=== PATIENT | male | born 1955 | race Caucasian/White ===

== ENCOUNTER → 2017-11-23 09:45 | Outpatient (CLI) | payer OTHER, SELFPAY ==
[2017-11-23 11:16] LABS: Cholesterol 106 mg/dL (200); High Density Lipoprotein 33 mg/dL; Triglycerides 96 mg/dL; Very Low Density Lipoprotein 19 mg/dL (5-40)
[2017-11-23 11:23] LABS: Hemoglobin A1c 6.1 % (4.2-6.3)
== END ==
PROVIDERS: Family Provider Family Medicine; PCP Family Medicine; Visit Provider Family Medicine
DX: E11.9 Type 2 diabetes mellitus without complications (principal); E78.5 Hyperlipidemia, unspecified
CPT/HCPCS: 36415; 80061; 83036

== ENCOUNTER → 2019-08-11 | Outpatient (CLI) | payer MEDICARE, SELFPAY ==
--- NOTE | 2019-08-11 16:00 | TISS_PTH ---
PATIENT: NASIM LINARES LOC: [facility] U#:[id number] AGE/SX: 64/M ROOM: RE08/11/[address]: Dr. Choco Enciso MD : [id number] BED: DIS: 08/11/2019 SPEC #: [id number] RECD: 08/11/19 17:20 STATUS: RAYMOND CORINA #: [id number] ABEL: 08/11/19 16:[address]: Choco Enciso DEPT: SURGICAL PATHOLOGY RECD BY: Tiffanie Gutierrez ENTERED: 08/12/19 12:03 SP TYPE: Tissue Bx ISABELLA DR: Dr. Brooks Davis MD Tissues: Leg, NOS Procedures: Surgery Specimen Level IV HEADER OPERATION: Right leg wound debridement PRE-OP DIAGNOSIS: Right leg wound TISSUE SUBMITTED: Right leg wound tissue MICROSCOPIC DIAGNOSIS Skin and soft tissue of right leg, biopsy: Fragments of superficial skin with acute and chronic inflammation, fibrinoid material and synthetic weakly polarizable material suggestive of gauze. AM:rita 08/13/19 COMMENT Case has been reviewed in consultation with Dr. Santiago who concurs with the above diagnosis. IDC:VIOLETTE MICROSCOPIC DESCRIPTION Slides are reviewed. GROSS DESCRIPTION Received in fixative is one container labeled with the patient's name and designated right leg wound. The specimen consists of multiple fragments of hemorrhagic soft tissue predominantly consists of blood clot that in aggregate measure 2.5 x 1.5 x 0.3 cm. The entire specimen is submitted in one cassette. / VIOLETTE:rita 08/12/19 TC:2 CPT: 25829
[2019-08-11 16:03] VITALS: BMI 38.6
== END | disposition home or self-care (01) ==
LOC: LABSPEC 08-12 12:00
PROVIDERS: PCP Family Medicine; Visit Provider Surgery
DX: S81.801A Unspecified open wound, right lower leg, initial encounter (principal)
CPT/HCPCS: 88305

== ENCOUNTER → 2019-08-19 09:28 | Outpatient (CLI) | payer MEDICARE, SELFPAY ==
[2019-08-11 16:03] VITALS: BMI 38.6
[2019-08-19 12:33] LABS: Color, Urine Straw (Yellow); Glucose, Dipstick Normal (Normal); Ketone-Dipstick Negative (Negative); Leukocyte Esterase-Dipstick Negative /ul (Negative); Nitrite-Dipstick Negative (Negative); Occult Blood-Urine Negative /ul (Negative); Protein-Dipstick Negative (Negative); Urine Bilirubin Dipstick Negative (Negative); Urine Clarity Clear (Clear); Urine Urobilinogen 1 mg/dl (Normal)
[2019-08-19 12:35] LABS: Absolute Lymphocyte Count 0.72 X10^3/uL (0.83-4.51); Absolute Neutrophil Count 7.1 X10^3/uL (2.0-7.7); Basophil# 0.05 X10^3/uL; Basophil% 0.6 % (0-1); Eosinophil# 0.05 X10^3/uL; Eosinophils% 0.6 % (0-5); Lymphocyte # 0.72 X10^3/ul (4.0); Lymphocyte % 8.4 % (19-41); Mean Corpuscular Hgb 30.9 pg (27.0-32.0); Mean Corpuscular Volume 96.6 fL (80-94); Mean Platelet Vol. 9.3 fl (6.2-12.0); Monocyte# 0.61 X10^3/uL; Monocyte% 7.1 % (0-10); NRBC Flagged by Analyzer 0 % (0-5); Neutrophil # 7.09 X10^3/uL (2.7-7.7); Neutrophil % 83.1 % (47-70); Platelet Count 153 K/mm3 (150-450); RBC Distribution Width CV 13.2 % (11.6-14.6); RBC Distribution Width SD 47.5 fl (35.1-43.9); Red Blood Count 6.09 M/mm3 (4.6-6.2); White Blood Count 8.5 K/mm3 (4.4-11.0)
[2019-08-19 12:52] LABS: Hematocrit 58.8 % (40-54)
[2019-08-19 12:53] LABS: Hemoglobin 18.8 g/dL (13.0-16.5)
[2019-08-19 13:01] LABS: ALB/GLOB Ratio 0.9 RATIO (0.9-2.4); AST(SGOT) 12 U/L (15-37); Alanine Aminotransfer ALT/SGPT 22 U/L (16-61); Albumin, Serum 3.6 g/dL (3.2-5.0); Alkaline Phosphatase 128 U/L (45-117); Anion Gap 3 (5-15); BUN 12 mg/dL (7-18); Calcium,Total 8.8 mg/dL (8.5-10.1); Chloride 100 mmol/L (98-107); Cholesterol 130 mg/dL (200); Creatinine, Serum 0.92 mg/dL (0.70-1.30); EST Glomerular Filtration Rate 87 mL/min (>60); Est Glom Filt Rate - Afr Amer 106 mL/min (>60); Globulin 3.8 g/dL (2.2-4.2); Glucose 107 mg/dL (74-106); High Density Lipoprotein 43 mg/dL; PSA,Total - Annual Screen 0.87 ng/mL (0.00-4.00); Potassium 3.7 mmol/L (3.5-5.1); Protein, Total 7.4 g/dL (6.4-8.2); Sodium Level 139 mmol/L (136-145); Triglycerides 65 mg/dL; Very Low Density Lipoprotein 13 mg/dL (5-40)
[2019-08-19 13:41] LABS: Hemoglobin A1c 5.9 % (4.2-6.3)
[2019-08-20 12:31] LABS: Pathologist Review Reviewed
== END ==
PROVIDERS: PCP Family Medicine; Referring Provider Family Medicine; Visit Provider Family Medicine
DX: Z00.00 Encounter for general adult medical examination without abnormal findings (principal); E11.9 Type 2 diabetes mellitus without complications; J44.9 Chronic obstructive pulmonary disease, unspecified; E78.5 Hyperlipidemia, unspecified; I10 Essential (primary) hypertension; Z12.5 Encounter for screening for malignant neoplasm of prostate
CPT/HCPCS: 36415; 80053; 80061; 81002; 83036; 84153; 85025; G0103

== ENCOUNTER 2019-08-28 08:30 | Outpatient (RCR) | payer MEDICARE, SELFPAY ==
[2019-08-07 10:34] VITALS: BP 121/70; PULSE 90; RESP 16; TEMP 36.6; BMI 38.6
[2019-08-07 10:48] VITALS: BMI 38.6
--- NOTE | 2019-08-07 11:18 | PCM.WC.HP ---
(1) Ulcer of right lower extremity with fat layer exposed Status: Chronic Current Visit: Yes Code(s): L97.912 - Non-pressure chronic ulcer of unspecified part of right lower leg with fat layer exposed (2) Bilateral lower extremity edema Status: Chronic Current Visit: Yes Code(s): R60.0 - Localized edema (3) Tobacco abuse disorder Status: Chronic Current Visit: Yes Code(s): Z72.0 - Tobacco use History of Present Illness Date of Service: 08/07/19 Chief Complaint: Right Leg Ulcer History of Wound: Mr. Ariza is a 64 yo who was referred by his Primiary care office to the wound center due to worsening right leg ulcer. He states that it has been present for over a year and it has progressively worsened. He presented to his primary care office last week due to what he describes as increased bleeding/ scabbing after he bumped it . He reports a similar episode in the past as well. He has over the years been applying antibiotic ointment to the area. No known history of Melanoma/Basal cell or varicosity. He does however have significnat bilateral lower extremity swelling. Past Medical History Past Medical History: Chronic Problems Ulcer of right lower extremity with fat layer exposed (Chronic) Ulcer of left calf (Chronic) Bilateral lower extremity edema (Chronic) Tobacco abuse disorder (Chronic) HTN (hypertension) (Chronic) Hyperlipemia (Chronic) CAD (coronary artery disease) (Chronic) Status post stenting in the past, following the Dr. Barker COPD (chronic obstructive pulmonary disease) (Chronic) On CPAP at night Surgical History: - - Coronary artery stent placement 2010 Allergies/Adverse Reactions: Allergies benzonatate [From Tessalon Perles] Allergy (Verified 08/07/19 11:01) Unknown chlorpheniramine polistirex [From Tussionex] Adverse Reaction (Verified 06/05/13 00:32) Rash hydrocodone polistirex [From Tussionex] Adverse Reaction (Verified 06/05/13 00:32) Rash levofloxacin [From Levaquin] Adverse Reaction (Verified 08/07/19 11:01) Rash Home Medications: Ambulatory Orders Medication Instructions Recorded Atorvastatin Calcium [Lipitor] 80 mg PO QHS 04/18/13 Clopidogrel Bisulfate [Plavix] 75 mg PO DAILY 04/18/13 Losartan Potassium [Cozaar] 50 mg PO DAILY 04/18/13 Isosorbide Mononitrate [Imdur] 60 mg PO DAILY #30 tablet 04/19/13 Albuterol Aerosols [Ventolin 2.5 mg INHALATION 4X/DAY #120 07/06/14 Aerosols] vial.neb. Albuterol IH (ProAir) [Proair Hfa 1 - 2 puff INHALATION Q4H PRN PRN 10/31/16 (SP)Vent Pts] Metformin HCl [Metformin HCl ER] 500 mg PO DAILY 10/31/16 Trazodone HCl 60 mg PO QHS 10/31/16 Budesonide/Formoterol 160/4.5 2 puff INHALATION BID 08/07/19 [Symbicort 160/4.5 Mcg Inhaler (SP)] Cephalexin [Keflex] mg PO TID 08/07/19 - Family History Maternal No pertinent history Smoking Status: Current every day smoker Review of Systems Constitutional: Denies: Anorexia, Chills, Fever Eyes: Denies: Blurred vision, Pain, Redness HEENT: Denies: Difficulty Swallowing Cardiovascular: Denies: Claudication Gastrointestinal: Denies: Abdominal Pain, Hematemesis, Vomiting Skin: Denies: Jaundice - Physical Exam Vital Signs Temp Pulse Resp BP 97.8 F 90 16 121/70 H 08/07/19 10:34 08/07/19 10:34 08/07/19 10:34 08/07/19 10:34 General: Alert, Oriented x3, Cooperative, No apparent distress HEENT: Atraumatic, Normocephalic Oral: Moist Mucosa Neck: Supple Lungs: Wheezes Cardiovascular: Regular rate, Regular Rhythm, Normal S1, Normal S2 Abdomen: Non Tender, Obese Extremities: No cyanosis, Edema Skin: Ulcer/ Wound Wound Measurements and Assessment WC - Nurse 1 - General Ulcer Measurement Start: 08/07/19 10:28 Freq: Status: Active Protocol: Activity Type Activity Date Activity User E-Sign Co-Sign Detail Recorded Client Recorded Date Recorded By Document 08/07/19 10:34 [id number] 08/07/19 10:47 CS 08/07/19 10:34 Wound Center Nurse 1 [Ulcer Assessment] #2 right lower lateral leg -Combined with other wound No -Current Size (cm) - Length 2.7 -Current Size (cm) - Width 3.6 -Current Size (cm) - Depth 0.1 -Total Square Cm 9.72 -Date of Last Picture (Recall this 08/07/19 field) -Photo Taken Yes -Epithelialization None Present -Tunneling No -Undermining/Tunneling No -Circular Undermining No -Exudate Amt None Present -Wound Margin Thickened -Granulation Quality Hyper- granulation -Slough/Fibrin Yes -Necrosis Amt None Present (0 %) -Necrotic Tissue Type Eschar -Structure Exposed N/A,None/ Limited to Skin Breakdown -Texture (Luna-wound Skin Appearance) No Abnormality, Assessed -Moisture (Luna-wound Skin Appearance Dry/Scaly ) -Color (Luna-wound Skin Appearance) Hemosiderin Staining -Temperature (Luna-wound Skin No Abnormality Appearance) (Pt Warm) -Tenderness on Palpation (Luna-wound No Skin Appearance) -Ulcer Cleansing Rinsed/ Irrigated with Saline -Foul Odor after Cleansing No -Anesthetic Used 5% Lidocaine Gel [Edema Assessment] -Lower Limb Edema Present Yes -Right Calf (cm) 50.8 -Right Ankle (cm) 30.1 -Left Calf (cm) 48.1 -Left Ankle (cm) 28.1 WC - Nurse 2 - General Ulcer CM Notes Start: 08/07/19 10:28 Freq: Status: Active Protocol: Activity Type Activity Date Activity User E-Sign Co-Sign Detail Recorded Client Recorded Date Recorded By Document 08/07/19 11:07 MW [id number] 08/07/19 11:11 MW 08/07/19 11:07 Wound Center Nurse 2 [Procedure/Treatment] #2 right lower lateral leg -Time 11:07 -Correct Patient Yes -Correct Side, Site, Position Yes -Correct Procedure Yes -Procedure Performed Yes -Type of Procedure Debridement -Clinical Debridement Selective -Post Debridement Size (cm) - Length 3.0 -Post Debridement Size (cm) - Width 3.6 -Post Debridement Size (cm) - Depth 0.1 -Total Square Cm 10.80 -Wound/Ulcer Outcome Not Healed -Ulcer Cleansing Rinsed/ Irrigated with Saline -Foul Odor after Cleansing No -Bioengineered Tissue No -Bleeding Controlled with Pressure -Offloading No -Treatment Response Procedure Tolerated Well [See Physician Procedure note for Specifics] Pain Scale: 0-10 Numeric [Pain] -Is Patient Pain Free? Yes Musculoskeletal: No Muscle Wasting Neurological: Cranial nerves II-XII grossly intact Psych/Mental Status: Normal Affect Debridement Note Post-Debridement Measurements/Treatment WC - Nurse 2 - General Ulcer CM Notes Start: 08/07/19 10:28 Freq: Status: Active Protocol: Activity Type Activity Date Activity User E-Sign Co-Sign Detail Recorded Client Recorded Date Recorded By Document 08/07/19 11:07 MW [id number] 08/07/19 11:11 MW 08/07/19 11:07 Wound Center Nurse 2 #2 right lower lateral leg -Time 11:07 -Correct Patient Yes -Correct Side, Site, Position Yes -Correct Procedure Yes -Procedure Performed Yes -Type of Procedure Debridement -Clinical Debridement Selective -Post Debridement Size (cm) - Length 3.0 -Post Debridement Size (cm) - Width 3.6 -Post Debridement Size (cm) - Depth 0.1 -Total Square Cm 10.80 -Wound/Ulcer Outcome Not Healed -Ulcer Cleansing Rinsed/ Irrigated with Saline -Foul Odor after Cleansing No -Bioengineered Tissue No -Bleeding Controlled with Pressure -Offloading No -Treatment Response Procedure Tolerated Well Pain Scale: 0-10 Numeric Is Patient Pain Free? Yes Wound debrided: Right Leg Ulcer Type of Debridement: Selective debridement Anesthesia Used: 4% Lidocaine Solution Depth: Down to and including healthy tissue Percentage of wound debrided: 100 Tissue Removed: Devitalized tissue Severity: Fat Layer Exposed Amount of bleeding with debridement: Mild Bleeding Controlled with: Pressure Patient tolerated procedure well Assessment/Plan Active Problems Ulcer of right lower extremity with fat layer exposed (Chronic) Bilateral lower extremity edema (Chronic) Tobacco abuse disorder (Chronic) Assessment: Chronic right lower exremity ulceration with concern for Skin Cancer Vs Vascular abnormality. Plan: Debridement done as documented above, procedure was well tolerated. As above significant bleeding on mild contact and ?? pearling noted ( ??? Basal cell carcinoma ). He however is currently on Plavix. Referred to Dr. Enciso for possible biopsy/ surgical evaluation. For now, [employer] ag daily with kelsi tse. Change daily to twice daily as needed. Smoking cessation very strongly encouraged. Patient declined compression. His questions were answered and he was advised to call with any questions or concerns. Follow up in 2weeks. Multi Select Codes - Visit Charges Office Visit/Consults: 68507 OV L3 Est - Integumentary Integumentary CPT Codes: 26142 Delphine subq tissue 20 sq cm/< - Selective debridement done. Please refer to the clinical note.
[2019-08-21 09:38] VITALS: BP 164/96; PULSE 86; RESP 16; TEMP 36.3; BMI 38.6
--- NOTE | 2019-08-21 12:35 | PN.PCM_ITS ---
(1) Ulcer of right lower extremity with fat layer exposed Status: Chronic Current Visit: Yes Code(s): L97.912 - Non-pressure chronic ulcer of unspecified part of right lower leg with fat layer exposed (2) Bilateral lower extremity edema Status: Chronic Current Visit: Yes Code(s): R60.0 - Localized edema (3) Tobacco abuse disorder Status: Chronic Current Visit: Yes Code(s): Z72.0 - Tobacco use Type of Wound Date of Service: 08/21/19 Chief Complaint: Right Leg Ulcer History of Wound: Mr. Ariza is a 64 yo who was referred by his Primiary care office to the wound center due to worsening right leg ulcer. He states that it has been present for over a year and it has progressively worsened. He presented to his primary care office last week due to what he describes as increased bleeding/ scabbing after he bumped it . He reports a similar episode in the past as well. He has over the years been applying antibiotic ointment to the area. No known history of Melanoma/Basal cell or varicosity. He does however have significnat bilateral lower extremity swelling. Progress of Wound: No new concerns. Biopsy negative for malignancy. - Physical Exam Vital Signs Temp Pulse Resp BP 97.3 F L 86 16 164/96 H 08/21/19 09:38 08/21/19 09:38 08/21/19 09:38 08/21/19 09:38 General: Alert, Oriented x3, Cooperative, No apparent distress HEENT: Atraumatic, Normocephalic Oral: Moist Mucosa Neck: Supple Lungs: Normal air movement Abdomen: Non Tender, Obese Extremities: No cyanosis Skin: Ulcer/ Wound Wound Measurements and Assessment WC - Nurse 1 - General Ulcer Measurement Start: 08/07/19 10:28 Freq: Status: Active Protocol: Activity Type Activity Date Activity User E-Sign Co-Sign Detail Recorded Client Recorded Date Recorded By Document 08/21/19 09:38 [facility] [id number] 08/21/19 09:44 [facility] 08/21/19 09:38 Wound Center Nurse 1 [Ulcer Assessment] #2 right lower lateral leg -Combined with other wound No -Current Size (cm) - Length 0.1 -Current Size (cm) - Width 0.1 -Current Size (cm) - Depth 0.1 -Total Square Cm 0.01 -Photo Taken No -Tunneling No -Undermining/Tunneling No -Circular Undermining No -Exudate Amt Small -Exudate Type Sanguineous -Granulation Amt None Present (0 %) -Slough/Fibrin Yes -Necrosis Amt Large (67-100%) -Necrotic Tissue Type Eschar -Texture (Luna-wound Skin Appearance) Assessed, Scarring -Moisture (Luna-wound Skin Appearance Assessed,Dry/ ) Scaly -Color (Luna-wound Skin Appearance) Assessed, Hemosiderin Staining -Temperature (Luna-wound Skin No Abnormality Appearance) (Pt Warm) -Tenderness on Palpation (Luna-wound No Skin Appearance) -Ulcer Cleansing Rinsed/ Irrigated with Saline -Foul Odor after Cleansing No -Anesthetic Used 5% Lidocaine Gel [Edema Assessment] -Lower Limb Edema Present Yes -Right Calf (cm) 49 -Right Ankle (cm) 28.6 WC - Nurse 2 - General Ulcer CM Notes Start: 08/07/19 10:28 Freq: Status: Active Protocol: Activity Type Activity Date Activity User E-Sign Co-Sign Detail Recorded Client Recorded Date Recorded By Document 08/21/19 09:52 MW [id number] 08/21/19 10:00 MW 08/21/19 09:52 Wound Center Nurse 2 [Procedure/Treatment] #2 right lower lateral leg -Time 09:52 -Correct Patient Yes -Correct Side, Site, Position Yes -Correct Procedure Yes -Procedure Performed Yes -Type of Procedure Debridement -Clinical Debridement Subcutaneous -Post Debridement Size (cm) - Length 1.5 -Post Debridement Size (cm) - Width 1.8 -Post Debridement Size (cm) - Depth 0.2 -Total Square Cm 2.70 -Wound/Ulcer Outcome Not Healed -Ulcer Cleansing Rinsed/ Irrigated with Saline -Foul Odor after Cleansing No -Bioengineered Tissue No -Bleeding Controlled with Pressure -Offloading No -Treatment Response Procedure Tolerated Well [See Physician Procedure note for Specifics] Pain Scale: 0-10 Numeric [Pain] -Is Patient Pain Free? Yes Neurological: Cranial nerves II-XII grossly intact Debridement Note Post-Debridement Measurements/Treatment WC - Nurse 2 - General Ulcer CM Notes Start: 08/07/19 10:28 Freq: Status: Active Protocol: Activity Type Activity Date Activity User E-Sign Co-Sign Detail Recorded Client Recorded Date Recorded By Document 08/07/19 11:07 MW [id number] 08/07/19 11:11 MW Document 08/21/19 09:52 MW [id number] 08/21/19 10:00 MW 08/07/19 08/21/19 11:07 09:52 Wound Center Nurse 2 #2 right lower lateral leg -Time 11: 09:52 -Correct Patient Yes Yes -Correct Side, Site, Position Yes Yes -Correct Procedure Yes Yes -Procedure Performed Yes Yes -Type of Procedure Debridement Debridement -Clinical Debridement Selective Subcutaneous -Post Debridement Size (cm) - Length 3.0 1.5 -Post Debridement Size (cm) - Width 3.6 1.8 -Post Debridement Size (cm) - Depth 0.1 0.2 -Total Square Cm 10.80 2.70 -Wound/Ulcer Outcome Not Healed Not Healed -Ulcer Cleansing Rinsed/ Rinsed/ Irrigated with Irrigated with Saline Saline -Foul Odor after Cleansing No No -Bioengineered Tissue No No -Bleeding Controlled with Pressure Pressure -Offloading No No -Treatment Response Procedure Procedure Tolerated Well Tolerated Well Pain Scale: 0-10 Numeric Is Patient Pain Free? Yes Yes Wound debrided: Right Leg Type of Debridement: Excisional debridement Anesthesia Used: 4% Lidocaine Solution Depth: Down to and including healthy tissue, in the subcutaneous layer Percentage of wound debrided: 100 Instrument Used: 5mm curette, #15 blade, Forceps Tissue Removed: Slough and devitalized tissue Severity: Fat Layer Exposed Amount of bleeding with debridement: Mild Bleeding Controlled with: Pressure Patient tolerated procedure well Assessment/Plan Active Problems (Last Reviewed 08/11/19 @ 16:01 by Catie Turner) Ulcer of right lower extremity with fat layer exposed (Chronic) Bilateral lower extremity edema (Chronic) Tobacco abuse disorder (Chronic) Assessment: Chronic right lower exremity ulceration with concern for Skin Cancer Vs Vascular abnormality. Plan: Debridement done as documented above. procedure was well tolerated. Continue [employer] ag. Change daily to twice daily as needed. Smoking cessation very strongly encouraged. Patient declined compression. His questions were answered and he was advised to call with any questions or concerns. Follow up in 1 week. Code Visit 111xxx-113xx: [id number] Delphine subq tissue 20 sq cm/<
[2019-08-28 08:36] VITALS: BP 134/69; PULSE 94; RESP 18; TEMP 36.3; BMI 38.6
--- NOTE | 2019-08-28 08:58 | PCM.WC.PN ---
(1) Ulcer of right lower extremity with fat layer exposed Status: Chronic Current Visit: Yes Code(s): L97.912 - Non-pressure chronic ulcer of unspecified part of right lower leg with fat layer exposed (2) Bilateral lower extremity edema Status: Chronic Current Visit: Yes Code(s): R60.0 - Localized edema (3) Tobacco abuse disorder Status: Chronic Current Visit: Yes Code(s): Z72.0 - Tobacco use Type of Wound Date of Service: 08/28/19 Chief Complaint: Right Leg Ulcer History of Wound: Mr. Ariza is a 64 yo who was referred by his Primiary care office to the wound center due to worsening right leg ulcer. He states that it has been present for over a year and it has progressively worsened. He presented to his primary care office last week due to what he describes as increased bleeding/ scabbing after he bumped it . He reports a similar episode in the past as well. He has over the years been applying antibiotic ointment to the area. No known history of Melanoma/Basal cell or varicosity. He does however have significnat bilateral lower extremity swelling. Progress of Wound: No new concerns. Improving. - Physical Exam Vital Signs Temp Pulse Resp BP 97.4 F L 94 18 134/69 H 08/28/19 08:36 08/28/19 08:36 08/28/19 08:36 08/28/19 08:36 General: Alert, Oriented x3, Cooperative, No apparent distress HEENT: Atraumatic, Normocephalic Oral: Moist Mucosa Neck: Supple Abdomen: Non Tender, Obese Extremities: No cyanosis, Edema Skin: Ulcer/ Wound Wound Measurements and Assessment WC - Nurse 1 - General Ulcer Measurement Start: 08/07/19 10:28 Freq: Status: Active Protocol: Activity Type Activity Date Activity User E-Sign Co-Sign Detail Recorded Client Recorded Date Recorded By Document 08/28/19 08:36 DV [id number] 08/28/19 08:43 DV 08/28/19 08:36 Wound Center Nurse 1 [Ulcer Assessment] #2 right lower lateral leg -Combined with other wound No -Current Size (cm) - Length 1.4 -Current Size (cm) - Width 1.0 -Current Size (cm) - Depth 0.1 -Total Square Cm 1.40 -Photo Taken No -Epithelialization None Present -Tunneling No -Undermining/Tunneling No -Circular Undermining No -Classification - Thickness Full Thickness without Exposed Support Structure -Exudate Amt Medium -Exudate Type Serosanguineous -Wound Margin Indistinct, Non -Visible -Granulation Amt None Present (0 %) -Granulation Quality N/A -Slough/Fibrin Yes -Necrosis Amt Large (67-100%) -Necrotic Tissue Type Adherent Slough -Structure Exposed None/Limited to Skin Breakdown -Texture (Luna-wound Skin Appearance) Assessed, Scarring -Moisture (Luna-wound Skin Appearance Assessed,Dry/ ) Scaly -Color (Luna-wound Skin Appearance) No Abnormality, Assessed -Temperature (Luna-wound Skin No Abnormality Appearance) (Pt Warm) -Tenderness on Palpation (Luna-wound No Skin Appearance) -Ulcer Cleansing Rinsed/ Irrigated with Saline -Foul Odor after Cleansing No -Anesthetic Used 5% Lidocaine Gel WC - Nurse 2 - General Ulcer CM Notes Start: 08/07/19 10:28 Freq: Status: Active Protocol: Activity Type Activity Date Activity User E-Sign Co-Sign Detail Recorded Client Recorded Date Recorded By Document 08/28/19 08:48 MW [id number] 08/28/19 08:51 MW 08/28/19 08:48 Wound Center Nurse 2 [Procedure/Treatment] -Time 08:48 -Correct Patient Yes -Correct Side, Site, Position Yes -Correct Procedure Yes -Procedure Performed Yes -Type of Procedure Debridement -Clinical Debridement Subcutaneous -Post Debridement Size (cm) - Length 0.8 -Post Debridement Size (cm) - Width 1.0 -Post Debridement Size (cm) - Depth 0.1 -Total Square Cm 0.80 -Wound/Ulcer Outcome Not Healed -Ulcer Cleansing Rinsed/ Irrigated with Saline -Foul Odor after Cleansing No -Bioengineered Tissue No -Bleeding Controlled with Pressure -Offloading No -Treatment Response Procedure Tolerated Well [See Physician Procedure note for Specifics] Pain Scale: 0-10 Numeric [Pain] -Is Patient Pain Free? Yes Musculoskeletal: No Muscle Wasting Neurological: Cranial nerves II-XII grossly intact Psych/Mental Status: Normal Affect Debridement Note Post-Debridement Measurements/Treatment WC - Nurse 2 - General Ulcer CM Notes Start: 08/07/19 10:28 Freq: Status: Active Protocol: Activity Type Activity Date Activity User E-Sign Co-Sign Detail Recorded Client Recorded Date Recorded By Document 08/07/19 11:07 MW [id number] 08/07/19 11:11 MW Document 08/21/19 09:52 MW [id number] 08/21/19 10:00 MW Document 08/28/19 08:48 MW [id number] 08/28/19 08:51 MW 08/07/19 08/21/19 08/28/19 11:07 09:52 08:48 Wound Center Nurse 2 #2 right lower lateral leg -Time 11:07 09:52 08:48 -Correct Patient Yes Yes Yes -Correct Side, Site, Position Yes Yes Yes -Correct Procedure Yes Yes Yes -Procedure Performed Yes Yes Yes -Type of Procedure Debridement Debridement Debridement -Clinical Debridement Selective Subcutaneous Subcutaneous -Post Debridement Size (cm) - Length 3.0 1.5 0.8 -Post Debridement Size (cm) - Width 3.6 1.8 1.0 -Post Debridement Size (cm) - Depth 0.1 0.2 0.1 -Total Square Cm 10.80 2.70 0.80 -Wound/Ulcer Outcome Not Healed Not Healed Not Healed -Ulcer Cleansing Rinsed/ Rinsed/ Rinsed/ Irrigated with Irrigated with Irrigated with Saline Saline Saline -Foul Odor after Cleansing No No No -Bioengineered Tissue No No No -Bleeding Controlled with Pressure Pressure Pressure -Offloading No No No -Treatment Response Procedure Procedure Procedure Tolerated Well Tolerated Well Tolerated Well Pain Scale: 0-10 Numeric Is Patient Pain Free? Yes Yes Yes Wound debrided: Right leg Type of Debridement: Excisional debridement Anesthesia Used: 4% Lidocaine Solution Depth: Down to and including healthy tissue, in the subcutaneous layer Percentage of wound debrided: 100 Instrument Used: 5mm curette Tissue Removed: Slough and devitalized tissue. Severity: Fat Layer Exposed Amount of bleeding with debridement: Mild Bleeding Controlled with: Pressure Patient tolerated procedure well Assessment/Plan Active Problems (Last Reviewed 08/11/19 @ 16:01 by Catie Turner) Ulcer of right lower extremity with fat layer exposed (Chronic) Bilateral lower extremity edema (Chronic) Tobacco abuse disorder (Chronic) Assessment: Chronic right lower exremity ulceration with concern for Skin Cancer Vs Vascular abnormality. Biopsy negative for malignancy. Chronic inflammatory changes noted. Plan: Debridement done as documented above. procedure was well tolerated. Continue [employer]. Change daily to twice daily as needed. Smoking cessation very strongly encouraged. Patient declined compression. His questions were answered and he was advised to call with any questions or concerns. Follow up in 1 week. Code Visit 111xxx-113xx: [id number] Delphine subq tissue 20 sq cm/<
== END 2019-08-30 23:59 ==
LOC: WC 08:30
PROVIDERS: PCP Family Medicine; Referring Provider Surgery; Visit Provider Internal Medicine
DX: L97.912 Non-pressure chronic ulcer of unspecified part of right lower leg with fat layer exposed (principal); R60.0 Localized edema; M79.89 Other specified soft tissue disorders; I25.10 Atherosclerotic heart disease of native coronary artery without angina pectoris; J44.9 Chronic obstructive pulmonary disease, unspecified; I10 Essential (primary) hypertension; E78.5 Hyperlipidemia, unspecified; F17.200 Nicotine dependence, unspecified, uncomplicated; Z88.1 Allergy status to other antibiotic agents; Z79.02 Long term (current) use of antithrombotics/antiplatelets; Z95.5 Presence of coronary angioplasty implant and graft
CPT/HCPCS: 11042; 97597; 99213; G0463

== ENCOUNTER → 2019-09-16 14:08 | Outpatient (CLI) | payer MEDICARE, SELFPAY ==
[2019-09-04 09:39] VITALS: BMI 38.6
--- NOTE | 2019-09-16 14:32 | CT_ITS ---
STUDY: LOW DOSE CT LUNG CANCER SCREENING REASON FOR EXAM: Male, 64 years old. PT STATED 1PPD X 40 YEAR HX COPD RADIATION DOSAGE (If Supplied By Facility): CTDIvol = ( 4.02 ) mGy, DLP = ( 151.50 ) mGycm TECHNIQUE: No contrast was administered. Low dose technique was utilized (average mAS-38 and kVp 120). 1.25 mm axial source images with a slice interval of 1.25-mm were reconstructed in lung windows. 2.5 mm axial source images with a slice interval of 2.5-mm were reconstructed in lung windows. 5.0 mm axial source images with a slice interval of 5.0-mm were reconstructed in soft tissue windows. Nodule measured using lung windows on PACS and/or independent workstation with automated measurement of minimum and maximum diameter. Nodule measurement reported as average diameter rounded to the nearest whole number. Growth is defined as an increase ins size of greater than 1.5 mm. COMPARISON: None. NODULES: There is a 6.1 mm x 2.8 mm nodule in the anterior aspect of the right upper lobe abutting the minor fissure. Mild degree of increased markings at the lung bases suggestive of scarring. Aorta: Atherosclerotic calcification of the aortic arch. Coronary arteries: Coronary artery calcifications. Heart: Minimal degree of pericardial thickening. Mediastinal nodes: Small benign-appearing mediastinal lymph nodes. Other chest and abdominal findings: Degenerative changes of the thoracic spine. CT/Low Dose CT Lung Screening IMPRESSION: Lung-RADS category 2 - Continue annual screening with LDCT in 12 months. IMPORTANT NOTES FOR USE: ACR Lung-RADS Version 1.0 Assessment Categories Release Date: October 27, 2013 Category: Coded 0-4 bases on nodule(s) with highest degree of suspicion. Negative screen is defined as categories 1 and 2; a positive screen is defined as categories 3 and 4. Category 3 and 4A nodules that are unchanged on interval CT should be coded as category 2, and individuals returned to screening in 12 months. Category 4X: Category 3 or 4 nodules with additional imaging findings that increase the suspicion of lung cancer, such as spiculation, GGN that doubles in size in 1 year, enlarged lymph notes, etc. Category Modifiers: S (significant finding unrelated to lung cancer) and C (prior history of treated lung cancer) may be added to the 0-4 Lung-RADS Electronically Signed: Linus Manzo, at 15:05 EDT , Service support ,
== END ==
PROVIDERS: PCP Family Medicine; Referring Provider Internal Medicine Hematology & Oncology; Visit Provider Internal Medicine Hematology & Oncology
DX: J44.9 Chronic obstructive pulmonary disease, unspecified (principal); F17.210 Nicotine dependence, cigarettes, uncomplicated; D75.1 Secondary polycythemia; Z12.2 Encounter for screening for malignant neoplasm of respiratory organs
CPT/HCPCS: G0297

== ENCOUNTER 2019-09-18 09:45 | Outpatient (RCR) | payer MEDICARE, SELFPAY ==
[2019-08-31 01:03] VITALS: BP 134/69; PULSE 94; RESP 18; TEMP 36.3
[2019-09-04 09:39] VITALS: BP 167/86; PULSE 76; RESP 16; TEMP 36.6; BMI 38.6
--- NOTE | 2019-09-04 12:46 | PCM.WC.PN ---
(1) Ulcer of right lower extremity with fat layer exposed Status: Chronic Current Visit: Yes Code(s): L97.912 - Non-pressure chronic ulcer of unspecified part of right lower leg with fat layer exposed (2) Bilateral lower extremity edema Status: Chronic Current Visit: Yes Code(s): R60.0 - Localized edema (3) Tobacco abuse disorder Status: Chronic Current Visit: Yes Code(s): Z72.0 - Tobacco use Type of Wound Date of Service: 09/04/19 Chief Complaint: Right Leg Ulcer History of Wound: Mr. Ariza is a 64 yo who was referred by his Primiary care office to the wound center due to worsening right leg ulcer. He states that it has been present for over a year and it has progressively worsened. He presented to his primary care office last week due to what he describes as increased bleeding/ scabbing after he bumped it . He reports a similar episode in the past as well. He has over the years been applying antibiotic ointment to the area. No known history of Melanoma/Basal cell or varicosity. He does however have significnat bilateral lower extremity swelling. Progress of Wound: No new concerns. Improving. - Physical Exam Vital Signs Temp Pulse Resp BP 97.9 F 76 16 167/86 H 09/04/19 09:39 09/04/19 09:39 09/04/19 09:39 09/04/19 09:39 General: Alert, Oriented x3, Cooperative, No apparent distress HEENT: Atraumatic, Normocephalic Oral: Moist Mucosa Neck: Supple Abdomen: Non Tender, Obese Extremities: No cyanosis, Edema Skin: Ulcer/ Wound Wound Measurements and Assessment WC - Nurse 1 - General Ulcer Measurement Start: 09/04/19 09:39 Freq: Status: Active Protocol: Activity Type Activity Date Activity User E-Sign Co-Sign Detail Recorded Client Recorded Date Recorded By Document 09/04/19 09:39 [facility] [id number] 09/04/19 09:44 [facility] 09/04/19 09:39 Wound Center Nurse 1 [Ulcer Assessment] #2 right lower lateral leg -Combined with other wound No -Current Size (cm) - Length 1.4 -Current Size (cm) - Width 1.4 -Current Size (cm) - Depth 0.1 -Total Square Cm 1.96 -Photo Taken No -Epithelialization None Present -Tunneling No -Undermining/Tunneling No -Circular Undermining No -Exudate Amt None Present -Wound Margin Distinct, Outline Attached -Granulation Amt None Present (0 %) -Slough/Fibrin Yes -Necrosis Amt Large (67-100%) -Necrotic Tissue Type Eschar -Texture (Luna-wound Skin Appearance) Assessed, Scarring -Moisture (Luna-wound Skin Appearance Assessed,Dry/ ) Scaly -Color (Luna-wound Skin Appearance) Assessed, Erythema, Hemosiderin Staining -Temperature (Luna-wound Skin No Abnormality Appearance) (Pt Warm) -Tenderness on Palpation (Luna-wound No Skin Appearance) -Ulcer Cleansing Rinsed/ Irrigated with Saline -Foul Odor after Cleansing No -Anesthetic Used 5% Lidocaine Gel WC - Nurse 2 - General Ulcer CM Notes Start: 09/04/19 09:39 Freq: Status: Active Protocol: Activity Type Activity Date Activity User E-Sign Co-Sign Detail Recorded Client Recorded Date Recorded By Document 09/04/19 10:05 MW [id number] 09/04/19 10:07 MW 09/04/19 10:05 Wound Center Nurse 2 [Procedure/Treatment] -Time 10:06 -Correct Patient Yes -Correct Side, Site, Position Yes -Correct Procedure Yes -Procedure Performed Yes -Type of Procedure Debridement -Clinical Debridement Subcutaneous -Post Debridement Size (cm) - Length 0.5 -Post Debridement Size (cm) - Width 0.5 -Post Debridement Size (cm) - Depth 0.2 -Total Square Cm 0.25 -Wound/Ulcer Outcome Not Healed -Ulcer Cleansing Rinsed/ Irrigated with Saline -Foul Odor after Cleansing No -Bioengineered Tissue No -Bleeding Controlled with Pressure -Offloading No -Treatment Response Procedure Tolerated Well [See Physician Procedure note for Specifics] Pain Scale: 0-10 Numeric [Pain] -Is Patient Pain Free? Yes Neurological: Cranial nerves II-XII grossly intact Psych/Mental Status: Normal Affect Debridement Note Post-Debridement Measurements/Treatment WC - Nurse 2 - General Ulcer CM Notes Start: 09/04/19 09:39 Freq: Status: Active Protocol: Activity Type Activity Date Activity User E-Sign Co-Sign Detail Recorded Client Recorded Date Recorded By Document 09/04/19 10:05 MW [id number] 09/04/19 10:07 MW 09/04/19 10:05 Wound Center Nurse 2 #2 right lower lateral leg -Time 10:06 -Correct Patient Yes -Correct Side, Site, Position Yes -Correct Procedure Yes -Procedure Performed Yes -Type of Procedure Debridement -Clinical Debridement Subcutaneous -Post Debridement Size (cm) - Length 0.5 -Post Debridement Size (cm) - Width 0.5 -Post Debridement Size (cm) - Depth 0.2 -Total Square Cm 0.25 -Wound/Ulcer Outcome Not Healed -Ulcer Cleansing Rinsed/ Irrigated with Saline -Foul Odor after Cleansing No -Bioengineered Tissue No -Bleeding Controlled with Pressure -Offloading No -Treatment Response Procedure Tolerated Well Pain Scale: 0-10 Numeric Is Patient Pain Free? Yes Wound debrided: Right Leg Type of Debridement: Excisional debridement Anesthesia Used: 4% Lidocaine Solution Depth: Down to and including healthy tissue, in the subcutaneous layer Percentage of wound debrided: 100 Instrument Used: 5mm curette Tissue Removed: Slough and devitalized tissue Severity: Fat Layer Exposed Amount of bleeding with debridement: Mild Bleeding Controlled with: Pressure Patient tolerated procedure well Assessment/Plan Active Problems (Last Reviewed 08/11/19 @ 16:01 by Catie Turner) Ulcer of right lower extremity with fat layer exposed (Chronic) Bilateral lower extremity edema (Chronic) Tobacco abuse disorder (Chronic) Assessment: Chronic right lower exremity ulceration with concern for Skin Cancer Vs Vascular abnormality. Biopsy negative for malignancy. Chronic inflammatory changes noted. Plan: Debridement done as documented above, procedure was well tolerated. Continue aquacel ag. Change daily to twice daily as needed. Advised to clean ulcer properly before changing. Significnat scabbing/ dryness noted. Smoking cessation very strongly encouraged. Patient declined compression. His questions were answered and he was advised to call with any questions or concerns. Follow up in 2 weeks. This note was generated with [employer] dictation software. It may contain incorrect words, spelling, and punctuation that were not noted in checking the note before signing. [id number]: [id number] Delphine subq tissue 20 sq cm/<
[2019-09-18 09:42] VITALS: BP 157/86; PULSE 83; RESP 18; TEMP 36.4; BMI 38.6
--- NOTE | 2019-09-18 11:32 | PCM.WC.PN ---
(1) Ulcer of right lower extremity with fat layer exposed Status: Chronic Current Visit: Yes Code(s): L97.912 - Non-pressure chronic ulcer of unspecified part of right lower leg with fat layer exposed (2) Bilateral lower extremity edema Status: Chronic Current Visit: Yes Code(s): R60.0 - Localized edema (3) Tobacco abuse disorder Status: Chronic Current Visit: Yes Code(s): Z72.0 - Tobacco use Type of Wound Date of Service: 09/18/19 Chief Complaint: Right Leg Ulcer History of Wound: Mr. Ariza is a 64 yo who was referred by his Primiary care office to the wound center due to worsening right leg ulcer. He states that it has been present for over a year and it has progressively worsened. He presented to his primary care office last week due to what he describes as increased bleeding/ scabbing after he bumped it . He reports a similar episode in the past as well. He has over the years been applying antibiotic ointment to the area. No known history of Melanoma/Basal cell or varicosity. He does however have significnat bilateral lower extremity swelling. Progress of Wound: Healed. Healthy scab over ulcer. No new concerns. - Physical Exam Vital Signs Temp Pulse Resp BP 97.5 F L 83 18 157/86 H 09/18/19 09:42 09/18/19 09:42 09/18/19 09:42 09/18/19 09:42 General: Alert, Oriented x3, Cooperative, No apparent distress HEENT: Atraumatic, Normocephalic Oral: Moist Mucosa Neck: Supple Lungs: Normal air movement Extremities: No cyanosis Wound Measurements and Assessment WC - Nurse 1 - General Ulcer Measurement Start: 09/04/19 09:39 Freq: Status: Active Protocol: Activity Type Activity Date Activity User E-Sign Co-Sign Detail Recorded Client Recorded Date Recorded By Document 09/18/19 09:42 RB [id number] 09/18/19 09:45 RB 09/18/19 09:42 Wound Center Nurse 1 [Ulcer Assessment] #2 right lower lateral leg -Combined with other wound No -Current Size (cm) - Length 0.4 -Current Size (cm) - Width 0.3 -Current Size (cm) - Depth 0.1 -Total Square Cm 0.12 -Tunneling No -Undermining/Tunneling No -Circular Undermining No -Exudate Amt None Present -Wound Margin Flat & Intact -Granulation Amt None Present (0 %) -Slough/Fibrin Yes -Necrosis Amt Large (67-100%) -Necrotic Tissue Type Eschar -Structure Exposed N/A -Texture (Luna-wound Skin Appearance) Assessed -Moisture (Luna-wound Skin Appearance Assessed,Dry/ ) Scaly -Color (Luna-wound Skin Appearance) Assessed -Temperature (Luna-wound Skin No Abnormality Appearance) (Pt Warm) -Tenderness on Palpation (Luna-wound No Skin Appearance) -Ulcer Cleansing Wound Cleanser -Foul Odor after Cleansing No -Anesthetic Used 5% Lidocaine Gel [Edema Assessment] -Lower Limb Edema Present Yes -Right Calf (cm) 47.5 -Right Ankle (cm) 28 - Nurse 2 - General Ulcer CM Notes Start: 09/04/19 09:39 Freq: Status: Active Protocol: Activity Type Activity Date Activity User E-Sign Co-Sign Detail Recorded Client Recorded Date Recorded By Document 09/18/19 09:48 MW [id number] 09/18/19 09:50 MW 09/18/19 09:48 Wound Center Nurse 2 [Procedure/Treatment] #2 right lower lateral leg -Time 09:49 -Correct Patient Yes -Correct Side, Site, Position Yes -Correct Procedure Yes -Procedure Performed No -Post Debridement Size (cm) - Length 0 -Post Debridement Size (cm) - Width 0 -Post Debridement Size (cm) - Depth 0 -Total Square Cm 0 -Wound/Ulcer Outcome Healed- Epithelialized [See Physician Procedure note for Specifics] Pain Scale: 0-10 Numeric [Pain] -Is Patient Pain Free? Yes Musculoskeletal: No Muscle Wasting Neurological: Cranial nerves II-XII grossly intact Psych/Mental Status: Normal Affect Debridement Note Post-Debridement Measurements/Treatment - Nurse 2 - General Ulcer CM Notes Start: 09/04/19 09:39 Freq: Status: Active Protocol: Activity Type Activity Date Activity User E-Sign Co-Sign Detail Recorded Client Recorded Date Recorded By Document 09/04/19 10:05 MW [id number] 09/04/19 10:07 MW Document 09/18/19 09:48 MW [id number] 09/18/19 09:50 MW 09/04/19 09/18/19 10:05 09:48 Wound Center Nurse 2 #2 right lower lateral leg -Time 10:06 09:49 -Correct Patient Yes Yes -Correct Side, Site, Position Yes Yes -Correct Procedure Yes Yes -Procedure Performed Yes No -Type of Procedure Debridement -Clinical Debridement Subcutaneous -Post Debridement Size (cm) - Length 0.5 0 -Post Debridement Size (cm) - Width 0.5 0 -Post Debridement Size (cm) - Depth 0.2 0 -Total Square Cm 0.25 0 -Wound/Ulcer Outcome Not Healed Healed- Epithelialized -Ulcer Cleansing Rinsed/ Irrigated with Saline -Foul Odor after Cleansing No -Bioengineered Tissue No -Bleeding Controlled with Pressure -Offloading No -Treatment Response Procedure Tolerated Well Pain Scale: 0-10 Numeric Is Patient Pain Free? Yes Yes No debridement was completed today Assessment/Plan Active Problems (Last Reviewed 08/11/19 @ 16:01 by Catie Turner) Ulcer of right lower extremity with fat layer exposed (Chronic) Bilateral lower extremity edema (Chronic) Tobacco abuse disorder (Chronic) Assessment: Chronic right lower exremity ulceration with concern for Skin Cancer Vs Vascular abnormality. Biopsy negative for malignancy. Chronic inflammatory changes noted. Plan: Minimal healthy scab noted over small area. Does not appear that there is an underlying concern. Clean well daily and cover area with Adaptic and gauze for 2 weeks. Call with any concerns. Discharge from the wound clinic. Smoking cessation very strongly encouraged. Patient declined compression. His questions were answered and he was advised to call with any questions or concerns. This note was generated with [employer] dictation software. It may contain incorrect words, spelling, and punctuation that were not noted in checking the note before signing. Office Visits / Consults: [id number] L3 Est
== END 2019-09-30 23:59 ==
LOC: WC 09:45
PROVIDERS: PCP Family Medicine; Referring Provider Surgery; Visit Provider Internal Medicine
DX: L97.912 Non-pressure chronic ulcer of unspecified part of right lower leg with fat layer exposed (principal); R60.0 Localized edema; Z72.0 Tobacco use; Z79.84 Long term (current) use of oral hypoglycemic drugs; Z79.02 Long term (current) use of antithrombotics/antiplatelets; Z79.899 Other long term (current) drug therapy
CPT/HCPCS: 11042; 99213; G0463

== ENCOUNTER → 2021-01-12 09:50 | Outpatient (CLI) | payer MEDICARE, SELFPAY ==
[2021-01-12 12:14] LABS: Absolute Lymphocyte Count 0.91 X10^3/uL (0.83-4.51); Absolute Neutrophil Count 5.7 X10^3/uL (2.0-7.7); Basophil# 0.03 X10^3/uL; Basophil% 0.4 % (0-1); Eosinophil# 0.05 X10^3/uL; Eosinophils% 0.7 % (0-5); Hemoglobin 17.9 g/dL (13.0-16.5); Lymphocyte # 0.91 X10^3/ul (0.83-4.51); Lymphocyte % 12.6 % (19-41); Mean Corp Hgb Conc 31.3 g/dL (32-36); Mean Corpuscular Hgb 29.9 pg (27.0-32.0); Mean Corpuscular Volume 95.3 fL (80-94); Mean Platelet Vol. 8.9 fl (6.2-12.0); Monocyte# 0.54 X10^3/uL; Monocyte% 7.5 % (0-10); NRBC Flagged by Analyzer 0 % (0-5); Neutrophil # 5.65 X10^3/uL (2.7-7.7); Neutrophil % 78.4 % (47-70); Platelet Count 150 K/mm3 (150-450); RBC Distribution Width CV 13.8 % (11.6-14.6); RBC Distribution Width SD 48.9 fl (35.1-43.9); Red Blood Count 5.99 M/mm3 (4.6-6.2); White Blood Count 7.2 K/mm3 (4.4-11.0)
[2021-01-12 12:26] LABS: Differential Indicated SCAN CRITERIA MET; Hematocrit 57.1 % (40-54)
[2021-01-12 12:39] LABS: ALB/GLOB Ratio 0.9 RATIO (0.9-2.4); AST(SGOT) 12 U/L (15-37); Alanine Aminotransfer ALT/SGPT 12 U/L (16-61); Albumin, Serum 3.2 g/dL (3.2-5.0); Alkaline Phosphatase 128 U/L (45-117); Anion Gap 3 (5-15); BUN 12 mg/dL (7-18); BUN/Creat Ratio 13.6 RATIO (10-20); Calcium,Total 8.4 mg/dL (8.5-10.1); Chloride 100 mmol/L (98-107); Cholesterol 104 mg/dL (200); Creatinine, Serum 0.88 mg/dL (0.70-1.30); EST Glomerular Filtration Rate 91 mL/min (>60); Est Glom Filt Rate - Afr Amer 111 mL/min (>60); Globulin 3.5 g/dL (2.2-4.2); Glucose 101 mg/dL (74-106); High Density Lipoprotein 35 mg/dL; PSA,Total - Annual Screen 1.19 ng/mL (0.00-4.00); Potassium 4.1 mmol/L (3.5-5.1); Protein, Total 6.7 g/dL (6.4-8.2); Sodium Level 136 mmol/L (136-145); Triglycerides 130 mg/dL; Very Low Density Lipoprotein 26 mg/dL (5-40)
[2021-01-12 13:01] LABS: Differential Comment SCANNED
[2021-01-12 13:10] LABS: Hemoglobin A1c 5.8 % (3.8-5.6)
== END ==
PROVIDERS: PCP Family Medicine; Referring Provider Family Medicine; Visit Provider Family Medicine
DX: Z00.00 Encounter for general adult medical examination without abnormal findings (principal); E11.9 Type 2 diabetes mellitus without complications; Z12.5 Encounter for screening for malignant neoplasm of prostate; E78.5 Hyperlipidemia, unspecified; I10 Essential (primary) hypertension
CPT/HCPCS: 36415; 80053; 80061; 83036; 84153; 85025; G0103

== ENCOUNTER 2021-02-21 10:04 | Emergency (ER) | payer MEDICARE, SELFPAY ==
[2021-02-21 10:05] VITALS: BP 163/75
[2021-02-21 10:06] VITALS: PULSE 71; RESP 18; TEMP 37.1; O2SAT 93; BMI 40.0
--- NOTE | 2021-02-21 10:36 | RAD_ITS ---
STUDY: X-RAY - LEFT KNEE REASON FOR EXAM: Male, 65 years old. Pain TECHNIQUE: 4 view(s) of the knee. COMPARISON: None. FINDINGS: Normal visualized distal femur. Normal visualized proximal tibia and fibula. Normal proximal tibiofibular articulation. Normal medial femorotibial compartment. Normal lateral femorotibial compartment. Normal patellofemoral articulation. The soft tissue structures are unremarkable. RAD/Knee 4 or More Views IMPRESSION: Normal x-ray examination of the knee. Electronically Signed: Linus Manzo MD at 11:08 EDT , Service support ,
[2021-02-21] MEDS: HYDROmorphone 0.5 MG/0.5 ML SYRINGE IM (10:46)
--- NOTE | 2021-02-21 11:22 | ED.VIS.LOWEX ---
HPI History of Present Illness Chief Complaint: Lower Extremity Injury Narrative Narrative: Patient presents with 3-week history of left knee pain. He was seen in the an outside ED and given analgesia he also had a negative DVT study at that time. He has no fever chills cough or congestion he has no hip pain. He has no chest pain or shortness of breath. He has pain with ambulation. [facility] Medical History (Updated 02/21/21 @ 11:[address] Petros Del Toro MD) Bilateral lower extremity edema CAD (coronary artery disease) Cellulitis of left lower extremity without foot COPD (chronic obstructive pulmonary disease) HTN (hypertension) Hyperlipemia Tobacco abuse disorder Ulcer of left calf Ulcer of right lower extremity with fat layer exposed Wound infection Home Medications atorvastatin 80 mg PO QHS 04/18/13 [History Last Taken 07/03/14] clopidogrel 75 mg PO DAILY 04/18/13 [History Last Taken 07/04/14] losartan 50 mg PO DAILY 04/18/13 [History Last Taken 07/04/14] isosorbide mononitrate 60 mg PO DAILY #30 tab 04/19/13 [Rx Last Taken 07/04/14] albuterol sulfate 2.5 mg INHALATION 4X/DAY #120 vial.neb. 07/06/14 [Rx Last Taken Unknown] albuterol sulfate 1 - 2 puff INHALATION Q4H PRN PRN 10/31/16 [History Last Taken Unknown] metformin 500 mg PO DAILY 10/31/16 [History Last Taken Unknown] trazodone 60 mg PO QHS 10/31/16 [History Last Taken Unknown] budesonide-formoterol 2 puff INHALATION BID 08/07/19 [History Last Taken Unknown] cephalexin mg PO TID 08/07/19 [History Last Taken Unknown] oxycodone-acetaminophen [Percocet] 1 tab PO Q6H 3 Days #12 tab 02/21/21 [Rx Last Taken Unknown] Allergy/AdvReac Type Severity Reaction Status Date / Time benzonatate Allergy Unknown Verified 02/21/21 10:10 [From Tessalon Perles] chlorpheniramine polistirex AdvReac Rash Verified 02/21/21 10:10 [From Tussionex] hydrocodone polistirex AdvReac Rash Verified 02/21/21 10:10 [From Tussionex] levofloxacin [From Levaquin] AdvReac Rash Verified 02/21/21 10:10 Surgical History H/O heart artery stent Social History (Updated 08/11/19 @ 16:[address] Choco Enciso MD) Smoking Status: Current every day smoker tobacco type: cigarettes alcohol intake: never ROS ROS ED ROS Narrative Past medical history: Hypertension, hyperlipidemia, COPD, coronary artery disease. Chronic bilateral lower extremity edema Medications: Reviewed Social history: Noncontributory Review of systems: General: No fevers or chills. Musculoskeletal: Left knee pain as in HPI Skin: No abrasions or lacerations Neurological: No weakness or paresthesias Hematologic: No easy bleeding or easy bruising EXAM Physical Exam Narrative Exam Narrative: Physical exam General: Patient does not appear in significant distress . Head: Normocephalic, Atraumatic Neck: No C-spine tenderness Respiratory: He has coarse bilateral breath sounds consistent with his emphysema. Cardiovascular: Normal distal pulses Back: Nontender, Normal Inspection. Extremities: Left knee shows a slight effusion, there is no laxity on anterior posterior medial or lateral stressors. Normal extensor mechanism. No erythema or calor or any signs of infection. There is bilateral lower extremity edema that is symmetric without any signs of cellulitis. Skin: No abrasions, no lacerations. No signs of cellulitis. Neurological: Normal strength and sensation Const Vital Signs: 02/21/21 10:05 02/21/21 10:06 Temperature 98.7 F Temperature Source Temporal Pulse Rate 71 Respiratory Rate 18 Blood Pressure 163/75 H Blood Pressure Mean 104 Pulse Ox 93 Oxygen Delivery Method Nasal Cannula Oxygen Flow Rate (L/min) 2 [facility] MDM Radiography Diagnostic Testing: Radiology Impression Knee X-Ray 02/21/21 10:36 IMPRESSION: Normal x-ray examination of the knee. Electronically Signed: Linus Manzo MD at 11:08 EDT , Service support , Patient has a normal x-ray, his sole pain is in the knee and he is in quite a bit of pain. He has an appointment with orthopedics this week, otherwise I will discharge him with analgesia. Discharge Plan Triage Chief Complaint: Lower Extremity Injury ED Provider: Petros Del Toro Dx/Rx/DC Orders Clinical Impression: Acute pain of left knee Instructions: ED Arthralgia Prescriptions: New oxycodone-acetaminophen [Percocet] 5-325 mg tablet 1 tab PO Q6H 3 Days Qty: 12 RF: 0 No Action losartan 50 MG tablet 50 mg PO DAILY RF: 0 atorvastatin 80 MG tablet 80 mg PO QHS RF: 0 clopidogrel 75 MG tablet 75 mg PO DAILY RF: 0 isosorbide mononitrate 60 MG tablet 60 mg PO DAILY Qty: 30 RF: 2 albuterol sulfate 2.5 MG/3 ML solution for nebulization 2.5 mg inhalation 4X/DAY Qty: 120 RF: 0 albuterol sulfate 1 PUFF inhaler 1 - 2 puff inhalation Q4H PRN PRN (Reason: Dyspnea) RF: 0 metformin 500 MG tablet,ER rowena.retention 24 hr 500 mg PO DAILY RF: 0 trazodone 150 MG tablet 60 mg PO QHS RF: 0 cephalexin 500 MG capsule PO TID RF: 0 budesonide-formoterol 1 INHALER inhaler 2 puff inhalation BID RF: 0 Primary Care Provider: Brooks Davis Referrals: Brooks Davis MD [Primary Care Provider] - Activity Restrictions/Additional Instructions: Follow-up with orthopedics later on this week. Disposition Disposition: Home, Self Care
== END 2021-02-21 11:56 | disposition home or self-care (01) ==
PROVIDERS: Emergency Provider Emergency Medicine; PCP Family Medicine
DX: M25.562 Pain in left knee (principal); R60.0 Localized edema; I10 Essential (primary) hypertension; E78.5 Hyperlipidemia, unspecified; I25.10 Atherosclerotic heart disease of native coronary artery without angina pectoris; J44.9 Chronic obstructive pulmonary disease, unspecified; Z95.5 Presence of coronary angioplasty implant and graft; Z79.84 Long term (current) use of oral hypoglycemic drugs; Z79.899 Other long term (current) drug therapy; F17.210 Nicotine dependence, cigarettes, uncomplicated
CPT/HCPCS: 73564; 96372; 99284

== ENCOUNTER 2021-07-29 07:16 | Inpatient (IN) | payer MEDICARE, SELFPAY ==
[2021-07-29] VITALS (24 sets, daily range): BP systolic 111–149; BP diastolic 54–88; PULSE 73–92; RESP 12–38; TEMP 36.6–37.9; O2SAT 89–98; BMI 39.0; BMI 36.1
--- NOTE | 2021-07-29 07:35 | EKG12_ITS ---
Test Reason : EDEMA Blood Pressure : / mmHG Vent. Rate : 105 BPM Atrial Rate : 084 BPM P-R Int : 148 ms QRS Dur : 094 ms QT Int : 518 ms P-R-T Axes : 071 110 -25 degrees QTc Int : 684 ms Sinus rhythm with frequent and consecutive Premature ventricular complexes with junctional escape com plexes T wave abnormality, consider anterior ischemia Prolonged QT Abnormal ECG Confirmed by NAM VELEZ, TALA ([id number]), editor magazine KATIA FISHMAN ([id number]) on 08/01/2021 10:48:55 AM Referred By: MARTHA Confirmed By:TALA BROWNING MD
--- NOTE | 2021-07-29 07:35 | RAD_ITS ---
STUDY: X-RAY CHEST REASON FOR EXAM: Male, 66 years old. COPD TECHNIQUE: Single AP portable view of the chest. COMPARISON: Comparison is made with prior study dated 07/04/2016. FINDINGS: EKG electrodes are seen. There is hyperinflation of the lungs consistent with chronic obstructive lung disease (COPD). There is blunting of the right cause phrenic angle. Normal size heart. Normal mediastinum and jayjay. Normal visualized pulmonary arteries. Normal visualized aortic arch and descending thoracic aorta. There are diffuse degenerative changes of the visualized thoracic spine. Normal visualized ribs, clavicles, and shoulders. There is no demonstrated abnormality of the visualized soft tissue structures of the upper abdomen. RAD/Chest 1 View (Portable) IMPRESSION: Hyperinflation.. Blunting of the right costophrenic angle. Electronically Signed: Linus Manzo MD at 8:19 EST ,
--- NOTE | 2021-07-29 07:38 | EDS_ITS ---
HPI History of Present Illness Chief Complaint: Edema Narrative Narrative: Patient with past medical history of COPD, smoker, chronic lymphedema, and coronary artery disease presents with pain of his bilateral lower extremities. He denies history of congestive heart failure, states that he is not on a water pill and does not see wound care. He has had problems with lymphedema of his bilateral lower extremities for months, and states that his primary care physician gave him an antibiotic approximately 1 month ago. He rarely wears his compression stockings. He presents via EMS with increased pain in his bilateral lower legs over the past few days. He also states that there is liquid draining from both of them, mainly the left. He denies any chest pain or shortness of breath. No fevers or chills. No other symptoms. [facility] Medical History (Updated 07/29/21 @ 12:[address] Bette Landers MD) Bilateral lower extremity edema CAD (coronary artery disease) Cellulitis of left lower extremity without foot COPD (chronic obstructive pulmonary disease) HTN (hypertension) Hyperlipemia Tobacco abuse disorder Ulcer of left calf Ulcer of right lower extremity with fat layer exposed Wound infection Home Medications atorvastatin 80 mg PO QHS 04/18/13 [History Last Taken 07/28/21] clopidogrel 75 mg PO DAILY 04/18/13 [History Last Taken 07/28/21] losartan 50 mg PO DAILY 04/18/13 [History Last Taken 07/28/21] albuterol sulfate 2.5 mg INHALATION 4X/DAY #120 vial.neb. 07/06/14 [Rx Last Taken Unknown] albuterol sulfate 1 - 2 puff INHALATION Q4H PRN PRN 10/31/16 [History Last Taken Unknown] trazodone 150 mg PO QHS 10/31/16 [History Last Taken 07/28/21] budesonide-formoterol 2 puff INHALATION BID 08/07/19 [History Last Taken 07/28/21] ipratropium-albuterol 3 ml INHALATION Q4H 07/29/21 [History Last Taken 07/28/21] isosorbide mononitrate 60 mg PO DAILY 07/29/21 [History Last Taken 07/28/21] metoprolol tartrate 25 mg PO BID 07/29/21 [History Last Taken 07/28/21] nabumetone 750 mg PO BID PRN PRN 07/29/21 [History Last Taken Unknown] Allergy/AdvReac Type Severity Reaction Status Date / Time benzonatate Allergy Unknown Verified 07/29/21 07:22 [From Tessalon Perles] chlorpheniramine polistirex AdvReac Rash Verified 07/29/21 07:22 [From Tussionex] hydrocodone polistirex AdvReac Rash Verified 07/29/21 07:22 [From Tussionex] levofloxacin [From Levaquin] AdvReac Rash Verified 07/29/21 07:22 Surgical History H/O heart artery stent Social History Smoking Status: Current every day smoker tobacco type: cigarettes alcohol intake: never ROS ROS ED ROS Narrative Constitutional: No fever, no chills. HEENT: No sore throat. No neck pain. No loss of vision. No rhinorrhea. Cardiovascular: No chest pain. No palpitations. No pedal edema. Respiratory: No cough, no shortness of breath. Wears oxygen when in bed, 4 L. Abdominal: No abdominal pain. No nausea. No vomiting. Genitourinary: No dysuria. No hematuria. Musculoskeletal: Bilateral lower extremity pain and redness, with leakage of fluid. No arthralgias. Neurologic: No headaches. No dizziness. No lightheadedness. Skin: No rash. No change in color. Psychiatric: No depression. No anxiety. EXAM Physical Exam Narrative Exam Narrative: Afebrile. Vital signs noted. HEENT: Normocephalic. Atraumatic. PERRL, EOMI. Neck soft and supple. No point tenderness or step off. Cardiovascular: Regular rate and rhythm. No murmurs, rubs, or gallops appreciated. Respiratory: No tachypnea. Lungs clear to auscultation bilaterally. Gastrointestinal: Abdomen obese, soft, nontender, with normoactive bowel sounds. No rebound or guarding. Neurological: Awake. Alert. Nonfocal, nonlateralizing. Skin: No rash. Chronic changes of lymphedema bilateral lower extremities/anterior tibial surfaces. Positive ulceration that is widespread bilateral lower extremities with exposure of fat layer. Mild drainage, questionably purulent. Bilateral pedal onychomycosis. Musculoskeletal: No pedal edema. Full range of motion extremities. Palpable d orsalis pedis pulses. Const Vital Signs: 07/29/21 07:17 07/29/21 07:19 07/29/21 07:21 Temperature 98.2 F 98.2 F Temperature Source Oral Oral Pulse Rate 85 85 Respiratory Rate 28 H 22 H Respiratory Effort Short of Breath Labored Respiratory Pattern Tachypnea Blood Pressure 114/67 114/67 Blood Pressure Mean 82 82 Pulse Ox 94 97 Oxygen Delivery Method Nasal Cannula Nasal Cannula Oxygen Flow Rate (L/min) 2 2 07/29/21 08:34 Temperature 97.9 F Temperature Source Temporal Pulse Rate 85 Respiratory Rate 25 H Respiratory Effort Respiratory Pattern Blood Pressure 134/67 H Blood Pressure Mean 89 Pulse Ox 98 Oxygen Delivery Method Nasal Cannula Oxygen Flow Rate (L/min) 2 MDM MDM MDM Narrative Medical decision making narrative: I do feel that there may be underlying cellulitis. Patient placed on nasal cannula oxygen for comfort. Comprehensive work-up was pursued. I do feel he may require admission for wound care consultation and debridement of his bilateral lower extremities. His EKG does show baseline artifact in V1 and V3, but otherwise appears normal sinus without ectopy or acute ST changes. His high-sensitivity troponin is 47. BNP slightly elevated in the 300s. Lactic acid normal at 1.9. He has a normal white count of 8.3 with hemoglobin slightly elevated at 16.8, slightly low platelet count at 148. Comprehensive metabolic panel shows CO2 elevated at 35 consistent with his COPD. Upon repeat examination, there is now with dried purulent material on the sheets. Given his extensive ulceration of his bilateral lower extremities, I do feel that he requires at least observation for wound care consult. I will start him on Unasyn. Blood cultures are pending. I will discuss patient with the hospitalist. Disposition is admit in stable condition. Lab Data Attestation: I reviewed the patient's lab results. Labs: Laboratory Results - last 24 hr 07/29/21 07/29/21 07/29/21 07:27 07:27 07:27 WBC 8.3 RBC 5.77 Hgb 16.8 H Hct 55.8 H MCV 96.7 H MCH 29.1 MCHC 30.1 L RDW Std Deviation 50.4 H RDW Coeff of Artemio 14.1 Plt Count 148 L MPV 8.8 Immature Gran % (Auto) 0.200 Neut % (Auto) 85.5 H Lymph % (Auto) 5.4 L Mcdonald % (Auto) 8.6 Eos % (Auto) 0.1 Baso % (Auto) 0.2 Absolute Neuts (auto) 7.1 Absolute Lymphs (auto) 0.45 L Nucleated RBC % 0 Polychromasia 1+ Sodium 139 Potassium 3.7 Chloride 100 Carbon Dioxide 35.0 H Anion Gap 4 L BUN 15 Creatinine 0.93 Estim Creat Clear Calc 71.08 Est GFR (MDRD) Af Amer 104 Est GFR (MDRD) Non-Af 86 BUN/Creatinine Ratio 16.1 Glucose 123 H Lactic Acid 1.9 Calcium 8.0 L Total Bilirubin 0.70 AST 9 L ALT 9 L Alkaline Phosphatase 87 Troponin I High Sens 47 B-Natriuretic Peptide Total Protein 6.3 L Albumin 2.7 L Globulin 3.6 Albumin/Globulin Ratio 0.8 L 07/29/21 07:27 WBC RBC Hgb Hct MCV MCH MCHC RDW Std Deviation RDW Coeff of Artemio Plt Count MPV Immature Gran % (Auto) Neut % (Auto) Lymph % (Auto) Mcdonald % (Auto) Eos % (Auto) Baso % (Auto) Absolute Neuts (auto) Absolute Lymphs (auto) Nucleated RBC % Polychromasia Sodium Potassium Chloride Carbon Dioxide Anion Gap BUN Creatinine Estim Creat Clear Calc Est GFR (MDRD) Af Amer Est GFR (MDRD) Non-Af BUN/Creatinine Ratio Glucose Lactic Acid Calcium Total Bilirubin AST ALT Alkaline Phosphatase Troponin I High Sens B-Natriuretic Peptide 344.7 H Total Protein Albumin Globulin Albumin/Globulin Ratio Radiography Diagnostic Testing: Clinical Impression(s) from Imaging Studies Chest X-Ray 07/29/21 07:35 IMPRESSION: Hyperinflation.. Blunting of the right costophrenic angle. Electronically Signed: Linus Manzo MD at 8:19 EST , Discharge Plan Dx/Rx/DC Orders Clinical Impression: Bilateral lower extremity edema, Bilateral lower leg cellulitis, Stasis leg ulcer, COPD (chronic obstructive pulmonary disease) Disposition Disposition: Acute Care Hospital [facility] Discharge Date/Time: 07/29/21 09:31
[2021-07-29 07:44] LABS: Absolute Lymphocyte Count 0.45 X10^3/uL (0.83-4.51); Absolute Neutrophil Count 7.1 X10^3/uL (2.0-7.7); Basophil# 0.02 X10^3/uL; Basophil% 0.2 % (0-1); Eosinophil# 0.01 X10^3/uL; Eosinophils% 0.1 % (0-5); Hemoglobin 16.8 g/dL (13.0-16.5); Lymphocyte # 0.45 X10^3/ul (0.83-4.51); Lymphocyte % 5.4 % (19-41); Mean Corp Hgb Conc 30.1 g/dL (32-36); Mean Corpuscular Hgb 29.1 pg (27.0-32.0); Mean Corpuscular Volume 96.7 fL (80-94); Mean Platelet Vol. 8.8 fl (6.2-12.0); Monocyte# 0.71 X10^3/uL; Monocyte% 8.6 % (0-10); NRBC Flagged by Analyzer 0 % (0-5); Neutrophil # 7.06 X10^3/uL (2.7-7.7); Neutrophil % 85.5 % (47-70); POSITIVE DIFFERENTIAL YES; Platelet Count 148 K/mm3 (150-450); RBC Distribution Width CV 14.1 % (11.6-14.6); RBC Distribution Width SD 50.4 fl (35.1-43.9); Red Blood Count 5.77 M/mm3 (4.6-6.2); White Blood Count 8.3 K/mm3 (4.4-11.0)
[2021-07-29 07:51] LABS: Differential Indicated SCAN CRITERIA MET; Hematocrit 55.8 % (40-54)
[2021-07-29 07:58] LABS: ALB/GLOB Ratio 0.8 RATIO (0.9-2.4); AST(SGOT) 9 U/L (15-37); Alanine Aminotransfer ALT/SGPT 9 U/L (16-61); Albumin, Serum 2.7 g/dL (3.2-5.0); Alkaline Phosphatase 87 U/L (45-117); Anion Gap 4 (5-15); BUN 15 mg/dL (7-18); BUN/Creat Ratio 16.1 RATIO (10-20); Chloride 100 mmol/L (98-107); Creatinine, Serum 0.93 mg/dL (0.70-1.30); EST Glomerular Filtration Rate 86 mL/min (>60); Est Glom Filt Rate - Afr Amer 104 mL/min (>60); Estimated Creatinine Clearance 71.08 ml/min; Globulin 3.6 g/dL (2.2-4.2); Glucose 123 mg/dL (74-106); Potassium 3.7 mmol/L (3.5-5.1); Protein, Total 6.3 g/dL (6.4-8.2); Sodium Level 139 mmol/L (136-145); Troponin-I HS 47 pg/mL (3.0-78.0)
[2021-07-29 08:05] LABS: Lactic Acid 1.9 mmol/L (0.4-1.9)
[2021-07-29 08:07] LABS: BNP,B-Type NATRIURETIC PEPTIDE 344.7 pg/mL (0-100)
[2021-07-29 08:38] LABS: Polychromasia 1+
--- NOTE | 2021-07-29 09:01 | PCM.HP.STD ---
[facility] - General General Date of Admission: 07/29/21 HPI Narrative NASIM LINARES, is a 66 M with a PMH as outlined who presents with a complaint of lower extremity pain.. He has lower extremity lymphedema and says he has been having oozing from his legs. Patient states he has had a lower extremity edema for years but has not follow-up with wound care, does not take any diuretic and does not have any home health nurse coming into check on his legs. He says his primary care doctor gave him an antibiotic about a month ago and also has compression stockings but rarely wears them. He had noticed increasing pain in both lower extremities for the past few days which had gradually worsened. He also noted that he was having increased discharge from both legs but mainly on the left. He denied any fever or chills and denied any worsening redness of his lower extremities. He denied any trauma to his lower extremities as well. He denied any chest pain, palpitations, dizziness, nausea vomiting. Review of systems otherwise negative. Vitals in the ED with temperature of 98.4 Fahrenheit, blood pressure 123/67 and respiratory rate of 20. He was saturating at 91% on 2 L of oxygen. CBC showed WBC of 8.3 with hemoglobin of 16.8 and platelets of 148. Chemistry was essentially unremarkable and BNP was 344.7. Chest x-ray showed hyperinflation with blunting of the right costophrenic angle. He is being admitted to be managed for cellulitis in the setting of lymphedema of both lower extremities. [facility] Medical History (Updated 07/29/21 @ 12:[address] Bette Landers MD) Bilateral lower extremity edema CAD (coronary artery disease) Cellulitis of left lower extremity without foot COPD (chronic obstructive pulmonary disease) HTN (hypertension) Hyperlipemia Tobacco abuse disorder Ulcer of left calf Ulcer of right lower extremity with fat layer exposed Wound infection Home Medications atorvastatin 80 mg PO QHS 04/18/13 [History Last Taken 07/28/21] clopidogrel 75 mg PO DAILY 04/18/13 [History Last Taken 07/28/21] losartan 50 mg PO DAILY 04/18/13 [History Last Taken 07/28/21] albuterol sulfate 2.5 mg INHALATION 4X/DAY #120 vial.neb. 07/06/14 [Rx Last Taken Unknown] albuterol sulfate 1 - 2 puff INHALATION Q4H PRN PRN 10/31/16 [History Last Taken Unknown] trazodone 150 mg PO QHS 10/31/16 [History Last Taken 07/28/21] budesonide-formoterol 2 puff INHALATION BID 08/07/19 [History Last Taken 07/28/21] ipratropium-albuterol 3 ml INHALATION Q4H 07/29/21 [History Last Taken 07/28/21] isosorbide mononitrate 60 mg PO DAILY 07/29/21 [History Last Taken 07/28/21] metoprolol tartrate 25 mg PO BID 07/29/21 [History Last Taken 07/28/21] nabumetone 750 mg PO BID PRN PRN 07/29/21 [History Last Taken Unknown] Allergy/AdvReac Type Severity Reaction Status Date / Time benzonatate Allergy Unknown Verified 07/29/21 07:22 [From Tessalon Perles] chlorpheniramine polistirex AdvReac Rash Verified 07/29/21 07:22 [From Tussionex] hydrocodone polistirex AdvReac Rash Verified 07/29/21 07:22 [From Tussionex] levofloxacin [From Levaquin] AdvReac Rash Verified 07/29/21 07:22 Surgical History H/O heart artery stent Social History Smoking Status: Current every day smoker tobacco type: cigarettes alcohol intake: never ROS Review of Systems ROS Unobtainable: Denies due to encephalopathy Constitutional Constitutional: Reports fever(s), malaise and weakness; Denies anorexia, change in weight, chills, fatigue or weight gain Eyes Eyes: Denies change in vision ENT HEENT: Denies dysphagia, headache(s), nasal congestion, sore throat or throat swelling Cardiovascular Cardiovascular: Reports edema; Denies chest pain, orthopnea, palpitations, paroxysmal nocturnal dyspnea or syncope Respiratory/Chest Respiratory/Chest: Denies cough, shortness of breath at rest or shortness of breath with exertion Gastrointestinal Gastrointestinal: Reports abdominal pain; Denies diarrhea or dyspepsia Genitourinary Genitourinary: Denies dysuria or urinary frequency Musculoskeletal Musculoskeletal: Denies back pain, joint pain or joint swelling Integumentary Integumentary: Reports lesions, rash and wounds; Denies dry skin Neurologic Neurologic: Reports tingling; Denies confusion, dizziness, focal weakness, lack of coordination, numbness, seizures, tremor(s) or weakness Psychiatric Psychiatric: Denies anxiety or depression Endocrine Endocrinology: Denies change in body appearance Hematologic/Lymphatic Hematologic/Lymphatic: Denies anemia Vital Signs Vital Signs Vital Signs: 07/29/21 07:17 07/29/21 07:19 07/29/21 07:21 Temperature 98.2 F 98.2 F Temperature Source Oral Oral Pulse Rate 85 85 Respiratory Rate 28 H 22 H Respiratory Effort Short of Breath Labored Respiratory Pattern Tachypnea Blood Pressure 114/67 114/67 Blood Pressure Mean 82 82 Pulse Ox 94 97 Oxygen Delivery Method Nasal Cannula Nasal Cannula Oxygen Flow Rate (L/min) 2 2 07/29/21 08:34 Temperature 97.9 F Temperature Source Temporal Pulse Rate 85 Respiratory Rate 25 H Respiratory Effort Respiratory Pattern Blood Pressure 134/67 H Blood Pressure Mean 89 Pulse Ox 98 Oxygen Delivery Method Nasal Cannula Oxygen Flow Rate (L/min) 2 Weight Weight: 249 lb 9.012 oz Body Mass Index (BMI) 39.0 Physical Exam Const alert, oriented x3 and no apparent distress General Appearance: cooperative HEENT normocephalic, head/scalp atraumatic and moist oral mucous membranes Eyes PERRL and EOMs intact bilaterally Neck no lymphadenopathy, supple and no JVD Lymph Lymphatic: no lymphadenopathy noted Resp Resp Narrative: diminished breath sounds bibasally, mild wheezes, no crackles. On 2L of oxygen by nasal canula. Cardio regular rate, regular rhythm, S1 normal heart sound, S2 normal heart sound and no murmurs GI normal to inspection, nondistended, normoactive bowel sounds, soft to palpation, non-tender and non-distended Palpation: no hepatosplenomegaly Extremity Extremity Narrative: bilateral LE edema, with extensive superficial ulceration and dry, hyperkeratinized cracked skin of lower extremities, exending from ankle to mid jones. Skin Skin Narrative: as under extremities Neuro CN's II-XII intact bilaterally and deep tendon reflexes 2+ bilaterally Motor Exam: strength 5/5 throughout Psych thought process normal, cooperative and affect normal Appearance: appropriate Results Lab / Micro Data Result Diagrams: 07/29/21 07:27 07/29/21 07:27 Labs: Laboratory Results - last 24 hr 07/29/21 07:27: WBC 8.3, RBC 5.77, Hgb 16.8 H, Hct 55.8 H, MCV 96.7 H, MCH 29.1, MCHC 30.1 L, RDW Std Deviation 50.4 H, RDW Coeff of Artemio 14.1, Plt Count 148 L, MPV 8.8, Immature Gran % (Auto) 0.200, Neut % (Auto) 85.5 H, Lymph % (Auto) 5.4 L, [place] % (Auto) 8.6, Eos % (Auto) 0.1, Baso % (Auto) 0.2, Absolute Neuts (auto) 7.1, Absolute Lymphs (auto) 0.45 L, Nucleated RBC % 0, Polychromasia 1+ 07/29/21 07:27: Sodium 139, Potassium 3.7, Chloride 100, Carbon Dioxide 35.0 H, Anion Gap 4 L, BUN 15, Creatinine 0.93, Estim Creat Clear Calc 71.08, Est GFR (MDRD) Af Amer 104, Est GFR (MDRD) Non-Af 86, BUN/Creatinine Ratio 16.1, Glucose 123 H, Calcium 8.0 L, Total Bilirubin 0.70, AST 9 L, ALT 9 L, Alkaline Phosphatase 87, Troponin I High Sens 47, Total Protein 6.3 L, Albumin 2.7 L, Globulin 3.6, Albumin/Globulin Ratio 0.8 L 07/29/21 07:27: Lactic Acid 1.9 07/29/21 07:27: B-Natriuretic Peptide 344.7 H Radiology Impression Chest X-Ray 07/29/21 07:35 IMPRESSION: Hyperinflation.. Blunting of the right costophrenic angle. Electronically Signed: Linus Manzo MD at 8:19 EST , Assessment & Plan Assessment/Plan (1) Bilateral lower leg cellulitis: (2) Lymphedema: PLAN: #Bilateral lower extremity cellulitis in the setting of lymphedema on IV unasyn; will continue wound culture. consult wound care apply brenda wraps to LEs will need follow up with wound care and wound clinic upon discharge get Duplex of both LEs #Probable heart failure of unknown EF EF from 2013 was 55%. BNP is elevated in the 300s. Patient is obese and so this might potentially blunts the BNP. Chest x-ray showed hyperinflation with blunting of the right costophrenic angle Check 2D echo Start diuresis with IV Lasix 40 mg twice daily which also help with lymphedema #CAD s/p stent x 1: says it was done ~ 10 years ago. On high intensity statin and plavix #Hypertension: On metoprolol and losartan #Nicotine dependence: Smokes 2 packs daily. Counseled to quit. Nicotine patch 21 mg daily. DVT prophylaxis: Lovenox CODE STATUS: Full code Patient counseled extensively about different types of CODE STATUS including full code, DNR CCA and DNR CCA. Patient elects to be full code. Total [id number] time 16 minutes. Charges/Coding Visit Charges OBSV E&M: 12760 Initial observation care L3 Procedures Hospitalists Procedures: 33358 Advncd Care Plan 30 Min
--- NOTE | 2021-07-29 09:07 | NURSING ---
MED SURG [facility] CELLULITIS OF BILATERAL LOWER EXTRMITIES, BILATERAL STATIS ULCERS
[2021-07-29] MEDS: Morphine 4 MG/ML Syringe IV (09:34)
[2021-07-29] MEDS: Ipratropium/Albuterol Sulfate 3 ML AMPUL.NEB INHALATION ×2 (11:31→19:41)
[2021-07-29] MEDS: Budesonide Respules 0.5 MG/2 ML AMPUL.NEB. INHALATION ×2 (11:31→19:41)
--- NOTE | 2021-07-29 12:11 | ECHOCS_ITS ---
Reason For Study: CHF Procedure This was a 2D Doppler, Color Flow transthoracic echocardiogram. The study was technically limited. Contrast injection was performed. 02 was poor and had to be put on BiPAP during exam. The exam was of poor technical quality due to respiratory status. Exam performed portable in patient room. Left Ventricle Normal LV size. The estimated ejection fraction is 55-60 %. Unable to assess diastolic dysfunction. No regional wall motion abnormalities noted. Right Ventricle Severely dilated right ventricle. Normal systolic function. Atria Normal left atrium. Normal right atrium. No doppler evidence for ASD. Mitral Valve There is moderate mitral annular calcification. There is no mitral valve stenosis. No mitral valve insufficiency. Tricuspid Valve There is no tricuspid stenosis. Trivial tricuspid valve insufficiency. Pulmonary artery systolic pressure is 80 mmHg. Severe pulmonary hypertension. Aortic Valve Trisinus/trileaflet aortic valve. There is no aortic stenosis. No aortic valve insufficiency. Pulmonic Valve There is no pulmonic valvular stenosis. No pulmonic valve insufficiency identified. Great Vessels Normal aortic root. Pericardium/Pleural Small pericardial effusion. Medication Diluted definity 2.0ml given slow IV push to enhance endocardial definition. MMode/2D Measurements & Calculations LVIDd: 4.4 cm IVSd: 1.3 cm Ao root diam: 3.7 cm LVIDs: 3.1 cm LVPWd: 1.3 cm FS: 28.1 % LAV(MOD-sp4): 33.5 ml LA A4 area: 14.3 cm2 LA dimension(2D): 3.8 cm RA A4 area: 16.4 cm2 Doppler Measurements & Calculations MV E max tavon: 102.7 cm/sec Lat Peak E' Tavon: 8.3 cm/sec Med Peak E' Tavon: 5.2 cm/sec MV A max tavon: 62.0 cm/sec E/E' lat: 12.3 E/E' med: 19.7 MV E/A: 1.7 PA V2 max: 94.8 cm/sec TR max tavon: 426.0 cm/sec TR max P.6 mmHg ECHO/Echo Complete W/ Contrast Interpretation Summary The estimated ejection fraction is 55-60 %. Unable to assess diastolic dysfunction. Severely dilated right ventricle. Severe pulmonary hypertension. Small pericardial effusion. Ordering Physician: Bette Landers Referring Physician: ANDREA WATERS Performed By: Nicki Dia, ADDY, RVT
--- NOTE | 2021-07-29 12:37 | WOUNDNOTE ---
wound photo: left lower leg (anterior view)
--- NOTE | 2021-07-29 12:38 | WOUNDNOTE ---
wound photo: left lower leg (posterior view)
--- NOTE | 2021-07-29 12:39 | WOUNDNOTE ---
wound photo: right lower leg (anterior view)
--- NOTE | 2021-07-29 12:40 | WOUNDNOTE ---
wound photo: right lower leg (posterior view)
[2021-07-29] MEDS: Metoprolol Tartrate 25 MG Tablet PO (12:49)
[2021-07-29] MEDS: Clopidogrel Bisulfate 75 MG Tablet PO (12:50)
[2021-07-29 13:22] LABS: M R Staph aureus DNA By PCR Negative (Negative); Probe Check PASS; Specimen Processing Control PASS; Staph aureus DNA By PCR NEGATIVE (Negative)
[2021-07-29] MEDS: Furosemide 40 MG/4 ML Vial IV ×2 (13:30→18:32)
--- NOTE | 2021-07-29 14:15 | VDLE_ITS ---
Reason For Study: swelling RIGHT LEFT GSV is normal. GSV is normal. CFV is compressible, spontaneous, phasic, CFV is compressible, spontaneous, phasic, competent and demonstrates normal competent, and demonstrates normal augmentation. augmentation. FV is compressible, spontaneous, phasic, FV is compressible, spontaneous, phasic, competent and demonstrates normal competent and demonstrates normal augmentation. augmentation. POP V is compressible, spontaneous, phasic, POP V is compressible, spontaneous, phasic, competent and demonstrates normal competent and demonstrates normal augmentation. augmentation. T/P Trunk is compressible. T/P Trunk is compressible. Procedure The study was technically difficult. Limited views were obtained. Unable to scan below the knees due to bandages from open seeping wounds. A preliminary report was called and/or faxed to [facility]. IMAGES #9 & #10 ARE OF THE RIGHT LEG. iMAGES #26 & 27 ARE THE SAME IMAGES LABELED CORRECTLY. VL/Venous Duplex US - Andrea Extrem Interpretation Summary No evidence for acute deep venous thrombosis bilateral lower extremities with p atent and compressible bilateral great saphenous veins. This examination was noted to be technically difficult and limited. Infrageniculate examination bilaterally not possible secondary to bandages and open wounds Ordering Physician: Bette Landers Referring Physician: Brooks Davis Performed By: Yaritza Rowland, ADDY, RVT
[2021-07-29 14:51] LABS: Bedside Glucose 157 mg/dL (70-110)
--- NOTE | 2021-07-29 14:57 | CPS ---
crtical values on ABG. PATRICIA hall and dr shen notified of critical values
[2021-07-29 15:00] LABS: Allen Test Positive; Base Excess 14 mmol/L (-2 to +2); Bicarbonate 40.3 mmol/L (22-26); Blood Gas Specimen Type ART; O2 Delivery Device Cannula; PO2 93 mmHG (75-100); SITE R Radial; SO2 96 % (95-99); Total Carbon Dioxide 43 mmol/L; pCO2 81.3 mmHg (35-45)
--- NOTE | 2021-07-29 16:18 | CPS ---
critical values on ABG. Dr mancia notified of critical values
[2021-07-29 16:25] LABS: Allen Test Positive; Base Excess 14 mmol/L (-2 to +2); Bicarbonate 40.6 mmol/L (22-26); Blood Gas Specimen Type ART; FI02 30; Mode BiLevel; O2 Delivery Device BiPAP; PEEP 7; PO2 57 mmHG (75-100); RR 12; SITE R Radial; SO2 84 % (95-99); Total Carbon Dioxide 43 mmol/L; pCO2 80.7 mmHg (35-45); pH 7.31 (7.35-7.45)
[2021-07-29] MEDS: Losartan Potassium 50 MG Tablet PO (16:34)
--- NOTE | 2021-07-29 17:42 | PCM.HOSP.N ---
Hospitalist Note Asked to evaluate the patient secondary to increased somnolence. He apparently was alert and oriented upon arrival to the floor and became more somnolent and therefore an ABG was obtained. His initial ABG which was obtained at approximately 1500 showed a pH of 7.3 a PCO2 of 81.3 and a PO2 of 93. He was placed on BiPAP at that time and a repeat blood gas was obtained an hour later. ABG revealed a pH of 7.31 with a PCO2 of 80.7 and a PO2 of 57 at that time. Upon evaluation he wakes up to verbal and tactile stimulus however he does fall back asleep quickly. He states he is on oxygen at night but does not wear any form of noninvasive ventilation. It appears his baseline PCO2 is around 50-60. Given his somnolence and requirement for continuous noninvasive ventilation along with the fact that he is a full resuscitation we will transfer him to the ICU at this time. I did make some adjustments in his BiPAP by increasing his IPAP and decreasing his I time. Hopefully this will improve his hypercapnia. A repeat ABG is ordered for 7 PM. Antibiotics were broadened from Unasyn to Vanco and Zosyn. Consultation to ICU was placed.
--- NOTE | 2021-07-29 18:20 | PCM.RX.CS ---
Consult Pharmacy has been consulted to manage selected antiobiotic: Vancomycin Type of Consult: New start Labs: Sodium 139 mmol/L (136-145) 07/29/21 07:27 Potassium 3.7 mmol/L (3.5-5.1) 07/29/21 07:27 Chloride 100 mmol/L (98-107) 07/29/21 07:27 Carbon Dioxide 35.0 mmol/L (21.0-32.0) H 07/29/21 07:27 Anion Gap 4 (5-15) L 07/29/21 07:27 BUN 15 mg/dL (7-18) 07/29/21 07:27 Creatinine 0.93 mg/dL (0.70-1.30) 07/29/21 07:27 Est GFR (MDRD) Af Amer 104 mL/min (>60) 07/29/21 07:27 Est GFR (MDRD) Non-Af 86 mL/min (>60) 07/29/21 07:27 BUN/Creatinine Ratio 16.1 RATIO (10-20) 07/29/21 07:27 Glucose 123 mg/dL (74-106) H 07/29/21 07:27 Microbiology: Microbiology 07/29/21 11:15 Wound - Leg, Right Gram Stain - Final 07/29/21 11:15 Wound - Leg, Left Gram Stain - Final 07/29/21 08:52 Nasal Secretion SARS-CoV-2 Antigen (Rapid) - Final Goal Trough: 15-20 mcg/mL Pharmacy Plan for Drug Dosing: NEW START IV VANCOMYCIN Consulting Physician: Dr. Kenji Skelton Indication: SSTI/ R/o further infection? Goal Trough: 15-20 SrCr: 0.93 CrCl: 71 mL/min Comments: Initial 15mg/kg dose is the same as scheduled dosing, will just start scheduled dosing. Vancomcyin Dose: 1500mg IV Q12hr to start 07/29/21 @1900 Pending Level: 07/31/21 @0630, prior to 4th total dose of vancomycin per protocol Pharmacy Service will continue to monitor and adjust dosing as required.
[2021-07-29] MEDS: 0.9% Saline Lock 10 ML Syringe IV (20:19)
[2021-07-29 21:31] LABS: Allen Test Positive; Base Excess 12 mmol/L (-2 to +2); Bicarbonate 38.3 mmol/L (22-26); Blood Gas Specimen Type ART; FI02 35; Mode AVAPS; O2 Delivery Device BiPAP; PEEP 8; PO2 57 mmHG (75-100); RR 16; SITE R Radial; SO2 86 % (95-99); Total Carbon Dioxide 41 mmol/L; Vt 450; pCO2 72.7 mmHg (35-45); pH 7.33 (7.35-7.45)
[2021-07-30] MEDS: Potassium Chloride Oral Tablet 20 MEQ 40 MEQ PO (09:00)
[2021-07-30] MEDS: Furosemide 40 MG/4 ML Vial IV ×2 (10:00→17:30)
[2021-07-30] MEDS: Enoxaparin 40 MG/0.4 ML Syringe SC (10:00)
--- NOTE | 2021-07-30 13:38 | PN_ITS ---
DATE OF SERVICE: 07/30/2021 SUBJECTIVE Patient seen and examined. He was emergently transferred to the ICU yesterday after ABG done on account of worsening lethargy showed hypercapnic respiratory failure. PCO2 was around 81. He was started on BiPAP but patient was not responding as expected so he was transferred to the ICU. He remained on BiPAP and is much more alert today. He was asking for food at time of review. He denied any fever, any chills, any nausea, any vomiting or diarrhea. Review of systems otherwise negative. PHYSICAL EXAMINATION Const alert, oriented x3 and no apparent distress General Appearance: cooperative HEENT normocephalic, head/scalp atraumatic and moist oral mucous membranes Eyes PERRL and EOMs intact bilaterally Neck no lymphadenopathy, supple and no JVD Lymph Lymphatic: no lymphadenopathy noted Resp diminished breath sounds bibasally, mild wheezes, no crackles. On BIPAP. Cardio regular rate, regular rhythm, S1 normal heart sound, S2 normal heart sound and no murmurs GI normal to inspection, nondistended, normoactive bowel sounds, soft to palpation, non-tender and non-distended Palpation: no hepatosplenomegaly Extremity bilateral LE edema, with extensive superficial ulceration and dry, hyperkeratinized cracked skin of lower extremities, extending from ankle to mid jones. Legs wrapped in bandage. Skin Skin Narrative: as under extremities Neuro CN's II-XII intact bilaterally and deep tendon reflexes 2+ bilaterally Motor Exam: strength 5/5 throughout Psych thought process normal, cooperative and affect normal Appearance: appropriate Assessment/Plan (1) Bilateral lower leg cellulitis: (2) Lymphedema: #Acute hypercapnic respiratory failure due to undiagnosed COPD PCO2 was more than 80 so he required initiation of BiPAP. Emergently transferred to ICU yesterday. Still on BiPAP but now much more alert and oriented and able to communicate. Wean off of BiPAP as tolerated. Breathing treatments bronchodilators. Titrate oxygen to maintain saturation above 90%. #Bilateral lower extremity cellulitis in the setting of lymphedema Antibiotics were broadened to IV vancomycin and Zosyn on account of patient's mental status yesterday. Wound cultures and blood cultures pending. Wound care on board. Will need to follow up with wound care on outpatient basis. #Probable heart failure of unknown EF EF from 2013 was 55%. BNP is elevated in the 300s. Chest x-ray showed hyperinflation with blunting of the right costophrenic angle 2D echo ordered and is pending On IV lasix 40mg bid #CAD s/p stent x 1: says it was done ~ 10 years ago. On high intensity statin and plavix #Hypertension: On metoprolol and losartan #Nicotine dependence: Smokes 2 packs daily. Counseled to quit. Nicotine patch 21 mg daily. DVT prophylaxis: Lovenox CODE STATUS: Full code Disposition: transfer back to PCU
[2021-07-30 18:55] LABS: Anion Gap 3 (5-15); BUN 11 mg/dL (7-18); BUN/Creat Ratio 14.7 RATIO (10-20); Calcium,Total 8.3 mg/dL (8.5-10.1); Chloride 95 mmol/L (98-107); Creatinine, Serum 0.75 mg/dL (0.70-1.30); EST Glomerular Filtration Rate 110 mL/min (>60); Est Glom Filt Rate - Afr Amer 133 mL/min (>60); Glucose 90 mg/dL (74-106); Potassium 3.3 mmol/L (3.5-5.1); Sodium Level 139 mmol/L (136-145)
[2021-07-30 22:15] LABS: Absolute Lymphocyte Count 0.43 X10^3/uL (0.83-4.51); Basophil# 0.01 X10^3/uL; Basophil% 0.2 % (0-1); Eosinophil# 0.03 X10^3/uL; Eosinophils% 0.5 % (0-5); Hematocrit 55.1 % (40-54); Hemoglobin 16.6 g/dL (13.0-16.5); Lymphocyte # 0.43 X10^3/ul (0.83-4.51); Mean Corp Hgb Conc 30.1 g/dL (32-36); Mean Corpuscular Hgb 29.5 pg (27.0-32.0); Mean Platelet Vol. 9.3 fl (6.2-12.0); Monocyte# 0.68 X10^3/uL; NRBC Flagged by Analyzer 0 % (0-5); Neutrophil % 80.8 % (47-70); POSITIVE DIFFERENTIAL YES; Platelet Count 138 K/mm3 (150-450); RBC Distribution Width CV 14.2 % (11.6-14.6); RBC Distribution Width SD 51.6 fl (35.1-43.9); Red Blood Count 5.62 M/mm3 (4.6-6.2); White Blood Count 6.2 K/mm3 (4.4-11.0)
[2021-07-30 22:16] LABS: Differential Indicated SCAN CRITERIA MET
[2021-07-30 22:17] LABS: Differential Comment SCANNED
[2021-07-30] MEDS: MELATONIN 3 MG TABLET PO (22:30)
[2021-07-31] VITALS (14 sets, daily range): BP systolic 109–148; BP diastolic 72–80; PULSE 74–98; RESP 16–24; TEMP 36.5–37.2; O2SAT 90–96
--- NOTE | 2021-07-31 06:27 | PCM.PN.INT ---
Assessment & Plan Assessment/Plan (1) Encephalopathy: PLAN: RECOMMENDATIONS: 1. Continue AVAPS therapy with naps and nightly. 2. Continue bronchodilators and local wound care. 3. Continue scheduled bronchodilators. 4. Continue diuretic therapy as tolerated by hemodynamics and renal function. 5. Wean supplemental oxygen as tolerated. 6. Encourage incentive spirometer use and mobilize patient as tolerated. IMPRESSIONS: 1. Encephalopathy Secondary to hypercapnia. The patient has a self-reported history of COPD of unknown severity along with chronic tobacco dependency. He also reportedly has been diagnosed with sleep apnea and does not currently utilize any form of nocturnal Pap therapy. The patient responded appropriately to noninvasive positive pressure ventilatory support. At a minimum, I would recommend that the patient be maintained on AVAPS therapy, with naps and nightly. In light of a self-reported history of COPD, continue scheduled bronchodilators. Strongly recommend avoiding sedating medications. 2. Bilateral lower extremity cellulitis Continue antimicrobials per hospitalist along with local wound care. 3. Probable heart failure with preserved ejection fraction Await results of echocardiogram. Continue diuretic therapy as tolerated by hemodynamics and renal function. 4. History of COPD and chronic tobacco dependency The patient does not currently follow with a position classification specialist, but does have an extensive smoking history. It is reasonable to continue scheduled bronchodilators while admitted to the hospital. Tobacco cessation counseling was provided. Nicotine replacement therapy can be utilized while the patient is admitted to the hospital. He would benefit from outpatient pulmonary follow-up so that baseline PFTs can be obtained and further optimization undertaken. 5. Obesity with history of sleep apnea Patient has apparently been diagnosed with sleep apnea in the past, but has elected not to utilize any form of nocturnal Pap therapy. Instead, the patient is only utilizing supplemental oxygen on a nightly basis. In light of his respiratory mechanics and CO2 retention, I would strongly recommend reconsideration for Pap therapy on an outpatient basis. This note was generated with [employer] dictation software. It may contain incorrect words, spelling, and punctuation that were not noted in checking the note before signing. Subjective Subjective The patient was seen and examined at the bedside this morning. Events from the last 24 hours have been reviewed. The patient is currently afebrile, hemodynamically stable and maintaining appropriate oxygen saturations on AVAPS with an FiO2 requirement of 50%. The patient is currently documented to be overall net -700 mL for the hospitalization. He remains on empiric antimicrobials, scheduled bronchodilators, prophylactic Lovenox and diuretics. The patient was initially seen in consultation yesterday after he was transferred to the ICU with acute on chronic hypercapnic respiratory failure in the setting of a self-reported history of COPD and chronic tobacco dependency, along with a self-reported history of sleep apnea, which is not currently being managed with nocturnal Pap therapy due to patient preference. Objective Data Objective Data The patient's most recent lab work, culture data and imaging studies have all been personally reviewed. Rapid coronavirus antigen testing was negative. Blood and wound cultures are pending. Vital Signs: Vital Signs Temp Pulse Resp BP Pulse Ox 97.8 F 98 17 134/75 H 96 07/31/21 03:20 07/31/21 04:26 07/31/21 03:42 07/31/21 03:20 07/31/21 03:20 Oxygen Flow Rate (L/min) 35 Oxygen Delivery Method Bi-pap Weight: 104.8 kg Body Mass Index (BMI) 36.1 Intake & Output: Intake and Output for Last 24 Hours 07/29/21 07/30/21 07/31/21 23:59 23:59 23:59 Intake Total 1010.0 / 1010.0 220 / 220 Output Total 100 / 1000 900 / 1900 1000 / 1000 Balance 910.0 / 10.0 -900 / -1680 -780 / -780 Lab / Micro Data Attestation: I reviewed the patient's lab results. Result Diagrams: 07/31/21 06:30 07/30/21 05:40 Labs: Laboratory Results - last 24 hr 07/30/21 05:40: WBC 6.2, RBC 5.62, Hgb 16.6 H, Hct 55.1 H, MCV 98.0 H, MCH 29.5, MCHC 30.1 L, RDW Std Deviation 51.6 H, RDW Coeff of Artemio 14.2, Plt Count 138 L, MPV 9.3, Immature Gran % (Auto) 0.500, Neut % (Auto) 80.8 H, Lymph % (Auto) 7.0 L, [place] % (Auto) 11.0 H, Eos % (Auto) 0.5, Baso % (Auto) 0.2, Absolute Neuts (auto) 5.0, Absolute Lymphs (auto) 0.43 L, Nucleated RBC % 0, Differential Comment SCANNED 07/30/21 05:40: Sodium 139, Potassium 3.3 L, Chloride 95 L, Carbon Dioxide 41.0 H, Anion Gap 3 L, BUN 11, Creatinine 0.75, Estim Creat Clear Calc 68.40, Est GFR (MDRD) Af Amer 133, Est GFR (MDRD) Non-Af 110, BUN/Creatinine Ratio 14.7, Glucose 90, Calcium 8.3 L Micro: Microbiology 07/29/21 18:25 Urine, Random Legionella Antigen - Final 07/29/21 18:25 Urine, Random Streptococcus pneumoniae Antigen (M - Final 07/29/21 11:15 Wound - Leg, Right Gram Stain - Final 07/29/21 11:15 Wound - Leg, Left Gram Stain - Final 07/29/21 08:52 Nasal Secretion SARS-CoV-2 Antigen (Rapid) - Final Radiography Diagnostic Testing: Radiology Impression Echocardiogram 07/29/21 12:11 Interpretation Summary The estimated ejection fraction is 55-60 %. Unable to assess diastolic dysfunction. Severely dilated right ventricle. Severe pulmonary hypertension. Small pericardial effusion. Ordering Physician: Bette Landers Referring Physician: ANDREA WATERS Performed By: Nicki Dia, ADDY, RVT Physical Exam Const alert and no apparent distress Constitutional Narrative: Currently receiving an aerosol treatment. General Appearance: cooperative Nutritional Appearance: obese HEENT normocephalic and head/scalp atraumatic Eyes PERRL, EOMs intact bilaterally and conjunctivae normal Neck supple General: trachea midline Chest inspection of chest normal Resp Auscultation: wheezes and diminished lung sounds Cardio regular rate and regular rhythm GI normal to inspection, nondistended, normoactive bowel sounds Extremity Extremity Narrative: Bilateral lower extremity lymphedema. Skin Skin Narrative: Wrapped lower extremities. Neuro CN's II-XII intact bilaterally and no focal motor deficits Psych cooperative and affect normal Charges/Coding Visit Charges Inpatient E&M: 44233 Subs Hosp L2
[2021-07-31 06:47] LABS: Absolute Lymphocyte Count 0.53 X10^3/uL (0.83-4.51); Absolute Neutrophil Count 5.4 X10^3/uL (2.0-7.7); Basophil# 0.02 X10^3/uL; Basophil% 0.3 % (0-1); Eosinophil# 0.04 X10^3/uL; Eosinophils% 0.6 % (0-5); Hematocrit 54.3 % (40-54); Hemoglobin 16.5 g/dL (13.0-16.5); Lymphocyte # 0.53 X10^3/ul (0.83-4.51); Mean Corp Hgb Conc 30.4 g/dL (32-36); Mean Corpuscular Hgb 29.2 pg (27.0-32.0); Mean Corpuscular Volume 95.9 fL (80-94); Mean Platelet Vol. 8.9 fl (6.2-12.0); Monocyte# 0.59 X10^3/uL; Monocyte% 8.9 % (0-10); NRBC Flagged by Analyzer 0 % (0-5); Neutrophil % 81.9 % (47-70); POSITIVE DIFFERENTIAL YES; Platelet Count 140 K/mm3 (150-450); RBC Distribution Width SD 50.1 fl (35.1-43.9); Red Blood Count 5.66 M/mm3 (4.6-6.2); White Blood Count 6.6 K/mm3 (4.4-11.0)
[2021-07-31 06:54] LABS: Differential Indicated SCAN CRITERIA MET
--- NOTE | 2021-07-31 07:00 | NURSING ---
PATRICIA hung scheduled vancomycin and zosyn at 07/31 0700, verified by Tia GOMEZ. Was unable to scan name bracelet or medication.
--- NOTE | 2021-07-31 07:27 | PCS.PANDOC ---
PANDEMIC DOCUMENTATION INITIATED: Date: 02/14/2021 Time: 190
[2021-07-31 07:41] LABS: Vancomycin, Trough Level 19.3 ug/mL (5.0-15.0)
[2021-07-31] MEDS: Budesonide Respules 0.5 MG/2 ML AMPUL.NEB. INHALATION (07:56)
[2021-07-31] MEDS: Ipratropium/Albuterol Sulfate 3 ML AMPUL.NEB INHALATION ×3 (07:56→15:02)
--- NOTE | 2021-07-31 08:20 | PCM.RX.CS ---
Consult Pharmacy has been consulted to manage selected antiobiotic: Vancomycin Type of Consult: Follow-up Prior Doses of Antibiotics Received/Current Regimen: 1500MG IV Q12H Labs: Sodium Cancelled 07/31/21 06:30 Sodium Cancelled 07/31/21 06:30 Potassium Cancelled 07/31/21 06:30 Potassium Cancelled 07/31/21 06:30 Chloride Cancelled 07/31/21 06:30 Chloride Cancelled 07/31/21 06:30 Carbon Dioxide Cancelled 07/31/21 06:30 Carbon Dioxide Cancelled 07/31/21 06:30 Anion Gap Cancelled 07/31/21 06:30 Anion Gap Cancelled 07/31/21 06:30 BUN Cancelled 07/31/21 06:30 BUN Cancelled 07/31/21 06:30 Creatinine Cancelled 07/31/21 06:30 Creatinine Cancelled 07/31/21 06:30 Est GFR (MDRD) Af Amer Cancelled 07/31/21 06:30 Est GFR (MDRD) Af Amer Cancelled 07/31/21 06:30 Est GFR (MDRD) Non-Af Cancelled 07/31/21 06:30 Est GFR (MDRD) Non-Af Cancelled 07/31/21 06:30 BUN/Creatinine Ratio Cancelled 07/31/21 06:30 BUN/Creatinine Ratio Cancelled 07/31/21 06:30 Glucose Cancelled 07/31/21 06:30 Glucose Cancelled 07/31/21 06:30 Vancomycin Trough 19.3 ug/mL (5.0-15.0) H 07/31/21 06:30 Microbiology: Microbiology 07/29/21 18:25 Urine, Random Legionella Antigen - Final 07/29/21 18:25 Urine, Random Streptococcus pneumoniae Antigen (M - Final 07/29/21 11:15 Wound - Leg, Right Gram Stain - Final 07/29/21 11:15 Wound - Leg, Left Gram Stain - Final 07/29/21 08:52 Nasal Secretion SARS-CoV-2 Antigen (Rapid) - Final Weight used for dosin kg Estimated Creatinine Clearance: 68ml/min Goal Trough: 15-20 mcg/mL Pharmacy Plan for Drug Dosing: Trough today 19.3 with goal of 15-20mcg/ml. Will continue same dose . Another trough level ordered for before 4th additional dose to check still in therapeutic range. Pharmacy Service will continue to monitor and adjust dosing as required. Follow-Up Labs: Trough Vancomycin - 1.31.22@1830 before 1900 dose
[2021-07-31 08:21] LABS: ALB/GLOB Ratio 0.7 RATIO (0.9-2.4); AST(SGOT) 12 U/L (15-37); Alanine Aminotransfer ALT/SGPT 8 U/L (16-61); Albumin, Serum 2.3 g/dL (3.2-5.0); Alkaline Phosphatase 70 U/L (45-117); Globulin 3.5 g/dL (2.2-4.2); Protein, Total 5.8 g/dL (6.4-8.2)
[2021-07-31] MEDS: 0.9% Saline Lock 10 ML Syringe IV ×2 (09:30→18:45)
[2021-07-31] MEDS: Enoxaparin 40 MG/0.4 ML Syringe SC (09:31)
[2021-07-31] MEDS: Furosemide 40 MG/4 ML Vial IV ×2 (09:31→18:45)
--- NOTE | 2021-07-31 10:19 | PN.HOSP_ITS ---
Subjective Subjective Patient seen and examined. He states he feels better today. He does have some wheezing and is coughing but denies any fever chills, chest pain, nausea vomiting. Review of systems otherwise negative. He is now off BiPAP and on 10 L of oxygen by nasal cannula. He is in cumulative negative balance by 700 mL. Objective Data Objective Data Vital Signs: Vital Signs Temp Pulse Resp BP Pulse Ox 97.7 F L 90 18 135/73 H 93 07/31/21 09:20 07/31/21 09:20 07/31/21 09:20 07/31/21 09:20 07/31/21 09:20 Oxygen Flow Rate (L/min) 10 Oxygen Delivery Method Nasal Cannula Weight: 231 lb 0.711 oz Body Mass Index (BMI) 36.1 Intake & Output: Intake and Output for Last 24 Hours 07/29/21 07/30/21 07/31/21 23:59 23:59 23:59 Intake Total 1010.0 / 1010.0 50 / 270 220 / 220 Output Total 100 / 1000 900 / 1900 1000 / 1000 Balance 910.0 / 10.0 -850 / -1630 -780 / -780 Lab / Micro Data Result Diagrams: 07/31/21 06:30 07/30/21 05:40 Labs: Laboratory Results - last 24 hr 07/30/21 05:40: WBC 6.2, RBC 5.62, Hgb 16.6 H, Hct 55.1 H, MCV 98.0 H, MCH 29.5, MCHC 30.1 L, RDW Std Deviation 51.6 H, RDW Coeff of Artemio 14.2, Plt Count 138 L, MPV 9.3, Immature Gran % (Auto) 0.500, Neut % (Auto) 80.8 H, Lymph % (Auto) 7.0 L, [place] % (Auto) 11.0 H, Eos % (Auto) 0.5, Baso % (Auto) 0.2, Absolute Neuts (auto) 5.0, Absolute Lymphs (auto) 0.43 L, Nucleated RBC % 0, Differential Comment SCANNED 07/30/21 05:40: Sodium 139, Potassium 3.3 L, Chloride 95 L, Carbon Dioxide 41.0 H, Anion Gap 3 L, BUN 11, Creatinine 0.75, Estim Creat Clear Calc 68.40, Est GFR (MDRD) Af Amer 133, Est GFR (MDRD) Non-Af 110, BUN/Creatinine Ratio 14.7, Glucose 90, Calcium 8.3 L 07/31/21 06:30: WBC 6.6, RBC 5.66, Hgb 16.5, Hct 54.3 H, MCV 95.9 H, MCH 29.2, MCHC 30.4 L, RDW Std Deviation 50.1 H, RDW Coeff of Artemio 14.0, Plt Count 140 L, MPV 8.9, Immature Gran % (Auto) 0.300, Neut % (Auto) 81.9 H, Lymph % (Auto) 8.0 L, [place] % (Auto) 8.9, Eos % (Auto) 0.6, Baso % (Auto) 0.3, Absolute Neuts (auto) 5.4, Absolute Lymphs (auto) 0.53 L, Nucleated RBC % 0 07/31/21 06:30: Sodium Cancelled, Potassium Cancelled, Chloride Cancelled, Carbon Dioxide Cancelled, Anion Gap Cancelled, BUN Cancelled, Creatinine Cancelled, Estim Creat Clear Calc Cancelled, Est GFR (MDRD) Af Amer Cancelled, Est GFR (MDRD) Non-Af Cancelled, BUN/Creatinine Ratio Cancelled, Glucose Cancell ed, Calcium Cancelled 07/31/21 06:30: Vancomycin Trough 19.3 H 07/31/21 06:30: Sodium Cancelled, Potassium Cancelled, Chloride Cancelled, Carbon Dioxide Cancelled, Anion Gap Cancelled, BUN Cancelled, Creatinine Cancelled, Est GFR (MDRD) Af Amer Cancelled, Est GFR (MDRD) Non-Af Cancelled, BUN/Creatinine Ratio Cancelled, Glucose Cancelled, Calcium Cancelled, Total Bilirubin 0.80, AST 12 L, ALT 8 L, Alkaline Phosphatase 70, Total Protein 5.8 L, Albumin 2.3 L, Globulin 3.5, Albumin/Globulin Ratio 0.7 L Micro: Microbiology 07/29/21 11:15 Wound - Leg, Right Gram Stain - Final 07/29/21 11:15 Wound - Leg, Right Wound Culture - Preliminary Klebsiella oxytoca Gram negative ava Gram positive ava 07/29/21 11:15 Wound - Leg, Left Gram Stain - Final 07/29/21 11:15 Wound - Leg, Left Wound Culture - 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 07/29/21 07:27 Blood Culture (Wb) - Anticubital Left Blood Culture - Preliminary No growth in 48 hours. 07/29/21 18:25 Urine, Random Legionella Antigen - Final 07/29/21 18:25 Urine, Random Streptococcus pneumoniae Antigen (M - Final 07/29/21 08:52 Nasal Secretion SARS-CoV-2 Antigen (Rapid) - Final Radiography Diagnostic Testing: Radiology Impression Echocardiogram 07/29/21 12:11 Interpretation Summary The estimated ejection fraction is 55-60 %. Unable to assess diastolic dysfunction. Severely dilated right ventricle. Severe pulmonary hypertension. Small pericardial effusion. Ordering Physician: Bette Landers Referring Physician: ANDREA WATERS Performed By: Nicki Dia, RDCS, RVT Physical Exam Const alert, oriented x3 and no apparent distress General Appearance: cooperative Exam Limitations: no limitations HEENT normocephalic, head/scalp atraumatic and moist oral mucous membranes Head and Scalp: normocephalic Eyes PERRL and EOMs intact bilaterally Neck no lymphadenopathy, supple and no JVD Lymph Lymphatic: no lymphadenopathy noted Resp Resp Narrative: diminished breath sounds bibasally, mild wheezes, no crackles. On 10L of oxygen by nasal canula. Cardio regular rate, regular rhythm, S1 normal heart sound, S2 normal heart sound and no murmurs GI normal to inspection, nondistended, normoactive bowel sounds, soft to palpation, non-tender and non-distended Palpation: no hepatosplenomegaly Extremity Extremity Narrative: both LEs wrapped in bandage. Peripheral Pulses: Yes pulses 2+ throughout Skin Skin Narrative: as under extremities Neuro oriented x3, CN's II-XII intact bilaterally and deep tendon reflexes 2+ bilaterally Sensorium / Orientation: awake and alert Motor Exam: strength 5/5 throughout Psych thought process normal, cooperative and affect normal Appearance: appropriate Assessment & Plan Assessment/Plan (1) Bilateral lower leg cellulitis: (2) Lymphedema: PLAN: #Acute hypoxic and hypercapnic respiratory failure due to undiagnosed COPD * Was emergently transferred to the ICU on account of elevated PCO2. This resolved with BiPAP and was transferred out of the ICU yesterday. * Now on 10 L of oxygen. Titrate oxygen to maintain saturation above 90%. * breathing treatment with bronchodilators * on AVAPs qhs #Bilateral lower extremity cellulitis in the setting of lymphedema * antibiotics were broadened to vanc and zosyn when he deteriorated and was tr ansferred to the ICU. * Duplex of both lower extremities were ordered and are pending. * Wound cultures grew gram-negative rods possibly Pseudomonas gram-positive rods which are pending speciation, as well as Klebsiella * blood cultures show no growth after 48 hours. * #Probable heart failure of unknown EF * EF from 2013 was 55%. * BNP is elevated in the 300s. * Patient is obese and so this might potentially blunts the BNP. Chest x-ray showed hyperinflation with blunting of the right costophrenic angle * 2D echo done during this admission showed EF of 55 to 60% with severely dilated right ventricle and severe pulmonary hypertension with inability to assess diastolic dysfunction * being diuresed with IV lasix 40mg bid. * * #CAD s/p stent x 1: says it was done ~ 10 years ago. On high intensity statin and plavix #Hypertension: On metoprolol and losartan #Nicotine dependence: Smokes 2 packs daily. Counseled to quit. Nicotine patch 21 mg daily. DVT prophylaxis: Lovenox CODE STATUS: Full code * Charges/Coding Visit Charges Inpatient E&M: 38911 Subs Hosp L3
[2021-07-31] MEDS: predniSONE 20 MG Tablet 40 MG PO (12:29)
[2021-07-31] MEDS: Acetaminophen 325 MG Tablet 650 MG PO (15:43)
[2021-07-31] MEDS: oxyCODONE 5 MG Tablet PO (18:45)
[2021-07-31] MEDS: MELATONIN 3 MG TABLET PO (21:10)
--- NOTE | 2021-07-31 21:17 | CPS ---
Patient requested to come off the Bipap after only wearing for 10 minutes. He states that he can't handle it [facility] RT placed patient back on HFNC at 10 liters.
--- NOTE | 2021-07-31 23:57 | NURSING ---
Patient refused to wear BIPAP, RN educated about importance of patient wearing it, still refuses at this time.
[2021-08-01] VITALS (17 sets, daily range): BP systolic 116–154; BP diastolic 57–85; PULSE 79–91; RESP 15–24; TEMP 36.3–37.2; O2SAT 93–99
[2021-08-01 02:21] LABS: Magnesium 1.7 mg/dL (1.6-2.6); Potassium 3.6 mmol/L (3.5-5.1)
[2021-08-01 05:54] LABS: Absolute Lymphocyte Count 0.48 X10^3/uL (0.83-4.51); Absolute Neutrophil Count 6.9 X10^3/uL (2.0-7.7); Basophil# 0.02 X10^3/uL; Basophil% 0.2 % (0-1); Eosinophil# 0.01 X10^3/uL; Eosinophils% 0.1 % (0-5); Hemoglobin 17.2 g/dL (13.0-16.5); Lymphocyte # 0.48 X10^3/ul (0.83-4.51); Mean Corp Hgb Conc 30.2 g/dL (32-36); Mean Platelet Vol. 9.2 fl (6.2-12.0); Monocyte# 0.63 X10^3/uL; Monocyte% 7.8 % (0-10); NRBC Flagged by Analyzer 0 % (0-5); Neutrophil # 6.86 X10^3/uL (2.7-7.7); Neutrophil % 85.5 % (47-70); POSITIVE DIFFERENTIAL YES; Platelet Count 145 K/mm3 (150-450); RBC Distribution Width CV 13.6 % (11.6-14.6); RBC Distribution Width SD 48.9 fl (35.1-43.9); Red Blood Count 5.94 M/mm3 (4.6-6.2)
[2021-08-01 06:07] LABS: Differential Indicated SCAN CRITERIA MET
[2021-08-01 06:25] LABS: BUN 17 mg/dL (7-18); Calcium,Total 8.1 mg/dL (8.5-10.1); Carbon Dioxide > 45.0 mmol/L (21.0-32.0); Chloride 87 mmol/L (98-107); Creatinine, Serum 0.74 mg/dL (0.70-1.30); EST Glomerular Filtration Rate 112 mL/min (>60); Est Glom Filt Rate - Afr Amer 135 mL/min (>60); Glucose 120 mg/dL (74-106); Potassium 3.4 mmol/L (3.5-5.1); Sodium Level 134 mmol/L (136-145)
[2021-08-01] MEDS: Budesonide Respules 0.5 MG/2 ML AMPUL.NEB. INHALATION ×2 (07:13→19:30)
[2021-08-01] MEDS: Ipratropium/Albuterol Sulfate 3 ML AMPUL.NEB INHALATION ×5 (07:13→23:10)
[2021-08-01] MEDS: Furosemide 40 MG/4 ML Vial IV ×2 (08:37→17:06)
[2021-08-01] MEDS: Enoxaparin 40 MG/0.4 ML Syringe SC (08:38)
[2021-08-01] MEDS: predniSONE 20 MG Tablet 40 MG PO (08:39)
--- NOTE | 2021-08-01 08:45 | PN.CC_ITS ---
Assessment & Plan Assessment/Plan (1) Encephalopathy: PLAN: RECOMMENDATIONS: 1. Continue AVAPS therapy with naps and nightly. Highly encouraged compliance 2. Continue bronchodilators and local wound care. 3. Continue scheduled bronchodilators. 4. Continue diuretic therapy as tolerated by hemodynamics and renal function. 5. Wean supplemental oxygen as tolerated. 6. Encourage incentive spirometer use and mobilize patient as tolerated. IMPRESSIONS: 1. Encephalopathy Secondary to hypercapnia. The patient has a self-reported history of COPD of unknown severity along with chronic tobacco dependency. He also reportedly has been diagnosed with sleep apnea and does not currently utilize any form of nocturnal Pap therapy. The patient responded appropriately to noninvasive positive pressure ventilatory support. Extensive conversation with the patient about the importance of complying with AVAPS to avoid future complications. Nocturnal hypoxia can also exacerbate problem #3. In light of a self-reported history of COPD, continue scheduled bronchodilators. Strongly recommend avoiding sedating medications. 2. Bilateral lower extremity cellulitis Continue antimicrobials per hospitalist along with local wound care. Polymicrobial infection indicated by culture 3. Congestive heart failure with preserved ejection fraction/cor pulmonale Echocardiogram shows preserved ejection fraction of 55%, but severely dilated right ventricle with a PASP of 80 mmHg. Continue diuretic therapy as tolerated by hemodynamics and renal function. Clinical suspicion for an element of pulmonary hypertension secondary to poorly controlled saturations. 4. 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 It is reasonable to continue scheduled bronchodilators while admitted to the hospital. Tobacco cessation counseling was provided. Nicotine replacement therapy can be utilized while the patient is admitted to the hospital. He would benefit from outpatient pulmonary follow-up so that baseline PFTs can be obtained and further optimization undertaken. 5. Obesity with history of sleep apnea Patient has apparently been diagnosed with sleep apnea in the past, but has elected not to utilize any form of nocturnal Pap therapy. Instead, the patient is only utilizing supplemental oxygen on a nightly basis. In light of his respiratory mechanics and CO2 retention, I would strongly recommend reconsideration for Pap therapy on an outpatient basis. This note was generated with [employer] software. It may contain incorrect words, spelling, and punctuation that were not noted in checking the note before signing. Subjective Subjective Patient did okay overnight. Patient reports no subjective change in overall condition. No chest pain or abdominal pain is been reported. Patient did report a cough productive of clear sputum this morning following an aerosol treatment. Patient did not use BiPAP overnight as he feels this is uncomfortable. Objective Data Objective Data Vital Signs: Vital Signs Temp Pulse Resp BP Pulse Ox 36.3 C L 88 18 124/60 H 95 08/01/21 08:29 08/01/21 08:29 08/01/21 08:29 08/01/21 08:29 08/01/21 08:29 Oxygen Flow Rate (L/min) 8 Oxygen Delivery Method Nasal Cannula Weight: 104.2 kg Body Mass Index (BMI) 36.1 Intake & Output: Intake and Output for Last 24 Hours 07/30/21 07/31/21 08/01/21 23:59 23:59 23:59 Intake Total 50 / 270 2986.08 / 2986.08 114.25 / 114.25 Output Total 900 / 1900 3650 / 3650 Balance -850 / -1630 -663.92 / -663.92 114.25 / 114.25 Lab / Micro Data Result Diagrams: 08/01/21 05:11 08/01/21 05:11 Labs: Laboratory Results - last 24 hr 08/01/21 02:00: Potassium 3.6, Magnesium 1.7 08/01/21 05:11: WBC 8.0, RBC 5.94, Hgb 17.2 H, Hct 57.0 H, MCV 96.0 H, MCH 29.0, MCHC 30.2 L, RDW Std Deviation 48.9 H, RDW Coeff of Artemio 13.6, Plt Count 145 L, MPV 9.2, Immature Gran % (Auto) 0.400, Neut % (Auto) 85.5 H, Lymph % (Auto) 6.0 L, Gray % (Auto) 7.8, Eos % (Auto) 0.1, Baso % (Auto) 0.2, Absolute Neuts (auto) 6.9, Absolute Lymphs (auto) 0.48 L, Nucleated RBC % 0 08/01/21 05:11: Sodium 134 L, Potassium 3.4 L, Chloride 87 L, Carbon Dioxide > 45.0 H*, Anion Gap TNP, BUN 17, Creatinine 0.74, Estim Creat Clear Calc 68.40, Est GFR (MDRD) Af Amer 135, Est GFR (MDRD) Non-Af 112, BUN/Creatinine Ratio 23.0 H, Glucose 120 H, Calcium 8.1 L Micro: Microbiology 07/29/21 11:15 Wound - Leg, Left Gram Stain - Final 07/29/21 11:15 Wound - Leg, Left Wound Culture - Final Escherichia hermannii Klebsiella oxytoca Gram positive ava 07/29/21 11:15 Wound - Leg, Right Gram Stain - Final 07/29/21 11:15 Wound - Leg, Right Wound Culture - Final Klebsiella oxytoca Escherichia hermannii Gram positive ava 07/29/21 07:45 Blood Culture (Wb) - Anticubital Right Blood Culture - Preliminary No growth in 48 hours. 07/29/21 07:27 Blood Culture (Wb) - Anticubital Left Blood Culture - Preliminary No growth in 48 hours. 07/29/21 18:25 Urine, Random Legionella Antigen - Final 07/29/21 18:25 Urine, Random Streptococcus pneumoniae Antigen (M - Final 07/29/21 08:52 Nasal Secretion SARS-CoV-2 Antigen (Rapid) - Final Physical Exam Const alert and no apparent distress Constitutional Narrative: Currently receiving an aerosol treatment. General Appearance: cooperative Nutritional Appearance: obese HEENT normocephalic and head/scalp atraumatic Eyes PERRL, EOMs intact bilaterally and conjunctivae normal Neck supple General: trachea midline Chest inspection of chest normal Chest: symmetrical chest wall rise; Negative for crepitus Resp Auscultation: diminished lung sounds; Negative for rales, rhonchi or wheezes Cardio regular rate and regular rhythm GI normal to inspection, nondistended, normoactive bowel sounds Extremity Extremity Narrative: Bilateral lower extremity lymphedema. Skin Skin Narrative: Wrapped lower extremities. Neuro CN's II-XII intact bilaterally and no focal motor deficits Psych cooperative and affect normal Charges/Coding Visit Charges Inpatient E&M: 53610 Subs Hosp L2
[2021-08-01] MEDS: Potassium Chloride Oral Tablet 20 MEQ 40 MEQ PO ×2 (10:01→17:05)
--- NOTE | 2021-08-01 11:34 | CASEMGMT ---
SW was informed patient would like to do a Healthcare Power of Cafeteria Director (HCPOA). SW reviewed PT/OT notes and patient did not do well. SW met with patient. Introduced self and role at [facility]. Patient confirmed that he would like to do a HCPOA. SW also spoke with patient about his discharge plan. He is not sure what he is going to do at d/c. SW asked if therapy recommends he go to a nursing facility for rehab would he be open to this and he would. A little later SW went back to patient's room and gave him a list of SNF providers including quality and resource use data and consistent with the patient?s preferred geographic region, medical needs, and insurance network. SW let patient know that the facilities highlighted in pink are the ones that take patient's insurance. Patient was eating lunch so SW will return to complete HCPOA. Angelica Dunne MSW SHEY
[2021-08-01] MEDS: oxyCODONE 5 MG Tablet PO (13:29)
--- NOTE | 2021-08-01 13:43 | CASEMGMT ---
SW completed a Healthcare Power of Geographic Information Scientist and Healthcare Living Will with patient per his request. Copies were made and given to patient along with originals. A copy of each was also placed in patient's chart. Angelica KAT
--- NOTE | 2021-08-01 16:31 | PN.HOSP_ITS ---
Subjective Subjective Breathing ok. Swelling in LE improved. Chronic erythema in LE unchanged. Objective Data Objective Data Vital Signs: Vital Signs Temp Pulse Resp BP Pulse Ox 36.9 C 83 18 154/85 H 96 08/01/21 15:00 08/01/21 15:00 08/01/21 15:00 08/01/21 15:00 08/01/21 15:00 Oxygen Flow Rate (L/min) 7 Oxygen Delivery Method High Flow Weight: 104.2 kg Body Mass Index (BMI) 36.1 Intake & Output: Intake and Output for Last 24 Hours 07/30/21 07/31/21 08/01/21 23:59 23:59 23:59 Intake Total 50 / 270 2986.08 / 2986.08 934.25 / 934.25 Output Total 900 / 1900 3650 / 3650 1375 / 1375 Balance -850 / -1630 -663.92 / -663.92 -440.75 / -440.75 Lab / Micro Data Result Diagrams: 08/01/21 05:11 08/01/21 05:11 Labs: Laboratory Results - last 24 hr 08/01/21 02:00: Potassium 3.6, Magnesium 1.7 08/01/21 05:11: WBC 8.0, RBC 5.94, Hgb 17.2 H, Hct 57.0 H, MCV 96.0 H, MCH 29.0, MCHC 30.2 L, RDW Std Deviation 48.9 H, RDW Coeff of Artemio 13.6, Plt Count 145 L, MPV 9.2, Immature Gran % (Auto) 0.400, Neut % (Auto) 85.5 H, Lymph % (Auto) 6.0 L, Waller % (Auto) 7.8, Eos % (Auto) 0.1, Baso % (Auto) 0.2, Absolute Neuts (auto) 6.9, Absolute Lymphs (auto) 0.48 L, Nucleated RBC % 0 08/01/21 05:11: Sodium 134 L, Potassium 3.4 L, Chloride 87 L, Carbon Dioxide > 45.0 H*, Anion Gap TNP, BUN 17, Creatinine 0.74, Estim Creat Clear Calc 68.40, Est GFR (MDRD) Af Amer 135, Est GFR (MDRD) Non-Af 112, BUN/Creatinine Ratio 23.0 H, Glucose 120 H, Calcium 8.1 L Micro: Microbiology 07/29/21 11:15 Wound - Leg, Left Gram Stain - Final 07/29/21 11:15 Wound - Leg, Left Wound Culture - Final Escherichia hermannii Klebsiella oxytoca Gram positive ava 07/29/21 11:15 Wound - Leg, Right Gram Stain - Final 07/29/21 11:15 Wound - Leg, Right Wound Culture - Final Klebsiella oxytoca Escherichia hermannii Gram positive ava 07/29/21 07:45 Blood Culture (Wb) - Anticubital Right Blood Culture - Preliminary No growth in 48 hours. 07/29/21 07:27 Blood Culture (Wb) - Anticubital Left Blood Culture - Preliminary No growth in 48 hours. 07/29/21 18:25 Urine, Random Legionella Antigen - Final 07/29/21 18:25 Urine, Random Streptococcus pneumoniae Antigen (M - Final 07/29/21 08:52 Nasal Secretion SARS-CoV-2 Antigen (Rapid) - Final Physical Exam Const alert and no apparent distress Resp normal respiratory effort, no retractions, no use of accessory muscles and clear to auscultation bilaterally Cardio regular rate, regular rhythm and S1 normal heart sound GI normal to inspection, nondistended, normoactive bowel sounds, soft to palpation, non-tender and non-distended Extremity normal to inspection and full ROM Skin Skin Narrative: Venous stasis changes to the lower extremities with erythema and induration of the lower extremities. Does have venous stasis ulcers without any obvious purulence on bilateral lower extremities. Neuro oriented x3 Sensorium / Orientation: awake, alert and oriented to person Psych affect normal Assessment & Plan Assessment/Plan (1) Bilateral lower leg cellulitis: (2) Lymphedema: PLAN: 1. Acute hypoxic and hypercapnic respiratory failure * multifactorial: 2/2 COPD exacerbation, HFpEF, pulmonary HTN. * Was emergently transferred to the ICU on account of elevated PCO2. This resolved with BiPAP and was transferred out of the ICU 07/30. * Now on 7 L of oxygen. Titrate oxygen to maintain saturation above 90%. * breathing treatment with bronchodilators * on AVAPs qhs 2. Bilateral lower extremity cellulitis in the setting of lymphedema * doubt actual infection in the absence of fever or leukocytosis * polymicrobial cultures may be colonization * change to Bactrim and treat for 4 more days * Duplex of both lower extremities were ordered and are pending. 3. acute HFpEF * EF 55-60% * complicated by Severe pulmonary HTN * being diuresed with IV lasix 40mg bid. 4. AECOPD * on prednisone and BDs 5. chronic issues: * CAD s/p stent x 1: says it was done ~ 10 years ago. On high intensity statin and plavix * Hypertension: On metoprolol and losartan * Nicotine dependence: Smokes 2 packs daily. Counseled to quit. Nicotine patch 21 mg daily. DVT prophylaxis: Lovenox CODE STATUS: Full code Charges/Coding Visit Charges Inpatient E&M: 11117 Subs Hosp L2
[2021-08-01] MEDS: Juven (unflavored) Packet 1 PACKET PO (17:05)
[2021-08-01] MEDS: MELATONIN 3 MG TABLET PO (22:36)
[2021-08-01] MEDS: Smz/Tmp Ds Tablet 1 TABLET PO (22:36)
--- NOTE | 2021-08-01 23:10 | CPS ---
decreased O2 to 5 LPM
--- NOTE | 2021-08-01 23:25 | CPS ---
pt refusing BiPAP, is also refusing to allow his trach to be uncapped for night time.
[2021-08-02] VITALS (18 sets, daily range): BP systolic 128–135; BP diastolic 52–72; PULSE 79–91; RESP 16–20; TEMP 36.5–37.2; O2SAT 90–96
--- NOTE | 2021-08-02 01:23 | NURSING ---
PT REFUSING TO WEAR HIS BIPAP
[2021-08-02] MEDS: Ipratropium/Albuterol Sulfate 3 ML AMPUL.NEB INHALATION ×5 (02:15→20:07)
--- NOTE | 2021-08-02 02:15 | CPS ---
Decreased O2 to home setting of 4 lpm
[2021-08-02 05:02] LABS: Absolute Lymphocyte Count 0.81 X10^3/uL (0.83-4.51); Absolute Neutrophil Count 6.1 X10^3/uL (2.0-7.7); Basophil# 0.04 X10^3/uL; Basophil% 0.5 % (0-1); Eosinophil# 0.03 X10^3/uL; Eosinophils% 0.4 % (0-5); Hemoglobin 16.9 g/dL (13.0-16.5); Lymphocyte # 0.81 X10^3/ul (0.83-4.51); Lymphocyte % 10.6 % (19-41); Mean Corp Hgb Conc 30.2 g/dL (32-36); Mean Corpuscular Hgb 28.7 pg (27.0-32.0); Mean Corpuscular Volume 94.9 fL (80-94); Mean Platelet Vol. 9.3 fl (6.2-12.0); Monocyte# 0.69 X10^3/uL; NRBC Flagged by Analyzer 0 % (0-5); Neutrophil # 6.05 X10^3/uL (2.7-7.7); Neutrophil % 79.2 % (47-70); Platelet Count 143 K/mm3 (150-450); RBC Distribution Width CV 13.6 % (11.6-14.6); RBC Distribution Width SD 48.6 fl (35.1-43.9); Red Blood Count 5.89 M/mm3 (4.6-6.2); White Blood Count 7.6 K/mm3 (4.4-11.0)
[2021-08-02 05:10] LABS: Hematocrit 55.9 % (40-54)
[2021-08-02 05:42] LABS: ALB/GLOB Ratio 0.7 RATIO (0.9-2.4); AST(SGOT) 10 U/L (15-37); Alanine Aminotransfer ALT/SGPT 9 U/L (16-61); Albumin, Serum 2.4 g/dL (3.2-5.0); Alkaline Phosphatase 68 U/L (45-117); Anion Gap 3 (5-15); BUN 24 mg/dL (7-18); Calcium,Total 8.5 mg/dL (8.5-10.1); Chloride 86 mmol/L (98-107); Creatinine, Serum 0.75 mg/dL (0.70-1.30); EST Glomerular Filtration Rate 110 mL/min (>60); Est Glom Filt Rate - Afr Amer 133 mL/min (>60); Globulin 3.6 g/dL (2.2-4.2); Glucose 135 mg/dL (74-106); Potassium 3.7 mmol/L (3.5-5.1); Sodium Level 134 mmol/L (136-145)
[2021-08-02] MEDS: Smz/Tmp Ds Tablet 1 TABLET PO ×2 (08:00→16:12)
[2021-08-02] MEDS: 0.9% Saline Lock 10 ML Syringe IV ×2 (08:00→22:45)
[2021-08-02] MEDS: Juven (unflavored) Packet 1 PACKET PO ×2 (08:00→16:12)
[2021-08-02] MEDS: Enoxaparin 40 MG/0.4 ML Syringe SC (08:01)
[2021-08-02] MEDS: predniSONE 20 MG Tablet 40 MG PO (08:01)
[2021-08-02] MEDS: Furosemide 40 MG/4 ML Vial IV (08:03)
[2021-08-02] MEDS: oxyCODONE 5 MG Tablet PO (08:10)
--- NOTE | 2021-08-02 08:13 | PN.CC_ITS ---
Assessment & Plan Assessment/Plan (1) Encephalopathy: PLAN: RECOMMENDATIONS: 1. Continue AVAPS therapy with naps and nightly. Highly encouraged compliance 2. Continue bronchodilators and local wound care. 3. Continue scheduled bronchodilators. 4. Continue diuretic therapy as tolerated by hemodynamics and renal function. 5. Wean supplemental oxygen as tolerated. 6. Encourage incentive spirometer use and mobilize patient as tolerated. 7. Okay to discharge from a pulmonary perspective IMPRESSIONS: 1. Encephalopathy Secondary to hypercapnia. The patient has a self-reported history of COPD of unknown severity along with chronic tobacco dependency. He also reportedly has been diagnosed with sleep apnea and does not currently utilize any form of nocturnal Pap therapy. The patient responded appropriately to noninvasive positive pressure ventilatory support. Extensive conversation with the patient about the importance of complying with AVAPS to avoid future complications. Patient reports that he is not interested in using BiPAP therapy at home despite knowing the complications. Patient believes supplemental oxygen is appropriate. Patient's mentation is back to baseline this morning. 2. Bilateral lower extremity cellulitis Continue antimicrobials per hospitalist along with local wound care. Polymicrobial infection indicated by culture 3. Congestive heart failure with preserved ejection fraction/cor pulmonale Echocardiogram shows preserved ejection fraction of 55%, but severely dilated right ventricle with a PASP of 80 mmHg. Continue diuretic therapy as tolerated by hemodynamics and renal function. Clinical suspicion for an element of pulmonary hypertension secondary to poorly controlled saturations and probable sleep apnea. It is unlikely this will improve significantly without controlling these issues. 4. History of COPD and chronic tobacco dependency The patient does not currently follow with a curling machine operator, but does have an extensive smoking history. It is reasonable to continue scheduled b ronchodilators while admitted to the hospital. Tobacco cessation counseling was provided. Nicotine replacement therapy can be utilized while the patient is admitted to the hospital. He would benefit from outpatient pulmonary follow-up so that baseline PFTs can be obtained and further optimization undertaken. Clinical suspicion is the patient will not follow-up even if requested. 5. Obesity with history of sleep apnea Patient has apparently been diagnosed with sleep apnea in the past, but has elected not to utilize any form of nocturnal Pap therapy. Instead, the patient is only utilizing supplemental oxygen on a nightly basis. In light of his respiratory mechanics and CO2 retention, I would strongly recommend reconsideration for Pap therapy on an outpatient basis. This note was generated with Dragon dictation software. It may contain incorrect words, spelling, and punctuation that were not noted in checking the note before signing. Subjective Subjective Patient did okay overnight. Patient once again refused BiPAP therapy, but is on 4 L nasal cannula. Patient denying any chest pain or abdominal pain. Patient is reporting a throbbing in his legs, but does not describe this as pain. Patient states he was able to ambulate with therapy yesterday. Objective Data Objective Data Vital Signs: Vital Signs Temp Pulse Resp BP Pulse Ox 37.1 C 85 20 H 135/66 H 92 08/02/21 03:41 08/02/21 07:14 08/02/21 06:52 08/02/21 03:41 08/02/21 06:52 Oxygen Flow Rate (L/min) 4 Oxygen Delivery Method Nasal Cannula Weight: 100 kg Body Mass Index (BMI) 36.1 Intake & Output: Intake and Output for Last 24 Hours 07/31/21 08/01/21 08/02/21 23:59 23:59 23:59 Intake Total 2986.08 / 2986.08 1224.25 / 1224.25 0 / 0 Output Total 3650 / 3650 1875 / 2675 1100 / 1100 Balance -663.92 / -663.92 -650.75 / -1450.75 -1100 / -1100 Lab / Micro Data Result Diagrams: 08/02/21 04:13 08/02/21 04:13 Labs: Laboratory Results - last 24 hr 08/02/21 04:13: WBC 7.6, RBC 5.89, Hgb 16.9 H, Hct 55.9 H, MCV 94.9 H, MCH 28.7, MCHC 30.2 L, RDW Std Deviation 48.6 H, RDW Coeff of Artemio 13.6, Plt Count 143 L, MPV 9.3, Immature Gran % (Auto) 0.300, Neut % (Auto) 79.2 H, Lymph % (Auto) 10.6 L, Greene % (Auto) 9.0, Eos % (Auto) 0.4, Baso % (Auto) 0.5, Absolute Neuts (auto) 6.1, Absolute Lymphs (auto) 0.81 L, Nucleated RBC % 0 08/02/21 04:13: Sodium 134 L, Potassium 3.7, Chloride 86 L, Carbon Dioxide 45.0 H, Anion Gap 3 L, BUN 24 H, Creatinine 0.75, Estim Creat Clear Calc 68.40, Est GFR (MDRD) Af Amer 133, Est GFR (MDRD) Non-Af 110, BUN/Creatinine Ratio 32.0 H, Glucose 135 H, Calcium 8.5, Total Bilirubin 0.50, AST 10 L, ALT 9 L, Alkaline Phosphatase 68, Total Protein 6.0 L, Albumin 2.4 L, Globulin 3.6, Albumin/Globulin Ratio 0.7 L Micro: Microbiology 07/29/21 11:15 Wound - Leg, Left Gram Stain - Final 07/29/21 11:15 Wound - Leg, Left Wound Culture - Final Escherichia hermannii Klebsiella oxytoca Gram positive ava 07/29/21 11:15 Wound - Leg, Right Gram Stain - Final 07/29/21 11:15 Wound - Leg, Right Wound Culture - Final Klebsiella oxytoca Escherichia hermannii Gram positive ava 07/29/21 07:45 Blood Culture (Wb) - Anticubital Right Blood Culture - Preliminary No growth in 48 hours. 07/29/21 07:27 Blood Culture (Wb) - Anticubital Left Blood Culture - Preliminary No growth in 48 hours. 07/29/21 18:25 Urine, Random Legionella Antigen - Final 07/29/21 18:25 Urine, Random Streptococcus pneumoniae Antigen (M - Final 07/29/21 08:52 Nasal Secretion SARS-CoV-2 Antigen (Rapid) - Final Physical Exam Const alert and no apparent distress General Appearance: cooperative Nutritional Appearance: obese HEENT normocephalic and head/scalp atraumatic Eyes PERRL, EOMs intact bilaterally and conjunctivae normal Neck supple General: trachea midline Chest inspection of chest normal Chest: symmetrical chest wall rise; Negative for crepitus Resp Auscultation: diminished lung sounds; Negative for rales, rhonchi or wheezes Cardio regular rate and regular rhythm GI normal to inspection, nondistended, normoactive bowel sounds Extremity Extremity Narrative: Bilateral lower extremity lymphedema. Stasis ulcers are present. Skin Skin Narrative: Wrapped lower extremities. Neuro CN's II-XII intact bilaterally and no focal motor deficits Psych cooperative and affect normal Charges/Coding Visit Charges Inpatient E&M: 93039 Subs Hosp L2
--- NOTE | 2021-08-02 11:31 | CASEMGMT ---
Addendum entered by Lynn Bradshaw 08/02/21 11:33: Pt was provided a list of C providers including quality and resource use data and consistent with the patient?s preferred geographic region, medical needs, and insurance network. CM to follow. Cristina GOMEZ CM Original Note: Pt has home oxygen thru [facility] medical and per rep, pt's order is for 2-3L continuous but pt hasn't received any new equipment since 2016 and per , pt wears it 'as needed.' CM to follow. Cristina GOMEZ CM
--- NOTE | 2021-08-02 15:03 | PN.HOSP_ITS ---
Subjective Subjective Was on 7l/m at rest but required much more with activity. Feels overall better. Objective Data Objective Data Vital Signs: Vital Signs Temp Pulse Resp BP Pulse Ox 37.2 C 82 20 H 131/54 H 93 08/02/21 09:41 08/02/21 14:46 08/02/21 10:25 08/02/21 09:41 08/02/21 11:11 Oxygen Flow Rate (L/min) 7 Oxygen Delivery Method Nasal Cannula Weight: 100 kg Body Mass Index (BMI) 36.1 Intake & Output: Intake and Output for Last 24 Hours 07/31/21 08/01/21 08/02/21 23:59 23:59 23:59 Intake Total 2986.08 / 2986.08 1224.25 / 1224.25 480 / 480 Output Total 3650 / 3650 1875 / 2675 1800 / 1800 Balance -663.92 / -663.92 -650.75 / -1450.75 -1320 / -1320 Lab / Micro Data Result Diagrams: 08/02/21 04:13 08/02/21 04:13 Labs: Laboratory Results - last 24 hr 08/02/21 04:13: WBC 7.6, RBC 5.89, Hgb 16.9 H, Hct 55.9 H, MCV 94.9 H, MCH 28.7, MCHC 30.2 L, RDW Std Deviation 48.6 H, RDW Coeff of Artemio 13.6, Plt Count 143 L, MPV 9.3, Immature Gran % (Auto) 0.300, Neut % (Auto) 79.2 H, Lymph % (Auto) 10.6 L, Lyon % (Auto) 9.0, Eos % (Auto) 0.4, Baso % (Auto) 0.5, Absolute Neuts (auto) 6.1, Absolute Lymphs (auto) 0.81 L, Nucleated RBC % 0 08/02/21 04:13: Sodium 134 L, Potassium 3.7, Chloride 86 L, Carbon Dioxide 45.0 H, Anion Gap 3 L, BUN 24 H, Creatinine 0.75, Estim Creat Clear Calc 68.40, Est GFR (MDRD) Af Amer 133, Est GFR (MDRD) Non-Af 110, BUN/Creatinine Ratio 32.0 H, Glucose 135 H, Calcium 8.5, Total Bilirubin 0.50, AST 10 L, ALT 9 L, Alkaline Phosphatase 68, Total Protein 6.0 L, Albumin 2.4 L, Globulin 3.6, Albumin/Globulin Ratio 0.7 L Micro: Microbiology 07/29/21 11:15 Wound - Leg, Left Gram Stain - Final 07/29/21 11:15 Wound - Leg, Left Wound Culture - Final Escherichia hermannii Klebsiella oxytoca Gram positive ava 07/29/21 11:15 Wound - Leg, Right Gram Stain - Final 07/29/21 11:15 Wound - Leg, Right Wound Culture - Final Klebsiella oxytoca Escherichia hermannii Gram positive ava 07/29/21 07:45 Blood Culture (Wb) - Anticubital Right Blood Culture - Preliminary No growth in 48 hours. 07/29/21 07:27 Blood Culture (Wb) - Anticubital Left Blood Culture - Preliminary No growth in 48 hours. 07/29/21 18:25 Urine, Random Legionella Antigen - Final 07/29/21 18:25 Urine, Random Streptococcus pneumoniae Antigen (M - Final 07/29/21 08:52 Nasal Secretion SARS-CoV-2 Antigen (Rapid) - Final Physical Exam Const alert and no apparent distress Resp normal respiratory effort Resp Narrative: diminished. Cardio regular rate, regular rhythm, S1 normal heart sound and S2 normal heart sound GI normal to inspection, nondistended, normoactive bowel sounds, soft to palpation, non-tender and non-distended Extremity normal to inspection Extremity Narrative: Lymphedema wraps in place, did not remove. Neuro Sensorium / Orientation: awake and alert Assessment & Plan Assessment/Plan (1) Bilateral lower leg cellulitis: (2) Lymphedema: PLAN: 1. Acute hypoxic and hypercapnic respiratory failure * multifactorial: 2/2 COPD exacerbation, HFpEF, pulmonary HTN. * Was emergently transferred to the ICU on account of elevated PCO2. This resolved with BiPAP and was transferred out of the ICU 07/30. * Now on 7 L of oxygen. Titrate oxygen to maintain saturation above 90%. * breathing treatment with bronchodilators * Patient declining BiPAP therapy. This complicates his overall care and recovery. * Wean oxygen as able. Still in too much oxygen to be discharged home at this time. 2. Possible bilateral lower extremity cellulitis in the setting of lymphedema * doubt actual infection in the absence of fever or leukocytosis * polymicrobial cultures may be colonization * change to Bactrim and treat for 4 more days * Duplex of both lower extremities were ordered and are pending. 3. acute HFpEF * EF 55-60% * complicated by Severe pulmonary HTN * Continue furosemide 4. AECOPD * on prednisone and BDs 5. chronic issues: * CAD s/p stent x 1: says it was done ~ 10 years ago. On high intensity statin and plavix * Hypertension: On metoprolol and losartan * Nicotine dependence: Smokes 2 packs daily. Counseled to quit. Nicotine patch 21 mg daily. DVT prophylaxis: Lovenox CODE STATUS: Full code Charges/Coding Visit Charges Inpatient E&M: 55425 Subs Hosp L2
[2021-08-02] MEDS: Furosemide 40 MG Tablet PO (16:12)
[2021-08-02] MEDS: Budesonide Respules 0.5 MG/2 ML AMPUL.NEB. INHALATION (20:07)
[2021-08-02] MEDS: traZODone 50 MG Tablet 150 MG PO (22:42)
[2021-08-02] MEDS: Metoprolol Tartrate 25 MG Tablet PO (22:42)
[2021-08-02] MEDS: Atorvastatin Calcium 80 MG Tablet PO (22:43)
[2021-08-03] VITALS (19 sets, daily range): BP systolic 93–129; BP diastolic 50–84; PULSE 69–96; RESP 16–24; TEMP 36.4–36.6; O2SAT 88–96
[2021-08-03 05:30] LABS: Absolute Lymphocyte Count 0.84 X10^3/uL (0.83-4.51); Absolute Neutrophil Count 6.2 X10^3/uL (2.0-7.7); Basophil# 0.02 X10^3/uL; Basophil% 0.3 % (0-1); Eosinophil# 0.01 X10^3/uL; Eosinophils% 0.1 % (0-5); Hemoglobin 17.9 g/dL (13.0-16.5); Lymphocyte # 0.84 X10^3/ul (0.83-4.51); Lymphocyte % 10.7 % (19-41); Mean Corp Hgb Conc 31.3 g/dL (32-36); Mean Corpuscular Hgb 29.5 pg (27.0-32.0); Mean Corpuscular Volume 94.4 fL (80-94); Mean Platelet Vol. 8.8 fl (6.2-12.0); Monocyte# 0.73 X10^3/uL; Monocyte% 9.3 % (0-10); NRBC Flagged by Analyzer 0 % (0-5); Neutrophil # 6.18 X10^3/uL (2.7-7.7); Neutrophil % 79.1 % (47-70); Platelet Count 148 K/mm3 (150-450); RBC Distribution Width CV 13.8 % (11.6-14.6); RBC Distribution Width SD 48.2 fl (35.1-43.9); Red Blood Count 6.06 M/mm3 (4.6-6.2); White Blood Count 7.8 K/mm3 (4.4-11.0)
[2021-08-03 05:32] LABS: Hematocrit 57.2 % (40-54)
[2021-08-03 05:49] LABS: Anion Gap 2 (5-15); BUN 28 mg/dL (7-18); BUN/Creat Ratio 33.5 RATIO (10-20); Calcium,Total 8.7 mg/dL (8.5-10.1); Chloride 87 mmol/L (98-107); Creatinine, Serum 0.84 mg/dL (0.70-1.30); EST Glomerular Filtration Rate 97 mL/min (>60); Est Glom Filt Rate - Afr Amer 117 mL/min (>60); Estimated Creatinine Clearance 81.43 ml/min; Glucose 109 mg/dL (74-106); Potassium 3.8 mmol/L (3.5-5.1); Sodium Level 134 mmol/L (136-145)
[2021-08-03] MEDS: Budesonide Respules 0.5 MG/2 ML AMPUL.NEB. INHALATION ×2 (07:24→19:35)
[2021-08-03] MEDS: Ipratropium/Albuterol Sulfate 3 ML AMPUL.NEB INHALATION ×4 (07:24→23:20)
--- NOTE | 2021-08-03 08:10 | PN.CC_ITS ---
Assessment & Plan Assessment/Plan (1) Encephalopathy: PLAN: RECOMMENDATIONS: 1. Continue AVAPS therapy with naps and nightly. Highly encouraged compliance 2. Continue bronchodilators and local wound care. 3. Continue scheduled bronchodilators. 4. Continue diuretic therapy as tolerated by hemodynamics and renal function. 5. Wean supplemental oxygen as tolerated. 6. Encourage incentive spirometer use and mobilize patient as tolerated. 7. Okay to discharge when patient can ambulate on 6 L or less IMPRESSIONS: 1. Encephalopathy Resolved. Secondary to hypercapnia. The patient has a self-reported history of COPD of unknown severity along with chronic tobacco dependency. He also reportedly has been diagnosed with sleep apnea and does not currently utilize any form of nocturnal Pap therapy. The patient responded appropriately to noninvasive positive pressure ventilatory support. Extensive conversation with the patient about the importance of complying with AVAPS to avoid future complications. Patient reports that he is not interested in using BiPAP therapy at home despite knowing the complications. Patient believes supplemental oxygen alone is appropriate. Clinical suspicion for hypercarbia secondary to an inability to compensate for metabolic demand of lower extremity cellulitis. This will remain a risk factor after discharge given patient's lymphedema with CHF and cor pulmonale. 2. Bilateral lower extremity cellulitis Continue antimicrobials per hospitalist along with local wound care. Polymicrobial infection indicated by culture. Patient will likely need to see the wound center on discharge 3. Congestive heart failure with preserved ejection fraction/cor pulmonale Echocardiogram shows preserved ejection fraction of 55%, but severely dilated right ventricle with a PASP of 80 mmHg. Continue diuretic therapy as tolerated by hemodynamics and renal function. Clinical suspicion for an element of pulmonary hypertension secondary to poorly controlled saturations and probable sleep apnea. It is unlikely this will improve significantly without controlling these issues. 4. 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 It is reasonable to continue scheduled bronchodilators while admitted to the hospital. Tobacco cessation counseling was provided. Nicotine replacement therapy can be utilized while the patient is admitted to the hospital. He would benefit from outpatient pulmonary follow-up so that baseline PFTs can be obtained and further optimization undertaken. Clinical suspicion is the patient will not follow-up if requested. 5. Obesity with history of sleep apnea Patient has apparently been diagnosed with sleep apnea in the past, but noble s elected not to utilize any form of nocturnal Pap therapy. Instead, the patient is only utilizing supplemental oxygen on a nightly basis. In light of his respiratory mechanics and CO2 retention, I would strongly recommend reconsideration for Pap therapy on an outpatient basis. This note was generated with [employer] dictation software. It may contain incorrect words, spelling, and punctuation that were not noted in checking the note before signing. Subjective Subjective Patient did well overnight. Patient continues to report improving cough and was able to ambulate about 30 feet with therapy yesterday. Patient is finding aerosol is helpful. Patient continues to report that he will not be using BiPAP anytime soon. Objective Data Objective Data Vital Signs: Vital Signs Temp Pulse Resp BP Pulse Ox 36.6 C 88 20 H 126/75 H 88 08/03/21 07:51 08/03/21 07:51 08/03/21 07:51 08/03/21 07:51 08/03/21 07:51 Oxygen Flow Rate (L/min) 7 Oxygen Delivery Method Nasal Cannula Weight: 99.5 kg Body Mass Index (BMI) 36.1 Intake & Output: Intake and Output for Last 24 Hours 08/01/21 08/02/21 08/03/21 23:59 23:59 23:59 Intake Total 1224.25 / 1224.25 1200 / 1200 240 / 240 Output Total 1875 / 2675 2950 / 2950 700 / 700 Balance -650.75 / -1450.75 -1750 / -1750 -460 / -460 Lab / Micro Data Result Diagrams: 08/03/21 04:57 08/03/21 04:57 Labs: Laboratory Results - last 24 hr 08/03/21 04:57: WBC 7.8, RBC 6.06, Hgb 17.9 H, Hct 57.2 H, MCV 94.4 H, MCH 29.5, MCHC 31.3 L, RDW Std Deviation 48.2 H, RDW Coeff of Artemio 13.8, Plt Count 148 L, MPV 8.8, Immature Gran % (Auto) 0.500, Neut % (Auto) 79.1 H, Lymph % (Auto) 10.7 L, [place] % (Auto) 9.3, Eos % (Auto) 0.1, Baso % (Auto) 0.3, Absolute Neuts (auto) 6.2, Absolute Lymphs (auto) 0.84, Nucleated RBC % 0 02/02/22 04:57: Sodium 134 L, Potassium 3.8, Chloride 87 L, Carbon Dioxide 45.0 H, Anion Gap 2 L, BUN 28 H, Creatinine 0.84, Estim Creat Clear Calc 81.43, Est GFR (MDRD) Af Amer 117, Est GFR (MDRD) Non-Af 97, BUN/Creatinine Ratio 33.5 H, Glucose 109 H, Calcium 8.7 Micro: Microbiology 07/29/21 07:27 Blood Culture (Wb) - Anticubital Left Blood Culture - Final No growth in 5 days. 07/29/21 11:15 Wound - Leg, Left Gram Stain - Final 07/29/21 11:15 Wound - Leg, Left Wound Culture - Final Escherichia hermannii Klebsiella oxytoca Gram positive ava 07/29/21 11:15 Wound - Leg, Right Gram Stain - Final 07/29/21 11:15 Wound - Leg, Right Wound Culture - Final Klebsiella oxytoca Escherichia hermannii Gram positive ava 07/29/21 07:45 Blood Culture (Wb) - Anticubital Right Blood Culture - Preliminary No growth in 48 hours. 07/29/21 18:25 Urine, Random Legionella Antigen - Final 07/29/21 18:25 Urine, Random Streptococcus pneumoniae Antigen (M - Final 07/29/21 08:52 Nasal Secretion SARS-CoV-2 Antigen (Rapid) - Final Physical Exam Const alert and no apparent distress General Appearance: cooperative Nutritional Appearance: obese HEENT normocephalic and head/scalp atraumatic Eyes PERRL, EOMs intact bilaterally and conjunctivae normal Neck supple General: trachea midline Chest inspection of chest normal Chest: symmetrical chest wall rise; Negative for crepitus Resp Auscultation: diminished lung sounds; Negative for rales, rhonchi or wheezes Cardio regular rate, regular rhythm, no murmurs, no rub and no gallops GI normal to inspection, nondistended, normoactive bowel sounds Extremity Extremity Narrative: Bilateral lower extremity lymphedema. Stasis ulcers are present. Skin Skin Narrative: Wrapped lower extremities. Neuro CN's II-XII intact bilaterally and no focal motor deficits Psych cooperative and affect normal Charges/Coding Visit Charges Inpatient E&M: 24123 Subs Hosp L2
[2021-08-03] MEDS: Smz/Tmp Ds Tablet 1 TABLET PO ×2 (08:56→17:09)
[2021-08-03] MEDS: predniSONE 20 MG Tablet 40 MG PO (08:57)
[2021-08-03] MEDS: Isosorbide Mononitrate 60 MG Tablet PO (08:58)
[2021-08-03] MEDS: Losartan Potassium 50 MG Tablet PO (08:58)
[2021-08-03] MEDS: Furosemide 40 MG Tablet PO ×2 (09:00→17:10)
[2021-08-03] MEDS: Metoprolol Tartrate 25 MG Tablet PO ×2 (09:00→21:28)
[2021-08-03] MEDS: Enoxaparin 40 MG/0.4 ML Syringe SC (09:01)
[2021-08-03] MEDS: Clopidogrel Bisulfate 75 MG Tablet PO (09:01)
[2021-08-03] MEDS: Juven (unflavored) Packet 1 PACKET PO ×2 (09:09→17:09)
--- NOTE | 2021-08-03 09:40 | CASEMGMT ---
Palliative c/s per Dr. Andrade and palliative screening tool. Referral e-mailed to palliative and order placed. Cristina GOMEZ CM
--- NOTE | 2021-08-03 14:08 | CASEMGMT ---
This RN CM to room to discuss discharge plan. Pt states he would still like to go home with [facility] and chooses [facility]. Message left with Helena at [facility] with referral. Pt also states he would like to [place] [facility] at discharge. Awaiting call back from [facility] and Green sheet left on chart for HHC and O2. Pt voices no further questions/concerns/needs. SStaten PATRICIA CM
--- NOTE | 2021-08-03 15:02 | PN.HOSP_ITS ---
Subjective Subjective No new events. Still requiring 7l/m at rest. Objective Data Objective Data Vital Signs: Vital Signs Temp Pulse Resp BP Pulse Ox 36.6 C 80 20 H 118/56 L 94 08/03/21 10:00 08/03/21 11:13 08/03/21 10:50 08/03/21 10:00 08/03/21 10:00 Oxygen Flow Rate (L/min) 10 Oxygen Delivery Method Nasal Cannula Weight: 99.5 kg Body Mass Index (BMI) 36.1 Intake & Output: Intake and Output for Last 24 Hours 08/01/21 08/02/21 08/03/21 23:59 23:59 23:59 Intake Total 1224.25 / 1224.25 1200 / 1200 240 / 240 Output Total 1875 / 2675 2950 / 2950 700 / 700 Balance -650.75 / -1450.75 -1750 / -1750 -460 / -460 Lab / Micro Data Result Diagrams: 08/03/21 04:57 08/03/21 04:57 Labs: Laboratory Results - last 24 hr 08/03/21 04:57: WBC 7.8, RBC 6.06, Hgb 17.9 H, Hct 57.2 H, MCV 94.4 H, MCH 29.5, MCHC 31.3 L, RDW Std Deviation 48.2 H, RDW Coeff of Artemio 13.8, Plt Count 148 L, MPV 8.8, Immature Gran % (Auto) 0.500, Neut % (Auto) 79.1 H, Lymph % (Auto) 10.7 L, [place] % (Auto) 9.3, Eos % (Auto) 0.1, Baso % (Auto) 0.3, Absolute Neuts (auto) 6.2, Absolute Lymphs (auto) 0.84, Nucleated RBC % 0 08/03/21 04:57: Sodium 134 L, Potassium 3.8, Chloride 87 L, Carbon Dioxide 45.0 H, Anion Gap 2 L, BUN 28 H, Creatinine 0.84, Estim Creat Clear Calc 81.43, Est GFR (MDRD) Af Amer 117, Est GFR (MDRD) Non-Af 97, BUN/Creatinine Ratio 33.5 H, Glucose 109 H, Calcium 8.7 Micro: Microbiology 07/29/21 07:45 Blood Culture (Wb) - Anticubital Right Blood Culture - Final No growth in 5 days. 07/29/21 07:27 Blood Culture (Wb) - Anticubital Left Blood Culture - Final No growth in 5 days. 07/29/21 11:15 Wound - Leg, Left Gram Stain - Final 07/29/21 11:15 Wound - Leg, Left Wound Culture - Final Escherichia hermannii Klebsiella oxytoca Gram positive ava 07/29/21 11:15 Wound - Leg, Right Gram Stain - Final 07/29/21 11:15 Wound - Leg, Right Wound Culture - Final Klebsiella oxytoca Escherichia hermannii Gram positive ava 07/29/21 18:25 Urine, Random Legionella Antigen - Final 07/29/21 18:25 Urine, Random Streptococcus pneumoniae Antigen (M - Final 07/29/21 08:52 Nasal Secretion SARS-CoV-2 Antigen (Rapid) - Final Physical Exam Const alert and no apparent distress Resp normal respiratory effort and no retractions Resp Narrative: coarse breath sounds bilaterally. Cardio regular rate, regular rhythm, S1 normal heart sound and S2 normal heart sound GI normal to inspection, nondistended, normoactive bowel sounds, soft to palpation, non-tender and non-distended Extremity Extremity Narrative: legs wrapped--did not remove. Assessment & Plan Assessment/Plan (1) Bilateral lower leg cellulitis: (2) Lymphedema: (3) Acute respiratory failure with hypoxia and hypercapnia: (4) (HFpEF) heart failure with preserved ejection fraction: QUALIFIERS: Heart failure chronicity: acute Qualified Code(s): I50.31 - Acute diastolic (congestive) heart failure (5) COPD with acute exacerbation: PLAN: 1. Acute hypoxic and hypercapnic respiratory failure * multifactorial: 2/2 COPD exacerbation, HFpEF, pulmonary HTN. * Was emergently transferred to the ICU on account of elevated PCO2. This resolved with BiPAP and was transferred out of the ICU 07/30. * Now on 7 L of oxygen. Titrate oxygen to maintain saturation above 90%. * breathing treatment with bronchodilators * Patient declining BiPAP therapy. This complicates his overall care and recovery. * Wean oxygen as able. Still in too much oxygen to be discharged home at this time. 2. Possible bilateral lower extremity cellulitis in the setting of lymphedema * doubt actual infection in the absence of fever or leukocytosis * polymicrobial cultures may be colonization * change to Bactrim and treat for 4 more days * Duplex of both lower extremities were ordered and are pending. 3. acute HFpEF * EF 55-60% * complicated by Severe pulmonary HTN * Continue furosemide 4. AECOPD * on prednisone and BDs 5. chronic issues: * CAD s/p stent x 1: says it was done ~ 10 years ago. On high intensity statin and plavix * Hypertension: On metoprolol and losartan * Nicotine dependence: Smokes 2 packs daily. Counseled to quit. Nicotine patch 21 mg daily. DVT prophylaxis: Lovenox CODE STATUS: Full code Advance care planning: Spent additional 20 minutes discussing with the patient about direction of his care. Patient has been reluctant to use BiPAP because it makes him feel like he is being smothered. Told patient that we are here to support him but his overall outlook proceed with not doing therapy that is requested of him is likely poor. I strongly recommended palliative care consultation. I did inform him that if he does not wish to proceed with aggressive measures then we should consider hospice. He seems quite taken back by that recommendation. I asked him where he saw himself in 1 years time and he responded I do not now. I told him that given his medical complexity and the severity of his underlying illnesses that a bacterial infectious disease p neumonia or even Covid could essentially kill him. He would like to continue with medical therapy and I strongly encouraged him to use the BiPAP. Reassured him that he is going to be monitored case he does have any physical issues with that which would be unlikely. Charges/Coding Visit Charges Inpatient E&M: 19019 Subs Hosp L2 Procedures Hospitalists Procedures: 95494 Advncd Care Plan 30 Min
--- NOTE | 2021-08-03 15:27 | PCM.CONS.P ---
Assessment & Plan Assessment/Plan (1) Dyspnea: QUALIFIERS: Dyspnea type: unspecified Qualified Code(s): R06.00 - Dyspnea, unspecified (2) Acute respiratory failure with hypoxia and hypercapnia: (3) Lymphedema: (4) Stasis leg ulcer: QUALIFIERS: Laterality: unspecified laterality Qualified Code(s): I83.009 - Varicose veins of unspecified lower extremity with ulcer of unspecified site; L97.909 - Non-pressure chronic ulcer of unspecified part of unspecified lower leg with unspecified severity (5) Bilateral lower leg cellulitis: (6) Tobacco abuse disorder: (7) CAD (coronary artery disease): QUALIFIERS: Coronary Disease-Associated Artery/Lesion type: [place] artery [place] vs. transplanted heart: [place] heart Associated angina: without angina Qualified Code(s): I25.10 - Atherosclerotic heart disease of [place] coronary artery without angina pectoris (8) COPD with acute exacerbation: (9) (HFpEF) heart failure with preserved ejection fraction: QUALIFIERS: Heart failure chronicity: acute Qualified Code(s): I50.31 - Acute diastolic (congestive) heart failure PLAN: 66-year-old male with acute on chronic hypoxemic and hypercapnic respiratory failure with increased oxygen requirements, bilateral lower extremity cellulitis, and lymphedema, seen today for palliative consultation for supportive management when discharged home. 1. Dyspnea: Again, respiratory failure with hypoxia and hypercapnia, untreated since has declined BiPAP therapy due to intolerance, pulmonary hypertension, COPD. He is on bronchodilators scheduled breathing treatments, Lasix, prednisone. Not able to be discharged since high oxygen requirement on 7 L. Otherwise, stable to be discharged. I do not recommend opioid treatment for his dyspnea secondary to nonuse of PAP therapy. He is willing to try BiPAP if he has some response to anxiolytics, however I do not anticipate compliance and explained dangers of supressing his breathing. I encouraged him to establish with a rn infusion upon discharge and obtain the necessary repeat testing since it has been several years from his last sleep study through Dr. Simpson. Advised if he does not wish to pursue this, he would be appropriate for hospice services. 2. Lymphedema/leg ulcers/cellulitis: He will likely need to go to the wound center when discharged, however he has history of poor follow-up. He would benefit from home health services, also has some serious health problems and needs assistance. 3. History of CAD/tobacco abuse/CHF/hypertension/HLD: Complicates overall care, management, recovery, and prognosis. Encouraged patient to follow-up with his specialists and primary care when discharged home. Palliative will be willing to follow him, likely will need frequent visits. Patient seems indifferent and avoiding questions regarding his current state of health. I did encourage him to reach out to palliative if he has any further questions or concerns. We will have a liaison touch base with him. Thank you for the opportunity to participate in this patient's care, please do not hesitate to contact [facility] with any further questions or concerns. Palliative direct line is [phone]. We will follow up after discharge and will discuss palliative services further at that time. Greater than 50% of F2F visit dedicated to education and counseling of palliative care and hospice services, medications, comorbid conditions and potential assistance with management, and plan of care moving forward. Start time: 1527 End time: 1618 HPI Consult Data Date of Consult: 08/03/21 HPI Narrative HPI Narrative: NASIM LINARES, is a 66 M who presented to [facility] 07/29/2021 with increased pain to bilateral lower extremities over the course of a few days. He was also third spacing. Patient has history of COPD, chronic lymphedema, CAD, untreated MARIA EUGENIA, tobacco dependency, and CHF. Patient was admitted for suspected cellulitis and need for wound care. Patient does not wear his compression stockings. He does not follow routinely with his primary care physician. He has taken antibiotics for his lower extremity cellulitis in the past. He previously went to the wound clinic in August and August 2019 for similar complaints. A repeat echocardiogram was ordered and patient was placed on IV Lasix to assist with diuresis. Wound nurse was consulted and Vargas wraps were applied to the lower extremities. He did require a short stay in the ICU due to the CO2 retention but was Ruben back to PCU 07/30. He was seen by the rehabilitation worker who recommends to continue AVAPS therapy with naps and nightly, however patient states he will not utilize this at home but will wear the oxygen. He is on bronchodilators and diuretics. Also recommended outpatient follow-up with pulmonary to obtain baseline PFTs and further optimization of care. He does have significant CO2 retention echocardiogram showed EF of 55% but severely dilated right ventricle with RVSP of 80 mmHg. Patient denies any N/V/D. Bowels are moving okay. No chest pain or shortness of breath. His legs feel heavy. Still requiring 7 L of oxygen supplementation to maintain saturations greater than 90%. He is now on oral antibiotics. He is unable to be discharged due to the level of oxygen requirements. He also had duplex of bilateral lower extremities, pending? Admits he still smokes 1-1/2 to 2 packs of cigarettes per day, despite breathing issues. Counseled on smoking cessation. Hospitalist had an advanced directive conversation with the patient. He remains a full code. Does not appear patient is realistic about his comorbidities. We discussed his pulmonary hypertension, CO2 retention, use of BiPAP, and past sleep studies. States he had a machine at home at 1 point several years ago but was never able to tolerate it for more than a short amount of time. States if he had something to relax him, he might be able to tolerate it. [facility] Medical History (Updated 08/03/21 @ 16:20 by Vanessa Mcdowell NP-C) Bilateral lower extremity edema CAD (coronary artery disease) Cellulitis of left lower extremity without foot COPD (chronic obstructive pulmonary disease) HTN (hypertension) Hyperlipemia Tobacco abuse disorder Ulcer of left calf Ulcer of right lower extremity with fat layer exposed Wound infection Home Medications atorvastatin 80 mg PO QHS 04/18/13 [History Last Taken 07/28/21] clopidogrel 75 mg PO DAILY 04/18/13 [History Last Taken 07/28/21] losartan 50 mg PO DAILY 04/18/13 [History Last Taken 07/28/21] albuterol sulfate 2.5 mg INHALATION 4X/DAY #120 vial.neb. 07/06/14 [Rx Last Taken Unknown] albuterol sulfate 1 - 2 puff INHALATION Q4H PRN PRN 10/31/16 [History Last Taken Unknown] trazodone 150 mg PO QHS 10/31/16 [History Last Taken 07/28/21] budesonide-formoterol 2 puff INHALATION BID 08/07/19 [History Last Taken 07/28/21] ipratropium-albuterol 3 ml INHALATION Q4H 07/29/21 [History Last Taken 07/28/21] isosorbide mononitrate 60 mg PO DAILY 07/29/21 [History Last Taken 07/28/21] metoprolol tartrate 25 mg PO BID 07/29/21 [History Last Taken 07/28/21] nabumetone 750 mg PO BID PRN PRN 07/29/21 [History Last Taken Unknown] Allergy/AdvReac Type Severity Reaction Status Date / Time benzonatate Allergy Unknown Verified 07/29/21 07:22 [From Tessalon Perles] chlorpheniramine polistirex AdvReac Rash Verified 07/29/21 07:22 [From Tussionex] hydrocodone polistirex AdvReac Rash Verified 07/29/21 07:22 [From Tussionex] levofloxacin [From Levaquin] AdvReac Rash Verified 07/29/21 07:22 Surgical History H/O heart artery stent Social History Smoking Status: Current every day smoker tobacco type: cigarettes alcohol intake: never ROS ROS Narrative Review of systems otherwise negative from a constitutional, HEENT, respiratory, cardiovascular, GI, genitourinary, musculoskeletal, skin, neurologic, psychiatric and hematologic system unless stated above. Physical Exam Const alert and oriented x3 General Appearance: cooperative Nutritional Appearance: obese HEENT normocephalic and head/scalp atraumatic Neck supple General: trachea midline Lymph Lymphatic: lymphedema Resp Resp Narrative: Mild conversational dyspnea Effort and Inspection: symmetric chest movement and uses accessory muscles Auscultation: diminished lung sounds Cardio regular rate, S1 normal heart sound and S2 normal heart sound Cardio Narrative: Ectopy GI soft to palpation and non-tender Inspection: abdominal distention Auscultation: normoactive bowel sounds Extremity General Extremity: edema; Negative for cyanosis Skin Skin Narrative: Wounds to legs, covered with dressings/Vargas Neuro CN's II-XII intact bilaterally and no focal motor deficits Psych cooperative Attitude: calm Activity / Motor Behavior: avoids eye contact Speech: normal speech Mood & Affect: flat affect Insight: fair Judgement: fair
[2021-08-03] MEDS: Atorvastatin Calcium 80 MG Tablet PO (21:27)
[2021-08-03] MEDS: traZODone 50 MG Tablet 150 MG PO (21:28)
[2021-08-04] VITALS (21 sets, daily range): BP systolic 90–118; BP diastolic 49–69; PULSE 70–92; RESP 16–20; TEMP 36.5–36.8; O2SAT 85–97
[2021-08-04] MEDS: Ipratropium/Albuterol Sulfate 3 ML AMPUL.NEB INHALATION ×5 (03:20→20:40)
[2021-08-04 07:04] LABS: Anion Gap 3 (5-15); BUN 53 mg/dL (7-18); BUN/Creat Ratio 43.8 RATIO (10-20); Calcium,Total 8.6 mg/dL (8.5-10.1); Chloride 89 mmol/L (98-107); Creatinine, Serum 1.21 mg/dL (0.70-1.30); EST Glomerular Filtration Rate 63 mL/min (>60); Est Glom Filt Rate - Afr Amer 77 mL/min (>60); Estimated Creatinine Clearance 56.53 ml/min; Glucose 129 mg/dL (74-106); Potassium 4.1 mmol/L (3.5-5.1); Sodium Level 133 mmol/L (136-145)
[2021-08-04] MEDS: Budesonide Respules 0.5 MG/2 ML AMPUL.NEB. INHALATION ×2 (07:18→20:40)
[2021-08-04] MEDS: Smz/Tmp Ds Tablet 1 TABLET PO ×2 (08:07→18:01)
[2021-08-04] MEDS: Juven (unflavored) Packet 1 PACKET PO ×2 (08:07→18:00)
[2021-08-04] MEDS: predniSONE 20 MG Tablet 40 MG PO (08:07)
[2021-08-04] MEDS: Clopidogrel Bisulfate 75 MG Tablet PO (10:26)
[2021-08-04] MEDS: Enoxaparin 40 MG/0.4 ML Syringe SC (10:26)
[2021-08-04] MEDS: Metoprolol Tartrate 25 MG Tablet PO ×2 (10:27→21:53)
[2021-08-04] MEDS: Furosemide 40 MG Tablet PO (10:27)
[2021-08-04] MEDS: Isosorbide Mononitrate 60 MG Tablet PO (10:27)
[2021-08-04] MEDS: Losartan Potassium 50 MG Tablet PO (10:29)
--- NOTE | 2021-08-04 11:15 | PCM.PN.INT ---
Assessment & Plan Assessment/Plan (1) Encephalopathy: PLAN: RECOMMENDATIONS: 1. Continue AVAPS therapy with naps and nightly. Highly encouraged compliance 2. Continue bronchodilators and local wound care. 3. Continue scheduled bronchodilators. 4. Continue diuretic therapy as tolerated by hemodynamics and renal function. May need to decrease 5. Wean supplemental oxygen as tolerated. 6. Encourage incentive spirometer use and mobilize patient as tolerated. 7. Okay to discharge when patient can ambulate on 6 L or less IMPRESSIONS: 1. Encephalopathy Resolved. Secondary to hypercapnia. The patient has a self-reported history of COPD of unknown severity along with chronic tobacco dependency. He also reportedly has been diagnosed with sleep apnea and does not currently utilize any form of nocturnal Pap therapy. The patient responded appropriately to noninvasive positive pressure ventilatory support. Extensive conversation with the patient about the importance of complying with AVAPS to avoid future complications. Patient reports that he is not interested in using BiPAP therapy at home despite knowing the complications. Patient believes supplemental oxygen alone is appropriate. Clinical suspicion for hypercarbia secondary to an inability to compensate for metabolic demand of lower extremity cellulitis. This will remain a risk factor after discharge given patient's lymphedema with CHF and cor pulmonale. 2. Bilateral lower extremity cellulitis Continue antimicrobials per hospitalist along with local wound care. Polymicrobial infection indicated by culture. Patient will likely need to see the wound center on discharge 3. Congestive heart failure with preserved ejection fraction/cor pulmonale Echocardiogram shows preserved ejection fraction of 55%, but severely dilated right ventricle with a PASP of 80 mmHg. Continue diuretic therapy as tolerated by hemodynamics and renal function. Creatinine slightly increased over last 24 hours, so agree with transitioning to p.o. Clinical suspicion for an element of pulmonary hypertension secondary to poorly controlled saturations and probable sleep apnea. It is unlikely this will improve significantly without controlling these issues. Patient is resistant to using BiPAP to facilitate discharge 4. 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 It is reasonable to continue scheduled bronchodilators while admitted to the hospital. Tobacco cessation counseling was provided. Nicotine replacement therapy can be utilized while the patient is admitted to the hospital. He would benefit from outpatient pulmonary follow-up so that baseline PFTs can be obtained and further optimization undertaken. Clinical suspicion is the patient will not follow-up if requested. 5. Obesity with history of sleep apnea Patient has apparently been diagnosed with sleep apnea in the past, but has elected not to utilize any form of nocturnal Pap therapy. Instead, the patient is only utilizing supplemental oxygen on a nightly basis. In light of his respiratory mechanics and CO2 retention, I would strongly recommend reconsideration for Pap therapy on an outpatient basis. This note was generated with [employer] dictation software. It may contain incorrect words, spelling, and punctuation that were not noted in checking the note before signing. Subjective Subjective Patient did okay overnight. No acute issues were reported. Patient did have a walking oximetry this morning and is frustrated that he required 8 L nasal cannula to maintain saturations. Patient is not reporting any change in cough or chest pain. Patient does believe the throbbing sensation is slightly improved in his legs. Objective Data Objective Data Vital Signs: Vital Signs Temp Pulse Resp BP Pulse Ox 36.8 C 92 18 101/52 L 85 08/04/21 09:15 08/04/21 10:27 08/04/21 09:15 08/04/21 10:27 08/04/21 10:00 Oxygen Flow Rate (L/min) [ 8 AMBULATING with Oxygen #3] Oxygen Flow Rate (L/min) [ 7 AMBULATING with Oxygen #2] Oxygen Flow Rate (L/min) [ 5 AMBULATING with Oxygen #1] Oxygen Flow Rate (L/min) [At 5 REST with Oxygen] Oxygen Flow Rate (L/min) 5 Oxygen Delivery Method Nasal Cannula Weight: 103.5 kg Body Mass Index (BMI) 36.1 Intake & Output: Intake and Output for Last 24 Hours 08/02/21 08/03/21 08/04/21 23:59 23:59 23:59 Intake Total 1200 / 1200 240 / 480 360 / 360 Output Total 2950 / 2950 700 / 875 475 / 475 Balance -1750 / -1750 -460 / -395 -115 / -115 Lab / Micro Data Result Diagrams: 08/03/21 04:57 08/04/21 06:33 Labs: Laboratory Results - last 24 hr 08/04/21 06:33: Sodium 133 L, Potassium 4.1, Chloride 89 L, Carbon Dioxide 41.0 H, Anion Gap 3 L, BUN 53 H, Creatinine 1.21, Estim Creat Clear Calc 56.53, Est GFR (MDRD) Af Amer 77, Est GFR (MDRD) Non-Af 63, BUN/Creatinine Ratio 43.8 H, Glucose 129 H, Calcium 8.6 Micro: Microbiology 07/29/21 07:45 Blood Culture (Wb) - Anticubital Right Blood Culture - Final No growth in 5 days. 07/29/21 07:27 Blood Culture (Wb) - Anticubital Left Blood Culture - Final No growth in 5 days. 07/29/21 11:15 Wound - Leg, Left Gram Stain - Final 07/29/21 11:15 Wound - Leg, Left Wound Culture - Final Escherichia hermannii Klebsiella oxytoca Gram positive ava 07/29/21 11:15 Wound - Leg, Right Gram Stain - Final 07/29/21 11:15 Wound - Leg, Right Wound Culture - Final Klebsiella oxytoca Escherichia hermannii Gram positive ava 07/29/21 18:25 Urine, Random Legionella Antigen - Final 07/29/21 18:25 Urine, Random Streptococcus pneumoniae Antigen (M - Final 07/29/21 08:52 Nasal Secretion SARS-CoV-2 Antigen (Rapid) - Final Physical Exam Const alert and no apparent distress General Appearance: cooperative Nutritional Appearance: obese HEENT normocephalic and head/scalp atraumatic Eyes PERRL, EOMs intact bilaterally and conjunctivae normal Neck supple General: trachea midline Chest inspection of chest normal Chest: symmetrical chest wall rise; Negative for crepitus Resp Auscultation: diminished lung sounds; Negative for rales, rhonchi or wheezes Cardio regular rate, regular rhythm, no murmurs, no rub and no gallops GI normal to inspection, nondistended, normoactive bowel sounds Extremity Extremity Narrative: Bilateral lower extremity lymphedema. Stasis ulcers were present. Skin Skin Narrative: Wrapped lower extremities. Neuro CN's II-XII intact bilaterally and no focal motor deficits Psych cooperative and affect normal Charges/Coding Visit Charges Inpatient E&M: 55948 Subs Hosp L2
--- NOTE | 2021-08-04 11:52 | CASEMGMT ---
Addendum entered by Lynn Villalta 08/04/21 16:14: PATRICIA VILLALTA received call back from [facility] and they are able to accept the patient. Green sheet placed on chart and patient updated. Original Note: PATRICIA VILLALTA called and followed with [facility] and they are not able to accept if patient discharges before Sunday. PATRICIA VILLALTA called and made referral to [facility] to schedule appt. Awaiting call back from [place] [facility] with appt time. PATRICIA VILLALTA in to update patient that [facility] is not able to accept. PATRICIA VILLALTA review [facility] list with patient and would like referral sent to [facility]. PATRICIA VILLALTA sent referral to [facility] and awaiting call back with acceptance. CM will continue to follow this patient and plan for a safe discharged.
--- NOTE | 2021-08-04 13:04 | PN.HOSP_ITS ---
Subjective Subjective Breathing ok. Did not use bipap last night since he was sleeping. Objective Data Objective Data Vital Signs: Vital Signs Temp Pulse Resp BP Pulse Ox 36.8 C 79 18 101/52 L 91 08/04/21 09:15 08/04/21 11:36 08/04/21 11:36 08/04/21 10:27 08/04/21 11:36 Oxygen Flow Rate (L/min) [ 8 AMBULATING with Oxygen #3] Oxygen Flow Rate (L/min) [ 7 AMBULATING with Oxygen #2] Oxygen Flow Rate (L/min) [ 5 AMBULATING with Oxygen #1] Oxygen Flow Rate (L/min) [At 5 REST with Oxygen] Oxygen Flow Rate (L/min) 6 Oxygen Delivery Method High Flow Weight: 103.5 kg Body Mass Index (BMI) 36.1 Intake & Output: Intake and Output for Last 24 Hours 08/02/21 08/03/21 08/04/21 23:59 23:59 23:59 Intake Total 1200 / 1200 240 / 480 660 / 660 Output Total 2950 / 2950 700 / 875 475 / 475 Balance -1750 / -1750 -460 / -395 185 / 185 Lab / Micro Data Result Diagrams: 08/03/21 04:57 08/04/21 06:33 Labs: Laboratory Results - last 24 hr 08/04/21 06:33: Sodium 133 L, Potassium 4.1, Chloride 89 L, Carbon Dioxide 41.0 H, Anion Gap 3 L, BUN 53 H, Creatinine 1.21, Estim Creat Clear Calc 56.53, Est GFR (MDRD) Af Amer 77, Est GFR (MDRD) Non-Af 63, BUN/Creatinine Ratio 43.8 H, Glucose 129 H, Calcium 8.6 Micro: Microbiology 07/29/21 07:45 Blood Culture (Wb) - Anticubital Right Blood Culture - Final No growth in 5 days. 07/29/21 07:27 Blood Culture (Wb) - Anticubital Left Blood Culture - Final No growth in 5 days. 07/29/21 11:15 Wound - Leg, Left Gram Stain - Final 07/29/21 11:15 Wound - Leg, Left Wound Culture - Final Escherichia hermannii Klebsiella oxytoca Gram positive ava 07/29/21 11:15 Wound - Leg, Right Gram Stain - Final 07/29/21 11:15 Wound - Leg, Right Wound Culture - Final Klebsiella oxytoca Escherichia hermannii Gram positive ava 07/29/21 18:25 Urine, Random Legionella Antigen - Final 07/29/21 18:25 Urine, Random Streptococcus pneumoniae Antigen (M - Final 07/29/21 08:52 Nasal Secretion SARS-CoV-2 Antigen (Rapid) - Final Physical Exam Const alert and no apparent distress Resp normal respiratory effort and no retractions Resp Narrative: coarse breath sounds bilatearlly. Cardio regular rate, regular rhythm, S1 normal heart sound and S2 normal heart sound GI normal to inspection, nondistended, normoactive bowel sounds, soft to palpation and non-tender Extremity Extremity Narrative: lymphedema wraps in place Assessment & Plan Assessment/Plan (1) Bilateral lower leg cellulitis: (2) Lymphedema: (3) Acute respiratory failure with hypoxia and hypercapnia: (4) (HFpEF) heart failure with preserved ejection fraction: QUALIFIERS: Heart failure chronicity: acute Qualified Code(s): I50.31 - Acute diastolic (congestive) heart failure (5) COPD with acute exacerbation: PLAN: 1. Acute hypoxic and hypercapnic respiratory failure * multifactorial: 2/2 COPD exacerbation, HFpEF, pulmonary HTN. * Was emergently transferred to the ICU on account of elevated PCO2. This resolved with BiPAP and was transferred out of the ICU 07/30. * Now on 7 L of oxygen. Titrate oxygen to maintain saturation above 90%. * breathing treatment with bronchodilators * Patient declining BiPAP therapy. This complicates his overall care and recovery. * Wean oxygen as able. Still in too much oxygen to be discharged home at this time. 2. Possible bilateral lower extremity cellulitis in the setting of lymphedema * doubt actual infection in the absence of fever or leukocytosis * polymicrobial cultures may be colonization * change to Bactrim through today 3. acute HFpEF * EF 55-60% * complicated by Severe pulmonary HTN * Continue furosemide * on losartan 4. AECOPD * on prednisone and BDs 5. chronic issues: * CAD s/p stent x 1: says it was done ~ 10 years ago. On high intensity statin and plavix * Hypertension: On metoprolol and losartan * Nicotine dependence: Smokes 2 packs daily. Counseled to quit. Nicotine patch 21 mg daily. DVT prophylaxis: Lovenox CODE STATUS: Full code Charges/Coding Visit Charges Inpatient E&M: 69540 Subs Hosp L2
[2021-08-04 19:15] LABS: Vancomycin, Trough Level 4.2 ug/mL (5.0-15.0)
[2021-08-04] MEDS: Atorvastatin Calcium 80 MG Tablet PO (21:54)
[2021-08-04] MEDS: traZODone 50 MG Tablet 150 MG PO (21:54)
[2021-08-04] MEDS: 0.9% Saline Lock 10 ML Syringe IV (21:55)
[2021-08-05] VITALS (20 sets, daily range): BP systolic 87–108; BP diastolic 46–60; PULSE 68–88; RESP 16–20; TEMP 36.3–36.7; O2SAT 86–98
[2021-08-05] MEDS: Ipratropium/Albuterol Sulfate 3 ML AMPUL.NEB INHALATION ×6 (00:11→19:30)
[2021-08-05 06:41] LABS: Anion Gap 3 (5-15); BUN 58 mg/dL (7-18); BUN/Creat Ratio 52.3 RATIO (10-20); Calcium,Total 8.6 mg/dL (8.5-10.1); Chloride 90 mmol/L (98-107); Creatinine, Serum 1.11 mg/dL (0.70-1.30); EST Glomerular Filtration Rate 70 mL/min (>60); Est Glom Filt Rate - Afr Amer 85 mL/min (>60); Estimated Creatinine Clearance 61.62 ml/min; Glucose 108 mg/dL (74-106); Potassium 3.9 mmol/L (3.5-5.1); Sodium Level 136 mmol/L (136-145)
[2021-08-05] MEDS: Budesonide Respules 0.5 MG/2 ML AMPUL.NEB. INHALATION ×2 (07:02→19:30)
--- NOTE | 2021-08-05 08:47 | PN.CC_ITS ---
Assessment & Plan Assessment/Plan (1) Encephalopathy: PLAN: RECOMMENDATIONS: 1. Continue AVAPS therapy with naps and nightly. Highly encouraged compliance 2. Continue bronchodilators and local wound care. 3. Continue scheduled bronchodilators. 4. Continue diuretic therapy as tolerated by hemodynamics and renal function. 5. Wean supplemental oxygen as tolerated. 6. Encourage incentive spirometer use and mobilize patient as tolerated. 7. Okay to discharge when patient can ambulate on 6 L or less IMPRESSIONS: 1. Encephalopathy Resolved. Secondary to hypercapnia. The patient has a self-reported history of COPD of unknown severity along with chronic tobacco dependency. He also reportedly has been diagnosed with sleep apnea and does not currently utilize any form of nocturnal Pap therapy. The patient responded appropriately to noninvasive positive pressure ventilatory support. Extensive conversation with the patient about the importance of complying with AVAPS to avoid future complications. Patient reports that he is not interested in using BiPAP therapy at home despite knowing the complications. Patient believes supplemental oxygen alone is appropriate. Clinical suspicion for hypercarbia secondary to an inability to compensate for metabolic demand of lower extremity cellulitis. This will remain a risk factor after discharge given patient's lymphedema with CHF and cor pulmonale. 2. Bilateral lower extremity cellulitis Continues to improve. Continue antimicrobials per hospitalist along with local wound care. Polymicrobial infection indicated by culture. Patient will likely need to see the wound center on discharge 3. Congestive heart failure with preserved ejection fraction/cor pulmonale Echocardiogram shows preserved ejection fraction of 55%, but severely dilated right ventricle with a PASP of 80 mmHg. Continue diuretic therapy as tolerated by hemodynamics and renal function. Creatinine slightly increased over last 24 hours, so agree with transitioning to p.o. Clinical suspicion for an element of pulmonary hypertension secondary to poorly controlled saturations and probable sleep apnea. It is unlikely this will improve significantly without controlling these issues. Patient is resistant to using BiPAP to facilitate discharge. Patient should consider palliative options if continues to refuse aggressive medical therapy 4. 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 It is reasonable to continue scheduled bronchodilators while admitted to the hospital. Tobacco cessation counseling was provided. Nicotine replacement therapy can be utilized while the patient is admitted to the hospital. He would benefit from outpatient pulmonary follow-up so that baseline PFTs can be obtained and further optimization undertaken. Clinical suspicion is the patient will not follow-up if requested. 5. Obesity with history of sleep apnea Patient has apparently been diagnosed with sleep apnea in the past, but has elected not to utilize any form of nocturnal Pap therapy. Instead, the patient is only utilizing supplemental oxygen on a nightly basis. In light of his respiratory mechanics and CO2 retention, I would strongly recommend reconsi deration for Pap therapy on an outpatient basis. This note was generated with [employer] dictation software. It may contain incorrect words, spelling, and punctuation that were not noted in checking the note before signing. Subjective Subjective Patient did okay overnight. No acute issues were reported. Patient believes his cough is marginal. Patient continues to refuse BiPAP with sleep. Patient states I know it would help, but I just cannot stand it. No chest pain has been reported. Lower extremities continue to improve. Objective Data Objective Data Vital Signs: Vital Signs Temp Pulse Resp BP Pulse Ox 36.6 C 68 18 108/60 97 08/05/21 02:25 08/05/21 07:00 08/05/21 04:24 08/05/21 02:25 08/05/21 02:25 Oxygen Flow Rate (L/min) [ 8 AMBULATING with Oxygen #3] Oxygen Flow Rate (L/min) [ 7 AMBULATING with Oxygen #2] Oxygen Flow Rate (L/min) [ 5 AMBULATING with Oxygen #1] Oxygen Flow Rate (L/min) [At 5 REST with Oxygen] Oxygen Flow Rate (L/min) 5 Oxygen Delivery Method Nasal Cannula Weight: 101.4 kg Body Mass Index (BMI) 36.1 Intake & Output: Intake and Output for Last 24 Hours 08/03/21 08/04/21 08/05/21 23:59 23:59 23:59 Intake Total 240 / 480 1360 / 1360 120 / 120 Output Total 700 / 875 825 / 825 325 / 325 Balance -460 / -395 535 / 535 -205 / -205 Lab / Micro Data Result Diagrams: 08/03/21 04:57 08/05/21 05:50 Labs: Laboratory Results - last 24 hr 08/04/21 18:24: Vancomycin Trough 4.2 L 08/05/21 05:50: Sodium 136, Potassium 3.9, Chloride 90 L, Carbon Dioxide 43.0 H, Anion Gap 3 L, BUN 58 H, Creatinine 1.11, Estim Creat Clear Calc 61.62, Est GFR (MDRD) Af Amer 85, Est GFR (MDRD) Non-Af 70, BUN/Creatinine Ratio 52.3 H, Glucose 108 H, Calcium 8.6 Micro: Microbiology 07/29/21 07:45 Blood Culture (Wb) - Anticubital Right Blood Culture - Final No growth in 5 days. 07/29/21 07:27 Blood Culture (Wb) - Anticubital Left Blood Culture - Final No growth in 5 days. 07/29/21 11:15 Wound - Leg, Left Gram Stain - Final 07/29/21 11:15 Wound - Leg, Left Wound Culture - Final Escherichia hermannii Klebsiella oxytoca Gram positive ava 07/29/21 11:15 Wound - Leg, Right Gram Stain - Final 07/29/21 11:15 Wound - Leg, Right Wound Culture - Final Klebsiella oxytoca Escherichia hermannii Gram positive ava 07/29/21 18:25 Urine, Random Legionella Antigen - Final 07/29/21 18:25 Urine, Random Streptococcus pneumoniae Antigen (M - Final 07/29/21 08:52 Nasal Secretion SARS-CoV-2 Antigen (Rapid) - Final Physical Exam Const alert and no apparent distress General Appearance: cooperative Nutritional Appearance: obese HEENT normocephalic and head/scalp atraumatic Eyes PERRL, EOMs intact bilaterally and conjunctivae normal Neck supple General: trachea midline Chest inspection of chest normal Chest: symmetrical chest wall rise; Negative for crepitus Resp Auscultation: diminished lung sounds; Negative for rales, rhonchi or wheezes Cardio regular rate, regular rhythm, no murmurs, no rub and no gallops GI normal to inspection, nondistended, normoactive bowel sounds Extremity Extremity Narrative: Bilateral lower extremity lymphedema. Stasis ulcers were present. Skin Skin Narrative: Wrapped lower extremities. Neuro CN's II-XII intact bilaterally and no focal motor deficits Psych cooperative and affect normal Charges/Coding Visit Charges Inpatient E&M: 04017 Subs Hosp L2
[2021-08-05] MEDS: Juven (unflavored) Packet 1 PACKET PO ×2 (09:36→16:52)
[2021-08-05] MEDS: Isosorbide Mononitrate 60 MG Tablet PO (09:36)
[2021-08-05] MEDS: Clopidogrel Bisulfate 75 MG Tablet PO (09:37)
[2021-08-05] MEDS: Furosemide 40 MG Tablet PO (09:37)
[2021-08-05] MEDS: Enoxaparin 40 MG/0.4 ML Syringe SC (09:37)
--- NOTE | 2021-08-05 14:33 | PN.HOSP_ITS ---
Subjective Subjective did not tolerate BiPAP. Objective Data Objective Data Vital Signs: Vital Signs Temp Pulse Resp BP Pulse Ox 36.7 C 78 18 87/50 L 91 08/05/21 13:45 08/05/21 13:45 08/05/21 13:45 08/05/21 13:45 08/05/21 13:45 Oxygen Flow Rate (L/min) [ 8 AMBULATING with Oxygen #3] Oxygen Flow Rate (L/min) [ 7 AMBULATING with Oxygen #2] Oxygen Flow Rate (L/min) [ 5 AMBULATING with Oxygen #1] Oxygen Flow Rate (L/min) [At 5 REST with Oxygen] Oxygen Flow Rate (L/min) 5 Oxygen Delivery Method Nasal Cannula Weight: 101.4 kg Body Mass Index (BMI) 36.1 Intake & Output: Intake and Output for Last 24 Hours 08/03/21 08/04/21 08/05/21 23:59 23:59 23:59 Intake Total 240 / 480 1360 / 1360 490 / 490 Output Total 700 / 875 825 / 825 325 / 325 Balance -460 / -395 535 / 535 165 / 165 Lab / Micro Data Result Diagrams: 08/03/21 04:57 08/05/21 05:50 Labs: Laboratory Results - last 24 hr 08/04/21 18:24: Vancomycin Trough 4.2 L 08/05/21 05:50: Sodium 136, Potassium 3.9, Chloride 90 L, Carbon Dioxide 43.0 H, Anion Gap 3 L, BUN 58 H, Creatinine 1.11, Estim Creat Clear Calc 61.62, Est GFR (MDRD) Af Amer 85, Est GFR (MDRD) Non-Af 70, BUN/Creatinine Ratio 52.3 H, Glucose 108 H, Calcium 8.6 Micro: Microbiology 07/29/21 07:45 Blood Culture (Wb) - Anticubital Right Blood Culture - Final No growth in 5 days. 07/29/21 07:27 Blood Culture (Wb) - Anticubital Left Blood Culture - Final No growth in 5 days. 07/29/21 11:15 Wound - Leg, Left Gram Stain - Final 07/29/21 11:15 Wound - Leg, Left Wound Culture - Final Escherichia hermannii Klebsiella oxytoca Gram positive ava 07/29/21 11:15 Wound - Leg, Right Gram Stain - Final 07/29/21 11:15 Wound - Leg, Right Wound Culture - Final Klebsiella oxytoca Escherichia hermannii Gram positive ava 07/29/21 18:25 Urine, Random Legionella Antigen - Final 07/29/21 18:25 Urine, Random Streptococcus pneumoniae Antigen (M - Final 07/29/21 08:52 Nasal Secretion SARS-CoV-2 Antigen (Rapid) - Final Physical Exam Const alert and no apparent distress Resp normal respiratory effort, no retractions, no use of accessory muscles and clear to auscultation bilaterally Cardio regular rate, regular rhythm, S1 normal heart sound and S2 normal heart sound GI normal to inspection, nondistended, normoactive bowel sounds, soft to palpation, non-tender and non-distended Neuro oriented x3 Sensorium / Orientation: awake, alert and oriented to person Assessment & Plan Assessment/Plan (1) Bilateral lower leg cellulitis: (2) Lymphedema: (3) Acute respiratory failure with hypoxia and hypercapnia: (4) (HFpEF) heart failure with preserved ejection fraction: QUALIFIERS: Heart failure chronicity: acute Qualified Code(s): I50.31 - Acute diastolic (congestive) heart failure (5) COPD with acute exacerbation: PLAN: 1. Acute hypoxic and hypercapnic respiratory failure * multifactorial: 2/2 COPD exacerbation, HFpEF, pulmonary HTN. * Was emergently transferred to the ICU on account of elevated PCO2. This resolved with BiPAP and was transferred out of the ICU 07/30. * Patient requires 8 L with activity and takes a long time to recover. * breathing treatment with bronchodilators * Patient declining BiPAP therapy. This complicates his overall care and recovery. * Wean oxygen as able. Still in too much oxygen to be discharged home at this time. 2. Possible bilateral lower extremity cellulitis in the setting of lymphedema * doubt actual infection in the absence of fever or leukocytosis * polymicrobial cultures may be colonization * completed Bactrim 3. acute HFpEF * EF 55-60% * complicated by Severe pulmonary HTN * Continue furosemide * on losartan 4. AECOPD * completed prednisone * continue BDs 5. chronic issues: * CAD s/p stent x 1: says it was done ~ 10 years ago. On high intensity statin and plavix * Hypertension: On metoprolol and losartan * Nicotine dependence: Smokes 2 packs daily. Counseled to quit. Nicotine patch 21 mg daily. DVT prophylaxis: Lovenox CODE STATUS: Full code Charges/Coding Visit Charges Inpatient E&M: 90677 Subs Hosp L2
[2021-08-05] MEDS: traZODone 50 MG Tablet 150 MG PO (22:49)
[2021-08-05] MEDS: Ondansetron 4 MG/2 ML Vial IV (22:49)
[2021-08-05] MEDS: oxyCODONE 5 MG Tablet PO (22:49)
[2021-08-05] MEDS: Atorvastatin Calcium 80 MG Tablet PO (22:50)
[2021-08-05] MEDS: Metoprolol Tartrate 25 MG Tablet PO (22:50)
[2021-08-05] MEDS: 0.9% Saline Lock 10 ML Syringe IV (22:51)
[2021-08-06] VITALS (10 sets, daily range): BP systolic 110–124; BP diastolic 60–76; PULSE 67–89; RESP 16–20; TEMP 36.3–36.6; O2SAT 86–95
[2021-08-06] MEDS: Ipratropium/Albuterol Sulfate 3 ML AMPUL.NEB INHALATION ×2 (07:02→11:11)
[2021-08-06] MEDS: Budesonide Respules 0.5 MG/2 ML AMPUL.NEB. INHALATION (07:02)
[2021-08-06 07:18] LABS: BUN 60 mg/dL (7-18); BUN/Creat Ratio 46.9 RATIO (10-20); Carbon Dioxide > 45.0 mmol/L (21.0-32.0); Chloride 92 mmol/L (98-107); Creatinine, Serum 1.28 mg/dL (0.70-1.30); EST Glomerular Filtration Rate 59 mL/min (>60); Est Glom Filt Rate - Afr Amer 72 mL/min (>60); Estimated Creatinine Clearance 53.44 ml/min; Glucose 117 mg/dL (74-106); Potassium 4.6 mmol/L (3.5-5.1); Sodium Level 139 mmol/L (136-145)
--- NOTE | 2021-08-06 08:03 | PN.CC_ITS ---
Assessment & Plan Assessment/Plan (1) Encephalopathy: PLAN: RECOMMENDATIONS: 1. Continue AVAPS therapy with naps and nightly. Highly encouraged compliance 2. Continue bronchodilators and local wound care. 3. Continue scheduled bronchodilators. 4. Continue diuretic therapy as tolerated by hemodynamics and renal function. 5. Wean supplemental oxygen as tolerated. 6. Encourage incentive spirometer use and mobilize patient as tolerated. 7. Okay to discharge when patient can ambulate on 6 L or less 8. Given relative stability. Will sign off from a critical care/pulmonary perspective. Please call with any issues IMPRESSIONS: 1. Encephalopathy Resolved. Secondary to hypercapnia. The patient has a self-reported history of COPD of unknown severity along with chronic tobacco dependency. He also reportedly has been diagnosed with sleep apnea and does not currently utilize any form of nocturnal Pap therapy. The patient responded appropriately to noninvasive positive pressure ventilatory support. Extensive conversation with the patient about the importance of complying with AVAPS to avoid future complications. Patient reports that he is not interested in using BiPAP therapy at home despite knowing the complications. Patient believes supplemental oxygen alone is appropriate. Patient will need to comply with AVAPS for quite some time for pulmonary improvement, but appears back to baseline from a mentation standpoint. 2. Bilateral lower extremity cellulitis Continues to improve. Continue antimicrobials per hospitalist along with local wound care. Polymicrobial infection indicated by culture. Patient will likely need to see the wound center on discharge 3. Congestive heart failure with preserved ejection fraction/cor pulmonale Echocardiogram shows preserved ejection fraction of 55%, but severely dilated right ventricle with a PASP of 80 mmHg. Continue diuretic therapy as tolerated by hemodynamics and renal function. Creatinine slightly increased over last 24 hours, so agree with transitioning to p.o. Clinical suspicion for an element of pulmonary hypertension secondary to poorly controlled saturations and probable sleep apnea. It is unlikely this will improve significantly without controlling these issues. Patient will likely require significant time with AVAPS to see improvement in cor pulmonale. Could consider discharge to an ECF given consistent high requirements for exertion. 4. History of COPD and chronic tobacco dependency The patient does not currently follow with a senior controls engineer, but does have an extensive smoking history. It is reasonable to continue scheduled br onchodilators while admitted to the hospital. Tobacco cessation counseling was provided. Nicotine replacement therapy can be utilized while the patient is admitted to the hospital. He would benefit from outpatient pulmonary follow-up so that baseline PFTs can be obtained and further optimization undertaken. Clinical suspicion is the patient will not follow-up if requested. 5. Obesity with history of sleep apnea Patient has apparently been diagnosed with sleep apnea in the past, but has elected not to utilize any form of nocturnal Pap therapy. Instead, the maxwell palmer is only utilizing supplemental oxygen on a nightly basis. In light of his respiratory mechanics and CO2 retention, I would strongly recommend reconsideration for Pap therapy on an outpatient basis. This note was generated with [employer] dictation software. It may contain incorrect words, spelling, and punctuation that were not noted in checking the note before signing. Subjective Subjective Patient did well overnight. Patient was able to tolerate BiPAP for 3 hours. Patient states that it was not bad if he is given medicine to help with anxiety. Patient is frustrated that he is not discharged and states he feels fine during the day. No significant cough or fevers been reported. Objective Data Objective Data Vital Signs: Vital Signs Temp Pulse Resp BP Pulse Ox 36.6 C 69 18 110/76 95 08/06/21 03:15 08/06/21 06:59 08/06/21 03:15 08/06/21 03:15 08/06/21 03:15 Oxygen Flow Rate (L/min) [ 8 AMBULATING with Oxygen #3] Oxygen Flow Rate (L/min) [ 7 AMBULATING with Oxygen #2] Oxygen Flow Rate (L/min) [ 5 AMBULATING with Oxygen #1] Oxygen Flow Rate (L/min) [At 5 REST with Oxygen] Oxygen Flow Rate (L/min) 5 Oxygen Delivery Method Nasal Cannula Weight: 102.5 kg Body Mass Index (BMI) 36.1 Intake & Output: Intake and Output for Last 24 Hours 08/04/21 08/05/21 08/06/21 23:59 23:59 23:59 Intake Total 1360 / 1360 1080 / 1320 240 / 240 Output Total 825 / 825 325 / 575 600 / 600 Balance 535 / 535 755 / 745 -360 / -360 Lab / Micro Data Result Diagrams: 08/03/21 04:57 08/06/21 06:46 Labs: Laboratory Results - last 24 hr 08/06/21 06:46: Sodium 139, Potassium 4.6, Chloride 92 L, Carbon Dioxide > 45.0 H*, Anion Gap TNP, BUN 60 H, Creatinine 1.28, Estim Creat Clear Calc 53.44, Est GFR (MDRD) Af Amer 72, Est GFR (MDRD) Non-Af 59 L, BUN/Creatinine Ratio 46.9 H, Glucose 117 H, Calcium 8.0 L Micro: Microbiology 07/29/21 07:45 Blood Culture (Wb) - Anticubital Right Blood Culture - Final No growth in 5 days. 07/29/21 07:27 Blood Culture (Wb) - Anticubital Left Blood Culture - Final No growth in 5 days. 07/29/21 11:15 Wound - Leg, Left Gram Stain - Final 07/29/21 11:15 Wound - Leg, Left Wound Culture - Final Escherichia hermannii Klebsiella oxytoca Gram positive ava 07/29/21 11:15 Wound - Leg, Right Gram Stain - Final 07/29/21 11:15 Wound - Leg, Right Wound Culture - Final Klebsiella oxytoca Escherichia hermannii Gram positive ava 07/29/21 18:25 Urine, Random Legionella Antigen - Final 07/29/21 18:25 Urine, Random Streptococcus pneumoniae Antigen (M - Final 07/29/21 08:52 Nasal Secretion SARS-CoV-2 Antigen (Rapid) - Final Physical Exam Const alert and no apparent distress General Appearance: cooperative Nutritional Appearance: obese HEENT normocephalic and head/scalp atraumatic Eyes PERRL, EOMs intact bilaterally and conjunctivae normal Neck supple General: trachea midline Chest inspection of chest normal Chest: symmetrical chest wall rise; Negative for crepitus Resp Auscultation: diminished lung sounds; Negative for rales, rhonchi or wheezes Cardio regular rate, regular rhythm, no murmurs, no rub and no gallops GI normal to inspection, nondistended, normoactive bowel sounds Extremity Extremity Narrative: Bilateral lower extremity lymphedema. Stasis ulcers were present. Skin Skin Narrative: Wrapped lower extremities. Neuro CN's II-XII intact bilaterally and no focal motor deficits Psych cooperative and affect normal Charges/Coding Visit Charges Inpatient E&M: 24798 Subs Hosp L2
[2021-08-06] MEDS: Isosorbide Mononitrate 60 MG Tablet PO (09:27)
[2021-08-06] MEDS: Clopidogrel Bisulfate 75 MG Tablet PO (09:27)
[2021-08-06] MEDS: Metoprolol Tartrate 25 MG Tablet PO (09:27)
[2021-08-06] MEDS: Enoxaparin 40 MG/0.4 ML Syringe SC (09:28)
[2021-08-06] MEDS: Juven (unflavored) Packet 1 PACKET PO (09:28)
[2021-08-06] MEDS: oxyCODONE 5 MG Tablet PO (09:41)
[2021-08-06] MEDS: Ondansetron 4 MG/2 ML Vial IV (09:46)
--- NOTE | 2021-08-06 12:59 | DCINST_ITS ---
Discharge Instructions Diet Discharge Diet: Low fat / Low cholesterol Activity Discharge Activity: Return to Normal Activity Dressing / Incision Call your doctor if you observe: Fever of 101 or Higher and Shortness of breath Follow Up Care Test Results: Test results from this visit will be discussed in further detail at your follow-up appointment, if applicable. Discharge Plan Admission Admit Date/Time: 07/30/21 08:30 Primary Reason for Your Visit: respiratory failure Attending Provider: Jagdeep Andrade Primary Care Provider: Brooks Davis Consulting Providers: Luis Daniel Pérez ; Richy Redd ; Chaya Chance SPORTS MARKETING SPECIALIST Discharge Orders/Prescriptions Prescriptions: Continued atorvastatin 80 MG tablet 80 mg PO QHS RF: 0 clopidogrel 75 MG tablet 75 mg PO DAILY RF: 0 albuterol sulfate 2.5 MG/3 ML solution for nebulization 2.5 mg inhalation 4X/DAY Qty: 120 RF: 0 albuterol sulfate 1 PUFF inhaler 1 - 2 puff inhalation Q4H PRN PRN (Reason: Dyspnea) RF: 0 trazodone 150 MG tablet 150 mg PO QHS RF: 0 budesonide-formoterol 1 INHALER inhaler 2 puff inhalation BID RF: 0 ipratropium-albuterol 0.5 mg-3 mg(2.5 mg base)/3 mL Solution For Nebulization 3 ml INHALATION Q4H RF: 0 metoprolol tartrate 25 mg Tablet 25 mg PO BID RF: 0 isosorbide mononitrate 60 MG tablet extended release 24 hr 60 mg PO DAILY RF: 0 Discontinued losartan 50 MG tablet 50 mg PO DAILY RF: 0 nabumetone 750 mg Tablet 750 mg PO BID PRN PRN (Reason: anti inflammatory) RF: 0 Referrals / Follow Up: [facility] [Other] - 08/11/21 9:00 am Brooks Davis MD [Primary Care Provider] - Within 2 Weeks Disposition Disposition (needs filled in before D/C Order can be placed): Home Health Service
--- NOTE | 2021-08-06 13:30 | PCM.DC.SUM ---
Providers Date of Admission: 07/30/21 Primary Care Physician: Dr. Brooks Davis MD Consultations 07/29/21 10:01 Consult: Onc/Wound/military analyst Routine Comment: Reason for Consult:: BLE cellulitis 07/29/21 10:43 Consult: Onc/Wound/military analyst Routine Comment: Reason for Consult:: lower extremity wounds 07/29/21 18:02 Consult: Wireless Retail Manager / Pulmonary Medicine Routine Consulting Provider: [facility] Reason for Consult: Acute on chronic hypercapnic respiratory failure EMERGENT Consult: No MD Notified: Yes Date Notified: 07/29/21 Time Notified: 18:49 Method of Notification: Text Reason For Visit: CELLULITIS OF THE LEG, ABN ABG'S Diagnosis Discharge Diagnosis (1) Encephalopathy: Status: Acute Code(s): G93.40 - Encephalopathy, unspecified Medications at Discharge Home Medications atorvastatin 80 mg PO QHS 04/18/13 clopidogrel 75 mg PO DAILY 04/18/13 albuterol sulfate 2.5 mg INHALATION 4X/DAY #120 vial.neb. 07/06/14 albuterol sulfate 1 - 2 puff INHALATION Q4H PRN PRN 10/31/16 trazodone 150 mg PO QHS 10/31/16 budesonide-formoterol 2 puff INHALATION BID 08/07/19 ipratropium-albuterol 3 ml INHALATION Q4H 07/29/21 isosorbide mononitrate 60 mg PO DAILY 07/29/21 metoprolol tartrate 25 mg PO BID 07/29/21 Hospital Course Operations None Procedures 2-D Echocardiogram Summary of Care Provided Minutes Spent on Discharge: 35 Hospital Course: This is a 66-year-old male who presents on July 29 with a lower extremity pain. Patient has chronic lymphedema and venous stasis ulcers. Was having increased drainage from the legs but primarily on the left. Patient was started on antibiotics and did have cultures that came back positive for several organisms. Patient completed course of antibiotics while he was here. Is unclear if patient was having increased pain due to an actual infection as his legs are both red that can be seen in venous stasis dermatitis or if he did have a true cellulitis. Patient completed antibiotics and overall has felt better. Patient's course was complicated by respiratory failure. Patient has a complex history and had an acute exacerbation of COPD to which he completed steroids, acute heart failure with preserved ejection fraction with an EF of 55 to 60% he was on IV furosemide without changed back to his oral rimantadine and spironolactone. That is complicated by severe pulmonary hypertension. Complicating this is patient has history of noncompliance with the BiPAP. Patient used to have a BiPAP in the past but that was taken away as it was clearly demonstrated that he was not using it. Patient reluctantly used BiPAP and only for short periods of time. Today, he was informed upon him that he was going to be discharged he actually volunteered to use a BiPAP. Patient would not be able to get a BiPAP arranged directly from the hospital would need to follow-up with pulmonology if he wishes to do so. Patient's oxygen has been very difficult but today, he was able to tolerate 7L nasal cannula with activity and he will be on 5 L at rest. Patient unfortunately does have a high likelihood of readmission given his complexity and numerous medical issues. He did meet with palliative care. No definitive plan was performed on this input the patient was given information to contact palliative care when he would like to have more services. Patient seems to have a profound oblivious to this to his overall condition. I had a conversation with him and asked him where he thought he would be in 1 years time, his response was I have no idea. I did talk to him that he has a higher likelihood of worsening condition given his overall poor performance status and multiple medical comorbidities and non-compliance. Physical Exam Const alert General Appearance: cooperative Resp Resp Narrative: Coarse breath sounds bilaterally Cardio regular rate, regular rhythm, S1 normal heart sound and S2 normal heart sound GI normal to inspection, nondistended, normoactive bowel sounds and soft to palpation Extremity Extremity Narrative: Lymphedema wraps in place Weight / BMI Weight Weight: 102.5 kg Body Mass Index (BMI) 36.1 ABG / Lab / Microbiology Data Result Diagrams: 08/03/21 04:57 08/06/21 06:46 Laboratory: Laboratory Results - last 24 hr 08/06/21 06:46: Sodium 139, Potassium 4.6, Chloride 92 L, Carbon Dioxide > 45.0 H*, Anion Gap TNP, BUN 60 H, Creatinine 1.28, Estim Creat Clear Calc 53.44, Est GFR (MDRD) Af Amer 72, Est GFR (MDRD) Non-Af 59 L, BUN/Creatinine Ratio 46.9 H, Glucose 117 H, Calcium 8.0 L Microbiology: Microbiology 07/29/21 07:45 Blood Culture (Wb) - Anticubital Right Blood Culture - Final No growth in 5 days. 07/29/21 07:27 Blood Culture (Wb) - Anticubital Left Blood Culture - Final No growth in 5 days. 07/29/21 11:15 Wound - Leg, Left Gram Stain - Final 07/29/21 11:15 Wound - Leg, Left Wound Culture - Final Escherichia hermannii Klebsiella oxytoca Gram positive ava 07/29/21 11:15 Wound - Leg, Right Gram Stain - Final 07/29/21 11:15 Wound - Leg, Right Wound Culture - Final Klebsiella oxytoca Escherichia hermannii Gram positive ava 07/29/21 18:25 Urine, Random Legionella Antigen - Final 07/29/21 18:25 Urine, Random Streptococcus pneumoniae Antigen (M - Final 07/29/21 08:52 Nasal Secretion SARS-CoV-2 Antigen (Rapid) - Final D/C Instructions Discharge Diet: Low fat / Low cholesterol Call your doctor if you observe: Fever of 101 or Higher and Shortness of breath Meaningful Use Info Meaningful Use Diagnoses (Choose all that apply): CHF CHF SLIM/ARB ordered at discharge?: Yes Documented LVEF (%): 55 Discharge Plan Admission Admit Date/Time: 07/30/21 08:30 Primary Reason for Your Visit: respiratory failure Attending Provider: Jagdeep Andrade Primary Care Provider: Brooks Davis Consulting Providers: Luis Daniel Pérez ; Richy Redd ; Chaya Chance SHARED SERVICES REPRESENTATIVE Discharge Orders/Prescriptions Prescriptions: Continued atorvastatin 80 MG tablet 80 mg PO QHS RF: 0 clopidogrel 75 MG tablet 75 mg PO DAILY RF: 0 albuterol sulfate 2.5 MG/3 ML solution for nebulization 2.5 mg inhalation 4X/DAY Qty: 120 RF: 0 albuterol sulfate 1 PUFF inhaler 1 - 2 puff inhalation Q4H PRN PRN (Reason: Dyspnea) RF: 0 trazodone 150 MG tablet 150 mg PO QHS RF: 0 budesonide-formoterol 1 INHALER inhaler 2 puff inhalation BID RF: 0 ipratropium-albuterol 0.5 mg-3 mg(2.5 mg base)/3 mL Solution For Nebulization 3 ml INHALATION Q4H RF: 0 metoprolol tartrate 25 mg Tablet 25 mg PO BID RF: 0 isosorbide mononitrate 60 MG tablet extended release 24 hr 60 mg PO DAILY RF: 0 Discontinued losartan 50 MG tablet 50 mg PO DAILY RF: 0 nabumetone 750 mg Tablet 750 mg PO BID PRN PRN (Reason: anti inflammatory) RF: 0 Referrals / Follow Up: [facility] [Other] - 08/11/21 9:00 am Brooks Davis MD [Primary Care Provider] - Within 2 Weeks Choco Simpson MD [STAFF PHYSICIAN] - Within 2 Weeks Disposition Disposition (needs filled in before D/C Order can be placed): Home Health Service Charges/Coding Visit Charges Inpatient E&M: 15102 Disch Hosp
== END 2021-08-06 15:43 | disposition home health service (06) | DRG 189 ==
LOC: ED 09:09 → PCU 09:25 → ICU 18:58 → PCU 07-30 20:41
PROVIDERS: Internal Medicine; Internal Medicine Critical Care Medicine; Nurse Practitioner Family; Admitting Provider Student in an Organized Health Care Education/Training Program; Emergency Provider Emergency Medicine; PCP Family Medicine
DX: J96.02 Acute respiratory failure with hypercapnia (principal); I50.31 Acute diastolic (congestive) heart failure; G93.49 Other encephalopathy; L03.115 Cellulitis of right lower limb; J44.1 Chronic obstructive pulmonary disease with (acute) exacerbation; L03.116 Cellulitis of left lower limb; L97.919 Non-pressure chronic ulcer of unspecified part of right lower leg with unspecified severity; L97.929 Non-pressure chronic ulcer of unspecified part of left lower leg with unspecified severity; I27.20 Pulmonary hypertension, unspecified; J96.01 Acute respiratory failure with hypoxia; I11.0 Hypertensive heart disease with heart failure; I87.2 Venous insufficiency (chronic) (peripheral); I25.10 Atherosclerotic heart disease of native coronary artery without angina pectoris; F17.210 Nicotine dependence, cigarettes, uncomplicated; B96.1 Klebsiella pneumoniae [K. pneumoniae] as the cause of diseases classified elsewhere; E78.5 Hyperlipidemia, unspecified; G47.30 Sleep apnea, unspecified; I89.0 Lymphedema, not elsewhere classified; B96.29 Other Escherichia coli [E. coli] as the cause of diseases classified elsewhere; B96.89 Other specified bacterial agents as the cause of diseases classified elsewhere; Z79.02 Long term (current) use of antithrombotics/antiplatelets; E66.9 Obesity, unspecified; Z71.6 Tobacco abuse counseling; Z79.899 Other long term (current) drug therapy; Z95.5 Presence of coronary angioplasty implant and graft; Z68.36 Body mass index [BMI] 36.0-36.9, adult; Z91.19 Patient's noncompliance with other medical treatment and regimen
CPT/HCPCS: 36415; 36600; 71045; 80048; 80053; 80202; 82040; 82247; 82803; 82962; 83605; 83735; 83880; 84075; 84132; 84156; 84450; 84460; 84484; 85025; 87040; 87070; 87077; 87186; 87205; 87426; 87449; 87640; 93005; 93306; 93970; 94002; 94003; 94640; 94762; 97110; 97116; 97162; 97166; 97530; 97535; 97802; 99285; 99406; J7040; J7050; Q9957; A4216; C8929; J0295; J1940; J2405

== ENCOUNTER 2021-08-25 10:00 | Outpatient (RCR) | payer MEDICARE, SELFPAY ==
[2021-08-11 09:42] VITALS: BP 145/76; PULSE 94; RESP 18; TEMP 36.6; BMI 38.0
--- NOTE | 2021-08-11 12:45 | HP.PCM_ITS ---
History of Present Illness Date of Service: 08/11/21 Chief Complaint: Right Leg Ulcer,, Bilateral lower extremity swelling History of Wound: Mr. Ariza is a 66-year-old who had been seen here at the wound center in the past. Last seen in 2019. He is status post recent hospital admission for bilateral lower extremity edema and concern for cellulitis. Developed a right lower extremity ulcer. Has not done much to it since his discharge. Denies significant drainage. Bilateral lower extremity pain has improved some but currently has no form of compression. Denies any significant drainage from his lower extremities. No chills, fever or otherwise feeling of unwell. He also states that he does not have a lymphedema pump. [facility] Medical History (Updated 08/11/21 @ 12:[address] Meena Villarreal MD) Bilateral lower extremity edema CAD (coronary artery disease) Cellulitis of left lower extremity without foot COPD (chronic obstructive pulmonary disease) HTN (hypertension) Hyperlipemia Morbid obesity Tobacco abuse disorder Ulcer of left calf Ulcer of right lower extremity with fat layer exposed Wound infection Home Medications atorvastatin 80 mg PO QHS 04/18/13 [History Last Taken 07/28/21] clopidogrel 75 mg PO DAILY 04/18/13 [History Last Taken 07/28/21] albuterol sulfate 2.5 mg INHALATION 4X/DAY #120 vial.neb. 07/06/14 [Rx Last Taken Unknown] albuterol sulfate 1 - 2 puff INHALATION Q4H PRN PRN 10/31/16 [History Last Taken Unknown] trazodone 150 mg PO QHS 10/31/16 [History Last Taken 07/28/21] budesonide-formoterol 2 puff INHALATION BID 08/07/19 [History Last Taken 07/28/21] ipratropium-albuterol 3 ml INHALATION Q4H 07/29/21 [History Last Taken 07/28/21] isosorbide mononitrate 60 mg PO DAILY 07/29/21 [History Last Taken 07/28/21] metoprolol tartrate 25 mg PO BID 07/29/21 [History Last Taken 07/28/21] nabumetone 750 mg PO BID PRN 08/11/21 [History Last Taken Unknown] Allergy/AdvReac Type Severity Reaction Status Date / Time benzonatate Allergy Unknown Verified 07/29/21 07:22 [From Tessalon Perles] chlorpheniramine polistirex AdvReac Rash Verified 07/29/21 07:22 [From Tussionex] hydrocodone polistirex AdvReac Rash Verified 07/29/21 07:22 [From Tussionex] levofloxacin [From Levaquin] AdvReac Rash Verified 07/29/21 07:22 Surgical History H/O heart artery stent Social History Smoking Status: Current every day smoker tobacco type: cigarettes alcohol intake: never ROS Constitutional Constitutional: Denies anorexia, change in weight, chills, fatigue, lethargy, malaise or weight gain Eyes Eyes: Denies blindness, blind spots, change in vision, discongugate gaze, double vision, dry eyes or loss of central vision ENT HEENT: Denies dysphagia, headache(s), nasal congestion, sore throat or throat swelling Cardiovascular Cardiovascular: Reports edema; Denies chest pain, orthopnea, palpitations, paroxysmal nocturnal dyspnea or syncope Respiratory/Chest Respiratory/Chest: Denies cough, shortness of breath at rest or shortness of breath with exertion Gastrointestinal Gastrointestinal: Reports abdominal pain; Denies diarrhea or dyspepsia Genitourinary Genitourinary: Denies dysuria or urinary frequency Musculoskeletal Musculoskeletal: Denies back pain, joint pain or joint swelling Integumentary Integumentary: Reports dry skin and wounds; Denies bleeding lesions, nail ch anges, new lesions, photosensitivity or pruritus Neurologic Neurologic: Denies confusion, dizziness, focal weakness, lack of coordination, numbness, seizures, tremor(s) or weakness Psychiatric Psychiatric: Denies anxiety, depression, difficulty concentrating, panic attacks, paranoia, suicidal ideation, suicidal thoughts or tactile hallucinations Endocrine Endocrinology: Denies change in body appearance, cold intolerance, deepening of the voice, increase in ring/shoe/hat size, palpitations or polydipsia Hematologic/Lymphatic Hematologic/Lymphatic: Denies anemia or easy bleeding Allergic/Immunologic Allergic/Immunologic: Reports wheezing; Denies itchy eyes, lip swelling, tongue swelling, hives, urticaria or eczemia Vital Signs Vital Signs Vital Signs: 08/11/21 09:42 Temperature 97.9 F Temperature Source Temporal Pulse Rate 94 Respiratory Rate 18 Blood Pressure 145/76 H Blood Pressure Mean 99 Blood Pressure Source Monitor Blood Pressure Position Sitting Blood Pressure Location Left Arm Weight Weight: 250 lb Body Mass Index (BMI) 38.0 Physical Exam Const alert, oriented x3 and no apparent distress General Appearance: cooperative and comfortable HEENT normocephalic and head/scalp atraumatic Eyes General Eye: normal appearance of both eyes Neck full ROM General: normal visual inspection Resp normal respiratory effort Effort and Inspection: able to speak in complete sentences Extremity Extremity Narrative: Bilateral lower extremity edema. Stasis dermatitis Skin Wounds: wounds noted Neuro oriented x3, CN's II-XII intact bilaterally, moves all extremities and no focal motor deficits Psych mental status grossly normal Appearance: grossly normal Attitude: calm Activity / Motor Behavior: appropriate eye contact Speech: normal speech Debridement Note Debridement Note Wound debrided: Right lower extremity lateral Type of Debridement: Excisional debridement Anesthesia Used: 4% Lidocaine Solution Depth: Down to and including healthy tissue and in the subcutaneous layer Percentage of wound debrided: 100 Instrument Used: 5mm curette Tissue Removed: Slough and devitalized tissue Severity: Fat Layer Exposed Amount of bleeding with debridement: Mild Bleeding Controlled with: Pressure Patient tolerated procedure: Patient tolerated procedure well Post-Debridement Measurements and Additional Note: Post-Debridement Measurements/Treatment - Nurse 1 - General Ulcer Assessment Start: 08/11/21 09:24 Freq: Status: Active Protocol: MIGUEL [email or web address].MITRA Activity Type Activity Date Activity User E-Sign Co-Sign Detail Recorded Client Recorded Date Recorded By Document 08/11/21 09:42 [id number] 08/11/21 09:48 AN 08/11/21 09:42 - Today's Visit Information Type of service Initial Visit Arrival Mode Ambulatory Transfer Assistance None Patient Identification Verified (Name & Yes ) Height and Weight Height 5 ft 8 in Weight 250 lb Weight in Pounds 250.0 lbs Body Mass Index (BMI) 38.0 BMI Classification Obese BSA - Leo 2.25 Vital Signs Temperature (97.8 F-99.1 F) 97.9 F Temperature Source Temporal Pulse Rate (60-100) 94 Pulse Location Monitor Respiratory Rate (12-18) 18 Respiratory rate source Observation Blood Pressure (90/60-120/80) 145/76 H Blood Pressure Mean 99 Source Monitor Position Sitting Blood Pressure Location Left Arm History Since Last Visit- (Skip if this is Patient's initial visit) Have you changed medications since your No last visit? Any new allergies or adverse reactions No Had a fall/change in ADL's that may No increase risk of falls Signs or symptoms of abuse and/or No neglect since last visit Have you been in the hospital since your No last visit? Has dressing in place as prescribed Yes Has compression in place as prescribed Yes Has offloadiing in place as prescribed No Experienced any changes in pain level or No management Pain Scale: 0-10 Numeric Is Patient Pain Free? Yes WC - Nurse 1 - General Ulcer Measurement Start: 08/11/21 09:24 Freq: Status: Active Protocol: Activity Type Activity Date Activity User E-Sign Co-Sign Detail Recorded Client Recorded Date Recorded By Document 08/11/21 09:42 RB [id number] 08/11/21 09:48 RB 08/11/21 09:42 Wound Center Nurse 1 3. RLE lateral -Combined with other wound No -Current Size (cm) - Length 2 -Current Size (cm) - Width 2.3 -Current Size (cm) - Depth 0.1 -Total Square Cm 4.6 -Photo Taken Yes -Tunneling No -Undermining/Tunneling No -Circular Undermining No -Exudate Amt Medium -Exudate Type Serosanguineous -Wound Margin Flat & Intact -Granulation Amt Medium (34-66%) -Granulation Quality [place],Red -Slough/Fibrin Yes -Necrosis Amt Small (1-33%) -Necrotic Tissue Type Adherent Slough -Structure Exposed N/A -Texture (Luna-wound Skin Appearance) Assessed, Excoriation, Localized Edema -Moisture (Luna-wound Skin Appearance) Assessed,Dry/ Scaly -Color (Luna-wound Skin Appearance) Assessed, Hemosiderin Staining -Temperature (Luna-wound Skin No Abnormality Appearance) (Pt Warm) -Tenderness on Palpation (Luna-wound No Skin Appearance) -Ulcer Cleansing Wound Cleanser -Foul Odor after Cleansing No -Anesthetic Used 5% Lidocaine Gel Lower Limb Edema Present Yes Right Calf (cm) 48 Right Ankle (cm) 29 Left Calf (cm) 49.5 Left Ankle (cm) 26.5 WC - Nurse 2 - General Ulcer CM Notes Start: 02/10/22 09:24 Freq: Status: Active Protocol: Activity Type Activity Date Activity User E-Sign Co-Sign Detail Recorded Client Recorded Date Recorded By Document 08/11/21 10:01 MW [id number] 08/11/21 10:05 MW 08/11/21 10:01 Wound Center Nurse 2 3. RLE lateral -Time 10:02 -Correct Patient Yes -Correct Side, Site, Position Yes -Correct Procedure Yes -Procedure Performed Yes -Type of Procedure Debridement -Clinical Debridement Subcutaneous -Tissue Removed Subcutaneous -Post Debridement (cm) - Length 2.2 -Post Debridement (cm) - Width 2.8 -Post Debridement (cm) - Depth 0.1 -Total Square (Post) (cm) 6.16 -Area of Debridement (cm) - Length 2.2 -Area of Debridement (cm) - Width 2.8 -Total Square (Area) (cm) 6.16 -Tunneling No -Undermining/Tunneling No -Circular Undermining No -Wound/Ulcer Outcome Not Healed -Ulcer Cleansing Rinsed/ Irrigated with Saline -Foul Odor after Cleansing No -Bioengineered Tissue No -Bleeding Controlled with Pressure -Offloading No -Treatment Response Procedure Tolerated Well -Debridement - Subq, 1st 20sq cm Yes Pain Scale: 0-10 Numeric Is Patient Pain Free? Yes Charges/Coding Visit Charges Office Visits / Consults: 24748 OV L4 Est Procedures Integumentary 111xxx-113xx: 32336 Delphine subq tissue 20 sq cm/< Assessment/Plan Assessment/Plan (1) Bilateral lower extremity edema: CODE(S): R60.0 - Localized edema (2) Lymphedema: CODE(S): I89.0 - Lymphedema, not elsewhere classified (3) Tobacco abuse disorder: CODE(S): Z72.0 - Tobacco use (4) Morbid obesity: CODE(S): E66.01 - Morbid (severe) obesity due to excess calories PLAN: Debridement done as documented above, procedure was well-tolerated. Hospital documentation reviewed. Aquacel to right lower extremity ulcer, cover with gauze. Leave in place till Sunday and changed by home health. Unna boot for edema management. Change on Sunday by home health. Smoking cessation strongly recommended. Optimal edema management also discussed. Prescription for CircAid's and lymphedema pump sent. Elevate lower extremity when seated in bed. He however states that he sleeps in a recliner to be close to his who also sleeps in a recliner, she is undergoing chemotherapy for small cell cancer. Increased protein intake, vitamin C and zinc also discussed. His questions were answered and he was advised to call with any questions or concerns. Follow-up in 1 week. This note was generated with [employer] software. It may contain incorrect words, spelling, and punctuation that were not noted in checking the note before signing.
[2021-08-18 10:02] VITALS: BP 157/89; PULSE 82; RESP 16; TEMP 35.7; BMI 38.0
--- NOTE | 2021-08-18 13:38 | PCM.WC.PN ---
History of Present Illness Date of Service: 08/18/21 Chief Complaint: Right Leg Ulcer,, Bilateral lower extremity swelling History of Wound: Mr. Ariza is a 66-year-old who had been seen here at the wound center in the past. Last seen in 2019. He is status post recent hospital admission for bilateral lower extremity edema and concern for cellulitis. Developed a right lower extremity ulcer. Has not done much to it since his discharge. Denies significant drainage. Bilateral lower extremity pain has improved some but currently has no form of compression. Denies any significant drainage from his lower extremities. No chills, fever or otherwise feeling of unwell. He also states that he does not have a lymphedema pump. Progress of Wound: Improving. No acute concerns at this time. Subjective Subjective No acute concerns at this time. Objective Data Objective Data Vital Signs: Vital Signs Temp Pulse Resp BP 96.2 F L 82 16 157/89 H 08/18/21 10:02 08/18/21 10:02 08/18/21 10:02 08/18/21 10:02 Oxygen Flow Rate (L/min) 3 Oxygen Delivery Method Nasal Cannula Weight: 250 lb Body Mass Index (BMI) 38.0 Charges/Coding Procedures Integumentary 111xxx-113xx: 37156 Delphine subq tissue 20 sq cm/< Physical Exam Const alert, oriented x3 and no apparent distress General Appearance: cooperative and comfortable HEENT normocephalic and head/scalp atraumatic Eyes General Eye: normal appearance of both eyes Neck full ROM General: normal visual inspection Resp normal respiratory effort Effort and Inspection: able to speak in complete sentences Extremity Extremity Narrative: Bilateral lower extremity edema. Stasis dermatitis Skin Wounds: wounds noted Neuro oriented x3, CN's II-XII intact bilaterally, moves all extremities and no focal motor deficits Psych mental status grossly normal Appearance: grossly normal Attitude: calm Activity / Motor Behavior: appropriate eye contact Speech: normal speech Debridement Note Debridement Note Wound debrided: Right lower extremity Type of Debridement: Excisional debridement Anesthesia Used: 4% Lidocaine Solution Depth: Down to and including healthy tissue and in the subcutaneous layer Percentage of wound debrided: 100 Instrument Used: 5mm curette Tissue Removed: Slough and devitalized tissue Severity: Fat Layer Exposed Amount of bleeding with debridement: Mild Bleeding Controlled with: Pressure Patient tolerated procedure: Patient tolerated procedure well Post-Debridement Measurements and Additional Note: Post-Debridement Measurements/Treatment WC - Nurse 1 - General Ulcer Assessment Start: 08/11/21 09:24 Freq: Status: Active Protocol: SANDRA Activity Type Activity Date Activity User E-Sign Co-Sign Detail Recorded Client Recorded Date Recorded By Document 08/11/21 09:42 [id number] 08/11/21 09:48 RB Document 08/18/21 10:02 [facility] [id number] 08/18/21 10:07 BM 08/11/21 08/18/21 09:42 10:02 - Today's Visit Information Type of service Initial Visit Follow-up Visit (Physician/COUTIERIER ) Arrival Mode Ambulatory Ambulatory Transfer Assistance None None Patient Identification Verified (Name & Yes Yes ) Patient Requires Transmission-Based No Precautions Height and Weight Height 5 ft 8 in Weight 250 lb Weight in Pounds 250.0 lbs Body Mass Index (BMI) 38.0 38.0 BMI Classification Obese Obese BSA - Leo 2.25 Vital Signs Temperature (97.8 F-99.1 F) 97.9 F 96.2 F L Temperature Source Temporal Temporal Pulse Rate (60-100) 94 82 Pulse Location Monitor Monitor Respiratory Rate (12-18) 18 16 Respiratory rate source Observation Observation Oxygen Delivery Method Nasal Cannula O2 L/MIN (L/min) 3 Blood Pressure (90/60-120/80) 145/76 H 157/89 H Blood Pressure Mean (mm Hg) 99 111 Source Monitor Monitor Position Sitting Sitting Blood Pressure Location Left Arm Left Arm History Since Last Visit- (Skip if this is Patient's initial visit) Have you changed medications since your No No last visit? Any new allergies or adverse reactions No No Had a fall/change in ADL's that may No No increase risk of falls Signs or symptoms of abuse and/or No No neglect since last visit Have you been in the hospital since your No No last visit? Has dressing in place as prescribed Yes Yes Has compression in place as prescribed Yes Yes Has offloadiing in place as prescribed No N/A Experienced any changes in pain level or No No management Left Footwear Regular Shoe Right Footwear Regular Shoe Pain Scale: 0-10 Numeric Is Patient Pain Free? Yes Yes [facility] Nurse 1 - General Ulcer Measurement Start: 08/11/21 09:24 Freq: Status: Active Protocol: Activity Type Activity Date Activity User E-Sign Co-Sign Detail Recorded Client Recorded Date Recorded By Document 08/11/21 09:42 [id number] 08/11/21 09:48 RB Document 08/18/21 10:02 [facility] [id number] 08/18/21 10:07 [facility] 08/11/21 08/18/21 09:42 10:02 Wound Center Nurse 1 3. RLE lateral -Combined with other wound No No -Current Size (cm) - Length 2 1.4 -Current Size (cm) - Width 2.3 2 -Current Size (cm) - Depth 0.1 0.1 -Total Square Cm 4.6 2.8 -Date of Last Picture (Recall this 08/18/21 field) -Photo Taken Yes Yes -Epithelialization None Present -Tunneling No No -Undermining/Tunneling No No -Circular Undermining No No -Exudate Amt Medium Medium -Exudate Type Serosanguineous Sanguineous -Wound Margin Flat & Intact Distinct, Outline Attached -Granulation Amt Medium (34-66%) Large (67-100%) -Granulation Quality [place],Red Red -Slough/Fibrin Yes No -Necrosis Amt Small (1-33%) None Present (0 %) -Necrotic Tissue Type Adherent Slough -Structure Exposed N/A -Texture (Luna-wound Skin Appearance) Assessed, Assessed, Excoriation, Scarring Localized Edema -Moisture (Luna-wound Skin Appearance) Assessed,Dry/ Assessed,Dry/ Scaly Scaly -Color (Luna-wound Skin Appearance) Assessed, Assessed, Hemosiderin Hemosiderin Staining Staining -Temperature (Luna-wound Skin No Abnormality No Abnormality Appearance) (Pt Warm) (Pt Warm) -Tenderness on Palpation (Luna-wound No No Skin Appearance) -Ulcer Cleansing Wound Cleanser Soap and Water -Foul Odor after Cleansing No No -Anesthetic Used 5% Lidocaine 4% Lidocaine Gel Solution,5% Lidocaine Gel Lower Limb Edema Present Yes Yes Right Calf (cm) 48 44 Right Ankle (cm) 29 26 Left Calf (cm) 49.5 42.5 Left Ankle (cm) 26.5 26 WC - Nurse 2 - General Ulcer CM Notes Start: 08/11/21 09:24 Freq: Status: Active Protocol: Activity Type Activity Date Activity User E-Sign Co-Sign Detail Recorded Client Recorded Date Recorded By Document 08/11/21 10:01 MW [id number] 08/11/21 10:05 MW Document 08/18/21 11:03 MW [id number] 08/18/21 11:05 MW 08/11/21 08/18/21 10:01 11:03 Wound Center Nurse 2 3. RLE lateral -Time 10:02 11:03 -Correct Patient Yes Yes -Correct Side, Site, Position Yes Yes -Correct Procedure Yes Yes -Procedure Performed Yes Yes -Type of Procedure Debridement Debridement -Clinical Debridement Subcutaneous Subcutaneous -Tissue Removed Subcutaneous Subcutaneous -Post Debridement (cm) - Length 2.2 1.3 -Post Debridement (cm) - Width 2.8 1.5 -Post Debridement (cm) - Depth 0.1 0.1 -Total Square (Post) (cm) 6.16 1.95 -Area of Debridement (cm) - Length 2.2 1.3 -Area of Debridement (cm) - Width 2.8 1.5 -Total Square (Area) (cm) 6.16 1.95 -Tunneling No No -Undermining/Tunneling No No -Circular Undermining No No -Wound/Ulcer Outcome Not Healed Not Healed -Ulcer Cleansing Rinsed/ Rinsed/ Irrigated with Irrigated with Saline Saline -Foul Odor after Cleansing No No -Bioengineered Tissue No No -Bleeding Controlled with Pressure Pressure -Offloading No No -Treatment Response Procedure Procedure Tolerated Well Tolerated Well -Debridement - Subq, 1st 20sq cm Yes Yes Pain Scale: 0-10 Numeric Is Patient Pain Free? Yes Yes Assessment/Plan Assessment/Plan (1) Bilateral lower extremity edema: CODE(S): R60.0 - Localized edema (2) Lymphedema: CODE(S): I89.0 - Lymphedema, not elsewhere classified (3) Tobacco abuse disorder: CODE(S): Z72.0 - Tobacco use (4) Morbid obesity: CODE(S): E66.01 - Morbid (severe) obesity due to excess calories (5) Ulcer of right lower extremity with fat layer exposed: CODE(S): L97.912 - Non-pressure chronic ulcer of unspecified part of right lower leg with fat layer exposed PLAN: Debridement done as documented above, procedure was well-tolerated. Continue Aquacel to right lower extremity ulcer, cover with gauze. Leave in place till Sunday and change by home health. Unna boot for edema management. Change on Sunday by home health. Smoking cessation strongly recommended. Optimal edema management also discussed. Prescription for CircAid's and lymphedema pump sent. Has received his CircAid's, yet to get his lymphedema pump. Elevate lower extremity when seated and in bed. Exercise as tolerated. He however states that he sleeps in a recliner to be close to his who also sleeps in a recliner, she is undergoing chemotherapy for small cell cancer. Increased protein intake, vitamin C and zinc also discussed. His questions were answered and he was advised to call with any questions or concerns. Follow-up in 1 week. This note was generated with [email or web address] dictation software. It may contain incorrect words, spelling, and punctuation that were not noted in checking the note before signing.
[2021-08-25 10:02] VITALS: BP 137/79; PULSE 78; RESP 24; TEMP 36.4; BMI 38.0
--- NOTE | 2021-08-25 12:40 | PN.PCM_ITS ---
History of Present Illness Date of Service: 08/25/21 Chief Complaint: Right Leg Ulcer,, Bilateral lower extremity swelling History of Wound: Mr. Ariza is a 66-year-old who had been seen here at the wound center in the past. Last seen in 2019. He is status post recent hospital admission for bilateral lower extremity edema and concern for cellulitis. Developed a right lower extremity ulcer. Has not done much to it since his discharge. Denies significant drainage. Bilateral lower extremity pain has improved some but currently has no form of compression. Denies any significant drainage from his lower extremities. No chills, fever or otherwise feeling of unwell. He also states that he does not have a lymphedema pump. Progress of Wound: Improving. No acute concerns at this time. Subjective Subjective No acute concerns at this time. Objective Data Objective Data Vital Signs: Vital Signs Temp Pulse Resp BP 97.5 F L 78 24 H 137/79 H 08/25/21 10:02 08/25/21 10:02 08/25/21 10:02 08/25/21 10:02 Oxygen Flow Rate (L/min) 4 Oxygen Delivery Method Nasal Cannula Weight: 250 lb Body Mass Index (BMI) 38.0 Charges/Coding Procedures Integumentary 111xxx-113xx: 92923 Delphine subq tissue 20 sq cm/< Physical Exam Const alert, oriented x3 and no apparent distress General Appearance: cooperative and comfortable HEENT normocephalic and head/scalp atraumatic Eyes General Eye: normal appearance of both eyes Neck full ROM General: normal visual inspection Resp normal respiratory effort Effort and Inspection: able to speak in complete sentences Extremity Extremity Narrative: Bilateral lower extremity edema. Stasis dermatitis Skin Wounds: wounds noted Neuro oriented x3, CN's II-XII intact bilaterally, moves all extremities and no focal motor deficits Psych mental status grossly normal Appearance: grossly normal Attitude: calm Activity / Motor Behavior: appropriate eye contact Speech: normal speech Debridement Note Debridement Note Wound debrided: RIGHT LOWER EXTREMITY ( LATERAL ) Type of Debridement: Excisional debridement Anesthesia Used: 4% Lidocaine Solution Depth: Down to and including healthy tissue and in the subcutaneous layer Percentage of wound debrided: 100 Instrument Used: 3mm curette Tissue Removed: Slough and devitalized tissue Severity: Fat Layer Exposed Amount of bleeding with debridement: Mild Bleeding Controlled with: Pressure Patient tolerated procedure: Patient tolerated procedure well Post-Debridement Measurements and Additional Note: Post-Debridement Measurements/Treatment WC - Nurse 1 - General Ulcer Assessment Start: 08/11/21 09:24 Freq: Status: Active Protocol: SANDRA Activity Type Activity Date Activity User E-Sign Co-Sign Detail Recorded Client Recorded Date Recorded By Document 08/11/21 09:42 RB [id number] 08/11/21 09:48 RB Document 08/18/21 10:02 BMF [id number] 08/18/21 10:07 BMF Document 08/25/21 10:02 DL [id number] 08/25/21 10:13 DL 08/11/21 08/18/21 08/25/21 09:42 10:02 10:02 WC - Today's Visit Information Type of service Initial Visit Follow-up Visit Follow-up Visit (Physician/ENGINE BUILDUP MECHANIC (Physician/ENGINE BUILDUP MECHANIC ) ) Arrival Mode Ambulatory Ambulatory Ambulatory Transfer Assistance None None None Patient Identification Verified (Name & Yes Yes Yes ) Patient Requires Transmission-Based No Precautions Height and Weight Height 5 ft 8 in Weight 250 lb Weight in Pounds 250.0 lbs Body Mass Index (BMI) 38.0 38.0 38.0 BMI Classification Obese Obese Obese BSA - Leo 2.25 Vital Signs Temperature (97.8 F-99.1 F) 97.9 F 96.2 F L 97.5 F L Temperature Source Temporal Temporal Temporal Pulse Rate (60-100) 94 82 78 Pulse Location Monitor Monitor Monitor Respiratory Rate (12-18) 18 16 24 H Respiratory rate source Observation Observation Observation Oxygen Delivery Method Nasal Cannula O2 L/MIN (L/min) 3 4 Blood Pressure (90/60-120/80) 145/76 H 157/89 H 137/79 H Blood Pressure Mean (mm Hg) 99 111 98 Source Monitor Monitor Position Sitting Sitting Blood Pressure Location Left Arm Left Arm History Since Last Visit- (Skip if this is Patient's initial visit) Have you changed medications since your No No No last visit? Any new allergies or adverse reactions No No No Had a fall/change in ADL's that may No No No increase risk of falls Signs or symptoms of abuse and/or No No No neglect since last visit Have you been in the hospital since your No No last visit? Has dressing in place as prescribed Yes Yes Yes Has compression in place as prescribed Yes Yes Yes Has offloadiing in place as prescribed No N/A N/A Experienced any changes in pain level or No No No management Left Footwear Regular Shoe Right Footwear Regular Shoe Pain Scale: 0-10 Numeric Is Patient Pain Free? Yes Yes Yes WC - Nurse 1 - General Ulcer Measurement Start: 08/11/21 09:24 Freq: Status: Active Protocol: Activity Type Activity Date Activity User E-Sign Co-Sign Detail Recorded Client Recorded Date Recorded By Document 08/11/21 09:42 RB [id number] 08/11/21 09:48 RB Document 08/18/21 10:02 BMF [id number] 08/18/21 10:07 BMF Document 08/25/21 10:02 DL [id number] 08/25/21 10:13 DL 08/11/21 08/18/21 08/25/21 09:42 10:02 10:02 Wound Center Nurse 1 3. RLE lateral -Combined with other wound No No -Current Size (cm) - Length 2 1.4 0.7 -Current Size (cm) - Width 2.3 2 1.3 -Current Size (cm) - Depth 0.1 0.1 0.1 -Total Square Cm 4.6 2.8 0.91 -Date of Last Picture (Recall this 08/18/21 field) -Photo Taken Yes Yes No -Epithelialization None Present -Tunneling No No -Undermining/Tunneling No No -Circular Undermining No No -Exudate Amt Medium Medium Small -Exudate Type Serosanguineous Sanguineous Serosanguineous -Wound Margin Flat & Intact Distinct, Distinct, Outline Outline Attached Attached -Granulation Amt Medium (34-66%) Large (67-100%) Large (67-100%) -Granulation Quality Golva,Red Red Red -Slough/Fibrin Yes No -Necrosis Amt Small (1-33%) None Present (0 None Present (0 %) %) -Necrotic Tissue Type Adherent Slough -Structure Exposed N/A N/A -Texture (Luna-wound Skin Appearance) Assessed, Assessed, Scarring Excoriation, Scarring Localized Edema -Moisture (Luna-wound Skin Appearance) Assessed,Dry/ Assessed,Dry/ Dry/Scaly Scaly Scaly -Color (Luna-wound Skin Appearance) Assessed, Assessed, Hemosiderin Hemosiderin Hemosiderin Staining Staining Staining -Temperature (Luna-wound Skin No Abnormality No Abnormality No Abnormality Appearance) (Pt Warm) (Pt Warm) (Pt Warm) -Tenderness on Palpation (Luna-wound No No No Skin Appearance) -Ulcer Cleansing Wound Cleanser Soap and Water Soap and Water -Foul Odor after Cleansing No No No -Anesthetic Used 5% Lidocaine 4% Lidocaine 5% Lidocaine Gel Solution,5% Gel Lidocaine Gel Lower Limb Edema Present Yes Yes Right Calf (cm) 48 44 45 Right Ankle (cm) 29 26 26.5 Left Calf (cm) 49.5 42.5 45 Left Ankle (cm) 26.5 26 26.7 WC - Nurse 2 - General Ulcer CM Notes Start: 08/11/21 09:24 Freq: Status: Active Protocol: Activity Type Activity Date Activity User E-Sign Co-Sign Detail Recorded Client Recorded Date Recorded By Document 08/11/21 10:01 MW [id number] 08/11/21 10:05 MW Document 08/18/21 11:03 MW [id number] 08/18/21 11:05 MW Document 08/25/21 10:37 MW [id number] 08/25/21 10:38 MW 08/11/21 08/18/21 08/25/21 10:01 11:03 10:37 Wound Center Nurse 2 3. RLE lateral -Time 10:02 11:03 10:37 -Correct Patient Yes Yes Yes -Correct Side, Site, Position Yes Yes Yes -Correct Procedure Yes Yes Yes -Procedure Performed Yes Yes Yes -Type of Procedure Debridement Debridement Debridement -Clinical Debridement Subcutaneous Subcutaneous Subcutaneous -Tissue Removed Subcutaneous Subcutaneous Subcutaneous -Post Debridement (cm) - Length 2.2 1.3 0.7 -Post Debridement (cm) - Width 2.8 1.5 1.1 -Post Debridement (cm) - Depth 0.1 0.1 0.1 -Total Square (Post) (cm) 6.16 1.95 0.77 -Area of Debridement (cm) - Length 2.2 1.3 0.7 -Area of Debridement (cm) - Width 2.8 1.5 1.1 -Total Square (Area) (cm) 6.16 1.95 0.77 -Tunneling No No No -Undermining/Tunneling No No No -Circular Undermining No No No -Wound/Ulcer Outcome Not Healed Not Healed Not Healed -Ulcer Cleansing Rinsed/ Rinsed/ Rinsed/ Irrigated with Irrigated with Irrigated with Saline Saline Saline -Foul Odor after Cleansing No No No -Bioengineered Tissue No No No -Bleeding Controlled with Pressure Pressure Pressure -Offloading No No No -Treatment Response Procedure Procedure Procedure Tolerated Well Tolerated Well Tolerated Well -Debridement - Subq, 1st 20sq cm Yes Yes Yes Pain Scale: 0-10 Numeric Is Patient Pain Free? Yes Yes Yes - Nurse 3 - General Ulcer D/C NN Start: 08/11/21 09:24 Freq: Status: Active Protocol: Activity Type Activity Date Activity User E-Sign Co-Sign Detail Recorded Client Recorded Date Recorded By Document 08/25/21 10:53 [email or web address] [id number] 08/25/21 10:54 TAWNYA 08/25/21 10:53 Wound Care Nurse 3 3. RLE lateral -Ulcer Cleansing Rinsed/ Irrigated with Saline -Foul Odor after Cleansing No -Primary Dressing Applied Aquacel Extra -Primary Dressing Covered/Secured with Dry Gauze -Aquacel Extra 1 Right -Multi-Layered Wrap Application Unna Boot - Right ($) Left -Multi-Layered Wrap Application Unna Boot - Left ($) Pain Scale: 0-10 Numeric Is Patient Pain Free? Yes - Visit Discharge Discharge Condition Stable Ambulatory Status Ambulatory,Cane Transportation Private Auto Medication Reconcilliation completed & Yes provided to patient/care provider Clinical Summary of Care Provided Yes Assessment/Plan Assessment/Plan (1) Bilateral lower extremity edema: CODE(S): R60.0 - Localized edema (2) Lymphedema: CODE(S): I89.0 - Lymphedema, not elsewhere classified (3) Tobacco abuse disorder: CODE(S): Z72.0 - Tobacco use (4) Morbid obesity: CODE(S): E66.01 - Morbid (severe) obesity due to excess calories (5) Ulcer of right lower extremity with fat layer exposed: CODE(S): L97.912 - Non-pressure chronic ulcer of unspecified part of right lower leg with fat layer exposed PLAN: Debridement done as documented above, procedure was well-tolerated. Improving. Continue Aquacel to right lower extremity ulcer, cover with gauze. Leave in place till Sunday and change by home health. Unna boot for edema management. Change on Sunday by home health. Smoking cessation strongly recommended. Optimal edema management also discussed. Has received his CircAid's, yet to get his lymphedema pump. Elevate lower extremity when seated and in bed. Exercise as tolerated. He however states that he sleeps in a recliner to be close to his who also sleeps in a recliner, she is undergoing chemotherapy for small cell cancer. Increased protein intake, vitamin C and zinc also discussed. His questions were answered and he was advised to call with any questions or concerns. Follow-up in 1 week. This note was generated with [employer] dictation software. It may contain incorrect words, spelling, and punctuation that were not noted in checking the note before signing.
== END 2021-08-29 23:59 | disposition home or self-care (01) ==
LOC: WC 10:00
PROVIDERS: PCP Family Medicine; Visit Provider Internal Medicine
DX: L97.812 Non-pressure chronic ulcer of other part of right lower leg with fat layer exposed (principal); M79.89 Other specified soft tissue disorders; I89.0 Lymphedema, not elsewhere classified; M79.604 Pain in right leg; M79.605 Pain in left leg; I25.10 Atherosclerotic heart disease of native coronary artery without angina pectoris; J44.9 Chronic obstructive pulmonary disease, unspecified; I10 Essential (primary) hypertension; E78.5 Hyperlipidemia, unspecified; R60.0 Localized edema; E66.01 Morbid (severe) obesity due to excess calories; Z68.38 Body mass index [BMI] 38.0-38.9, adult; F17.210 Nicotine dependence, cigarettes, uncomplicated; Z79.02 Long term (current) use of antithrombotics/antiplatelets; Z79.899 Other long term (current) drug therapy; Z95.5 Presence of coronary angioplasty implant and graft
CPT/HCPCS: 11042; 29580; 99213; G0463

== ENCOUNTER 2021-09-29 09:45 | Outpatient (RCR) | payer MEDICARE, SELFPAY ==
[2021-08-30 00:40] VITALS: BP 137/79; PULSE 78; RESP 24; TEMP 36.4; BMI 38.0
[2021-09-01 12:10] VITALS: BP 153/79; PULSE 93; RESP 20; TEMP 36.2; BMI 38.0
--- NOTE | 2021-09-01 13:11 | PCM.WC.PN ---
History of Present Illness Date of Service: 09/01/21 Chief Complaint: Right Leg Ulcer,, Bilateral lower extremity swelling History of Wound: Mr. Ariza is a 66-year-old who had been seen here at the wound center in the past. Last seen in 2019. He is status post recent hospital admission for bilateral lower extremity edema and concern for cellulitis. Developed a right lower extremity ulcer. Has not done much to it since his discharge. Denies significant drainage. Bilateral lower extremity pain has improved some but currently has no form of compression. Denies any significant drainage from his lower extremities. No chills, fever or otherwise feeling of unwell. He also states that he does not have a lymphedema pump. Progress of Wound: Improving. Has been using Aquacel and Unna boot's. Subjective Subjective No acute concerns at this time. Objective Data Objective Data Vital Signs: Vital Signs Temp Pulse Resp BP 97.2 F L 93 20 H 153/79 H 09/01/21 12:10 09/01/21 12:10 09/01/21 12:10 09/01/21 12:10 Oxygen Flow Rate (L/min) 4 Weight: 250 lb Body Mass Index (BMI) 38.0 Charges/Coding Procedures Integumentary 111xxx-113xx: 68934 Delphine subq tissue 20 sq cm/< Physical Exam Const alert, oriented x3 and no apparent distress General Appearance: cooperative and comfortable HEENT normocephalic and head/scalp atraumatic Eyes General Eye: normal appearance of both eyes Neck full ROM General: normal visual inspection Resp normal respiratory effort Effort and Inspection: able to speak in complete sentences Extremity Extremity Narrative: Bilateral lower extremity edema. Stasis dermatitis Skin Wounds: wounds noted Neuro oriented x3, CN's II-XII intact bilaterally, moves all extremities and no focal motor deficits Psych mental status grossly normal Appearance: grossly normal Attitude: calm Activity / Motor Behavior: appropriate eye contact Speech: normal speech Debridement Note Debridement Note Wound debrided: Right lower extremity lateralRight lower extremity lateral Type of Debridement: Excisional debridement Anesthesia Used: 4% Lidocaine Solution Depth: Down to and including healthy tissue and in the subcutaneous layer Percentage of wound debrided: 100 Instrument Used: 3mm curette Tissue Removed: Slough and devitalized tissue Severity: Fat Layer Exposed Amount of bleeding with debridement: Mild Bleeding Controlled with: Pressure Patient tolerated procedure: Patient tolerated procedure well Post-Debridement Measurements and Additional Note: Post-Debridement Measurements/Treatment MIGUEL ANGEL - Nurse 1 - General Ulcer Assessment Start: 09/01/21 12:10 Freq: Status: Active Protocol: SANDRA Activity Type Activity Date Activity User E-Sign Co-Sign Detail Recorded Client Recorded Date Recorded By Document 09/01/21 12:10 VANITA [id number] 09/01/21 12:13 DL 09/01/21 12:10 WC - Today's Visit Information Type of service Follow-up Visit (Physician/GUEST EXPERIENCE REPRESENTATIVE ) Arrival Mode Ambulatory Transfer Assistance None Patient Identification Verified (Name & Yes ) Patient Requires Transmission-Based No Precautions Height and Weight Body Mass Index (BMI) 38.0 BMI Classification Obese Vital Signs Temperature (97.8 F-99.1 F) 97.2 F L Temperature Source Temporal Pulse Rate (60-100) 93 Pulse Location Monitor Respiratory Rate (12-18) 20 H Respiratory rate source Observation Blood Pressure (90/60-120/80) 153/79 H Blood Pressure Mean (mm Hg) 103 Source Monitor History Since Last Visit- (Skip if this is Patient's initial visit) Have you changed medications since your No last visit? Any new allergies or adverse reactions No Had a fall/change in ADL's that may No increase risk of falls Signs or symptoms of abuse and/or No neglect since last visit Have you been in the hospital since your Yes last visit? Has dressing in place as prescribed Yes Has compression in place as prescribed Yes Has offloadiing in place as prescribed N/A Experienced any changes in pain level or No management Pain Scale: 0-10 Numeric Is Patient Pain Free? Yes MIGUEL ANGEL - Nurse 1 - General Ulcer Measurement Start: 09/01/21 12:10 Freq: Status: Active Protocol: Activity Type Activity Date Activity User E-Sign Co-Sign Detail Recorded Client Recorded Date Recorded By Document 09/01/21 12:10 VANITA [id number] 09/01/21 12:13 DL 09/01/21 12:10 Wound Center Nurse 1 3. RLE lateral -Current Size (cm) - Length 0.5 -Current Size (cm) - Width 0.8 -Current Size (cm) - Depth 0.1 -Total Square Cm 0.40 -Photo Taken No -Exudate Amt Small -Exudate Type Serosanguineous -Wound Margin Distinct, Outline Attached -Granulation Amt Medium (34-66%) -Granulation Quality Red -Necrosis Amt Small (1-33%) -Necrotic Tissue Type Adherent Slough -Structure Exposed N/A -Texture (Luna-wound Skin Appearance) Scarring -Moisture (Luna-wound Skin Appearance) Dry/Scaly -Color (Luna-wound Skin Appearance) Hemosiderin Staining -Temperature (Luna-wound Skin No Abnormality Appearance) (Pt Warm) -Tenderness on Palpation (Luna-wound No Skin Appearance) -Ulcer Cleansing Soap and Water -Foul Odor after Cleansing No -Anesthetic Used 5% Lidocaine Gel Right Calf (cm) 45.7 Right Ankle (cm) 27 Left Calf (cm) 43 Left Ankle (cm) 26.5 Assessment/Plan Assessment/Plan (1) Bilateral lower extremity edema: CODE(S): R60.0 - Localized edema (2) Lymphedema: CODE(S): I89.0 - Lymphedema, not elsewhere classified (3) Tobacco abuse disorder: CODE(S): Z72.0 - Tobacco use (4) Morbid obesity: CODE(S): E66.01 - Morbid (severe) obesity due to excess calories (5) Ulcer of right lower extremity with fat layer exposed: CODE(S): L97.912 - Non-pressure chronic ulcer of unspecified part of right lower leg with fat layer exposed PLAN: Debridement done as documented above, procedure was well-tolerated. Improving. Continue Aquacel to right lower extremity ulcer, cover with gauze. Leave in place till Sunday and change by home health. Unna boot for edema management. Change on Sunday by home health. Smoking cessation strongly recommended. Optimal edema management also discussed. Has received his CircAid's, yet to get his lymphedema pump. Elevate lower extremity when seated and in bed. Exercise as tolerated. He however states that he sleeps in a recliner to be close to his who also sleeps in a recliner, she is undergoing chemotherapy for small cell cancer. Increased protein intake, vitamin C and zinc also discussed. His questions were answered and he was advised to call with any questions or concerns. Follow-up in 1 week. This note was generated with [employer] software. It may contain incorrect words, spelling, and punctuation that were not noted in checking the note before signing.
[2021-09-08 10:03] VITALS: TEMP 36.3; BMI 38.0
--- NOTE | 2021-09-08 11:16 | PN.PCM_ITS ---
History of Present Illness Date of Service: 09/08/21 Chief Complaint: Right Leg Ulcer,, Bilateral lower extremity swelling History of Wound: Mr. Ariza is a 66-year-old who had been seen here at the wound center in the past. Last seen in 2019. He is status post recent hospital admission for bilateral lower extremity edema and concern for cellulitis. Developed a right lower extremity ulcer. Has not done much to it since his discharge. Denies significant drainage. Bilateral lower extremity pain has improved some but currently has no form of compression. Denies any significant drainage from his lower extremities. No chills, fever or otherwise feeling of unwell. He also states that he does not have a lymphedema pump. Progress of Wound: Improving. Has been using Aquacel and Unna boot's. Subjective Subjective No new concerns. Objective Data Objective Data Vital Signs: Vital Signs Temp Pulse Resp BP 97.4 F L 93 20 H 153/79 H 09/08/21 10:03 09/01/21 12:10 09/01/21 12:10 09/01/21 12:10 Oxygen Flow Rate (L/min) 4 Weight: 250 lb Body Mass Index (BMI) 38.0 Charges/Coding Procedures Integumentary 111xxx-113xx: 44870 Delphine subq tissue 20 sq cm/< Physical Exam Const alert, oriented x3 and no apparent distress General Appearance: cooperative and comfortable HEENT normocephalic and head/scalp atraumatic Eyes General Eye: normal appearance of both eyes Neck full ROM General: normal visual inspection Resp normal respiratory effort Effort and Inspection: able to speak in complete sentences Extremity Extremity Narrative: Bilateral lower extremity edema. Stasis dermatitis Skin Wounds: wounds noted Neuro oriented x3, CN's II-XII intact bilaterally, moves all extremities and no focal motor deficits Psych mental status grossly normal Appearance: grossly normal Attitude: calm Activity / Motor Behavior: appropriate eye contact Speech: normal speech Debridement Note Debridement Note Wound debrided: Right Lower Extremity Type of Debridement: Excisional debridement Anesthesia Used: 4% Lidocaine Solution Depth: Down to and including healthy tissue and in the subcutaneous layer Percentage of wound debrided: 100 Instrument Used: 3mm curette Tissue Removed: Slough and devitalized tissue Severity: Fat Layer Exposed Amount of bleeding with debridement: Mild Bleeding Controlled with: Pressure Patient tolerated procedure: Patient tolerated procedure well Post-Debridement Measurements and Additional Note: Post-Debridement Measurements/Treatment WC - Nurse 1 - General Ulcer Assessment Start: 09/01/21 12:10 Freq: Status: Active Protocol: SANDRA Activity Type Activity Date Activity User E-Sign Co-Sign Detail Recorded Client Recorded Date Recorded By Document 09/01/21 12:10 DL [id number] 09/01/21 12:13 DL Document 09/08/21 10:03 RAIN [id number] 09/08/21 10:16 AK 09/01/21 09/08/21 12:10 10:03 WC - Today's Visit Information Type of service Follow-up Visit Follow-up Visit (Physician/CAR SEAT MAKER (Physician/CAR SEAT MAKER ) ) Arrival Mode Ambulatory Ambulatory Transfer Assistance None Patient Identification Verified (Name & Yes Yes ) Patient Requires Transmission-Based No No Precautions Safety Precautions NA Height and Weight Body Mass Index (BMI) 38.0 38.0 BMI Classification Obese Obese Vital Signs Temperature (97.8 F-99.1 F) 97.2 F L 97.4 F L Temperature Source Temporal Temporal Pulse Rate (60-100) 93 Pulse Location Monitor Respiratory Rate (12-18) 20 H Respiratory rate source Observation Blood Pressure (90/60-120/80) 153/79 H Blood Pressure Mean (mm Hg) 103 Source Monitor History Since Last Visit- (Skip if this is Patient's initial visit) Have you changed medications since your No No last visit? Any new allergies or adverse reactions No No Had a fall/change in ADL's that may No No increase risk of falls Signs or symptoms of abuse and/or No No neglect since last visit Have you been in the hospital since your Yes No last visit? Has dressing in place as prescribed Yes Yes Has compression in place as prescribed Yes Yes Has offloadiing in place as prescribed N/A N/A Experienced any changes in pain level or No No management Left Footwear Regular Shoe Right Footwear Regular Shoe Pain Scale: 0-10 Numeric Is Patient Pain Free? Yes No MIGUEL ANGEL - Nurse 1 - General Ulcer Measurement Start: 09/01/21 12:10 Freq: Status: Active Protocol: Activity Type Activity Date Activity User E-Sign Co-Sign Detail Recorded Client Recorded Date Recorded By Document 09/01/21 12:10 VANITA [id number] 09/01/21 12:13 DL Document 09/08/21 10:03 NE [id number] 09/08/21 10:16 AK 09/01/21 09/08/21 12:10 10:03 Wound Center Nurse 1 3. RLE lateral -Combined with other wound No -Current Size (cm) - Length 0.5 0.5 -Current Size (cm) - Width 0.8 0.9 -Current Size (cm) - Depth 0.1 0.1 -Total Square Cm 0.40 0.45 -Date of Last Picture (Recall this 09/08/21 field) -Photo Taken No Yes -Tunneling No -Undermining/Tunneling No -Circular Undermining No -Change in Wound Grade/Stage No -Exudate Amt Small Small -Exudate Type Serosanguineous Serosanguineous -Wound Margin Distinct, Distinct, Outline Outline Attached Attached -Granulation Amt Medium (34-66%) None Present (0 %) -Granulation Quality Red N/A -Slough/Fibrin Yes -Necrosis Amt Small (1-33%) Small (1-33%) -Necrotic Tissue Type Adherent Slough Adherent Slough -Structure Exposed N/A N/A -Texture (Luna-wound Skin Appearance) Scarring No Abnormality, Assessed -Moisture (Luna-wound Skin Appearance) Dry/Scaly No Abnormality, Assessed -Color (Luna-wound Skin Appearance) Hemosiderin Assessed, Staining Hemosiderin Staining -Temperature (Luna-wound Skin No Abnormality No Abnormality Appearance) (Pt Warm) (Pt Warm) -Tenderness on Palpation (Luna-wound No No Skin Appearance) -Ulcer Cleansing Soap and Water Soap and Water -Foul Odor after Cleansing No No -Anesthetic Used 5% Lidocaine 5% Lidocaine Gel Gel Right Calf (cm) 45.7 44 Right Ankle (cm) 27 28 Left Calf (cm) 43 44 Left Ankle (cm) 26.5 29 WC - Nurse 2 - General Ulcer CM Notes Start: 09/01/21 12:10 Freq: Status: Active Protocol: Activity Type Activity Date Activity User E-Sign Co-Sign Detail Recorded Client Recorded Date Recorded By Document 09/01/21 10:25 MW [id number] 09/01/21 13:14 MW Document 09/08/21 10:57 MW [id number] 09/08/21 11:00 MW 09/01/21 09/08/21 10:25 10:57 Wound Center Nurse 2 3. RLE lateral -Time 10:25 10:57 -Correct Patient Yes Yes -Correct Side, Site, Position Yes Yes -Correct Procedure Yes Yes -Procedure Performed Yes Yes -Type of Procedure Debridement Debridement -Clinical Debridement Subcutaneous Subcutaneous -Tissue Removed Subcutaneous Subcutaneous -Post Debridement (cm) - Length 0.5 0.3 -Post Debridement (cm) - Width 1.0 0.6 -Post Debridement (cm) - Depth 0.1 0.1 -Total Square (Post) (cm) 0.50 0.18 -Area of Debridement (cm) - Length 0.5 0.6 -Area of Debridement (cm) - Width 1.0 0.6 -Total Square (Area) (cm) 0.50 0.36 -Tunneling No No -Undermining/Tunneling No No -Circular Undermining No No -Wound/Ulcer Outcome Not Healed Not Healed -Ulcer Cleansing Rinsed/ Rinsed/ Irrigated with Irrigated with Saline Saline -Foul Odor after Cleansing No No -Bioengineered Tissue No No -Bleeding Controlled with Pressure Pressure -Offloading No No -Treatment Response Procedure Procedure Tolerated Well Tolerated Well -Debridement - Subq, 1st 20sq cm Yes Yes Pain Scale: 0-10 Numeric Is Patient Pain Free? Yes Yes WC - Nurse 3 - General Ulcer D/C NN Start: 09/01/21 12:10 Freq: Status: Active Protocol: Activity Type Activity Date Activity User E-Sign Co-Sign Detail Recorded Client Recorded Date Recorded By Document 09/01/21 13:14 MW [id number] 09/01/21 13:16 MW 09/01/21 13:14 Wound Care Nurse 3 3. RLE lateral -Ulcer Cleansing Rinsed/ Irrigated with Saline -Foul Odor after Cleansing No -Negative Pressure Wound Therapy N/A -Primary Dressing Applied Aquacel Extra -Aquacel Extra 1 Bilateral LE -Lotion applied to leg before No compression wrap -Multi-Layered Wrap Application Unna Boot - Bilateral ($) -Unna Boots (Bilat) ($) 2 Treatment Response Procedure Tolerated Well Pain Scale: 0-10 Numeric Is Patient Pain Free? Yes Teaching: Wound Center Compression Wraps & Stockings -Person Taught Patient -Teaching Method Discussion -Response to teaching Verbalize understanding Control Swelling with Leg Elevation -Person Taught Patient -Teaching Method Discussion -Response to teaching Verbalize understanding WC - Visit Discharge Discharge Condition Stable Ambulatory Status Ambulatory Transportation Private Auto Accompanied by self Medication Reconcilliation completed & No provided to patient/care provider Clinical Summary of Care Provided Yes Assessment/Plan Assessment/Plan (1) Bilateral lower extremity edema: CODE(S): R60.0 - Localized edema (2) Lymphedema: CODE(S): I89.0 - Lymphedema, not elsewhere classified (3) Tobacco abuse disorder: CODE(S): Z72.0 - Tobacco use (4) Morbid obesity: CODE(S): E66.01 - Morbid (severe) obesity due to excess calories (5) Ulcer of right lower extremity with fat layer exposed: CODE(S): L97.912 - Non-pressure chronic ulcer of unspecified part of right lower leg with fat layer exposed PLAN: Debridement done as documented above, procedure was well-tolerated. Improving. Continue Aquacel to right lower extremity ulcer, cover with gauze. Leave in place till Sunday and change by home health. Unna boot for edema management. Change on Sunday by home health. Smoking cessation strongly recommended. Optimal edema management also discussed. Worsening edema noted, he states that he has had more salt than usual lately. He was advised to stop excessive Sodium intake. Has received his CircAid's, yet to get his lymphedema pump. Elevate lower extremity when seated and in bed. Exercise as tolerated. He however states that he sleeps in a recliner to be close to his who also sleeps in a recliner, she is undergoing chemotherapy for small cell cancer. Increased protein intake, vitamin C and zinc also discussed. His questions were answered and he was advised to call with any questions or concerns. Follow-up in 1 week. This note was generated with [employer] software. It may contain incorrect words, spelling, and punctuation that were not noted in checking the note before signing.
[2021-09-15 10:12] VITALS: BP 142/62; PULSE 92; RESP 20; TEMP 36.4; BMI 38.0
--- NOTE | 2021-09-15 11:11 | PN.PCM_ITS ---
History of Present Illness Date of Service: 09/15/21 Chief Complaint: Right Leg Ulcer,, Bilateral lower extremity swelling History of Wound: Mr. Ariza is a 66-year-old who had been seen here at the wound center in the past. Last seen in 2019. He is status post recent hospital admission for bilateral lower extremity edema and concern for cellulitis. Developed a right lower extremity ulcer. Has not done much to it since his discharge. Denies significant drainage. Bilateral lower extremity pain has improved some but currently has no form of compression. Denies any significant drainage from his lower extremities. No chills, fever or otherwise feeling of unwell. He also states that he does not have a lymphedema pump. Progress of Wound: Scabbing noted today. No significant change in the past week, minimal improvement. Has been using Aquacel and Unna boot's. Subjective Subjective No new concerns at this time Objective Data Objective Data Vital Signs: Vital Signs Temp Pulse Resp BP 97.5 F L 92 20 H 142/62 H 09/15/21 10:12 09/15/21 10:12 09/15/21 10:12 09/15/21 10:12 Oxygen Flow Rate (L/min) 4 Weight: 250 lb Body Mass Index (BMI) 38.0 Charges/Coding Procedures Integumentary 111xxx-113xx: 73331 Delphine subq tissue 20 sq cm/< Physical Exam Const alert, oriented x3 and no apparent distress General Appearance: cooperative and comfortable HEENT normocephalic and head/scalp atraumatic Eyes General Eye: normal appearance of both eyes Neck full ROM General: normal visual inspection Resp normal respiratory effort Effort and Inspection: able to speak in complete sentences Extremity Extremity Narrative: Bilateral lower extremity edema. Stasis dermatitis Skin Wounds: wounds noted Neuro oriented x3, CN's II-XII intact bilaterally, moves all extremities and no focal motor deficits Psych mental status grossly normal Appearance: grossly normal Attitude: calm Activity / Motor Behavior: appropriate eye contact Speech: normal speech Debridement Note Debridement Note Wound debrided: Right lower extremity Type of Debridement: Excisional debridement Anesthesia Used: 4% Lidocaine Solution Depth: Down to and including healthy tissue and in the subcutaneous layer Percentage of wound debrided: 100 Instrument Used: 3mm curette Tissue Removed: Slough and devitalized tissue Severity: Fat Layer Exposed Amount of bleeding with debridement: Mild Bleeding Controlled with: Pressure Patient tolerated procedure: Patient tolerated procedure well Post-Debridement Measurements and Additional Note: Post-Debridement Measurements/Treatment WC - Nurse 1 - General Ulcer Assessment Start: 09/01/21 12:10 Freq: Status: Active Protocol: SANDRA Activity Type Activity Date Activity User E-Sign Co-Sign Detail Recorded Client Recorded Date Recorded By Document 09/01/21 12:10 DL [id number] 09/01/21 12:13 DL Document 09/08/21 10:03 AK [id number] 09/08/21 10:16 AK Document 09/15/21 10:12 DL [id number] 09/15/21 10:20 DL 09/01/21 09/08/21 09/15/21 12:10 10:03 10:12 WC - Today's Visit Information Type of service Follow-up Visit Follow-up Visit Follow-up Visit (Physician/ACCOUNT TECHNICIAN (Physician/ACCOUNT TECHNICIAN (Physician/ACCOUNT TECHNICIAN ) ) ) Arrival Mode Ambulatory Ambulatory Ambulatory Transfer Assistance None None Patient Identification Verified (Name & Yes Yes Yes ) Patient Requires Transmission-Based No No Precautions Safety Precautions NA Height and Weight Body Mass Index (BMI) 38.0 38.0 38.0 BMI Classification Obese Obese Obese Vital Signs Temperature (97.8 F-99.1 F) 97.2 F L 97.4 F L 97.5 F L Temperature Source Temporal Temporal Temporal Pulse Rate (60-100) 93 92 Pulse Location Monitor Monitor Respiratory Rate (12-18) 20 H 20 H Respiratory rate source Observation Observation Blood Pressure (90/60-120/80) 153/79 H 142/62 H Blood Pressure Mean (mm Hg) 103 88 Source Monitor Monitor History Since Last Visit- (Skip if this is Patient's initial visit) Have you changed medications since your No No No last visit? Any new allergies or adverse reactions No No No Had a fall/change in ADL's that may No No No increase risk of falls Signs or symptoms of abuse and/or No No No neglect since last visit Have you been in the hospital since your Yes No No last visit? Has dressing in place as prescribed Yes Yes No Has compression in place as prescribed Yes Yes Yes Has offloadiing in place as prescribed N/A N/A Yes Experienced any changes in pain level or No No No management Left Footwear Regular Shoe Right Footwear Regular Shoe Pain Scale: 0-10 Numeric Is Patient Pain Free? Yes No Yes WC - Nurse 1 - General Ulcer Measurement Start: 09/01/21 12:10 Freq: Status: Active Protocol: Activity Type Activity Date Activity User E-Sign Co-Sign Detail Recorded Client Recorded Date Recorded By Document 09/01/21 12:10 DL [id number] 09/01/21 12:13 DL Document 09/08/21 10:03 AK [id number] 09/08/21 10:16 AK Document 09/15/21 10:12 DL [id number] 09/15/21 10:20 DL 09/01/21 09/08/21 09/15/21 12:10 10:03 10:12 Wound Center Nurse 1 3. RLE lateral -Combined with other wound No -Current Size (cm) - Length 0.5 0.5 0.1 -Current Size (cm) - Width 0.8 0.9 0.1 -Current Size (cm) - Depth 0.1 0.1 0.1 -Total Square Cm 0.40 0.45 0.01 -Date of Last Picture (Recall this 09/08/21 field) -Photo Taken No Yes No -Tunneling No -Undermining/Tunneling No -Circular Undermining No -Change in Wound Grade/Stage No -Exudate Amt Small Small None Present -Exudate Type Serosanguineous Serosanguineous -Wound Margin Distinct, Distinct, Thickened Outline Outline Attached Attached -Granulation Amt Medium (34-66%) None Present (0 None Present (0 %) %) -Granulation Quality Red N/A -Slough/Fibrin Yes -Necrosis Amt Small (1-33%) Small (1-33%) Small (1-33%) -Necrotic Tissue Type Adherent Slough Adherent Slough Adherent Slough -Structure Exposed N/A N/A N/A -Texture (Luna-wound Skin Appearance) Scarring No Abnormality, Scarring Assessed -Moisture (Luna-wound Skin Appearance) Dry/Scaly No Abnormality, No Abnormality Assessed -Color (Luna-wound Skin Appearance) Hemosiderin Assessed, Hemosiderin Staining Hemosiderin Staining Staining -Temperature (Luna-wound Skin No Abnormality No Abnormality No Abnormality Appearance) (Pt Warm) (Pt Warm) (Pt Warm) -Tenderness on Palpation (Luna-wound No No No Skin Appearance) -Ulcer Cleansing Soap and Water Soap and Water Soap and Water -Foul Odor after Cleansing No No No -Anesthetic Used 5% Lidocaine 5% Lidocaine 5% Lidocaine Gel Gel Gel Right Calf (cm) 45.7 44 44.2 Right Ankle (cm) 27 28 26.5 Left Calf (cm) 43 44 44 Left Ankle (cm) 26.5 29 27.3 WC - Nurse 2 - General Ulcer CM Notes Start: 09/01/21 12:10 Freq: Status: Active Protocol: Activity Type Activity Date Activity User E-Sign Co-Sign Detail Recorded Client Recorded Date Recorded By Document 09/01/21 10:25 MW [id number] 09/01/21 13:14 MW Document 09/08/21 10:57 MW [id number] 09/08/21 11:00 MW Document 09/15/21 10:33 MW [id number] 09/15/21 10:38 MW 09/01/21 09/08/21 09/15/21 10:25 10:57 10:33 Wound Center Nurse 2 3. RLE lateral -Time 10:25 10:57 10:33 -Correct Patient Yes Yes Yes -Correct Side, Site, Position Yes Yes Yes -Correct Procedure Yes Yes Yes -Procedure Performed Yes Yes Yes -Type of Procedure Debridement Debridement Debridement -Clinical Debridement Subcutaneous Subcutaneous Subcutaneous -Tissue Removed Subcutaneous Subcutaneous Subcutaneous -Post Debridement (cm) - Length 0.5 0.3 0.2 -Post Debridement (cm) - Width 1.0 0.6 0.6 -Post Debridement (cm) - Depth 0.1 0.1 0.1 -Total Square (Post) (cm) 0.50 0.18 0.12 -Area of Debridement (cm) - Length 0.5 0.6 0.2 -Area of Debridement (cm) - Width 1.0 0.6 0.6 -Total Square (Area) (cm) 0.50 0.36 0.12 -Tunneling No No No -Undermining/Tunneling No No No -Circular Undermining No No No -Wound/Ulcer Outcome Not Healed Not Healed Not Healed -Ulcer Cleansing Rinsed/ Rinsed/ Rinsed/ Irrigated with Irrigated with Irrigated with Saline Saline Saline -Foul Odor after Cleansing No No No -Bioengineered Tissue No No No -Bleeding Controlled with Pressure Pressure Pressure -Treatment Response Procedure Procedure Procedure Tolerated Well Tolerated Well Tolerated Well -Offloading No No No -Debridement - Subq, 1st 20sq cm Yes Yes Yes Pain Scale: 0-10 Numeric Is Patient Pain Free? Yes Yes Yes WC - Nurse 3 - General Ulcer D/C NN Start: 09/01/21 12:10 Freq: Status: Active Protocol: Activity Type Activity Date Activity User E-Sign Co-Sign Detail Recorded Client Recorded Date Recorded By Document 09/01/21 13:14 MW [id number] 09/01/21 13:16 MW Document 09/08/21 11:04 DL [id number] 09/08/21 11:19 DL Document 09/15/21 10:54 DL [id number] 09/15/21 10:55 DL 09/01/21 09/08/21 09/15/21 13:14 11:04 10:54 Wound Care Nurse 3 3. RLE lateral -Ulcer Cleansing Rinsed/ Rinsed/ Rinsed/ Irrigated with Irrigated with Irrigated with Saline Saline Saline -Foul Odor after Cleansing No No No -Negative Pressure Wound Therapy N/A -Primary Dressing Applied Aquacel Extra Aquacel Extra Promogran -Primary Dressing Covered/Secured with Dry Gauze Dry Gauze -Aquacel Extra 1 1 -Promogran 1 Bilateral LE -Lotion applied to leg before No compression wrap -Multi-Layered Wrap Application Unna Boot - Unna Boot - Unna Boot - Bilateral ($) Bilateral ($) Bilateral ($) -Unna Boots (Bilat) ($) 2 2 1 Treatment Response Procedure Procedure Tolerated Well Tolerated Well Pain Scale: 0-10 Numeric Is Patient Pain Free? Yes Yes Yes Teaching: Wound Center Compression Wraps & Stockings -Person Taught Patient -Teaching Method Discussion -Response to teaching Verbalize understanding Control Swelling with Leg Elevation -Person Taught Patient -Teaching Method Discussion -Response to teaching Verbalize understanding WC - Visit Discharge Discharge Condition Stable Stable Stable Ambulatory Status Ambulatory Ambulatory Ambulatory Transportation Private Auto Private Auto Private Auto Accompanied by self Medication Reconcilliation completed & No provided to patient/care provider Clinical Summary of Care Provided Yes Facility Type Home Health Home Health Orders Sent Yes Yes Assessment/Plan Assessment/Plan (1) Bilateral lower extremity edema: CODE(S): R60.0 - Localized edema (2) Lymphedema: CODE(S): I89.0 - Lymphedema, not elsewhere classified (3) Tobacco abuse disorder: CODE(S): Z72.0 - Tobacco use (4) Morbid obesity: CODE(S): E66.01 - Morbid (severe) obesity due to excess calories (5) Ulcer of right lower extremity with fat layer exposed: CODE(S): L97.912 - Non-pressure chronic ulcer of unspecified part of right lower leg with fat layer exposed PLAN: Debridement done as documented above, procedure was well-tolerated. As above, minimal change. Switch to Promogran with Adaptic over top. Cover with gauze. Leave in place till Sunday and change by home health. Unna boot to both lower extremities for edema management. Change on Sunday by home health. Smoking cessation strongly recommended. Optimal edema management also discussed. Has received his CircAid's, yet to get his lymphedema pump. Elevate lower extremity when seated and in bed. Exercise as tolerated. He however states that he sleeps in a recliner to be close to his who also sleeps in a recliner, she is undergoing chemotherapy for small cell cancer. Increased protein intake, vitamin C and zinc also discussed. His questions were answered and he was advised to call with any questions or concerns. Follow-up in 1 week. This note was generated with [employer] dictation software. It may contain incorrect words, spelling, and punctuation that were not noted in checking the note before signing.
[2021-09-22 10:23] VITALS: BP 146/72; PULSE 72; RESP 20; TEMP 36.6; BMI 38.0
--- NOTE | 2021-09-22 11:33 | PCM.WC.PN ---
History of Present Illness Date of Service: 09/22/21 Chief Complaint: Right Leg Ulcer, Bilateral lower extremity swelling History of Wound: Mr. Ariza is a 66-year-old who had been seen here at the wound center in the past. Last seen in 2019. He is status post recent hospital admission for bilateral lower extremity edema and concern for cellulitis. Developed a right lower extremity ulcer. Has not done much to it since his discharge. Denies significant drainage. Bilateral lower extremity pain has improved some but currently has no form of compression. Denies any significant drainage from his lower extremities. No chills, fever or otherwise feeling of unwell. He also states that he does not have a lymphedema pump. Progress of Wound: Minimal area left. No new concerns at this time. Objective Data Objective Data Vital Signs: Vital Signs Temp Pulse Resp BP 97.9 F 72 20 H 146/72 H 09/22/21 10:23 09/22/21 10:23 09/22/21 10:23 09/22/21 10:23 Oxygen Flow Rate (L/min) 4 Weight: 250 lb Body Mass Index (BMI) 38.0 Charges/Coding Procedures Integumentary 111xxx-113xx: [id number] Delphine subq tissue 20 sq cm/< (Selective debridement done today.) Physical Exam Const alert, oriented x3 and no apparent distress General Appearance: cooperative and comfortable HEENT normocephalic and head/scalp atraumatic Eyes General Eye: normal appearance of both eyes Neck full ROM General: normal visual inspection Resp normal respiratory effort Effort and Inspection: able to speak in complete sentences Extremity Extremity Narrative: Bilateral lower extremity edema. Stasis dermatitis Skin Wounds: wounds noted Neuro oriented x3, CN's II-XII intact bilaterally, moves all extremities and no focal motor deficits Psych mental status grossly normal Appearance: grossly normal Attitude: calm Activity / Motor Behavior: appropriate eye contact Speech: normal speech Debridement Note Debridement Note Wound debrided: Right Lower extremity ( lateral ) Type of Debridement: Selective debridement Anesthesia Used: 4% Lidocaine Solution Depth: Down to and including healthy tissue Percentage of wound debrided: 100 Severity: Limited To Skin Breakdown Amount of bleeding with debridement: Mild Bleeding Controlled with: Pressure Patient tolerated procedure: Patient tolerated procedure well Post-Debridement Measurements and Additional Note: Post-Debridement Measurements/Treatment MIGUEL ANGEL - Nurse 1 - General Ulcer Assessment Start: 09/01/21 12:10 Freq: Status: Active Protocol: MIGUEL ANGEL.LOWEXT Activity Type Activity Date Activity User E-Sign Co-Sign Detail Recorded Client Recorded Date Recorded By Document 09/01/21 12:10 DL [id number] 09/01/21 12:13 DL Document 09/08/21 10:03 AK [id number] 09/08/21 10:16 AK Document 09/15/21 10:12 DL [id number] 09/15/21 10:20 DL Document 09/22/21 10:23 ML [id number] 09/22/21 10:27 ML 09/01/21 09/08/21 09/15/21 12:10 10:03 10:12 WC - Today's Visit Information Type of service Follow-up Visit Follow-up Visit Follow-up Visit (Physician/[employer]ER (Physician/[employer]ELLANT CHARGE ZONE ASSEMBLER (Physician/PROPELLANT [employer]GE ZONE ASSEMBLER ) ) ) Arrival Mode Ambulatory Ambulatory Ambulatory Transfer Assistance None None Patient Identification Verified (Name & Yes Yes Yes ) Patient Requires Transmission-Based No No Precautions Safety Precautions NA Height and Weight Body Mass Index (BMI) 38.0 38.0 38.0 BMI Classification Obese Obese Obese Vital Signs Temperature (97.8 F-99.1 F) 97.2 F L 97.4 F L 97.5 F L Temperature Source Temporal Temporal Temporal Pulse Rate (60-100) 93 92 Pulse Location Monitor Monitor Respiratory Rate (12-18) 20 H 20 H Respiratory rate source Observation Observation Blood Pressure (90/60-120/80) 153/79 H 142/62 H Blood Pressure Mean (mm Hg) 103 88 Source Monitor Monitor Position Blood Pressure Location History Since Last Visit- (Skip if this is Patient's initial visit) Have you changed medications since your No No No last visit? Any new allergies or adverse reactions No No No Had a fall/change in ADL's that may No No No increase risk of falls Signs or symptoms of abuse and/or No No No neglect since last visit Have you been in the hospital since your Yes No No last visit? Has dressing in place as prescribed Yes Yes No Has compression in place as prescribed Yes Yes Yes Has offloadiing in place as prescribed N/A N/A Yes Experienced any changes in pain level or No No No management Left Footwear Regular Shoe Right Footwear Regular Shoe Pain Scale: 0-10 Numeric Is Patient Pain Free? Yes No Yes 09/22/21 10:23 WC - Today's Visit Information Type of service Follow-up Visit (Physician/[employer]ER ) Arrival Mode Ambulatory Transfer Assistance None Patient Identification Verified (Name & Yes ) Patient Requires Transmission-Based No Precautions Safety Precautions NA Height and Weight Body Mass Index (BMI) 38.0 BMI Classification Obese Vital Signs Temperature (97.8 F-99.1 F) 97.9 F Temperature Source Temporal Pulse Rate (60-100) 72 Pulse Location Monitor Respiratory Rate (12-18) 20 H Respiratory rate source Observation Blood Pressure (90/60-120/80) 146/72 H Blood Pressure Mean (mm Hg) 96 Source Monitor Position Sitting Blood Pressure Location Right Arm History Since Last Visit- (Skip if this is Patient's initial visit) Have you changed medications since your No last visit? Any new allergies or adverse reactions No Had a fall/change in ADL's that may No increase risk of falls Signs or symptoms of abuse and/or No neglect since last visit Have you been in the hospital since your No last visit? Has dressing in place as prescribed Yes Has compression in place as prescribed Yes Has offloadiing in place as prescribed N/A Experienced any changes in pain level or No management Left Footwear Regular Shoe Right Footwear Regular Shoe Pain Scale: 0-10 Numeric Is Patient Pain Free? Yes - Nurse 1 - General Ulcer Measurement Start: 09/01/21 12:10 Freq: Status: Active Protocol: Activity Type Activity Date Activity User E-Sign Co-Sign Detail Recorded Client Recorded Date Recorded By Document 09/01/21 12:10 DL [id number] 09/01/21 12:13 DL Document 09/08/21 10:03 AK [id number] 09/08/21 10:16 AK Document 09/15/21 10:12 DL [id number] 09/15/21 10:20 DL Document 09/22/21 10:23 ML [id number] 09/22/21 10:27 ML 09/01/21 09/08/21 09/15/21 12:10 10:03 10:12 Wound Center Nurse 1 3. RLE lateral -Combined with other wound No -Current Size (cm) - Length 0.5 0.5 0.1 -Current Size (cm) - Width 0.8 0.9 0.1 -Current Size (cm) - Depth 0.1 0.1 0.1 -Total Square Cm 0.40 0.45 0.01 -Date of Last Picture (Recall this 09/08/21 field) -Photo Taken No Yes No -Tunneling No -Undermining/Tunneling No -Circular Undermining No -Change in Wound Grade/Stage No -Exudate Amt Small Small None Present -Exudate Type Serosanguineous Serosanguineous -Wound Margin Distinct, Distinct, Thickened Outline Outline Attached Attached -Granulation Amt Medium (34-66%) None Present (0 None Present (0 %) %) -Granulation Quality Red N/A -Slough/Fibrin Yes -Necrosis Amt Small (1-33%) Small (1-33%) Small (1-33%) -Necrotic Tissue Type Adherent Slough Adherent Slough Adherent Slough -Structure Exposed N/A N/A N/A -Texture (Luna-wound Skin Appearance) Scarring No Abnormality, Scarring Assessed -Moisture (Luna-wound Skin Appearance) Dry/Scaly No Abnormality, No Abnormality Assessed -Color (Luna-wound Skin Appearance) Hemosiderin Assessed, Hemosiderin Staining Hemosiderin Staining Staining -Temperature (Luna-wound Skin No Abnormality No Abnormality No Abnormality Appearance) (Pt Warm) (Pt Warm) (Pt Warm) -Tenderness on Palpation (Luna-wound No No No Skin Appearance) -Ulcer Cleansing Soap and Water Soap and Water Soap and Water -Foul Odor after Cleansing No No No -Anesthetic Used 5% Lidocaine 5% Lidocaine 5% Lidocaine Gel Gel Gel Right Calf (cm) 45.7 44 44.2 Right Ankle (cm) 27 28 26.5 Left Calf (cm) 43 44 44 Left Ankle (cm) 26.5 29 27.3 09/22/21 10:23 Wound Center Nurse 1 3. RLE lateral -Combined with other wound -Current Size (cm) - Length 0.1 -Current Size (cm) - Width 0.1 -Current Size (cm) - Depth 0.1 -Total Square Cm 0.01 -Date of Last Picture (Recall this field) -Photo Taken -Tunneling -Undermining/Tunneling -Circular Undermining -Change in Wound Grade/Stage -Exudate Amt None Present -Exudate Type -Wound Margin Distinct, Outline Attached -Granulation Amt Large (67-100%) -Granulation Quality -Slough/Fibrin No -Necrosis Amt None Present (0 %) -Necrotic Tissue Type -Structure Exposed -Texture (Luna-wound Skin Appearance) Assessed -Moisture (Luna-wound Skin Appearance) Assessed -Color (Luna-wound Skin Appearance) Assessed -Temperature (Luna-wound Skin No Abnormality Appearance) (Pt Warm) -Tenderness on Palpation (Luna-wound No Skin Appearance) -Ulcer Cleansing Soap and Water -Foul Odor after Cleansing No -Anesthetic Used 4% Lidocaine Solution Right Calf (cm) 43 Right Ankle (cm) 26.5 Left Calf (cm) 16.5 Left Ankle (cm) 24 WC - Nurse 2 - General Ulcer CM Notes Start: 09/01/21 12:10 Freq: Status: Active Protocol: Activity Type Activity Date Activity User E-Sign Co-Sign Detail Recorded Client Recorded Date Recorded By Document 09/01/21 10:25 MW [id number] 09/01/21 13:14 MW Document 09/08/21 10:57 MW [id number] 09/08/21 11:00 MW Document 09/15/21 10:33 MW [id number] 09/15/21 10:38 MW Document 09/22/21 10:44 MW [id number] 09/22/21 10:49 MW 09/01/21 09/08/21 09/15/21 10:25 10:57 10:33 Wound Center Nurse 2 3. RLE lateral -Time 10:25 10:57 10:33 -Correct Patient Yes Yes Yes -Correct Side, Site, Position Yes Yes Yes -Correct Procedure Yes Yes Yes -Procedure Performed Yes Yes Yes -Type of Procedure Debridement Debridement Debridement -Clinical Debridement Subcutaneous Subcutaneous Subcutaneous -Tissue Removed Subcutaneous Subcutaneous Subcutaneous -Post Debridement (cm) - Length 0.5 0.3 0.2 -Post Debridement (cm) - Width 1.0 0.6 0.6 -Post Debridement (cm) - Depth 0.1 0.1 0.1 -Total Square (Post) (cm) 0.50 0.18 0.12 -Area of Debridement (cm) - Length 0.5 0.6 0.2 -Area of Debridement (cm) - Width 1.0 0.6 0.6 -Total Square (Area) (cm) 0.50 0.36 0.12 -Tunneling No No No -Undermining/Tunneling No No No -Circular Undermining No No No -Wound/Ulcer Outcome Not Healed Not Healed Not Healed -Ulcer Cleansing Rinsed/ Rinsed/ Rinsed/ Irrigated with Irrigated with Irrigated with Saline Saline Saline -Foul Odor after Cleansing No No No -Bioengineered Tissue No No No -Bleeding Controlled with Pressure Pressure Pressure -Treatment Response Procedure Procedure Procedure Tolerated Well Tolerated Well Tolerated Well -Offloading No No No -Debridement - Open, 1st 20sq cm -Debridement - Subq, 1st 20sq cm Yes Yes Yes Pain Scale: 0-10 Numeric Is Patient Pain Free? Yes Yes Yes 09/22/21 10:44 Wound Center Nurse 2 3. RLE lateral -Time 10:44 -Correct Patient Yes -Correct Side, Site, Position Yes -Correct Procedure Yes -Procedure Performed Yes -Type of Procedure Debridement -Clinical Debridement Epidermis / Dermis -Tissue Removed Epidermis -Post Debridement (cm) - Length 0.1 -Post Debridement (cm) - Width 0.1 -Post Debridement (cm) - Depth 0.1 -Total Square (Post) (cm) 0.01 -Area of Debridement (cm) - Length 0.1 -Area of Debridement (cm) - Width 0.1 -Total Square (Area) (cm) 0.01 -Tunneling No -Undermining/Tunneling No -Circular Undermining No -Wound/Ulcer Outcome Not Healed -Ulcer Cleansing Rinsed/ Irrigated with Saline -Foul Odor after Cleansing No -Bioengineered Tissue No -Bleeding Controlled with Pressure -Treatment Response Procedure Tolerated Well -Offloading No -Debridement - Open, 1st 20sq cm Yes -Debridement - Subq, 1st 20sq cm Pain Scale: 0-10 Numeric Is Patient Pain Free? Yes - Nurse 3 - General Ulcer D/C NN Start: 09/01/21 12:10 Freq: Status: Active Protocol: Activity Type Activity Date Activity User E-Sign Co-Sign Detail Recorded Client Recorded Date Recorded By Document 09/01/21 13:14 MW [id number] 09/01/21 13:16 MW Document 09/08/21 11:04 DL [id number] 09/08/21 11:19 DL Document 09/15/21 10:54 DL [id number] 09/15/21 10:55 DL Document 09/22/21 10:52 RB [id number] 09/22/21 10:52 RB 09/01/21 09/08/21 09/15/21 13:14 11:04 10:54 Wound Care Nurse 3 3. RLE lateral -Ulcer Cleansing Rinsed/ Rinsed/ Rinsed/ Irrigated with Irrigated with Irrigated with Saline Saline Saline -Foul Odor after Cleansing No No No -Negative Pressure Wound Therapy N/A -Primary Dressing Applied Aquacel Extra Aquacel Extra Promogran -Primary Dressing Covered/Secured with Dry Gauze Dry Gauze -Aquacel Extra 1 1 -Promogran 1 -Promogran Colleen Matter Bilateral LE -Lotion applied to leg before No compression wrap -Multi-Layered Wrap Application Unna Boot - Unna Boot - Unna Boot - Bilateral ($) Bilateral ($) Bilateral ($) -Unna Boots (Bilat) ($) 2 2 1 Treatment Response Procedure Procedure Tolerated Well Tolerated Well Pain Scale: 0-10 Numeric Is Patient Pain Free? Yes Yes Yes Teaching: Wound Center Compression Wraps & Stockings -Person Taught Patient -Teaching Method Discussion -Response to teaching Verbalize understanding Control Swelling with Leg Elevation -Person Taught Patient -Teaching Method Discussion -Response to teaching Verbalize understanding WC - Visit Discharge Discharge Condition Stable Stable Stable Ambulatory Status Ambulatory Ambulatory Ambulatory Transportation Private Auto Private Auto Private Auto Accompanied by self Medication Reconcilliation completed & No provided to patient/care provider Clinical Summary of Care Provided Yes Facility Type Home Health Home Health Orders Sent Yes Yes 09/22/21 10:52 Wound Care Nurse 3 3. RLE lateral -Ulcer Cleansing Rinsed/ Irrigated with Saline -Foul Odor after Cleansing -Negative Pressure Wound Therapy -Primary Dressing Applied NonAdherent Contact Layer, Promogran Colleen Matter -Primary Dressing Covered/Secured with Dry Gauze -Aquacel Extra -Promogran -Promogran Colleen Matter 1 Bilateral LE -Lotion applied to leg before compression wrap -Multi-Layered Wrap Application Multi-Layer Comp - Bilat ($ ) -Unna Boots (Bilat) ($) Treatment Response Procedure Tolerated Well Pain Scale: 0-10 Numeric Is Patient Pain Free? Yes Teaching: Wound Center Compression Wraps & Stockings -Person Taught -Teaching Method -Response to teaching Control Swelling with Leg Elevation -Person Taught -Teaching Method -Response to teaching WC - Visit Discharge Discharge Condition Stable Ambulatory Status Ambulatory Transportation Private Auto Accompanied by Medication Reconcilliation completed & No provided to patient/care provider Clinical Summary of Care Provided Yes Facility Type Orders Sent Assessment/Plan Assessment/Plan (1) Bilateral lower extremity edema: CODE(S): R60.0 - Localized edema (2) Lymphedema: CODE(S): I89.0 - Lymphedema, not elsewhere classified (3) Tobacco abuse disorder: CODE(S): Z72.0 - Tobacco use (4) Morbid obesity: CODE(S): E66.01 - Morbid (severe) obesity due to excess calories (5) Ulcer of right lower extremity with fat layer exposed: CODE(S): L97.912 - Non-pressure chronic ulcer of unspecified part of right lower leg with fat layer exposed PLAN: Debridement done as documented above, procedure was well-tolerated. Minimal area left. Continue Promogran with Adaptic over top. Cover with gauze. Leave in place till Sunday and change by home health. 3M wrap for edema management. Change on Sunday by home health. Smoking cessation strongly recommended. Optimal edema management also discussed. Has received his CircAid's, yet to get his lymphedema pump. Elevate lower extremity when seated and in bed. Exercise as tolerated. He however states that he sleeps in a recliner to be close to his who also sleeps in a recliner, she is undergoing chemotherapy for small cell cancer. Increased protein intake, vitamin C and zinc also discussed. His questions were answered and he was advised to call with any questions or concerns. Follow-up in 1 week. This note was generated with [employer] software. It may contain incorrect words, spelling, and punctuation that were not noted in checking the note before signing.
[2021-09-29 09:52] VITALS: BP 155/73; PULSE 84; RESP 18; BMI 38.0
--- NOTE | 2021-09-29 10:23 | PN.PCM_ITS ---
History of Present Illness Date of Service: 09/29/21 Chief Complaint: Right Leg Ulcer, Bilateral lower extremity swelling History of Wound: Mr. Ariza is a 66-year-old who had been seen here at the wound center in the past. Last seen in 2019. He is status post recent hospital admission for bilateral lower extremity edema and concern for cellulitis. Developed a right lower extremity ulcer. Has not done much to it since his discharge. Denies significant drainage. Bilateral lower extremity pain has improved some but currently has no form of compression. Denies any significant drainage from his lower extremities. No chills, fever or otherwise feeling of unwell. He also states that he does not have a lymphedema pump. Progress of Wound: Healed. Subjective Subjective No new concerns at this time. Objective Data Objective Data Vital Signs: Vital Signs Temp Pulse Resp BP 97.9 F 84 18 155/73 H 09/22/21 10:23 09/29/21 09:52 09/29/21 09:52 09/29/21 09:52 Oxygen Flow Rate (L/min) 4 Oxygen Delivery Method Room Air Weight: 250 lb Body Mass Index (BMI) 38.0 Charges/Coding Visit Charges Office Visits / Consults: 61080 OV L3 Est Physical Exam Const alert, oriented x3 and no apparent distress General Appearance: cooperative and comfortable HEENT normocephalic and head/scalp atraumatic Eyes General Eye: normal appearance of both eyes Neck full ROM General: normal visual inspection Resp normal respiratory effort Effort and Inspection: able to speak in complete sentences Extremity Extremity Narrative: Bilateral lower extremity edema. Stasis dermatitis Neuro oriented x3, CN's II-XII intact bilaterally, moves all extremities and no focal motor deficits Psych mental status grossly normal Appearance: grossly normal Attitude: calm Activity / Motor Behavior: appropriate eye contact Speech: normal speech Debridement Note Debridement Note No debridement was completed: No debridement was completed today Post-Debridement Measurements and Additional Note: Post-Debridement Measurements/Treatment WC - Nurse 1 - General Ulcer Assessment Start: 09/01/21 12:10 Freq: Status: Active Protocol: SANDRA Activity Type Activity Date Activity User E-Sign Co-Sign Detail Recorded Client Recorded Date Recorded By Document 09/01/21 12:10 DL [id number] 09/01/21 12:13 DL Document 09/08/21 10:03 HI [id number] 09/08/21 10:16 AK Document 09/15/21 10:12 DL [id number] 09/15/21 10:20 DL Document 09/22/21 10:23 ML [id number] 09/22/21 10:27 ML Document 09/29/21 09:52 MT [id number] 09/29/21 10:04 MT 09/01/21 09/08/21 09/15/21 12:10 10:03 10:12 WC - Today's Visit Information Type of service Follow-up Visit Follow-up Visit Follow-up Visit (Physician/WHEAT COMBINE DRIVER (Physician/WHEAT COMBINE DRIVER (Physician/WHEAT COMBINE DRIVER ) ) ) Arrival Mode Ambulatory Ambulatory Ambulatory Transfer Assistance None None Patient Identification Verified (Name & Yes Yes Yes ) Patient Requires Transmission-Based No No Precautions Safety Precautions NA Height and Weight Body Mass Index (BMI) 38.0 38.0 38.0 BMI Classification Obese Obese Obese Vital Signs Temperature (97.8 F-99.1 F) 97.2 F L 97.4 F L 97.5 F L Temperature Source Temporal Temporal Temporal Pulse Rate (60-100) 93 92 Pulse Location Monitor Monitor Respiratory Rate (12-18) 20 H 20 H Respiratory rate source Observation Observation Oxygen Delivery Method Blood Pressure (90/60-120/80) 153/79 H 142/62 H Blood Pressure Mean (mm Hg) 103 88 Source Monitor Monitor Position Blood Pressure Location History Since Last Visit- (Skip if this is Patient's initial visit) Have you changed medications since your No No No last visit? Any new allergies or adverse reactions No No No Had a fall/change in ADL's that may No No No increase risk of falls Signs or symptoms of abuse and/or No No No neglect since last visit Have you been in the hospital since your Yes No No last visit? Has dressing in place as prescribed Yes Yes No Has compression in place as prescribed Yes Yes Yes Has offloadiing in place as prescribed N/A N/A Yes Experienced any changes in pain level or No No No management Left Footwear Regular Shoe Right Footwear Regular Shoe Pain Scale: 0-10 Numeric Is Patient Pain Free? Yes No Yes 09/22/21 09/29/21 10:23 09:52 WC - Today's Visit Information Type of service Follow-up Visit (Physician/WHEAT COMBINE DRIVER ) Arrival Mode Ambulatory Transfer Assistance None Patient Identification Verified (Name & Yes ) Patient Requires Transmission-Based No Precautions Safety Precautions NA Height and Weight Body Mass Index (BMI) 38.0 38.0 BMI Classification Obese Obese Vital Signs Temperature (97.8 F-99.1 F) 97.9 F Temperature Source Temporal Pulse Rate (60-100) 72 84 Pulse Location Monitor Monitor Respiratory Rate (12-18) 20 H 18 Respiratory rate source Observation Observation Oxygen Delivery Method Room Air Blood Pressure (90/60-120/80) 146/72 H 155/73 H Blood Pressure Mean (mm Hg) 96 100 Source Monitor Monitor Position Sitting Sitting Blood Pressure Location Right Arm Left Arm History Since Last Visit- (Skip if this is Patient's initial visit) Have you changed medications since your No last visit? Any new allergies or adverse reactions No Had a fall/change in ADL's that may No increase risk of falls Signs or symptoms of abuse and/or No neglect since last visit Have you been in the hospital since your No last visit? Has dressing in place as prescribed Yes Yes Has compression in place as prescribed Yes Yes Has offloadiing in place as prescribed N/A Yes Experienced any changes in pain level or No Yes management Left Footwear Regular Shoe Regular Shoe Right Footwear Regular Shoe Regular Shoe Pain Scale: 0-10 Numeric Is Patient Pain Free? Yes Yes WC - Nurse 1 - General Ulcer Measurement Start: 09/01/21 12:10 Freq: Status: Active Protocol: Activity Type Activity Date Activity User E-Sign Co-Sign Detail Recorded Client Recorded Date Recorded By Document 09/01/21 12:10 DL [id number] 09/01/21 12:13 DL Document 09/08/21 10:03 AK [id number] 09/08/21 10:16 AK Document 09/15/21 10:12 DL [id number] 09/15/21 10:20 DL Document 09/22/21 10:23 ML [id number] 09/22/21 10:27 ML Document 09/29/21 09:52 MT [id number] 09/29/21 10:04 MT 09/01/21 09/08/21 09/15/21 12:10 10:03 10:12 Wound Center Nurse 1 3. RLE lateral -Combined with other wound No -Current Size (cm) - Length 0.5 0.5 0.1 -Current Size (cm) - Width 0.8 0.9 0.1 -Current Size (cm) - Depth 0.1 0.1 0.1 -Total Square Cm 0.40 0.45 0.01 -Date of Last Picture (Recall this 09/08/21 field) -Photo Taken No Yes No -Tunneling No -Undermining/Tunneling No -Circular Undermining No -Change in Wound Grade/Stage No -Exudate Amt Small Small None Present -Exudate Type Serosanguineous Serosanguineous -Wound Margin Distinct, Distinct, Thickened Outline Outline Attached Attached -Granulation Amt Medium (34-66%) None Present (0 None Present (0 %) %) -Granulation Quality Red N/A -Slough/Fibrin Yes -Necrosis Amt Small (1-33%) Small (1-33%) Small (1-33%) -Necrotic Tissue Type Adherent Slough Adherent Slough Adherent Slough -Structure Exposed N/A N/A N/A -Texture (Luna-wound Skin Appearance) Scarring No Abnormality, Scarring Assessed -Moisture (Luna-wound Skin Appearance) Dry/Scaly No Abnormality, No Abnormality Assessed -Color (Luna-wound Skin Appearance) Hemosiderin Assessed, Hemosiderin Staining Hemosiderin Staining Staining -Temperature (Luna-wound Skin No Abnormality No Abnormality No Abnormality Appearance) (Pt Warm) (Pt Warm) (Pt Warm) -Tenderness on Palpation (Luna-wound No No No Skin Appearance) -Ulcer Cleansing Soap and Water Soap and Water Soap and Water -Foul Odor after Cleansing No No No -Anesthetic Used 5% Lidocaine 5% Lidocaine 5% Lidocaine Gel Gel Gel Right Calf (cm) 45.7 44 44.2 Right Ankle (cm) 27 28 26.5 Left Calf (cm) 43 44 44 Left Ankle (cm) 26.5 29 27.3 09/22/21 09/29/21 10:23 09:52 Wound Center Nurse 1 3. RLE lateral -Combined with other wound -Current Size (cm) - Length 0.1 0.5 -Current Size (cm) - Width 0.1 0.5 -Current Size (cm) - Depth 0.1 0.5 -Total Square Cm 0.01 0.25 -Date of Last Picture (Recall this field) -Photo Taken -Tunneling -Undermining/Tunneling -Circular Undermining -Change in Wound Grade/Stage -Exudate Amt None Present -Exudate Type -Wound Margin Distinct, Flat & Intact Outline Attached -Granulation Amt Large (67-100%) Large (67-100%) -Granulation Quality Pale,[place] -Slough/Fibrin No -Necrosis Amt None Present (0 None Present (0 %) %) -Necrotic Tissue Type -Structure Exposed -Texture (Luna-wound Skin Appearance) Assessed Assessed -Moisture (Luna-wound Skin Appearance) Assessed Assessed -Color (Luna-wound Skin Appearance) Assessed Assessed -Temperature (Luna-wound Skin No Abnormality No Abnormality Appearance) (Pt Warm) (Pt Warm) -Tenderness on Palpation (Luna-wound No No Skin Appearance) -Ulcer Cleansing Soap and Water Rinsed/ Irrigated with Saline -Foul Odor after Cleansing No No -Anesthetic Used 4% Lidocaine 4% Lidocaine Solution Solution Right Calf (cm) 43 44 Right Ankle (cm) 26.5 26.5 Left Calf (cm) 16.5 44.5 Left Ankle (cm) 24 26.5 WC - Nurse 2 - General Ulcer CM Notes Start: 09/01/21 12:10 Freq: Status: Active Protocol: Activity Type Activity Date Activity User E-Sign Co-Sign Detail Recorded Client Recorded Date Recorded By Document 09/01/21 10:25 MW [id number] 09/01/21 13:14 MW Document 09/08/21 10:57 MW [id number] 09/08/21 11:00 MW Document 09/15/21 10:33 MW [id number] 09/15/21 10:38 MW Document 09/22/21 10:44 MW [id number] 09/22/21 10:49 MW Document 09/29/21 10:20 MW [id number] 09/29/21 10:22 MW 09/01/21 09/08/21 09/15/21 10:25 10:57 10:33 Wound Center Nurse 2 3. RLE lateral -Time 10:25 10:57 10:33 -Correct Patient Yes Yes Yes -Correct Side, Site, Position Yes Yes Yes -Correct Procedure Yes Yes Yes -Procedure Performed Yes Yes Yes -Type of Procedure Debridement Debridement Debridement -Clinical Debridement Subcutaneous Subcutaneous Subcutaneous -Tissue Removed Subcutaneous Subcutaneous Subcutaneous -Post Debridement (cm) - Length 0.5 0.3 0.2 -Post Debridement (cm) - Width 1.0 0.6 0.6 -Post Debridement (cm) - Depth 0.1 0.1 0.1 -Total Square (Post) (cm) 0.50 0.18 0.12 -Area of Debridement (cm) - Length 0.5 0.6 0.2 -Area of Debridement (cm) - Width 1.0 0.6 0.6 -Total Square (Area) (cm) 0.50 0.36 0.12 -Tunneling No No No -Undermining/Tunneling No No No -Circular Undermining No No No -Wound/Ulcer Outcome Not Healed Not Healed Not Healed -Ulcer Cleansing Rinsed/ Rinsed/ Rinsed/ Irrigated with Irrigated with Irrigated with Saline Saline Saline -Foul Odor after Cleansing No No No -Bioengineered Tissue No No No -Bleeding Controlled with Pressure Pressure Pressure -Treatment Response Procedure Procedure Procedure Tolerated Well Tolerated Well Tolerated Well -Offloading No No No -Debridement - Open, 1st 20sq cm -Debridement - Subq, 1st 20sq cm Yes Yes Yes Pain Scale: 0-10 Numeric Is Patient Pain Free? Yes Yes Yes 09/22/21 09/29/21 10:44 10:20 Wound Center Nurse 2 3. RLE lateral -Time 10:44 10:21 -Correct Patient Yes Yes -Correct Side, Site, Position Yes Yes -Correct Procedure Yes Yes -Procedure Performed Yes No -Type of Procedure Debridement -Clinical Debridement Epidermis / Dermis -Tissue Removed Epidermis -Post Debridement (cm) - Length 0.1 0 -Post Debridement (cm) - Width 0.1 0 -Post Debridement (cm) - Depth 0.1 0 -Total Square (Post) (cm) 0.01 0 -Area of Debridement (cm) - Length 0.1 -Area of Debridement (cm) - Width 0.1 -Total Square (Area) (cm) 0.01 -Tunneling No -Undermining/Tunneling No -Circular Undermining No -Wound/Ulcer Outcome Not Healed Healed- Epithelialized -Ulcer Cleansing Rinsed/ Irrigated with Saline -Foul Odor after Cleansing No -Bioengineered Tissue No -Bleeding Controlled with Pressure -Treatment Response Procedure Tolerated Well -Offloading No -Debridement - Open, 1st 20sq cm Yes -Debridement - Subq, 1st 20sq cm Pain Scale: 0-10 Numeric Is Patient Pain Free? Yes Yes WC - Nurse 3 - General Ulcer D/C NN Start: 09/01/21 12:10 Freq: Status: Active Protocol: Activity Type Activity Date Activity User E-Sign Co-Sign Detail Recorded Client Recorded Date Recorded By Document 09/01/21 13:14 MW [id number] 09/01/21 13:16 MW Document 09/08/21 11:04 DL [id number] 09/08/21 11:19 DL Document 09/15/21 10:54 DL [id number] 09/15/21 10:55 DL Document 09/22/21 10:52 RB [id number] 09/22/21 10:52 RB Document 09/29/21 10:22 MW [id number] 09/29/21 10:22 MW 09/01/21 09/08/21 09/15/21 13:14 11:04 10:54 Wound Care Nurse 3 3. RLE lateral -Ulcer Cleansing Rinsed/ Rinsed/ Rinsed/ Irrigated with Irrigated with Irrigated with Saline Saline Saline -Foul Odor after Cleansing No No No -Negative Pressure Wound Therapy N/A -Primary Dressing Applied Aquacel Extra Aquacel Extra Promogran -Primary Dressing Covered/Secured with Dry Gauze Dry Gauze -Aquacel Extra 1 1 -Promogran 1 -Promogran Colleen Matter Bilateral LE -Lotion applied to leg before No compression wrap -Multi-Layered Wrap Application Unna Boot - Unna Boot - Unna Boot - Bilateral ($) Bilateral ($) Bilateral ($) -Unna Boots (Bilat) ($) 2 2 1 Treatment Response Procedure Procedure Tolerated Well Tolerated Well Pain Scale: 0-10 Numeric Is Patient Pain Free? Yes Yes Yes Teaching: Wound Center Compression Wraps & Stockings -Person Taught Patient -Teaching Method Discussion -Response to teaching Verbalize understanding Control Swelling with Leg Elevation -Person Taught Patient -Teaching Method Discussion -Response to teaching Verbalize understanding WC - Visit Discharge Discharge Condition Stable Stable Stable Ambulatory Status Ambulatory Ambulatory Ambulatory Transportation Private Auto Private Auto Private Auto Accompanied by self Medication Reconcilliation completed & No provided to patient/care provider Clinical Summary of Care Provided Yes Notes: Facility Type Home Health Home Health Orders Sent Yes Yes 09/22/21 09/29/21 10:52 10:22 Wound Care Nurse 3 3. RLE lateral -Ulcer Cleansing Rinsed/ Irrigated with Saline -Foul Odor after Cleansing -Negative Pressure Wound Therapy -Primary Dressing Applied NonAdherent Contact Layer, Promogran Colleen Matter -Primary Dressing Covered/Secured with Dry Gauze -Aquacel Extra -Promogran -Promogran Colleen Matter 1 Bilateral LE -Lotion applied to leg before compression wrap -Multi-Layered Wrap Application Multi-Layer Comp - Bilat ($ ) -Unna Boots (Bilat) ($) Treatment Response Procedure Procedure Tolerated Well Tolerated Well Pain Scale: 0-10 Numeric Is Patient Pain Free? Yes Yes Teaching: Wound Center Compression Wraps & Stockings -Person Taught Patient -Teaching Method Discussion -Response to teaching Verbalize understanding Control Swelling with Leg Elevation -Person Taught -Teaching Method -Response to teaching WC - Visit Discharge Discharge Condition Stable Stable Ambulatory Status Ambulatory Ambulatory Transportation Private Auto Private Auto Accompanied by self Medication Reconcilliation completed & No No provided to patient/care provider Clinical Summary of Care Provided Yes Yes Notes: healed, discharged from clinic Facility Type Orders Sent Assessment/Plan Assessment/Plan (1) Bilateral lower extremity edema: CODE(S): R60.0 - Localized edema (2) Lymphedema: CODE(S): I89.0 - Lymphedema, not elsewhere classified (3) Tobacco abuse disorder: CODE(S): Z72.0 - Tobacco use (4) Morbid obesity: CODE(S): E66.01 - Morbid (severe) obesity due to excess calories (5) Ulcer of right lower extremity with fat layer exposed: CODE(S): L97.912 - Non-pressure chronic ulcer of unspecified part of right lower leg with fat layer exposed PLAN: Healed. No debridement completed today. Strongly advised that he uses CircAid's consistently. Did not receive his lymphedema pump. Elevate lower extremity when seated and in bed. Exercise as tolerated. He however states that he sleeps in a recliner to be close to his who also sleeps in a recliner, she is undergoing chemotherapy for small cell cancer. His questions were answered and he was advised to call with any further questions or concerns. Discharge from the wound center. This note was generated with [employer] software. It may contain incorrect words, spelling, and punctuation that were not noted in checking the note before signing.
== END 2021-09-29 15:53 | disposition home or self-care (01) ==
LOC: WC 09:45
PROVIDERS: PCP Family Medicine; Visit Provider Internal Medicine
DX: L97.812 Non-pressure chronic ulcer of other part of right lower leg with fat layer exposed (principal); E66.01 Morbid (severe) obesity due to excess calories; M79.604 Pain in right leg; M79.605 Pain in left leg; R60.0 Localized edema; M79.89 Other specified soft tissue disorders; I89.0 Lymphedema, not elsewhere classified; Z72.0 Tobacco use; Z68.38 Body mass index [BMI] 38.0-38.9, adult; Z79.02 Long term (current) use of antithrombotics/antiplatelets; Z79.899 Other long term (current) drug therapy
CPT/HCPCS: 11042; 29580; 29581; 97597; 99213; G0463

== ENCOUNTER → 2021-11-11 | Outpatient (CLI) | payer MEDICARE, SELFPAY ==
--- NOTE | 2021-11-11 14:19 | CT_ITS ---
STUDY: CT Chest W/O Contrast Injection 11/11/2021 5:06 PM REASON FOR EXAM: Male, 66 years old. Lung Nodule, Tobacco Dependency Individualized dose optimization techniques were used for this CT. TECHNIQUE: Transaxial imaging was performed withoutIV contrast material. COMPARISON: 09/16/2019. FINDINGS: There are degenerative changes of the shoulders. There is no pneumothorax. There is no demonstrated pleural abnormality. Stable 5.9 x 2.8 mm randi fissural nodule in the right middle lobe. Se 2 IM: 73. ACR Lung CT Screening Reporting T Data System (Lung-RADS) score: 2 - Benign Appearance or Behavior. Recommend continued annual screening with low-dose CT (LDCT) in 12 months. There are calcifications of the coronary arteries. There is a small pericardial effusion. There are multiple small lymph nodes within the mediastinum, which are normal in size and morphology most compatible with reactive lymph hyperplasia. Normal hilar regions. Norsmal pulmonary arteries. There is atherosclerotic calcification of the aortic arch with tortuosity and elongation of the aortic arch and descending thoracic aorta. There are multi-level degenerative changes of the thoracic spine. Left adrenal adenoma. A follow-up required. CT/Chest without Contrast IMPRESSION: Stable 5.9 x 2.8 mm randi fissural nodule in the right middle lobe. Se 2 IM: 73. ACR Lung CT Screening Reporting T Data System (Lung-RADS) score: 2 - Benign Appearance or Behavior. Recommend continued annual screening with low-dose CT (LDCT) in 12 months Electronically Signed: Slick Noland MD at 17:10 EDT ,
== END | disposition home or self-care (01) ==
PROVIDERS: PCP Family Medicine; Referring Provider Internal Medicine Critical Care Medicine; Visit Provider Internal Medicine Critical Care Medicine
DX: R91.1 Solitary pulmonary nodule (principal)
CPT/HCPCS: 71250

== ENCOUNTER → 2021-11-21 | Outpatient (CLI) | payer MEDICARE, SELFPAY ==
--- NOTE | 2021-11-21 13:46 | PFTCOMP ---
COMPLETE PULMONARY FUNCTION TEST INTERPRETATION Brief HPI: Patient is a 66-year-old male, currently under the care of Dr. Redd, who presents to [facility] for complete pulmonary function tests secondary to diagnosis of COPD. Respiratory therapist reports good effort and reproducible results. Interpretation: Forced expiration spirometry shows a very severe large airways obstructive ventilatory defect with an FEV1 of 32% predicted. There is a significant bronchodilator response in FVC by strict ATS criteria. Spirograms are of good quality and plateau slowly, indicating slowly emptying areas of the lungs. The respiratory flow volume loop shows decreased expiratory flow rates at all lung volumes consistent with airway obstruction. Lung volumes by body plethysmography show a decreased total lung capacity at 4.21 L, 69% predicted. All other lung volumes are reduced symmetrically. Diffusion capacity by carbon monoxide is decreased at 34% predicted. The airway resistance is elevated. No previous pulmonary function tests were available for review. Impression: Partially reversible very severe mixed ventilatory defect with a symmetric reduction diffusion capacity
== END | disposition home or self-care (01) ==
LOC: PSN 10:29
PROVIDERS: PCP Family Medicine; Referring Provider Internal Medicine Critical Care Medicine; Visit Provider Internal Medicine Critical Care Medicine
DX: J44.9 Chronic obstructive pulmonary disease, unspecified (principal)
CPT/HCPCS: 94060; 94726; 94729

== ENCOUNTER → 2021-11-29 | Outpatient (CLI) | payer MEDICARE, SELFPAY ==
[2021-11-29 11:55] VITALS: PULSE 73; PULSE 75; PULSE 87; PULSE 88; PULSE 89; O2SAT 86; O2SAT 87; O2SAT 89; O2SAT 90; O2SAT 91; O2SAT 92; O2SAT 93
--- NOTE | 2021-11-29 11:58 | CPS ---
Patient came on home O2 tank at 1 lpm but stated he usually wears about 4 lpm at home but was trying to wean it down. We turned tank off and patient's immediate room air reading was 86%. Placed patient back up to 3 lpm, SpO2 92% for several minutes before starting walk. At about the 3 minute lisa SpO2 87%, stopped patient, turned up to 4 lpm and patient recovered for a few minutes with an SpO2 of 91%. The rest of testing was done on 4 lpm.
--- NOTE | 2021-11-29 12:36 | PCM.PSN.6M ---
PSN 6 Minute Walk Test 6 Minute Walk Test 6 Minute Walk Test: 6 Minute Walk Test PSN:6-Minute Walk Test Start: 11/29/21 11:55 Freq: Status: Active Protocol: RESP.6MINW Document 11/29/21 11:55 PETER (Rec: 11/29/21 12:03 PETER [id number]) 6 Minute Walk Test Date Performed 11/29/21 Time Performed 11:35 Height 5 ft 8 in Weight: 111.13 kg Weight in Pounds 245.[address]: Richy Redd Assistive device used: None Pre-test Oxygen Delivery Method Room Air Pulse Ox (%) 86 Pulse Rate (60-100 beats/min) 75 Dyspnea Imtiaz Scale (0-10) 0 Exertion Imtiaz Scale (6-20) 6 1st minute Oxygen Flow Rate (L/min) (L/min) 3 Oxygen Delivery Method Nasal Cannula Pulse Ox (%) 93 Pulse Rate (60-100 beats/min) 87 2nd minute Oxygen Flow Rate (L/min) (L/min) 3 Oxygen Delivery Method Nasal Cannula Pulse Ox (%) 89 Pulse Rate (60-100 beats/min) 88 3rd minute Oxygen Flow Rate (L/min) (L/min) 3 Oxygen Delivery Method Nasal Cannula Pulse Ox (%) 87 Pulse Rate (60-100 beats/min) 88 4th minute Oxygen Flow Rate (L/min) (L/min) 4 Oxygen Delivery Method Nasal Cannula Pulse Ox (%) 91 Pulse Rate (60-100 beats/min) 87 5th minute Oxygen Flow Rate (L/min) (L/min) 4 Oxygen Delivery Method Nasal Cannula Pulse Ox (%) 90 Pulse Rate (60-100 beats/min) 88 6th minute Oxygen Flow Rate (L/min) (L/min) 4 Oxygen Delivery Method Nasal Cannula Pulse Ox (%) 90 Pulse Rate (60-100 beats/min) 89 Dyspnea Imtiaz Scale (0-10) 3 Exertion Imtiaz Scale (6-20) 14 Number of Rests Taken 1 Reported Symptoms Dizziness Post-test Oxygen Flow Rate (L/min) (L/min) 4 Oxygen Delivery Method Nasal Cannula Pulse Ox (%) 92 Pulse Rate (60-100 beats/min) 73 Full Laps Walked 6 Partial Lap, Number of Tiles Walked 0 Total Distance Walked (ft) 354 11/29/21 11:58 Cardiopulmonary Services by Brittnee Sheets Patient came on home O2 tank at 1 lpm but stated he usually wears about 4 lpm at home but was trying to wean it down. We turned tank off and patient's immediate room air reading was 86%. Placed patient back up to 3 lpm, SpO2 92% for several minutes before starting walk. At about the 3 minute lisa SpO2 87%, stopped patient, turned up to 4 lpm and patient recovered for a few minutes with an SpO2 of 91%. The rest of testing was done on 4 lpm. Initialized on 11/29/21 11:58 - END OF NOTE Interpretation Interpretation: The patient ambulated 354 feet over the course of 6 minutes beginning on room air without assistive devices. Pretesting oxygen saturation was noted to be 86% on room air. He was subsequently placed back on 3 L/min of oxygen prior to the initiation of testing. With ambulation, the janice oxygen saturation was 87%, requiring escalation in flow rate to 4 L/min with exertion. Recommendations Recommendations: 3 L/min of oxygen is required at rest, while 4 L/min is required with exertion.
== END | disposition home or self-care (01) ==
LOC: PSN 11:27
PROVIDERS: PCP Family Medicine; Referring Provider Internal Medicine Critical Care Medicine; Visit Provider Internal Medicine Critical Care Medicine
DX: J96.11 Chronic respiratory failure with hypoxia (principal)
CPT/HCPCS: 94618

== ENCOUNTER 2022-02-02 08:14 | Inpatient (IN) | payer MEDICARE, SELFPAY ==
[2022-02-02] VITALS (22 sets, daily range): BP systolic 140–175; BP diastolic 65–90; PULSE 71–121; RESP 16–30; TEMP 36–37.2; O2SAT 71–98; BMI 25.8; BMI 37.0; BMI 36.6
--- NOTE | 2022-02-02 08:38 | EKG12_ITS ---
Test Reason : sob Blood Pressure : / mmHG Vent. Rate : 107 BPM Atrial Rate : 107 BPM P-R Int : 154 ms QRS Dur : 096 ms QT Int : 336 ms P-R-T Axes : 069 105 054 degrees QTc Int : 448 ms Sinus tachycardia Possible Left atrial enlargement Rightward axis Borderline ECG Confirmed by YAYA VELEZ, NHUNG ([id number]), advertising editor KATIA FISHMAN ([id number]) on 02/03/2022 10:20:31 AM Referred By: Costa Confirmed By:NHUNG JAVIER MD
--- NOTE | 2022-02-02 08:39 | VDLE_ITS ---
Reason For Study: Pain RIGHT LEFT GSV is normal. GSV is normal. CFV is compressible, spontaneous, phasic, CFV is compressible, spontaneous, phasic, competent and demonstrates normal competent, and demonstrates normal augmentation. augmentation. FV is compressible, spontaneous, phasic, FV is compressible, spontaneous, phasic, competent and demonstrates normal competent and demonstrates normal augmentation. augmentation. POP V is compressible, spontaneous, phasic, POP V is compressible, spontaneous, phasic, competent and demonstrates normal competent and demonstrates normal augmentation. augmentation. T/P Trunk is compressible. T/P Trunk is compressible. PTV is compressible. PTV is compressible. RT PerV is compressible. LT PerV is compressible. Procedure This is a venous duplex using B-mode, color flow and spectral Doppler. Exam performed portable in ED. A preliminary report was called and/or faxed to ED. VL/Venous Duplex US - Andrea Extrem Interpretation Summary No evidence for acute deep venous thrombosis bilateral lower extremities with p atent and compressible bilateral great saphenous veins. Ordering Physician: Stephan Jose Referring Physician: Brooks Davis Performed By: Lynn Francis RVT
--- NOTE | 2022-02-02 08:39 | EX.ED.DYSGE1 ---
HPI History of Present Illness Chief Complaint: Shortness of Breath Informant: patient Narrative Narrative: Presenting with multiple complaints today. Initial reported increasing productive cough since yesterday reporting headache and fever yesterday. Today worsening dyspnea. History of COPD on chronic 4 L of oxygen states he ran out this morning. Also reports bilateral leg swelling with pain in the left calf. He reports increasing erythema of the legs. He is not a diabetic. Appears to have chronic lymphedema however states redness is new. Denies any diuretics with his medications. History of coronary disease with a stent in the past. Denies chest pains. Reports COVID vaccinated, no infection in the past, denies sick contacts. States has been drainage from the right lower leg for the past week. Prior similar symptoms: Yes PFSH PFSH Medical History (HFpEF) heart failure with preserved ejection fraction Bilateral lower extremity edema CAD (coronary artery disease) Cellulitis of left lower extremity without foot COPD (chronic obstructive pulmonary disease) COPD (chronic obstructive pulmonary disease) HTN (hypertension) Hyperlipemia Lymphedema Morbid obesity Pneumonia Sleep apnea Stasis leg ulcer Tobacco abuse disorder Ulcer of left calf Ulcer of right lower extremity with fat layer exposed Wound infection Home Medications atorvastatin 80 mg tablet 80 mg PO QHS cholesterol 04/18/13 [History Last Taken 07/28/21] clopidogrel 75 mg tablet 75 mg PO DAILY anti platelet 04/18/13 [History Last Taken 02/02/22] albuterol sulfate 90 mcg/actuation aerosol inhaler 1 - 2 puff inhalation Q4H PRN PRN Dyspnea 10/31/16 [History Last Taken 02/02/22] trazodone 150 mg tablet 150 mg PO QHS sleep 10/31/16 [History Last Taken 07/28/21] budesonide-formoterol HFA 160 mcg-4.5 mcg/actuation aerosol inhaler 2 puff inhalation BID SOB/wheezing 08/07/19 [History Last Taken 02/02/22] ipratropium 0.5 mg-albuterol 3 mg (2.5 mg base)/3 mL nebulization soln 3 ml inhalation Q4H SOB/wheezing 07/29/21 [History Last Taken 07/28/21] isosorbide mononitrate 60 mg tablet,extended release 24 hr 60 mg PO DAILY heart 07/29/21 [History Last Taken 02/02/22] metoprolol tartrate 25 mg tablet 25 mg PO BID blood pressure/heart rate 07/29/21 [History Last Taken 02/02/22] tiotropium 2.5 mcg-olodaterol 2.5 mcg/actuation mist for inhalation (Stiolto Respimat) 2 inh inhalation DAILY breathing 02/02/22 [History Last Taken 02/02/22] Allergy/AdvReac Type Severity Reaction Status Date / Time benzonatate Allergy rash hives Verified 02/02/22 11:31 [From Tessalon Perles] chlorpheniramine polistirex AdvReac Rash Verified 02/02/22 08:17 [From Tussionex] hydrocodone polistirex AdvReac Rash Verified 02/02/22 08:17 [From Tussionex] latex AdvReac Rash & Verified 02/02/22 08:17 Hives levofloxacin [From Levaquin] AdvReac Rash Verified 02/02/22 08:17 Surgical History H/O heart artery stent Social History housing: house pets and animals: Yes pets and animals: cat(s) Smoking Status: Current every day smoker tobacco type: cigarettes alcohol intake: never ROS ROS ED Constitutional Constitutional ED: Reports fever(s); Denies chills or sweats Eyes Eyes: Denies change in vision ENT ENT ED: Denies dysphagia or sore throat Cardiovascular Cardiovascular: Denies chest pain, leg edema, palpitations or racing heartbeat Respiratory/Chest Respiratory/Chest: Reports cough and dyspnea; Denies dyspnea on exertion Gastrointestinal Gastrointestinal: Denies abdominal pain, diarrhea, nausea or vomiting Genitourinary Genitourinary ED: Denies dysuria, hematuria or urinary frequency Musculoskeletal Musculoskeletal: Denies back pain, extremity pain or neck pain Integumentary Reports other Details: Bilateral lower extremity swelling with redness ; Denies rash or wounds Neurologic Neurologic: Denies headache(s), paresthesias or weakness EXAM Physical Exam Const Vital Signs: 02/02/22 08:17 02/02/22 08:38 02/02/22 08:18 Temperature 99 F 99 F Temperature Source Temporal Temporal Pulse Rate 121 H 121 H Respiratory Rate 30 H 30 H Respiratory Effort Respiratory Depth Respiratory Pattern Blood Pressure 171/74 H 171/74 H Blood Pressure Mean 106 Pulse Ox 71 71 Oxygen Delivery Method Room Air Nasal Cannula Nasal Cannula Oxygen Flow Rate (L/min) 5 5 02/02/22 08:18 02/02/22 09:19 02/02/22 09:18 Temperature 98 F 98 F Temperature Source Temporal Temporal Pulse Rate 105 H Respiratory Rate 20 H Respiratory Effort Labored Respiratory Depth Shallow Respiratory Pattern Normal Blood Pressure 175/78 H Blood Pressure Mean 110 Pulse Ox 94 Oxygen Delivery Method Nasal Cannula Nasal Cannula Oxygen Flow Rate (L/min) 02/02/22 09:46 02/02/22 10:03 02/02/22 10:06 Temperature 98 F Temperature Source Temporal Pulse Rate 98 99 Respiratory Rate 24 H 28 H Respiratory Effort Respiratory Depth Respiratory Pattern Blood Pressure 162/74 H 147/66 H Blood Pressure Mean 103 93 Pulse Ox 95 95 Oxygen Delivery Method Nasal Cannula Nasal Cannula Oxygen Flow Rate (L/min) 5 Positive well nourished and well developed Constitutional Narrative: 4 L of oxygen high 80s pulse ox. Increased to 5 L to the low 90s. General Appearance ED: well developed and NAD HEENT Reports moist mucous membranes normocephalic and atraumatic Eyes PERRL, EOMs intact bilaterally and conjunctivae normal General Eye ED: Yes normal appearance of both eyes Neck no lymphadenopathy and supple General: Negative for tenderness Chest Wall Chest: Negative for tenderness Resp normal respiratory effort Resp Narrative: Diminished breath sounds at bases there is no wheezing. Effort and Inspection: symmetric chest movement; Negative for respiratory distress Cardio regular rhythm and no murmurs Rate: tachycardic Peripheral Pulses: pulses 2+ throughout GI normal to inspection, nondistended, normoactive bowel sounds and non-tender Palpation: Negative for guarding or rebound tenderness present Back/Spine no CVA tenderness and no thoracic nor lumbar tenderness Extremity Extremity Narrative: Lymphedema bilateral lower extremities 2+ with scaling to the lower legs bilaterally. There is erythema of both legs. Thigh right greater than left. No wounds. There is drainage to the right lower extremity. There is calf pain on the left side. General Extremety ED: Yes edema; Negative for tenderness General Extremity: edema Neuro oriented x3 and no sensory deficits noted Sensorium / Orientation: awake and alert Skin Skin Narrative: See above MDM MDM MDM Narrative Medical decision making narrative: Patient afebrile temp was 99. Sepsis labs ordered due to tachycardia and tachypnea. However he was off oxygen coming in. Maintained on 5 L. Chest x-ray 1 view reviewed by myself and read by radiologist notes parabronchial thickening, no pneumonia. White count is normal 8.2. Elevated inflammatory markers. Lactic acid 1. Patient has cellulitis lower extremities, there was blanching however with elevation the erythema did not improve. Erythema up to both upper legs. Ultrasound obtained negative for DVT. Reviewing records August similar presentation with multiple organisms from the wound. I did obtain wound cultures, right lower extremity due to increasing drainage from the site. He is covered with Zosyn and vancomycin. I spoke with hospitalist Dr. Oliver for admission. Seen by hospitalist, request Solu-Medrol 40 mg IV order for his COPD. This was placed. Lab Data Attestation: I reviewed the patient's lab results. Labs: Laboratory Results - last 24 hr 02/02/22 02/02/22 02/02/22 08:55 08:55 08:55 WBC 8.2 RBC 5.37 Hgb 15.8 Hct 52.4 MCV 97.6 H MCH 29.4 MCHC 30.2 L RDW Std Deviation 49.6 H RDW Coeff of Artemio 13.7 Plt Count 135 L MPV 9.1 Immature Gran % (Auto) 0.500 Neut % (Auto) 88.0 H Lymph % (Auto) 5.0 L [place] % (Auto) 5.9 Eos % (Auto) 0.2 Baso % (Auto) 0.4 Absolute Neuts (auto) 7.2 Absolute Lymphs (auto) 0.41 L Nucleated RBC % 0 ESR 24 H PT INR APTT Sodium 134 L Potassium 3.9 Chloride 93 L Carbon Dioxide 38.0 H Anion Gap 3 L BUN 15 Creatinine 0.74 Estim Creat Clear Calc 68.40 Est GFR (MDRD) Af Amer 136 Est GFR (MDRD) Non-Af 112 BUN/Creatinine Ratio 20.4 H Glucose 115 H Lactic Acid Calcium 8.5 Total Bilirubin 1.20 H AST 9 L ALT 14 L Alkaline Phosphatase 96 C-React Prot Ext Range 24.90 H B-Natriuretic Peptide 411.8 H Total Protein 6.9 Albumin 3.3 Globulin 3.6 Albumin/Globulin Ratio 0.9 Urine Color Urine Clarity Urine pH Ur Specific [place] Urine Protein Urine Glucose (UA) Urine Ketones Urine Occult Blood Urine Nitrite Urine Bilirubin Urine Urobilinogen Ur Leukocyte Esterase Urine RBC Urine WBC Ur Squamous Epith Cells Urine Bacteria Urine Mucus 02/02/22 02/02/22 02/02/22 08:55 08:55 09:25 WBC RBC Hgb Hct MCV MCH MCHC RDW Std Deviation RDW Coeff of Artemio Plt Count MPV Immature Gran % (Auto) Neut % (Auto) Lymph % (Auto) [place] % (Auto) Eos % (Auto) Baso % (Auto) Absolute Neuts (auto) Absolute Lymphs (auto) Nucleated RBC % ESR PT 15.4 H INR 1.3 APTT 30.0 Sodium Potassium Chloride Carbon Dioxide Anion Gap BUN Creatinine Estim Creat Clear Calc Est GFR (MDRD) Af Amer Est GFR (MDRD) Non-Af BUN/Creatinine Ratio Glucose Lactic Acid 1.0 Calcium Total Bilirubin AST ALT Alkaline Phosphatase C-React Prot Ext Range B-Natriuretic Peptide Total Protein Albumin Globulin Albumin/Globulin Ratio Urine Color Yellow Urine Clarity Clear Urine pH 6.0 Ur Specific [place] 1.020 Urine Protein 30 H Urine Glucose (UA) Normal Urine Ketones 50 H Urine Occult Blood 10 H Urine Nitrite Negative Urine Bilirubin Negative Urine Urobilinogen 1 H Ur Leukocyte Esterase Negative Urine RBC 0 SEEN Urine WBC 0-5 SEEN Ur Squamous Epith Cells 0 SEEN Urine Bacteria 0 SEEN Urine Mucus 0 SEEN Radiography Chest X-Ray - ED: 1 View, Read by ED Physician and Read by Radiologist Diagnostic Testing: Clinical Impression(s) from Imaging Studies Chest X-Ray 02/02/22 09:09 IMPRESSION: Perihilar peribronchial thickening bilaterally may be due to viral illness or reactive airway disease. No consolidation. Electronically Signed: Patricio Davenport MD at 9:19 EDT , EKG Initial EKG: Attestation: I personally reviewed and interpreted this EKG as follows: Comments: Sinus rate of 107, no ST or T wave changes. Discharge Plan Dx/Rx/DC Orders Clinical Impression: Cellulitis of both lower extremities, Acute exacerbation of chronic obstructive pulmonary disease, Lymphedema, Dyspnea Disposition Disposition: Acute Care Hospital [facility] Discharge Date/Time: 02/02/22 11:11
[2022-02-02 09:07] LABS: Absolute Lymphocyte Count 0.41 X10^3/uL (0.83-4.51); Absolute Neutrophil Count 7.2 X10^3/uL (2.0-7.7); Basophil# 0.03 X10^3/uL; Basophil% 0.4 % (0-1); Eosinophil# 0.02 X10^3/uL; Eosinophils% 0.2 % (0-5); Hematocrit 52.4 % (40-54); Hemoglobin 15.8 g/dL (13.0-16.5); Lymphocyte # 0.41 X10^3/ul (0.83-4.51); Mean Corp Hgb Conc 30.2 g/dL (32-36); Mean Corpuscular Hgb 29.4 pg (27.0-32.0); Mean Corpuscular Volume 97.6 fL (80-94); Mean Platelet Vol. 9.1 fl (6.2-12.0); Monocyte# 0.48 X10^3/uL; Monocyte% 5.9 % (0-10); NRBC Flagged by Analyzer 0 % (0-5); Neutrophil # 7.22 X10^3/uL (2.7-7.7); POSITIVE DIFFERENTIAL YES; Platelet Count 135 K/mm3 (150-450); RBC Distribution Width CV 13.7 % (11.6-14.6); RBC Distribution Width SD 49.6 fl (35.1-43.9); Red Blood Count 5.37 M/mm3 (4.6-6.2); White Blood Count 8.2 K/mm3 (4.4-11.0)
[2022-02-02 09:08] LABS: Differential Indicated SCAN CRITERIA MET
[2022-02-02] MEDS: Acetaminophen 500 MG Tablet 1000 MG PO (09:09)
--- NOTE | 2022-02-02 09:09 | RAD_ITS ---
EXAM: XR CHEST, 1 VIEW CLINICAL INDICATION: cough TECHNIQUE: Frontal view of the chest. This report was created using [employer] report generation technology. COMPARISON: XR Chest dated july 29 2021 FINDINGS: LUNGS AND PLEURAL SPACES: Perihilar peribronchial thickening bilaterally may be due to viral illness or reactive airway disease. No consolidation. No pneumothorax. No effusion. HEART: Normal heart size. MEDIASTINUM: Central airways and mediastinal contour are unremarkable. BONES/JOINTS: Normal. SOFT TISSUES: Normal. RAD/Chest 1 View (Portable) IMPRESSION: Perihilar peribronchial thickening bilaterally may be due to viral illness or reactive airway disease. No consolidation. Electronically Signed: Patricio Davenport MD at 9:19 EDT ,
[2022-02-02 09:14] LABS: Erythrocyte Sedimentation Rate 24 mm/hr (0-20); International Normalized Ratio 1.3; Prothrombin Time (Protime)PT. 15.4 SECONDS (11.7-14.9)
[2022-02-02 09:22] LABS: ALB/GLOB Ratio 0.9 RATIO (0.9-2.4); AST(SGOT) 9 U/L (15-37); Alanine Aminotransfer ALT/SGPT 14 U/L (16-61); Albumin, Serum 3.3 g/dL (3.2-5.0); Alkaline Phosphatase 96 U/L (45-117); Anion Gap 3 (5-15); BUN 15 mg/dL (7-18); BUN/Creat Ratio 20.4 RATIO (10-20); Calcium,Total 8.5 mg/dL (8.5-10.1); Chloride 93 mmol/L (98-107); Creatinine, Serum 0.74 mg/dL (0.70-1.30); EST Glomerular Filtration Rate 112 mL/min (>60); Est Glom Filt Rate - Afr Amer 136 mL/min (>60); Globulin 3.6 g/dL (2.2-4.2); Glucose 115 mg/dL (74-106); Potassium 3.9 mmol/L (3.5-5.1); Protein, Total 6.9 g/dL (6.4-8.2); Sodium Level 134 mmol/L (136-145)
[2022-02-02 09:34] LABS: Bacteria 0 SEEN /hpf (None Seen); Mucous, Urine 0 SEEN /hpf (<or=2+); Red Blood Cells-Urine 0 SEEN /hpf (0-5); Squamous Epithelial Cells - UA 0 SEEN /hpf (0-5)
[2022-02-02 09:35] LABS: BNP,B-Type NATRIURETIC PEPTIDE 411.8 pg/mL (0-100)
[2022-02-02 09:39] LABS: Color, Urine Yellow (Yellow); Glucose, Dipstick Normal (Normal); Ketone-Dipstick 50 mg/dl (Negative); Leukocyte Esterase-Dipstick Negative /ul (Negative); Nitrite-Dipstick Negative (Negative); Occult Blood-Urine 10 /ul (Negative); Protein-Dipstick 30 mg/dl (Negative); Urine Bilirubin Dipstick Negative (Negative); Urine Clarity Clear (Clear); Urine Urobilinogen 1 mg/dl (Normal)
[2022-02-02 09:49] LABS: White Blood Cells 0-5 SEEN /hpf (0-5)
--- NOTE | 2022-02-02 10:21 | PCM.HP.STD ---
HPI - General General Date of Admission: 02/02/22 Date of Service: 02/02/22 Chief Complaint: B/L leg redness, seepage, cellulitis for 2 weeks, shortness of breath worsening for 2 days HPI Narrative NASIM LINARES, is a 66 M with history of chronic lymphedema, recurrent cellulitis, last 1 in August 2021 when he was admitted with acute hypoxic and hypercapnic respiratory failure from COPD exacerbation came to ED for similar complaint. Patient has increased redness, seepage, pain and swelling of both lower extremities from mid thigh level below for last 2 weeks. Patient also had fever although he did not measure it and headache. Denies nausea, vomiting, abdominal pain, alteration of bowel movement or burning micturition/new LUTS., Patient also complaining of worsening of shortness of breath for 2 days with increasing severity of cough, dyspnea at rest. In ED patient was found tachypneic, RR 30/min on 5 L of oxygen with baseline chronic 4 L of oxygen at home with history of COPD. Patient denies any change in his sputum production but more short of breath with labored breathing. In ED, chest x-ray shows peribronchial cuffing at central and hilar regions suggestive of reactive airway disease/viral disease. Twelve-lead EKG sinus tachycardia at 107 beats per, QTC 448 ms, LAE with RAD. Patient started on IV vancomycin and Zosyn, DuoNeb nebulization 1 dose of Solu-Medrol and further admitted. Labs reviewed and discussed in assessment plan [facility] Medical History (HFpEF) heart failure with preserved ejection fraction Bilateral lower extremity edema CAD (coronary artery disease) Cellulitis of left lower extremity without foot COPD (chronic obstructive pulmonary disease) COPD (chronic obstructive pulmonary disease) HTN (hypertension) Hyperlipemia Lymphedema Morbid obesity Pneumonia Sleep apnea Stasis leg ulcer Tobacco abuse disorder Ulcer of left calf Ulcer of right lower extremity with fat layer exposed Wound infection Home Medications atorvastatin 80 mg tablet 80 mg PO QHS cholesterol 04/18/13 [History Last Taken 07/28/21] clopidogrel 75 mg tablet 75 mg PO DAILY anti platelet 04/18/13 [History Last Taken 07/28/21] albuterol sulfate 90 mcg/actuation aerosol inhaler 1 - 2 puff inhalation Q4H PRN PRN Dyspnea 10/31/16 [History Last Taken Unknown] trazodone 150 mg tablet 150 mg PO QHS sleep 10/31/16 [History Last Taken 07/28/21] budesonide-formoterol HFA 160 mcg-4.5 mcg/actuation aerosol inhaler 2 puff inhalation BID SOB/wheezing 08/07/19 [History Last Taken 07/28/21] ipratropium 0.5 mg-albuterol 3 mg (2.5 mg base)/3 mL nebulization soln 3 ml inhalation Q4H SOB/wheezing 07/29/21 [History Last Taken 07/28/21] isosorbide mononitrate 60 mg tablet,extended release 24 hr 60 mg PO DAILY heart 07/29/21 [History Last Taken 07/28/21] metoprolol tartrate 25 mg tablet 25 mg PO BID blood pressure/heart rate 07/29/21 [History Last Taken 07/28/21] tiotropium 2.5 mcg-olodaterol 2.5 mcg/actuation mist for inhalation (Stiolto Respimat) 2 inh inhalation DAILY #4 grams 12/09/21 [Rx Last Taken Unknown] Allergy/AdvReac Type Severity Reaction Status Date / Time benzonatate Allergy Unknown Verified 02/02/22 08:17 [From Tessalon Perles] chlorpheniramine polistirex AdvReac Rash Verified 02/02/22 08:17 [From Tussionex] hydrocodone polistirex AdvReac Rash Verified 02/02/22 08:17 [From Tussionex] latex AdvReac Rash & Verified 02/02/22 08:17 Hives levofloxacin [From Levaquin] AdvReac Rash Verified 02/02/22 08:17 Surgical History H/O heart artery stent Social History housing: house pets and animals: Yes pets and animals: cat(s) Smoking Status: Current every day smoker tobacco type: cigarettes alcohol intake: never Vital Signs Vital Signs Vital Signs: 02/02/22 08:17 02/02/22 08:38 02/02/22 08:18 Temperature 99 F 99 F Temperature Source Temporal Temporal Pulse Rate 121 H 121 H Respiratory Rate 30 H 30 H Respiratory Effort Respiratory Depth Respiratory Pattern Blood Pressure 171/74 H 171/74 H Blood Pressure Mean 106 Pulse Ox 71 71 Oxygen Delivery Method Room Air Nasal Cannula Nasal Cannula Oxygen Flow Rate (L/min) 5 5 02/02/22 08:18 02/02/22 09:19 02/02/22 09:18 Temperature 98 F 98 F Temperature Source Temporal Temporal Pulse Rate 105 H Respiratory Rate 20 H Respiratory Effort Labored Respiratory Depth Shallow Respiratory Pattern Normal Blood Pressure 175/78 H Blood Pressure Mean 110 Pulse Ox 94 Oxygen Delivery Method Nasal Cannula Nasal Cannula Oxygen Flow Rate (L/min) 02/02/22 09:46 02/02/22 10:03 02/02/22 10:06 Temperature 98 F Temperature Source Temporal Pulse Rate 98 99 Respiratory Rate 24 H 28 H Respiratory Effort Respiratory Depth Respiratory Pattern Blood Pressure 162/74 H 147/66 H Blood Pressure Mean 103 93 Pulse Ox 95 95 Oxygen Delivery Method Nasal Cannula Nasal Cannula Oxygen Flow Rate (L/min) 5 Weight Weight: 244 lb 0.827 oz Body Mass Index (BMI) 37.0 Physical Exam Narrative Physical exam General: Alert, Oriented x3, Cooperative, labored breathing HEENT: Atraumatic, PERRLA, EOMI, Normocephalic Oral: Dry oral mucosa. No Gingival or Mucosal Lesions/ Ulcerations Neck: Supple, No JVD, Negative Carotid Bruits Lungs: Air entry very diminished in both lungs. Bilateral lower lobes expiratory rhonchi. Cardiovascular: Sinus tachycardia, Normal S1, Normal S2, No murmurs Abdomen: Bowel Sounds Present, Soft, Non Tender, Non-Distended : No renal angle tenderness. No suprapubic tenderness. Extremities: Bilateral lower extremity lymphedema, Capillary Refill Less than 3 Seconds Skin: Erythema, tenderness, induration over both lower legs from mid thigh below. There is crusting, fibrosis suggestive of chronic changes of both lower legs with seepage on left leg more than right. Musculoskeletal: Tenderness to the soft tissue of both lower legs. ROM restricted. Muscle strength 3+/5 at knee and hip joints bilaterally. Neurological: Cranial nerves II-XII grossly intact, DTR 2+/4 and Symmetrical, Neuro grossly intact Psych/Mental Status: Flat affect. Results Lab / Micro Data Result Diagrams: 02/02/22 08:55 02/02/22 08:55 Labs: Laboratory Results - last 24 hr 02/02/22 08:55: WBC 8.2, RBC 5.37, Hgb 15.8, Hct 52.4, MCV 97.6 H, MCH 29.4, MCHC 30.2 L, RDW Std Deviation 49.6 H, RDW Coeff of Artemio 13.7, Plt Count 135 L, MPV 9.1, Immature Gran % (Auto) 0.500, Neut % (Auto) 88.0 H, Lymph % (Auto) 5.0 L, [place] % (Auto) 5.9, Eos % (Auto) 0.2, Baso % (Auto) 0.4, Absolute Neuts (auto) 7.2, Absolute Lymphs (auto) 0.41 L, Nucleated RBC % 0, ESR 24 H 02/02/22 08:55: Sodium 134 L, Potassium 3.9, Chloride 93 L, Carbon Dioxide 38.0 H, Anion Gap 3 L, BUN 15, Creatinine 0.74, Estim Creat Clear Calc 68.40, Est GFR (MDRD) Af Amer 136, Est GFR (MDRD) Non-Af 112, BUN/Creatinine Ratio 20.4 H, Glucose 115 H, Calcium 8.5, Total Bilirubin 1.20 H, AST 9 L, ALT 14 L, Alkaline Phosphatase 96, C-React Prot Ext Range 24.90 H, Total Protein 6.9, Albumin 3.3, Globulin 3.6, Albumin/Globulin Ratio 0.9 02/02/22 08:55: B-Natriuretic Peptide 411.8 H 02/02/22 08:55: PT 15.4 H, INR 1.3, APTT 30.0 02/02/22 08:55: Lactic Acid 1.0 02/02/22 09:25: Urine Color Yellow, Urine Clarity Clear, Urine pH 6.0, Ur Specific [place] 1.020, Urine Protein 30 H, Urine Glucose (UA) Normal, Urine Ketones 50 H, Urine Occult Blood 10 H, Urine Nitrite Negative, Urine Bilirubin Negative, Urine Urobilinogen 1 H, Ur Leukocyte Esterase Negative, Urine RBC 0 SEEN, Urine WBC 0-5 SEEN, Ur Squamous Epith Cells 0 SEEN, Urine Bacteria 0 SEEN, Urine Mucus 0 SEEN Micro: Microbiology 02/02/22 09:02 Nasal Secretion SARS-CoV-2 Antigen (Rapid) - Final Radiology Impression Chest X-Ray 02/02/22 09:09 IMPRESSION: Perihilar peribronchial thickening bilaterally may be due to viral illness or reactive airway disease. No consolidation. Electronically Signed: Patricio Davenport MD at 9:19 EDT , Assessment & Plan Assessment/Plan (1) Acute exacerbation of chronic obstructive pulmonary disease: (2) Cellulitis of both lower extremities: PLAN: This 66-year-old question gentleman with multiple comorbidities is being admitted for bilateral lower extremity cellulitis with lymphedema and, along with increasing cough, shortness of breath and tachypnea suggestive of COPD exacerbation 1. Bilateral lower extremity cellulitis with chronic lymphedema, fibrosis and crusting: Patient is being admitted [facility]. Venous duplex is negative for acute DVT of both lower extremities. Blood cultures x2 ordered. Wound care nurse consult. Continue vancomycin and Zosyn started in ED. MRSA nasal screen. At bedtime patient follows wound clinic last visit was made 2021. Patient is not showing signs or symptoms of sepsis therefore sepsis ruled out. 2. COPD exacerbation, chronic smoker, nicotine dependence with history of lung nodule: Patient had PFT in October 2021 reported as partially reversible very severe mixed ventilatory defect with symmetric reduction of DLCO, 34%. FEV1 32% predicted with significant bronchodilator response. Last pulmonary clinic visit in November 2021. Patient inhaler regimen was upgraded to triple therapy, Spiriva added to Symbicort. Patient also has a lung nodule, low-dose CT lung screening scheduled for 10/30/2022. Started on DuoNeb every 4 hourly, RT, Solu-Medrol, incentive spirometry Pep and azithromycin. Rapid COVID antigen negative. Flu antigen negative and if that also comes negative will order respiratory panel. Chest x-ray suggestive of peribronchial cuffing possible viral infection. 3. Chronic HFpEF: BNP 411. Chest x-ray not typical of pulmonary congestion. Last echo shows EF 55 to 60%, severe pulmonary hypertension. Continue Plavix, metoprolol, isosorbide mononitrate, atorvastatin and losartan. 4. Coronary artery status post stent about 10 years ago, hypertension, anxiety and depression on trazodone limited physical capacity due to bilateral lower extremity lymphedema: Home medication reconciliation done. PT and OT ordered. Living will/advanced directive/end of life care: Patient does have living will or advanced directive. His is power of workers compensation defense attorney for health after discussion of benefits/risks procedures involved with full code, DNR CC arrest and DNR CC, the patient opted for DNRCC arrest with no intubation Patient doesn't want artificial life support including intubation, tube feed, ventilator and/chest compression, central venous catheter, vasopressor and DC shock if needed Total time spent in [id number] encounter in discussion of advanced directive 16 minutes. Microbiology Past 72 Hours 02/02/22 09:02 Nasal Secretion SARS-CoV-2 Antigen (Rapid) - Final Laboratory Results 02/02/22 08:55: WBC 8.2, RBC 5.37, Hgb 15.8, Hct 52.4, MCV 97.6 H, MCH 29.4, MCHC 30.2 L, RDW Std Deviation 49.6 H, RDW Coeff of Artemio 13.7, Plt Count 135 L, MPV 9.1, Immature Gran % (Auto) 0.500, Neut % (Auto) 88.0 H, Lymph % (Auto) 5.0 L, [place] % (Auto) 5.9, Eos % (Auto) 0.2, Baso % (Auto) 0.4, Absolute Neuts (auto) 7.2, Absolute Lymphs (auto) 0.41 L, Nucleated RBC % 0, ESR 24 H 02/02/22 08:55: Sodium 134 L, Potassium 3.9, Chloride 93 L, Carbon Dioxide 38.0 H, Anion Gap 3 L, BUN 15, Creatinine 0.74, Estim Creat Clear Calc 68.40, Est GFR (MDRD) Af Amer 136, Est GFR (MDRD) Non-Af 112, BUN/Creatinine Ratio 20.4 H, Glucose 115 H, Calcium 8.5, Total Bilirubin 1.20 H, AST 9 L, ALT 14 L, Alkaline Phosphatase 96, C-React Prot Ext Range 24.90 H, Total Protein 6.9, Albumin 3.3, Globulin 3.6, Albumin/Globulin Ratio 0.9 02/02/22 08:55: B-Natriuretic Peptide 411.8 H 02/02/22 08:55: PT 15.4 H, INR 1.3, APTT 30.0 02/02/22 08:55: Lactic Acid 1.0 02/02/22 09:25: Urine Color Yellow, Urine Clarity Clear, Urine pH 6.0, Ur Specific [place] 1.020, Urine Protein 30 H, Urine Glucose (UA) Normal, Urine Ketones 50 H, Urine Occult Blood 10 H, Urine Nitrite Negative, Urine Bilirubin Negative, Urine Urobilinogen 1 H, Ur Leukocyte Esterase Negative, Urine RBC 0 SEEN, Urine WBC 0-5 SEEN, Ur Squamous Epith Cells 0 SEEN, Urine Bacteria 0 SEEN, Urine Mucus 0 SEEN Charges/Coding Visit Charges Inpatient E&M: 84481 Init Hosp L3 Procedures Hospitalists Procedures: 82541 Advncd Care Plan 30 Min
--- NOTE | 2022-02-02 12:10 | WOUNDNOTE ---
wound photo: right lower leg
--- NOTE | 2022-02-02 12:10 | WOUNDNOTE ---
wound photo: left lower leg
--- NOTE | 2022-02-02 12:15 | PCM.RX.CS ---
Consult Pharmacy has been consulted to manage selected antiobiotic: Vancomycin Type of Consult: New start Suspected Infection: Skin/Soft tissue Prior Doses of Antibiotics Received/Current Regimen: 02/02/2022 @ 1130. Patient received 1500mg in ER Labs: Sodium 134 mmol/L (136-145) L 02/02/22 08:55 Potassium 3.9 mmol/L (3.5-5.1) 02/02/22 08:55 Chloride 93 mmol/L (98-107) L 02/02/22 08:55 Carbon Dioxide 38.0 mmol/L (21.0-32.0) H 02/02/22 08:55 Anion Gap 3 (5-15) L 02/02/22 08:55 BUN 15 mg/dL (7-18) 02/02/22 08:55 Creatinine 0.74 mg/dL (0.70-1.30) 02/02/22 08:55 Est GFR (MDRD) Af Amer 136 mL/min (>60) 02/02/22 08:55 Est GFR (MDRD) Non-Af 112 mL/min (>60) 02/02/22 08:55 BUN/Creatinine Ratio 20.4 RATIO (10-20) H 02/02/22 08:55 Glucose 115 mg/dL (74-106) H 02/02/22 08:55 Microbiology: Microbiology 02/02/22 09:02 Nasal Secretion SARS-CoV-2 Antigen (Rapid) - Final Weight used for dosin kg Estimated Creatinine Clearance: 68 Goal Trough: 10-15 mcg/mL Pharmacy Plan for Drug Dosing: starting 02/02/2022 @ 2330 give Vancomycin 1000mg every 12 hours Pharmacy Service will continue to monitor and adjust dosing as required. Follow-Up Labs: Trough Vancomycin Labs to be done on [date and time ordered]: 02/03/22 @ 2300
[2022-02-02] MEDS: Furosemide 40 MG/4 ML Vial IV (12:24)
[2022-02-02] MEDS: Azithromycin 250 MG Tablet 500 MG PO (12:24)
[2022-02-02] MEDS: guaiFENesin 1,200 MG Tablet 1200 MG PO ×2 (12:24→21:09)
[2022-02-02] MEDS: Clopidogrel Bisulfate 75 MG Tablet PO (12:25)
[2022-02-02 14:27] LABS: M R Staph aureus DNA By PCR Negative (Negative); Staph aureus DNA By PCR POSITIVE (Negative)
[2022-02-02 14:28] LABS: Probe Check PASS; Specimen Processing Control PASS
[2022-02-02] MEDS: Ipratropium/Albuterol Sulfate 3 ML AMPUL.NEB INHALATION ×3 (15:53→22:49)
--- NOTE | 2022-02-02 21:00 | NURSING ---
Pt with dyspnea and lethargy. Will wake to voice however falls directly back to sleep. Discussed the need for bipap with pt. Pt refusing, states he will not wear bipap ever again.
[2022-02-02] MEDS: Atorvastatin Calcium 80 MG Tablet PO (21:09)
[2022-02-02] MEDS: Metoprolol Tartrate 25 MG Tablet PO (21:09)
[2022-02-02] MEDS: traZODone 50 MG Tablet 150 MG PO (21:09)
--- NOTE | 2022-02-02 21:41 | NURSING ---
This RN and Dolores spoke to patient about the use of Bipap to help increase O2 and decrease shortness of breath. Patient denied Bipap and stated I have been through that before and am not going through that again.
--- NOTE | 2022-02-02 23:25 | CPS ---
Patient refuses PAP at this time, RN notified
[2022-02-02] MEDS: Vancomycin IV 1,000 MG/200 ML BAG 200 MG IV (23:30)
[2022-02-03] VITALS (18 sets, daily range): BP systolic 119–146; BP diastolic 56–87; PULSE 65–90; RESP 16–28; TEMP 35.9–36.9; O2SAT 92–97
[2022-02-03] MEDS: Ipratropium/Albuterol Sulfate 3 ML AMPUL.NEB INHALATION ×6 (02:19→23:16)
[2022-02-03] MEDS: Juven (unflavored) Packet 1 PACKET PO ×2 (09:55→16:59)
[2022-02-03] MEDS: Azithromycin 250 MG Tablet 500 MG PO (09:56)
[2022-02-03] MEDS: Clopidogrel Bisulfate 75 MG Tablet PO (09:57)
[2022-02-03] MEDS: Metoprolol Tartrate 25 MG Tablet PO ×2 (09:57→21:08)
[2022-02-03] MEDS: guaiFENesin 1,200 MG Tablet 1200 MG PO ×2 (09:57→21:07)
[2022-02-03] MEDS: Vancomycin IV 1,000 MG/200 ML BAG 200 MG IV ×2 (10:00→23:34)
--- NOTE | 2022-02-03 11:26 | PN.HOSP_ITS ---
Subjective Subjective Follow-up for bilateral cellulitis and COPD exacerbation Patient is still short of breath. Patient denies chronic wheezing but currently wheezing. Respiratory rate 20 to 24/min. No fever. On 5 L of oxygen Objective Data Objective Data Vital Signs: Vital Signs Temp Pulse Resp BP Pulse Ox O2 Del Method O2 Flow Rate 97.8 F 89 18 131/69 H 97 Nasal Cannula 5 02/03/22 09:03 02/03/22 10:44 02/03/22 10:44 02/03/22 09:03 02/03/22 09:03 02/03/22 09:03 02/03/22 09:03 FiO2 50 02/02/22 17:15 Oxygen Flow Rate (L/min) 5 Oxygen Delivery Method Nasal Cannula Weight: 240 lb 11.211 oz Body Mass Index (BMI) 36.6 Intake & Output: Intake and Output for Last 24 Hours 02/01/22 02/02/22 02/03/22 23:59 23:59 23:59 Intake Total 1229.79 / 1429.79 500 / 500 Output Total 250 / 650 500 / 500 Balance 979.79 / 779.79 0 / 0 Lab / Micro Data Result Diagrams: 02/02/22 08:55 02/02/22 08:55 Labs: Laboratory Results - last 24 hr 02/02/22 11:35: S.aureus Protein A PCR POSITIVE H, MRSA (PCR) Negative Micro: Microbiology 02/02/22 10:05 Wound - Leg Gram Stain - Final 02/02/22 10:05 Wound - Leg Wound Culture - Preliminary Gram negative ava Gram positive organism 02/02/22 09:25 Urine, Clean Catch Urine Culture - Final Mixed Gram Pos & Gram Neg Org 02/02/22 13:10 Mucosa - Nasopharyngeal Influenza Types A,B Direct FA (TAMIKA) - Final 02/02/22 09:02 Nasal Secretion SARS-CoV-2 Antigen (Rapid) - Final Radiography Diagnostic Testing: Radiology Impression Venous Doppler Study 02/02/22 08:39 Interpretation Summary No evidence for acute deep venous thrombosis bilateral lower extremities with patent and compressible bilateral great saphenous veins. Ordering Physician: Stephan Jose Referring Physician: Brooks Davis Performed By: Lynn Francis, ENRIQUE Physical Exam Narrative Physical exam General: Alert, Oriented x3, Cooperative, HEENT: Atraumatic, PERRLA, EOMI, Normocephalic Oral: Dry oral mucosa. No Gingival or Mucosal Lesions/ Ulcerations Neck: Supple, No JVD, Negative Carotid Bruits Lungs: Air entry very diminished in both lungs. Bilateral lower lobes expiratory wheezing. Mild tachypnea unlabored Cardiovascular: Sinus tachycardia, Normal S1, Normal S2, No murmurs Abdomen: Bowel Sounds Present, Soft, Non Tender, Non-Distended : No renal angle tenderness. No suprapubic tenderness. Extremities: Bilateral lower extremity lymphedema, Capillary Refill Less than 3 Seconds Skin: Superficial weeping area with mild odor, light yellow crusting, on chronic fibrosis and lymphedema. Moderate amount of light yellow drainage on old dressing. Dressing changed today with Vargas wrap bandage on. Musculoskeletal: Tenderness to the soft tissue of both lower legs. ROM restri cted. Muscle strength 3+/5 at knee and hip joints bilaterally. Neurological: Cranial nerves II-XII grossly intact, DTR 2+/4 and Symmetrical, Neuro grossly intact Psych/Mental Status: Flat affect. Assessment & Plan Assessment/Plan (1) Acute exacerbation of chronic obstructive pulmonary disease: (2) Cellulitis of both lower extremities: PLAN: This 66-year-old question gentleman with multiple comorbidities is being admitted for bilateral lower extremity cellulitis with lymphedema and, along with increasing cough, shortness of breath and tachypnea suggestive of COPD exacerbation 1. Bilateral lower extremity cellulitis with chronic lymphedema, fibrosis and crusting: Patient is being admitted MedSurg. Venous duplex is negative for acute DVT of both lower extremities. Blood cultures x2 ordered. Wound care ahmet se consult. Continue vancomycin and Zosyn started in ED. MRSA nasal screen. At bedtime patient follows wound clinic last visit was made 2021. Patient is not showing signs or symptoms of sepsis therefore sepsis ruled out. 02/03: Wound nurse, surgeon note reviewed, less maceration. Patient has weeping area of light yellow discharge. Dressing was changed. Prelim wound culture shows gram-negative ava and gram-positive organism. Urine culture mixed organism sensitive of contamination. MRSA PCR negative. 2. COPD exacerbation, chronic smoker, nicotine dependence with history of lung nodule: Patient had PFT in October 2021 reported as partially reversible very severe mixed ventilatory defect with symmetric reduction of DLCO, 34%. FEV1 32% predicted with significant bronchodilator response. Last pulmonary clinic visit in November 2021. Patient inhaler regimen was upgraded to triple therapy, Spiriva was added to Symbicort. Patient also has a lung nodule, low-dose CT lung screening scheduled for 10/30/2022. Started on DuoNeb every 4 hourly, RT, Solu- Medrol, incentive spirometry Pep and azithromycin. Rapid COVID antigen negative. Flu antigen negative and if that also comes negative will order respiratory panel. Chest x-ray suggestive of peribronchial cuffing possible viral infection. 02/03: Flu antigen negative. Respiratory panel ordered. Patient has mild tachypnea, shortness of breath and labored breathing although better than yesterday. Continue present treatment. 3. Chronic HFpEF: BNP 411. Chest x-ray not typical of pulmonary congestion. Last echo shows EF 55 to 60%, severe pulmonary hypertension. Continue Plavix, metoprolol, isosorbide mononitrate, atorvastatin and losartan. 4. Coronary artery status post stent about 10 years ago, hypertension, anxiety and depression on trazodone limited physical capacity due to bilateral lower extremity lymphedema: Home medication reconciliation done. PT and OT ordered. Total time of the visit including total time spent in counseling or coordination of care, (more than 50% of the total time, spent in obtaining medical information from nurses and other ancillary care providers,explaining to the patient about labs, imaging, diagnosis and management), review of medical record and office visits, review of labs and imaging is 40 minutes. Living will/advanced directive/end of life care: Patient does have living will or advanced directive. His is power of [place] attorney for health after discussion of benefits/risks procedures involved with full code, DNR CC arrest and DNR CC, the patient opted for DNRCC arrest with no intubation Patient doesn't want artificial life support including intubation, tube feed, ventilator and/chest compression, central venous catheter, vasopressor and DC shock if needed Total time spent in [id number] encounter in discussion of advanced directive 16 minutes. Microbiology Past 72 Hours 02/02/22 10:05 Wound - Leg Gram Stain - Final 02/02/22 10:05 Wound - Leg Wound Culture - Preliminary Gram negative ava Gram positive organism 02/02/22 09:25 Urine, Clean Catch Urine Culture - Final Mixed Gram Pos & Gram Neg Org 02/02/22 13:10 Mucosa - Nasopharyngeal Influenza Types A,B Direct FA (TAMIKA) - Final 02/02/22 09:02 Nasal Secretion SARS-CoV-2 Antigen (Rapid) - Final Laboratory Results 02/02/22 11:35: S.aureus Protein A PCR POSITIVE H, MRSA (PCR) Negative Microbiology Past 72 Hours 02/02/22 09:02 Nasal Secretion SARS-CoV-2 Antigen (Rapid) - Final Charges/Coding Visit Charges Inpatient E&M: 06560 Subs Hosp L3
[2022-02-03] MEDS: 0.9% Saline Lock 10 ML Syringe IV (12:02)
--- NOTE | 2022-02-03 15:25 | CASEMGMT ---
Addendum entered by Rhonda Haines 02/03/22 16:07: Received tc back from [place] at [facility], they can accept pt for SOC on Sunday. Pt aware. Addendum entered by Rhonda Haines 02/03/22 15:52: TC to [place] at [facility], referral made. Will await acceptance. Original Note: PATRICIA VILLALTA Assessment: Face to Face with pt for initial transition planning/care coordination assessment. PATRICIA VILLALTA introduced self and role at [facility], pt voices understanding and consents to assessment. Pt is A/O x4 and answers all questions appropriately at this time. Pt sitting up in bed in no distress. Care providers, pharmacy, and demographics verified/updated. Admitting Dx: bilat cellulitis, COPD exac PCP:Ryan Specialists:jabari Redd Preferred Pharmacy: [facility] Insurance: Lesly CHANG Prescription Benefit: yes LW/HPOA: Pt has a LW/DPOA on file at [facility]. His Tia Ariza is his DPOA. LNOK: Tia Ariza, Living Arrangements: Pt lives with and sister in law in a single story house with no steps to enter. Pt reports he is I in ADL's and denies concerns at home. Pt states he does bathe him self. Transportation: Pt drives self and denies concerns with transportation. DME/HHC/SNF: Pt states he has oxygen through [employer] at 4L continuous. Will call [employer] to verify. Pt also has a pox. He states he also has the following DME but does not use: cane, FWW, shower chair and grab bar in the shower. Pt states he does not have portable tanks at home. Pt states he has had HHC in the past but is not sure of the name of the agency. Pt denies SNF stays. Pt states he smokes a pack of cigarettes per day. Discussed safety of oxygen and smoking. Pt states he turns off his oxygen. Pt states he does desire smoking cessation. Spoke to charge nurse regarding this. Pt states he does have portable tanks at home but he does not want them brought in for dc. Made pt aware he will need his oxygen to dc home on. He states his elver will provide transportation home. Asked if she can bring a tank in when she picks him up. He states he will ask. PATRICIA VILLALTA made pt aware that he will need his oxygen tank brought in to be dc'd home. Pt verbalizes understanding. Pt is agreeable to HHC services for SN and [employer] only. He is not agreeable to therapy at this time. Patient was provided a list of HHC providers including quality and resource use data and consistent with the patient?s preferred geographic region, medical needs, and insurance network. The patient?s preferred provider [facility]. Pt states no concerns with going home at time of dc. Pt states no further concerns/needs. CM to follow. Advised pt to ask CM if any further question/concerns/needs arise, voices understanding. Pt Goal: Home with [facility] Plan: Home with C.
--- NOTE | 2022-02-03 16:20 | CASEMGMT ---
Social Work SW in to see pt and discuss concerns noted by his family. Pt initially appearing confused, losing train of thought. Pt not making eye contact throughout the entire discussion. SW inquired about how pt has been feeling and if there has been any changes in his routine or daily life. Pt reporting increased tiredness. Denied concerns with driving during the day but admitted to some struggles at night. SW inquired about feelings of depression and anxiety. Pt reports he has been feeling down lately and may be feeling depressed because his was recently diagnosed with cancer. PT became tearful while SW discussed the option of counseling. Pt refused at this time. SW provided support to pt and normalized feelings regarding this difficult life challenge. SW also inquired about pt smoking with oxygen on and educated on the dangers of this. Pt in agreement and stating someone else had already been in to give him info on quitting smoking. Pt seeming open to trying to quit. SW offered encouragement for this. Pt feeling overwhelmed and struggling to breathe. SW encouraged pt to relax after this difficult discuss and get some rest. Pt agreeable. SW encouraged pt to ask for support or assistance should he need it. Ashley Adame, THEO
[2022-02-03] MEDS: Atorvastatin Calcium 80 MG Tablet PO (21:07)
[2022-02-03] MEDS: traZODone 50 MG Tablet 150 MG PO (21:08)
[2022-02-04] VITALS (20 sets, daily range): BP systolic 125–144; BP diastolic 64–92; PULSE 66–94; RESP 12–24; TEMP 36.3–37.1; O2SAT 87–97
[2022-02-04 01:04] LABS: Vancomycin, Trough Level 13.5 ug/mL (5.0-15.0)
--- NOTE | 2022-02-04 01:18 | PCM.RX.CS ---
Consult Pharmacy has been consulted to manage selected antiobiotic: Vancomycin Type of Consult: Follow-up Suspected Infection: Skin/Soft tissue Prior Doses of Antibiotics Received/Current Regimen: Medications Vancomycin HCl (Vancomycin) 1,000 mg in 200 mls @ 200 mls/hr IV Q12H CELESTE Last Admin: 02/03/22 23:34 Dose: 200 mls/hr Labs: Sodium 134 mmol/L (136-145) L 02/02/22 08:55 Potassium 3.9 mmol/L (3.5-5.1) 02/02/22 08:55 Chloride 93 mmol/L (98-107) L 02/02/22 08:55 Carbon Dioxide 38.0 mmol/L (21.0-32.0) H 02/02/22 08:55 Anion Gap 3 (5-15) L 02/02/22 08:55 BUN 15 mg/dL (7-18) 02/02/22 08:55 Creatinine 0.74 mg/dL (0.70-1.30) 02/02/22 08:55 Est GFR (MDRD) Af Amer 136 mL/min (>60) 02/02/22 08:55 Est GFR (MDRD) Non-Af 112 mL/min (>60) 02/02/22 08:55 BUN/Creatinine Ratio 20.4 RATIO (10-20) H 02/02/22 08:55 Glucose 115 mg/dL (74-106) H 02/02/22 08:55 Vancomycin Trough 13.5 ug/mL (5.0-15.0) 02/03/22 23:05 Microbiology: Microbiology 02/03/22 09:02 Mucosa - Nose Respiratory Panel (PCR) - Final 02/02/22 10:05 Wound - Leg Gram Stain - Final 02/02/22 10:05 Wound - Leg Wound Culture - Preliminary Gram negative ava Gram positive organism 02/02/22 09:25 Urine, Clean Catch Urine Culture - Final Mixed Gram Pos & Gram Neg Org 02/02/22 13:10 Mucosa - Nasopharyngeal Influenza Types A,B Direct FA (TAMIKA) - Final 02/02/22 09:02 Nasal Secretion SARS-CoV-2 Antigen (Rapid) - Final Weight used for dosin kg Estimated Creatinine Clearance: 114 Goal Trough: 10-15 mcg/mL Pharmacy Plan for Drug Dosing: Vancomycin trough level was 13.5, within target range of 10-15. Will continue dosing at 1000mg q12h, and re-draw a trough in 2 days. Pharmacy Service will continue to monitor and adjust dosing as required. Follow-Up Labs: Trough Vancomycin Labs to be done on [date and time ordered]: 02/05/22 @1100
[2022-02-04] MEDS: Ipratropium/Albuterol Sulfate 3 ML AMPUL.NEB INHALATION ×5 (02:29→23:00)
[2022-02-04] MEDS: 0.9% Saline Lock 10 ML Syringe IV ×3 (03:45→21:59)
[2022-02-04 06:26] LABS: Absolute Lymphocyte Count 0.31 X10^3/uL (0.83-4.51); Absolute Neutrophil Count 8.7 X10^3/uL (2.0-7.7); Hematocrit 53.8 % (40-54); Hemoglobin 16.4 g/dL (13.0-16.5); Lymphocyte # 0.31 X10^3/ul (0.83-4.51); Lymphocyte % 3.3 % (19-41); Mean Corp Hgb Conc 30.5 g/dL (32-36); Mean Corpuscular Hgb 29.9 pg (27.0-32.0); Mean Platelet Vol. 9.7 fl (6.2-12.0); Monocyte# 0.28 X10^3/uL; NRBC Flagged by Analyzer 0 % (0-5); Neutrophil # 8.66 X10^3/uL (2.7-7.7); Neutrophil % 93.4 % (47-70); POSITIVE DIFFERENTIAL YES; Platelet Count 111 K/mm3 (150-450); RBC Distribution Width CV 13.2 % (11.6-14.6); RBC Distribution Width SD 47.8 fl (35.1-43.9); Red Blood Count 5.49 M/mm3 (4.6-6.2); White Blood Count 9.3 K/mm3 (4.4-11.0)
[2022-02-04 06:46] LABS: Differential Indicated SCAN CRITERIA MET
[2022-02-04 06:49] LABS: Differential Comment SCANNED
[2022-02-04 07:25] LABS: BUN 25 mg/dL (7-18); BUN/Creat Ratio 34.6 RATIO (10-20); Calcium,Total 8.3 mg/dL (8.5-10.1); Carbon Dioxide > 45.0 mmol/L (21.0-32.0); Chloride 90 mmol/L (98-107); Creatinine, Serum 0.72 mg/dL (0.70-1.30); EST Glomerular Filtration Rate 115 mL/min (>60); Est Glom Filt Rate - Afr Amer 139 mL/min (>60); Glucose 155 mg/dL (74-106); Potassium 4.6 mmol/L (3.5-5.1); Sodium Level 134 mmol/L (136-145)
[2022-02-04] MEDS: Juven (unflavored) Packet 1 PACKET PO ×2 (07:58→18:14)
--- NOTE | 2022-02-04 08:35 | RAD_ITS ---
STUDY: X-RAY CHEST REASON FOR EXAM: Male, 66 years old. Severe shortness of breath. TECHNIQUE: Single AP portable view of the chest. COMPARISON: 02/02/2022. FINDINGS: Persistent prominent markings bilaterally slightly improved since previous examination. There is no demonstrated pleural abnormality. The cardiac silhouette is borderline. Normal mediastinum and jayjay. Normal visualized pulmonary arteries. Normal visualized aortic arch and descending thoracic aorta. Stable soft tissues and osseous structures. There is no demonstrated abnormality of the visualized soft tissue structures of the upper abdomen. RAD/Chest 1 View (Portable) IMPRESSION: Bilateral increased markings/interstitial infiltrates slightly improved Electronically Signed: Bill Gilman MD at 10:50 EDT ,
--- NOTE | 2022-02-04 08:36 | PN.HOSP_ITS ---
Subjective Subjective Follow-up for COPD exacerbation, chronic hypoxic respiratory failure and bilateral cellulitis. Patient still very short of breath even on maximum therapy of bronchodilator, Solu-Medrol, IV antibiotics. Bicarb level in BMP is critical. Patient seems chronic CO2 retainer. Chest x-ray shows peribronchial thickening mainly in hilar region. Patient refusing for BiPAP. He is DNR CC arrest with no intubation Objective Data Objective Data Vital Signs: Vital Signs Temp Pulse Resp BP Pulse Ox O2 Del Method O2 Flow Rate 98.0 F 80 20 H 132/71 H 97 Nasal Cannula 5 02/04/22 07:59 02/04/22 07:59 02/04/22 07:59 02/04/22 07:59 02/04/22 07:59 02/04/22 07:59 02/04/22 07:59 FiO2 50 02/02/22 17:15 Oxygen Flow Rate (L/min) 5 Oxygen Delivery Method Nasal Cannula Weight: 240 lb 11.211 oz Body Mass Index (BMI) 36.6 Intake & Output: Intake and Output for Last 24 Hours 02/02/22 02/03/22 02/04/22 23:59 23:59 23:59 Intake Total 1229.79 / 1429.79 1381.25 / 1381.25 250 / 250 Output Total 250 / 650 900 / 900 100 / 100 Balance 979.79 / 779.79 481.25 / 481.25 150 / 150 Lab / Micro Data Result Diagrams: 02/04/22 05:57 02/04/22 05:57 Labs: Laboratory Results - last 24 hr 02/03/22 23:05: Vancomycin Trough 13.5 02/04/22 05:57: WBC 9.3, RBC 5.49, Hgb 16.4, Hct 53.8, MCV 98.0 H, MCH 29.9, MCHC 30.5 L, RDW Std Deviation 47.8 H, RDW Coeff of Artemio 13.2, Plt Count 111 L, MPV 9.7, Immature Gran % (Auto) 0.300, Neut % (Auto) 93.4 H, Lymph % (Auto) 3.3 L, [place] % (Auto) 3.0, Eos % (Auto) 0.0, Baso % (Auto) 0.0, Absolute Neuts (auto) 8.7 H, Absolute Lymphs (auto) 0.31 L, Nucleated RBC % 0, Differential Comment SCANNED 02/04/22 05:57: Sodium 134 L, Potassium 4.6, Chloride 90 L, Carbon Dioxide > 45.0 H*, Anion Gap TNP, BUN 25 H, Creatinine 0.72, Estim Creat Clear Calc 68.40, Est GFR (MDRD) Af Amer 139, Est GFR (MDRD) Non-Af 115, BUN/Creatinine Ratio 34.6 H, Glucose 155 H, Calcium 8.3 L Micro: Microbiology 02/03/22 09:02 Mucosa - Nose Respiratory Panel (PCR) - Final 02/02/22 10:05 Wound - Leg Gram Stain - Final 02/02/22 10:05 Wound - Leg Wound Culture - Preliminary Gram negative ava Gram positive organism 02/02/22 09:25 Urine, Clean Catch Urine Culture - Final Mixed Gram Pos & Gram Neg Org 02/02/22 13:10 Mucosa - Nasopharyngeal Influenza Types A,B Direct FA (TAMIKA) - Final 02/02/22 09:02 Nasal Secretion SARS-CoV-2 Antigen (Rapid) - Final Physical Exam Narrative Physical exam General: Alert, Oriented x3, Cooperative, HEENT: Atraumatic, PERRLA, EOMI, Normocephalic Oral: Dry oral mucosa. No Gingival or Mucosal Lesions/ Ulcerations Neck: Supple, No JVD, Negative Carotid Bruits Lungs: Air entry very diminished in both lungs. Bilateral lower lobes expiratory wheezing and rhonchi.. Labored breathing. Cardiovascular: Sinus rhythm, Normal S1, Normal S2, No murmurs Abdomen: Bowel Sounds Present, Soft, Non Tender, Non-Distended : No renal angle tenderness. No suprapubic tenderness. Extremities: Bilateral lower extremity lymphedema, Capillary Refill Less than 3 Seconds Skin: Superficial weeping area with crusting, chronic fibrosis and lymphedema. Dressing with Vargas wrap bandage on. Musculoskeletal: Mild tenderness to the soft tissue of both lower legs. ROM restricted. Muscle strength 3+/5 at knee and hip joints bilaterally. Neurological: Cranial nerves II-XII grossly intact, DTR 2+/4 and Symmetrical, Neuro grossly intact Psych/Mental Status: Flat affect. Assessment & Plan Assessment/Plan (1) Acute exacerbation of chronic obstructive pulmonary disease: (2) Cellulitis of both lower extremities: PLAN: This 66-year-old question gentleman with multiple comorbidities is being admitted for bilateral lower extremity cellulitis with lymphedema and, along with increasing cough, shortness of breath and tachypnea suggestive of COPD exacerbation 1. Bilateral lower extremity cellulitis with chronic lymphedema, fibrosis and crusting: Patient is being admitted [facility]. Venous duplex is negative for acute DVT of both lower extremities. Blood cultures x2 ordered. Wound care nurse consult. Continue vancomycin and Zosyn started in ED. MRSA nasal screen. At bedtime patient follows wound clinic last visit was made 2021. Patient is not showing signs or symptoms of sepsis therefore sepsis ruled out. 02/03: Wound nurse, surgeon note reviewed, less maceration. Patient has weeping area of light yellow discharge. Dressing was changed. Prelim wound culture shows gram-negative ava and gram-positive organism. Urine culture mixed organi sm sensitive of contamination. MRSA PCR negative. 02/04: Prelim wound culture shows gram-negative ava, lactose automatic clipper and stripper, staph species. Continue broad-spectrum antibiotic until specific bacterial [place] ntification and sensitivity are available. 2. COPD exacerbation, chronic hypoxic respiratory failure on 4 L of home oxygen, chronic smoker, nicotine dependence with history of lung nodule: Patient had PFT in October 2021 reported as partially reversible very severe mixed ventilatory defect with symmetric reduction of DLCO, 34%. FEV1 32% predicted with significant bronchodilator response. Last pulmonary clinic visit in November 2021. Patient inhaler regimen was upgraded to triple therapy, Spiriva was added to Symbicort. Patient also has a lung nodule, low-dose CT lung screening scheduled for 10/30/2022. Started on DuoNeb every 4 hourly, RT, Solu-Medrol, incentive spirometry Pep and azithromycin. Rapid COVID antigen negative. Flu antigen negative and if that also comes negative will order respiratory panel. Chest x-ray suggestive of peribronchial cuffing possible viral infection. 02/03: Flu antigen negative. Respiratory panel ordered. Patient has mild tachypnea, shortness of breath and labored breathing although better than yesterday. Continue present treatment. 02/04: Patient remained short of breath, labored breathing, dyspneic using accessory muscles. Patient refused for BiPAP. ABG and repeat chest x-ray ordered. Documented on 5 L of oxygen since admission. ABG 7.30/97/74 at 5 L of oxygen. Discussed with the beam builder Dr. Pérez and respiratory therapist. ried to convince the patient, he might went into ventilatory failure if does not put on BiPAP/NIPPV because of respiratory muscle fatigue. Initially patient refused but tried to convince to give Ativan and then try BiPAP. If cannot tolerate BiPAP than CPAP or Airvo. We will try to keep pulse ox 88 to 92% to avoid or decrease respiratory drive. 3. Chronic HFpEF: BNP 411. Chest x-ray not typical of pulmonary congestion. Last echo shows EF 55 to 60%, severe pulmonary hypertension. Continue Plavix, metoprolol, isosorbide mononitrate, atorvastatin and losartan. 4. Coronary artery status post stent about 10 years ago, hypertension, anxiety and depression on trazodone limited physical capacity due to bilateral lower extremity lymphedema: Home medication reconciliation done. PT and OT ordered. Total time of the visit including total time spent in counseling or coordination of care, (more than 50% of the total time, spent in obtaining medical information from nurses and other ancillary care providers,explaining to the patient about labs, imaging, diagnosis and management), discussion with beam builder respiratory therapist, review of medical record and office visits, review of labs, blood gas and imaging is 40 minutes. Living will/advanced directive/end of life care: Patient does have living will or advanced directive. His is power of office chair assembler for health after discussi on of benefits/risks procedures involved with full code, DNR CC arrest and DNR CC, the patient opted for DNRCC arrest with no intubation Patient doesn't want artificial life support including intubation, tube feed, ventilator and/chest compression, central venous catheter, vasopressor and DC shock if needed Total time spent in [id number] encounter in discussion of advanced directive 16 minutes. Microbiology Past 72 Hours 02/02/22 10:05 Wound - Leg Gram Stain - Final 02/02/22 10:05 Wound - Leg Wound Culture - Preliminary Gram negative ava GNR lactose automatic clipper and stripper Staphylococcus species 02/03/22 09:02 Mucosa - Nose Respiratory Panel (PCR) - Final 02/02/22 09:25 Urine, Clean Catch Urine Culture - Final Mixed Gram Pos & Gram Neg Org 02/02/22 13:10 Mucosa - Nasopharyngeal Influenza Types A,B Direct FA (TAMIKA) - Final 02/02/22 09:02 Nasal Secretion SARS-CoV-2 Antigen (Rapid) - Final Laboratory Results 02/03/22 23:05: Vancomycin Trough 13.5 02/04/22 05:57: WBC 9.3, RBC 5.49, Hgb 16.4, Hct 53.8, MCV 98.0 H, MCH 29.9, MCHC 30.5 L, RDW Std Deviation 47.8 H, RDW Coeff of Artemio 13.2, Plt Count 111 L, MPV 9.7, Immature Gran % (Auto) 0.300, Neut % (Auto) 93.4 H, Lymph % (Auto) 3.3 L, [place] % (Auto) 3.0, Eos % (Auto) 0.0, Baso % (Auto) 0.0, Absolute Neuts (auto) 8.7 H, Absolute Lymphs (auto) 0.31 L, Nucleated RBC % 0, Differential Comment SCANNED 02/04/22 05:57: Sodium 134 L, Potassium 4.6, Chloride 90 L, Carbon Dioxide > 45.0 H*, Anion Gap TNP, BUN 25 H, Creatinine 0.72, Estim Creat Clear Calc 68.40, Est GFR (MDRD) Af Amer 139, Est GFR (MDRD) Non-Af 115, BUN/Creatinine Ratio 34.6 H, Glucose 155 H, Calcium 8.3 L Charges/Coding Visit Charges Inpatient E&M: 36005 Subs Hosp L3
[2022-02-04] MEDS: Isosorbide Mononitrate 60 MG Tablet PO (09:54)
[2022-02-04] MEDS: Metoprolol Tartrate 25 MG Tablet PO ×2 (09:54→21:59)
[2022-02-04] MEDS: guaiFENesin 1,200 MG Tablet 1200 MG PO ×2 (09:54→21:58)
--- NOTE | 2022-02-04 09:54 | CPS ---
critical value on abg. Charge nurse Aretha notified of critical value. also dr ross.
[2022-02-04] MEDS: Azithromycin 250 MG Tablet 500 MG PO (09:55)
[2022-02-04] MEDS: Clopidogrel Bisulfate 75 MG Tablet PO (09:55)
--- NOTE | 2022-02-04 09:55 | CPS ---
patient has critical co2 levels but refuses to use bipap. Patient asked multiple times if he would use it to help lower his co2 but he adamantly said he did not want it
[2022-02-04] MEDS: LORazepam 1 MG Tablet PO (10:35)
--- NOTE | 2022-02-04 10:41 | CPS ---
patient continuing to refuse bipap and cpap. Will try again once patient calms down
[2022-02-04] MEDS: Vancomycin IV 1,000 MG/200 ML BAG 200 MG IV ×2 (11:51→22:32)
[2022-02-04 12:10] LABS: Allen Test Positive; Base Excess 22 mmol/L (-2 to +2); Bicarbonate 48.6 mmol/L (22-26); Blood Gas Specimen Type ART; O2 Delivery Device Cannula; PO2 74 mmHG (75-100); SITE R Radial; SO2 91 % (95-99); Total Carbon Dioxide > 50 mmol/L; pCO2 97.8 mmHg (35-45)
[2022-02-04] MEDS: traZODone 50 MG Tablet 150 MG PO (21:58)
[2022-02-04] MEDS: Atorvastatin Calcium 80 MG Tablet PO (21:58)
[2022-02-04] MEDS: LORazepam 0.5 MG Tablet PO (22:56)
[2022-02-05] VITALS (22 sets, daily range): BP systolic 135–146; BP diastolic 72–90; PULSE 59–87; RESP 12–24; TEMP 36.2–36.9; O2SAT 85–96
[2022-02-05] MEDS: Ipratropium/Albuterol Sulfate 3 ML AMPUL.NEB INHALATION ×6 (03:00→23:40)
[2022-02-05] MEDS: 0.9% Saline Lock 10 ML Syringe IV ×2 (05:51→21:42)
[2022-02-05 06:27] LABS: Absolute Lymphocyte Count 0.33 X10^3/uL (0.83-4.51); Absolute Neutrophil Count 5.7 X10^3/uL (2.0-7.7); Hematocrit 51.3 % (40-54); Hemoglobin 15.6 g/dL (13.0-16.5); Lymphocyte # 0.33 X10^3/ul (0.83-4.51); Lymphocyte % 5.2 % (19-41); Mean Corp Hgb Conc 30.4 g/dL (32-36); Mean Corpuscular Hgb 29.7 pg (27.0-32.0); Mean Corpuscular Volume 97.7 fL (80-94); Mean Platelet Vol. 10.2 fl (6.2-12.0); Monocyte% 4.7 % (0-10); NRBC Flagged by Analyzer 0 % (0-5); Neutrophil # 5.74 X10^3/uL (2.7-7.7); Neutrophil % 89.6 % (47-70); POSITIVE COUNT YES; POSITIVE DIFFERENTIAL YES; Platelet Count 97 K/mm3 (150-450); RBC Distribution Width CV 13.2 % (11.6-14.6); RBC Distribution Width SD 48.1 fl (35.1-43.9); Red Blood Count 5.25 M/mm3 (4.6-6.2); White Blood Count 6.4 K/mm3 (4.4-11.0)
[2022-02-05 06:33] LABS: Differential Indicated SCAN CRITERIA MET
[2022-02-05 06:59] LABS: Differential Comment SCANNED
[2022-02-05 07:19] LABS: BUN 25 mg/dL (7-18); BUN/Creat Ratio 38.1 RATIO (10-20); Calcium,Total 8.4 mg/dL (8.5-10.1); Carbon Dioxide > 45.0 mmol/L (21.0-32.0); Chloride 89 mmol/L (98-107); Creatinine, Serum 0.66 mg/dL (0.70-1.30); EST Glomerular Filtration Rate 128 mL/min (>60); Est Glom Filt Rate - Afr Amer 155 mL/min (>60); Glucose 159 mg/dL (74-106); Potassium 4.4 mmol/L (3.5-5.1); Sodium Level 135 mmol/L (136-145)
--- NOTE | 2022-02-05 07:27 | PCM.PN.HOSP ---
Subjective Subjective Patient is a 66-year-old gentleman with multiple comorbidities admitted with bilateral lower extremity swelling in the setting of chronic lymphedema as well as progressive shortness of breath Objective Data Objective Data Vital Signs: Vital Signs Temp Pulse Resp BP Pulse Ox O2 Del Method O2 Flow Rate 98.5 F 81 17 135/90 H 93 Nasal Cannula 6 02/05/22 03:45 02/05/22 07:14 02/05/22 07:14 02/05/22 03:45 02/05/22 07:14 02/05/22 07:14 02/05/22 07:14 FiO2 45 02/05/22 05:25 Oxygen Flow Rate (L/min) 6 Oxygen Delivery Method Nasal Cannula Weight: 109.18 kg Body Mass Index (BMI) 36.6 Intake & Output: Intake and Output for Last 24 Hours 02/03/22 02/04/22 02/05/22 23:59 23:59 23:59 Intake Total 1381.25 / 1381.25 768.75 / 968.75 450 / 450 Output Total 900 / 900 250 / 575 525 / 525 Balance 481.25 / 481.25 518.75 / 393.75 -75 / -75 Lab / Micro Data Result Diagrams: 02/05/22 06:04 02/05/22 06:04 Labs: Laboratory Results - last 24 hr 02/05/22 06:04: WBC 6.4, RBC 5.25, Hgb 15.6, Hct 51.3, MCV 97.7 H, MCH 29.7, MCHC 30.4 L, RDW Std Deviation 48.1 H, RDW Coeff of Artemio 13.2, Plt Count 97 L, MPV 10.2, Immature Gran % (Auto) 0.500, Neut % (Auto) 89.6 H, Lymph % (Auto) 5.2 L, [place] % (Auto) 4.7, Eos % (Auto) 0.0, Baso % (Auto) 0.0, Absolute Neuts (auto) 5.7, Absolute Lymphs (auto) 0.33 L, Nucleated RBC % 0, Differential Comment SCANNED 02/05/22 06:04: Sodium 135 L, Potassium 4.4, Chloride 89 L, Carbon Dioxide > 45.0 H*, Anion Gap TNP, BUN 25 H, Creatinine 0.66 L, Estim Creat Clear Calc 68.40, Est GFR (MDRD) Af Amer 155, Est GFR (MDRD) Non-Af 128, BUN/Creatinine Ratio 38.1 H, Glucose 159 H, Calcium 8.4 L Micro: Microbiology 02/02/22 10:13 Blood Culture (Wb) - Right Wrist Blood Culture - Preliminary No growth in 48 hours. 02/02/22 08:55 Blood Culture (Wb) - Left Forearm Blood Culture - Preliminary No growth in 48 hours. 02/02/22 10:05 Wound - Leg Gram Stain - Final 02/02/22 10:05 Wound - Leg Wound Culture - Preliminary Gram negative ava GNR lactose runstitching machine operator Staphylococcus species 02/03/22 09:02 Mucosa - Nose Respiratory Panel (PCR) - Final 02/02/22 09:25 Urine, Clean Catch Urine Culture - Final Mixed Gram Pos & Gram Neg Org 02/02/22 13:10 Mucosa - Nasopharyngeal Influenza Types A,B Direct FA (TAMIKA) - Final 02/02/22 09:02 Nasal Secretion SARS-CoV-2 Antigen (Rapid) - Final ABG Data ABG results: ABG 02/04/22 09:37 Specimen Type ART Sample Site R Radial pH 7.30 L Bicarbonate Actual 48.6 H Total CO2 > 50 Base Excess 22 H O2 Saturation 91 L ABG pCO2 97.8 H* ABG pO2 74 L Daniel Test Positive O2 Delivery Device Cannula Liter Flow 5.0 Crit Call To/Read Back Yes Radiography Diagnostic Testing: Radiology Impression Chest X-Ray 02/04/22 08:35 IMPRESSION: Bilateral increased markings/interstitial infiltrates slightly improved Electronically Signed: Bill Gilman MD at 10:50 EDT , Physical Exam Narrative GENERAL:, Dyspneic at rest, with jerky movements at rest HEENT: Atraumatic; EYES; Anicteric, Normal Conjunctiva NECK; supple, normal thyroid, RESPIRATORY: Diminished to auscultation CARDIOVASCULAR: Regular S1 S2, GI: soft, normoactive bowel sounds, : No Renal angle tenderness; EXTREMITIES: Lower extremities Vargas wrapped MUSCULOSKELETAL: no muscle wasting NEURO: Awake; no lateralizing signs. SKIN: Erythema and chronic lymphedema involving both lower extremities PSYCH; Flat affect Assessment & Plan Assessment/Plan (1) Acute exacerbation of chronic obstructive pulmonary disease: (2) Cellulitis of both lower extremities: PLAN: Patient is a 66-year-old gentleman with multiple comorbidities admitted with bilateral lower extremity swelling in the setting of chronic lymphedema as well as progressive shortness of breath 1. Bilateral lower extremity cellulitis secondary to polymicrobial organisms (listed below) ? Superimposed on chronic bilateral lymphedema. Cultures positive Proteus hauseri, Citrobacter freundii, Staphylococcus aureus. Patient managed with broad-spectrum antibiotic therapy with vancomycin and Zosyn. Discontinued started on cefepime and doxycycline. Consult placed to wound care nurse 2. Acute hypercapnic respiratory failure secondary to COPD exacerbation ? ABGs ordered and demonstrated respiratory acidosis with significant hypercarbia. Patient is symptomatic with tremors. Order placed for patient to be placed on noninvasive ventilation BiPAP. Consult placed to pulmonary medicine on admission. 3. Acute on chronic hypoxic respiratory failure ? Management as discussed above 4. COPD with acute exacerbation ? Patient managed with Solu-Medrol, bronchodilator treatments in addition to management as discussed above with consultation placed to pulmonary medicine 5. Severe pulmonary hypertension ? Contributing to patient dyspnea 6. Chronic congestive heart failure with preserved ejection fraction ?2D echo obtained on 07/30/2021 demonstrated EF of 55 to 60% with evidence of severe pulmonary hypertension 7. Hypertension - Blood pressure controlled, home medications continued with dose adjustment as needed 8. Coronary artery disease ? With previous PCI patient is on antiplatelet therapy with clopidogrel, atorvastatin and nitrates 9. Dyslipidemia -Patient is on statin therapy, continued at home dose 10. Thrombocytopenia ? Medication induced?? Zosyn discontinued monitoring with daily CBCs 11. DVT prophylaxis ? Avoiding the use of chemoprophylaxis in view of patient's worsening thrombocytopenia 12. Physical deconditioning - Requested for PT OT eval and adoption social worker to assist with discharge planning Charges/Coding Visit Charges Inpatient E&M: 45619 Subs Hosp L3
[2022-02-05] MEDS: Menthol/Lanolin/Calamine/Znox 113 GM Tube 1 APPLIC TOPICAL ×2 (08:15→21:45)
[2022-02-05] MEDS: guaiFENesin 1,200 MG Tablet 1200 MG PO ×2 (08:16→21:45)
[2022-02-05] MEDS: Metoprolol Tartrate 25 MG Tablet PO ×2 (08:16→21:44)
[2022-02-05] MEDS: Juven (unflavored) Packet 1 PACKET PO (08:16)
[2022-02-05] MEDS: Nystatin Powder 15gm Bottle 1 APPLIC TOPICAL ×2 (08:17→21:45)
[2022-02-05] MEDS: Isosorbide Mononitrate 60 MG Tablet PO (08:17)
[2022-02-05] MEDS: Clopidogrel Bisulfate 75 MG Tablet PO (08:17)
--- NOTE | 2022-02-05 09:06 | CPS ---
critical value on patients abg. bee raiser marie and dr mosley notified
--- NOTE | 2022-02-05 09:07 | CPS ---
pt placed on bipap due to critical co2
[2022-02-05] MEDS: Doxycycline 100 MG CAPSULE PO ×2 (10:20→21:44)
[2022-02-05 11:40] LABS: Vancomycin, Trough Level 15.9 ug/mL (5.0-15.0)
[2022-02-05 12:03] LABS: Allen Test Positive; Base Excess 21 mmol/L (-2 to +2); Bicarbonate 47.7 mmol/L (22-26); Blood Gas Specimen Type ART; O2 Delivery Device Cannula; PO2 69 mmHG (75-100); SITE R Radial; SO2 90 % (95-99); Total Carbon Dioxide > 50 mmol/L; pCO2 96.2 mmHg (35-45)
[2022-02-05] MEDS: LORazepam 0.5 MG Tablet PO (14:13)
[2022-02-05] MEDS: traZODone 50 MG Tablet 150 MG PO (21:44)
[2022-02-05] MEDS: Atorvastatin Calcium 80 MG Tablet PO (21:45)
--- NOTE | 2022-02-05 21:47 | NURSING ---
Patient refusing to wear bipap tonight. This RN reminded patient that he wore it last night and did well with it after ativan was given. Patient still refusing.
[2022-02-06] VITALS (17 sets, daily range): BP systolic 123–158; BP diastolic 58–80; PULSE 64–78; RESP 12–26; TEMP 35.7–36.6; O2SAT 92–96
[2022-02-06] MEDS: LORazepam 0.5 MG Tablet PO (02:05)
[2022-02-06] MEDS: Ipratropium/Albuterol Sulfate 3 ML AMPUL.NEB INHALATION ×5 (02:40→22:54)
[2022-02-06] MEDS: 0.9% Saline Lock 10 ML Syringe IV ×2 (06:14→23:43)
[2022-02-06 06:29] LABS: Absolute Lymphocyte Count 0.32 X10^3/uL (0.83-4.51); Absolute Neutrophil Count 5.6 X10^3/uL (2.0-7.7); Differential Indicated SCAN CRITERIA MET; Hematocrit 53.1 % (40-54); Hemoglobin 16.3 g/dL (13.0-16.5); Lymphocyte # 0.32 X10^3/ul (0.83-4.51); Lymphocyte % 5.1 % (19-41); Mean Corp Hgb Conc 30.7 g/dL (32-36); Mean Corpuscular Hgb 29.4 pg (27.0-32.0); Mean Corpuscular Volume 95.8 fL (80-94); Mean Platelet Vol. 9.4 fl (6.2-12.0); Monocyte# 0.27 X10^3/uL; Monocyte% 4.3 % (0-10); NRBC Flagged by Analyzer 0 % (0-5); Neutrophil # 5.61 X10^3/uL (2.7-7.7); Neutrophil % 90.1 % (47-70); POSITIVE COUNT YES; POSITIVE DIFFERENTIAL YES; Platelet Count 91 K/mm3 (150-450); RBC Distribution Width CV 13.2 % (11.6-14.6); Red Blood Count 5.54 M/mm3 (4.6-6.2); White Blood Count 6.2 K/mm3 (4.4-11.0)
[2022-02-06 06:51] LABS: BUN 22 mg/dL (7-18); BUN/Creat Ratio 33.5 RATIO (10-20); Calcium,Total 8.4 mg/dL (8.5-10.1); Carbon Dioxide > 45.0 mmol/L (21.0-32.0); Chloride 88 mmol/L (98-107); Creatinine, Serum 0.66 mg/dL (0.70-1.30); EST Glomerular Filtration Rate 128 mL/min (>60); Est Glom Filt Rate - Afr Amer 155 mL/min (>60); Glucose 163 mg/dL (74-106); Potassium 4.3 mmol/L (3.5-5.1); Sodium Level 135 mmol/L (136-145)
[2022-02-06 06:52] LABS: Macrocytosis 1+; Platelet Estimate MOD DEC (ADEQ)
--- NOTE | 2022-02-06 07:28 | PCM.PN.HOSP ---
Subjective Subjective Patient has been weaned off BiPAP less jerky movement compared to the day prior. Consult placed to patient electric scoop operator Dr. Richy Redd Objective Data Objective Data Vital Signs: Vital Signs Temp Pulse Resp BP Pulse Ox O2 Del Method O2 Flow Rate 97.0 F L 69 17 140/73 H 95 Bi-pap 5 02/06/22 06:18 02/06/22 06:18 02/06/22 06:18 02/06/22 06:18 02/06/22 06:18 02/06/22 06:18 02/05/22 21:58 FiO2 45 02/06/22 05:25 Oxygen Flow Rate (L/min) 5 Oxygen Delivery Method Bi-pap Weight: 109.18 kg Body Mass Index (BMI) 36.6 Intake & Output: Intake and Output for Last 24 Hours 02/04/22 02/05/22 02/06/22 23:59 23:59 23:59 Intake Total 768.75 / 968.75 688.75 / 888.75 200 / 200 Output Total 250 / 575 725 / 975 450 / 450 Balance 518.75 / 393.75 -36.25 / -86.25 -250 / -250 Lab / Micro Data Result Diagrams: 02/06/22 05:13 02/06/22 05:13 Labs: Laboratory Results - last 24 hr 02/05/22 10:59: Vancomycin Trough 15.9 H 02/06/22 05:13: WBC 6.2, RBC 5.54, Hgb 16.3, Hct 53.1, MCV 95.8 H, MCH 29.4, MCHC 30.7 L, RDW Std Deviation 47.0 H, RDW Coeff of Artemio 13.2, Plt Count 91 L, MPV 9.4, Immature Gran % (Auto) 0.500, Neut % (Auto) 90.1 H, Lymph % (Auto) 5.1 L, [place] % (Auto) 4.3, Eos % (Auto) 0.0, Baso % (Auto) 0.0, Absolute Neuts (auto) 5.6, Absolute Lymphs (auto) 0.32 L, Nucleated RBC % 0, Platelet Estimate MOD DEC, Macrocytosis 1+ 02/06/22 05:13: Sodium 135 L, Potassium 4.3, Chloride 88 L, Carbon Dioxide > 45.0 H*, Anion Gap TNP, BUN 22 H, Creatinine 0.66 L, Estim Creat Clear Calc 68.40, Est GFR (MDRD) Af Amer 155, Est GFR (MDRD) Non-Af 128, BUN/Creatinine Ratio 33.5 H, Glucose 163 H, Calcium 8.4 L Micro: Microbiology 02/02/22 10:05 Wound - Leg Gram Stain - Final 02/02/22 10:05 Wound - Leg Wound Culture - Final Proteus hauseri Citrobacter freundii Staphylococcus aureus 02/02/22 10:13 Blood Culture (Wb) - Right Wrist Blood Culture - Preliminary No growth in 48 hours. 02/02/22 08:55 Blood Culture (Wb) - Left Forearm Blood Culture - Preliminary No growth in 48 hours. 02/03/22 09:02 Mucosa - Nose Respiratory Panel (PCR) - Final 02/02/22 09:25 Urine, Clean Catch Urine Culture - Final Mixed Gram Pos & Gram Neg Org 02/02/22 13:10 Mucosa - Nasopharyngeal Influenza Types A,B Direct FA (TAMIKA) - Final 02/02/22 09:02 Nasal Secretion SARS-CoV-2 Antigen (Rapid) - Final ABG Data ABG results: ABG 02/05/22 08:51 Specimen Type ART Sample Site R Radial pH 7.30 L Bicarbonate Actual 47.7 H Total CO2 > 50 Base Excess 21 H O2 Saturation 90 L ABG pCO2 96.2 H* ABG pO2 69 L Daniel Test Positive O2 Delivery Device Cannula Liter Flow 5.0 Crit Call To/Read Back Yes Physical Exam Narrative GENERAL:, Still has some dyspnea at rest HEENT: Atraumatic; EYES; Anicteric, Normal Conjunctiva NECK; supple, normal thyroid, RESPIRATORY: Diminished to auscultation CARDIOVASCULAR: Regular S1 S2, GI: soft, normoactive bowel sounds, : No Renal angle tenderness; EXTREMITIES: Lower extremities Vargas wrapped MUSCULOSKELETAL: no muscle wasting NEURO: Awake; no lateralizing signs. SKIN: Erythema and chronic lymphedema involving both lower extremities PSYCH; Flat affect Assessment & Plan Assessment/Plan (1) Acute exacerbation of chronic obstructive pulmonary disease: (2) Cellulitis of both lower extremities: PLAN: Patient is a 66-year-old gentleman with multiple comorbidities admitted with bilateral lower extremity swelling in the setting of chronic lymphedema as well as progressive shortness of breath 1. Bilateral lower extremity cellulitis secondary to polymicrobial organisms (listed below) ? Superimposed on chronic bilateral lymphedema. Cultures positive Proteus hauseri, Citrobacter freundii, Staphylococcus aureus. Patient managed with broad-spectrum antibiotic therapy with vancomycin and Zosyn. Discontinued started on cefepime and doxycycline. Consult placed to wound care nurse 2. Acute hypercapnic respiratory failure secondary to COPD exacerbation ? ABGs ordered and demonstrated respiratory acidosis with significant hypercarbia. Patient is symptomatic with tremors. Order placed for patient to be placed on noninvasive ventilation BiPAP. -02/06/2022; Patient has been weaned off BiPAP less jerky movement compared to the day prior. Consult placed to patient electric scoop operator Dr. iRchy Redd 3. Acute on chronic hypoxic respiratory failure ? Management as discussed above 4. COPD with acute exacerbation ? Patient managed with Solu-Medrol, bronchodilator treatments in addition to management as discussed above with consultation placed to pulmonary medicine 5. Severe pulmonary hypertension ? Contributing to patient dyspnea 6. Chronic congestive heart failure with preserved ejection fraction ?2D echo obtained on 07/30/2021 demonstrated EF of 55 to 60% with evidence of severe pulmonary hypertension 7. Hypertension - Blood pressure controlled, home medications continued with dose adjustment as needed 8. Coronary artery disease ? With previous PCI patient is on antiplatelet therapy with clopidogrel, atorvastatin and nitrates 9. Dyslipidemia -Patient is on statin therapy, continued at home dose 10. Thrombocytopenia ? Medication induced?? Zosyn discontinued monitoring with daily CBCs 11. DVT prophylaxis ? Avoiding the use of chemoprophylaxis in view of patient's worsening thrombocytopenia 12. Physical deconditioning - Requested for PT OT eval and high school social studies tutor to assist with discharge planning Charges/Coding Visit Charges Inpatient E&M: 58211 Subs Hosp L2
[2022-02-06] MEDS: Nystatin Powder 15gm Bottle 1 APPLIC TOPICAL ×2 (08:02→23:39)
[2022-02-06] MEDS: Menthol/Lanolin/Calamine/Znox 113 GM Tube 1 APPLIC TOPICAL ×2 (08:02→23:39)
[2022-02-06] MEDS: guaiFENesin 1,200 MG Tablet 1200 MG PO ×2 (08:03→23:37)
[2022-02-06] MEDS: Doxycycline 100 MG CAPSULE PO ×2 (08:03→23:38)
[2022-02-06] MEDS: Isosorbide Mononitrate 60 MG Tablet PO (08:03)
[2022-02-06] MEDS: Clopidogrel Bisulfate 75 MG Tablet PO (08:03)
[2022-02-06] MEDS: Metoprolol Tartrate 25 MG Tablet PO ×2 (08:03→23:38)
[2022-02-06] MEDS: Juven (unflavored) Packet 1 PACKET PO ×2 (08:04→15:58)
--- NOTE | 2022-02-06 08:48 | EX.PCM.CONCC ---
Assessment & Plan Assessment/Plan (1) Chronic obstructive pulmonary disease: QUALIFIERS: COPD type: unspecified COPD Qualified Code(s): J44.9 - Chronic obstructive pulmonary disease, unspecified (2) Chronic hypoxemic respiratory failure: PLAN: Plan RECOMMENDATIONS: 1. Continue to wean oxygen as tolerated. 2. Continue antibiotics to address cellulitis per hospitalist. 3. Continue bronchodilators and steroids. 4. Attempt gentle diuresis with IV Lasix x1. 5. Continue PAP therapy with naps and nightly. 6. Encourage incentive spirometer use and mobilize patient as tolerated. IMPRESSIONS: 1. End-stage COPD/chronic combined respiratory failure/pulmonary hypertension The patient has known end-stage COPD and chronic hypoxemic respiratory failure. In addition, the patient continues to smoke cigarettes daily. He has chronic CO2 retention, which is not acutely worse than his baseline. He is already on maximum inhaler therapy on an outpatient basis. It is reasonable to continue bronchodilators and steroids. I spoke to the patient about the possibility of adding noninvasive positive pressure ventilatory support to his home regimen. Nevertheless, the patient was insistent that he would not be willing to utilize any form of PAP therapy. I am going to provide the patient with a one-time dose of IV Lasix today, given his underlying pulmonary hypertension. Otherwise, the patient is stable from a respiratory perspective. 2. Lower extremity cellulitis Continue antimicrobial treatment per hospitalist. 3. Obesity/hypertension/coronary artery disease/hyperlipidemia/chronic tobacco dependency Complicates care, management, recovery and prognosis. Continue home medications as indicated. I personally spent 3 minutes discussing the deleterious effects of continued tobacco use with the patient, including modalities which could be utilized to achieve a smoke-free lifestyle. Nicotine replacement therapy can be offered to the patient while admitted to the hospital. This note was generated with [employer] dictation software. It may contain incorrect words, spelling, and punctuation that were not noted in checking the note before signing. HPI Consult Data Date of Consult: 02/06/22 HPI Narrative Reason for Consultation: COPD HPI Narrative: The patient is a 66-year-old male, with a history as outlined below, who presented to the emergency department on February 02 with cough, shortness of breath, lower extremity edema and pain. The patient has known end-stage COPD along with chronic hypoxemic respiratory failure with a baseline oxygen requirement of 3 L at rest and 4 L with exertion. He is already on a triple therapy inhaler regimen as an outpatient. The patient has an extensive tobacco abuse history and continues to smoke 1 pack of cigarettes per day. On presentation to the emergency department, the patient was noted to be afebrile and hemodynamically stable. However, he was notably tachycardic and tachypneic. Initial laboratory evaluation revealed no evidence of a leukocytosis. Platelet count was low at 135,000. Chemistry profile was notable for an elevated serum bicarbonate with normal creatinine. Lactate was within normal limits. BNP was elevated at 411. Urinalysis was unremarkable. MRSA screen was positive. Lower extremity Doppler studies were negative for DVT. Chest x-ray showed no acute cardiopulmonary process. Echocardiogram was completed on February 02 and demonstrated normal LV size and function with an ejection fraction of 55 to 60%. Pulmonary artery systolic pressure was estimated to be 80 mmHg. The patient had a severely dilated RV. The patient has been maintained on antimicrobials, bronchodilators and steroids. Lastly, the patient has chronic CO2 retention with ABG completed on February 05 demonstrating a pH of 7.3 with a PCO2 of 96 and PO2 of 69 on 5 L/min of supplemental oxygen. [facility] Medical History (HFpEF) heart failure with preserved ejection fraction Bilateral lower extremity edema CAD (coronary artery disease) Cellulitis of left lower extremity without foot COPD (chronic obstructive pulmonary disease) COPD (chronic obstructive pulmonary disease) HTN (hypertension) Hyperlipemia Lymphedema Morbid obesity Pneumonia Sleep apnea Stasis leg ulcer Tobacco abuse disorder Ulcer of left calf Ulcer of right lower extremity with fat layer exposed Wound infection Home Medications atorvastatin 80 mg tablet 80 mg PO QHS cholesterol 04/18/13 [History Last Taken 07/28/21] clopidogrel 75 mg tablet 75 mg PO DAILY anti platelet 04/18/13 [History Last Taken 02/02/22] albuterol sulfate 90 mcg/actuation aerosol inhaler 1 - 2 puff inhalation Q4H PRN PRN Dyspnea 10/31/16 [History Last Taken 02/02/22] trazodone 150 mg tablet 150 mg PO QHS sleep 10/31/16 [History Last Taken 07/28/21] budesonide-formoterol HFA 160 mcg-4.5 mcg/actuation aerosol inhaler 2 puff inhalation BID SOB/wheezing 08/07/19 [History Last Taken 02/02/22] ipratropium 0.5 mg-albuterol 3 mg (2.5 mg base)/3 mL nebulization soln 3 ml inhalation Q4H SOB/wheezing 07/29/21 [History Last Taken 07/28/21] isosorbide mononitrate 60 mg tablet,extended release 24 hr 60 mg PO DAILY heart 07/29/21 [History Last Taken 02/02/22] metoprolol tartrate 25 mg tablet 25 mg PO BID blood pressure/heart rate 07/29/21 [History Last Taken 02/02/22] tiotropium 2.5 mcg-olodaterol 2.5 mcg/actuation mist for inhalation (Stiolto Respimat) 2 inh inhalation DAILY breathing 02/02/22 [History Last Taken 02/02/22] Allergy/AdvReac Type Severity Reaction Status Date / Time benzonatate Allergy rash hives Verified 02/02/22 11:31 [From Tessalon Perles] chlorpheniramine polistirex AdvReac Rash Verified 02/02/22 08:17 [From Tussionex] hydrocodone polistirex AdvReac Rash Verified 02/02/22 08:17 [From Tussionex] latex AdvReac Rash & Verified 02/02/22 08:17 Hives levofloxacin [From Levaquin] AdvReac Rash Verified 02/02/22 08:17 Surgical History H/O heart artery stent Social History housing: house pets and animals: Yes pets and animals: cat(s) Smoking Status: Current every day smoker tobacco type: cigarettes alcohol intake: never ROS Constitutional Constitutional: Reports fatigue; Denies chills or fever(s) Eyes Eyes: Denies blurry vision or change in vision ENT HEENT: Denies dizziness, dysphagia, epistaxis or headache(s) Cardiovascular Cardiovascular: Reports dyspnea and edema; Denies chest pain or dizziness Respiratory/Chest Respiratory/Chest: Reports dyspnea; Denies cough Gastrointestinal Gastrointestinal: Denies abdominal pain, diarrhea, nausea or vomiting Genitourinary Genitourinary: Denies difficulty urinating Musculoskeletal Musculoskeletal: Denies myalgias Integumentary Integumentary: Denies lesions or rash Neurologic Neurologic: Denies abnormal gait or abnormal speech Psychiatric Psychiatric: Denies anxiety or depression Endocrine Endocrinology: Reports fatigue Hematologic/Lymphatic Hematologic/Lymphatic: Denies easy bleeding or easy bruising Physical Exam Const alert and no apparent distress Constitutional Narrative: Sitting in bedside recliner. Nutritional Appearance: obese HEENT normocephalic and head/scalp atraumatic Eyes PERRL and EOMs intact bilaterally Neck supple General: trachea midline Chest inspection of chest normal Resp normal respiratory effort Auscultation: diminished lung sounds Cardio regular rate and regular rhythm GI normal to inspection, nondistended, normoactive bowel sounds Extremity Extremity Narrative: Wrapped lower extremities General Extremity: edema Skin General Skin Exam: venous stasis and dermatitis Neuro CN's II-XII intact bilaterally and no focal motor deficits Psych Mood & Affect: flat affect Lab / Micro Data Result Diagrams: 02/06/22 05:13 02/06/22 05:13 Labs: Laboratory Results - last 24 hr 02/05/22 10:59: Vancomycin Trough 15.9 H 02/06/22 05:13: WBC 6.2, RBC 5.54, Hgb 16.3, Hct 53.1, MCV 95.8 H, MCH 29.4, MCHC 30.7 L, RDW Std Deviation 47.0 H, RDW Coeff of Artemio 13.2, Plt Count 91 L, MPV 9.4, Immature Gran % (Auto) 0.500, Neut % (Auto) 90.1 H, Lymph % (Auto) 5.1 L, Bro[place] % (Auto) 4.3, Eos % (Auto) 0.0, Baso % (Auto) 0.0, Absolute Neuts (auto) 5.6, Absolute Lymphs (auto) 0.32 L, Nucleated RBC % 0, Platelet Estimate MOD DEC, Macrocytosis 1+ 02/06/22 05:13: Sodium 135 L, Potassium 4.3, Chloride 88 L, Carbon Dioxide > 45.0 H*, Anion Gap TNP, BUN 22 H, Creatinine 0.66 L, Estim Creat Clear Calc 68.40, Est GFR (MDRD) Af Amer 155, Est GFR (MDRD) Non-Af 128, BUN/Creatinine Ratio 33.5 H, Glucose 163 H, Calcium 8.4 L Micro: Microbiology 02/02/22 10:05 Wound - Leg Gram Stain - Final 02/02/22 10:05 Wound - Leg Wound Culture - Final Proteus hauseri Citrobacter freundii Staphylococcus aureus ABG Data ABG results: ABG 02/05/22 08:51 Specimen Type ART Sample Site R Radial pH 7.30 L Bicarbonate Actual 47.7 H Total CO2 > 50 Base Excess 21 H O2 Saturation 90 L ABG pCO2 96.2 H* ABG pO2 69 L Daniel Test Positive O2 Delivery Device Cannula Liter Flow 5.0 Crit Call To/Read Back Yes Charges/Coding Visit Charges Inpatient E&M: 55367 Init Hosp L3 Behavior Interventions Behavior Intervention: 39814 Smoking Cessation 3-10 min
[2022-02-06] MEDS: Furosemide 40 MG/4 ML Vial IV (11:00)
--- NOTE | 2022-02-06 11:08 | CASEMGMT ---
Updated [facility] that pt will plan to dc tomorrow. Per Helena, pt Tia requested call from PATRICIA NEWTON to Tia, she is aware and agreeable to dc plan. She then asked to speak to the social worker school and phone given to Ashley GLYNN.
--- NOTE | 2022-02-06 13:41 | CASEMGMT ---
Socail Work Pt requested to speak to this SW after pc to Rhonda LIM. SW spoke with Pt and she asked about if anyone had talked with Pt regarding MH concerns. SW did inform pt that this SW spoke with pt about depression and that he refused counseling resources at this time. Pt's noted she figured he would. SW informed the Pt's that a social services referral was also sent in with his [facility] referral so if he changes his mind about counseling resources he can speak with that SW to get more help. Pt's voiced her understanding, became tearful over the phone. stated she knows her Cancer diagnosis has been hard on pt and she hopes after talking with this SW that he will start taking care of himself a little more. SW offered support. THEO Carcamo
[2022-02-06] MEDS: Atorvastatin Calcium 80 MG Tablet PO (23:37)
[2022-02-06] MEDS: traZODone 50 MG Tablet 150 MG PO (23:37)
[2022-02-07] VITALS (10 sets, daily range): BP systolic 118–137; BP diastolic 66–75; PULSE 54–79; RESP 16–20; TEMP 36.2–36.9; O2SAT 87–98
[2022-02-07] MEDS: 0.9% Saline Lock 10 ML Syringe IV ×3 (04:47→10:45)
[2022-02-07 06:31] LABS: Absolute Lymphocyte Count 0.29 X10^3/uL (0.83-4.51); Absolute Neutrophil Count 5.9 X10^3/uL (2.0-7.7); Hematocrit 55.5 % (40-54); Hemoglobin 16.9 g/dL (13.0-16.5); Lymphocyte # 0.29 X10^3/ul (0.83-4.51); Lymphocyte % 4.5 % (19-41); Mean Corp Hgb Conc 30.5 g/dL (32-36); Mean Corpuscular Hgb 29.3 pg (27.0-32.0); Mean Corpuscular Volume 96.4 fL (80-94); Mean Platelet Vol. 9.6 fl (6.2-12.0); Monocyte# 0.23 X10^3/uL; Monocyte% 3.6 % (0-10); NRBC Flagged by Analyzer 0 % (0-5); Neutrophil # 5.86 X10^3/uL (2.7-7.7); Neutrophil % 91.6 % (47-70); POSITIVE COUNT YES; POSITIVE DIFFERENTIAL YES; Platelet Count 92 K/mm3 (150-450); RBC Distribution Width CV 13.1 % (11.6-14.6); RBC Distribution Width SD 46.4 fl (35.1-43.9); Red Blood Count 5.76 M/mm3 (4.6-6.2); White Blood Count 6.4 K/mm3 (4.4-11.0)
[2022-02-07 06:33] LABS: Differential Indicated SCAN CRITERIA MET
[2022-02-07] MEDS: Ipratropium/Albuterol Sulfate 3 ML AMPUL.NEB INHALATION ×2 (06:54→11:01)
[2022-02-07 07:00] LABS: BUN 31 mg/dL (7-18); BUN/Creat Ratio 44.2 RATIO (10-20); Calcium,Total 8.3 mg/dL (8.5-10.1); Carbon Dioxide > 45.0 mmol/L (21.0-32.0); Chloride 84 mmol/L (98-107); EST Glomerular Filtration Rate 119 mL/min (>60); Est Glom Filt Rate - Afr Amer 144 mL/min (>60); Glucose 160 mg/dL (74-106); Platelet Estimate MOD DEC (ADEQ); Potassium 4.3 mmol/L (3.5-5.1); Sodium Level 135 mmol/L (136-145)
--- NOTE | 2022-02-07 07:37 | PCM.PN.HOSP ---
Subjective Subjective Patient seen back to baseline plan is for patient to be assessed for possible discharge Objective Data Objective Data Vital Signs: Vital Signs Temp Pulse Resp BP Pulse Ox O2 Del Method O2 Flow Rate 97.2 F L 54 L 16 118/75 90 Nasal Cannula 4 02/07/22 04:48 02/07/22 06:54 02/07/22 06:54 02/07/22 04:48 02/07/22 06:54 02/07/22 06:54 02/07/22 06:54 FiO2 45 02/06/22 07:19 Oxygen Flow Rate (L/min) 4 Oxygen Delivery Method Nasal Cannula Weight: 109.18 kg Body Mass Index (BMI) 36.6 Intake & Output: Intake and Output for Last 24 Hours 02/05/22 02/06/22 02/07/22 23:59 23:59 23:59 Intake Total 688.75 / 888.75 252.75 / 252.75 50 / 50 Output Total 725 / 975 1500 / 1500 Balance -36.25 / -86.25 -1247.25 / -1247.25 50 / 50 Lab / Micro Data Result Diagrams: 02/07/22 06:10 02/07/22 06:10 Labs: Laboratory Results - last 24 hr 02/07/22 06:10: WBC 6.4, RBC 5.76, Hgb 16.9 H, Hct 55.5 H, MCV 96.4 H, MCH 29.3, MCHC 30.5 L, RDW Std Deviation 46.4 H, RDW Coeff of Artemio 13.1, Plt Count 92 L, MPV 9.6, Immature Gran % (Auto) 0.300, Neut % (Auto) 91.6 H, Lymph % (Auto) 4.5 L, Starke % (Auto) 3.6, Eos % (Auto) 0.0, Baso % (Auto) 0.0, Absolute Neuts (auto) 5.9, Absolute Lymphs (auto) 0.29 L, Nucleated RBC % 0, Platelet Estimate MOD DEC 02/07/22 06:10: Sodium 135 L, Potassium 4.3, Chloride 84 L, Carbon Dioxide > 45.0 H*, Anion Gap TNP, BUN 31 H, Creatinine 0.70, Estim Creat Clear Calc 68.40, Est GFR (MDRD) Af Amer 144, Est GFR (MDRD) Non-Af 119, BUN/Creatinine Ratio 44.2 H, Glucose 160 H, Calcium 8.3 L Micro: Microbiology 02/02/22 10:05 Wound - Leg Gram Stain - Final 02/02/22 10:05 Wound - Leg Wound Culture - Final Proteus hauseri Citrobacter freundii Staphylococcus aureus 02/02/22 10:13 Blood Culture (Wb) - Right Wrist Blood Culture - Preliminary No growth in 48 hours. 02/02/22 08:55 Blood Culture (Wb) - Left Forearm Blood Culture - Preliminary No growth in 48 hours. 02/03/22 09:02 Mucosa - Nose Respiratory Panel (PCR) - Final 02/02/22 09:25 Urine, Clean Catch Urine Culture - Final Mixed Gram Pos & Gram Neg Org 02/02/22 13:10 Mucosa - Nasopharyngeal Influenza Types A,B Direct FA (TAMIKA) - Final 02/02/22 09:02 Nasal Secretion SARS-CoV-2 Antigen (Rapid) - Final Physical Exam Narrative GENERAL:, Still has some dyspnea at rest HEENT: Atraumatic; EYES; Anicteric, Normal Conjunctiva NECK; supple, normal thyroid, RESPIRATORY: Diminished to auscultation CARDIOVASCULAR: Regular S1 S2, GI: soft, normoactive bowel sounds, : No Renal angle tenderness; EXTREMITIES: Lower extremities Vargas wrapped MUSCULOSKELETAL: no muscle wasting NEURO: Awake; no lateralizing signs. SKIN: Erythema and chronic lymphedema involving both lower extremities PSYCH; Flat affect Assessment & Plan Assessment/Plan (1) Acute exacerbation of chronic obstructive pulmonary disease: (2) Cellulitis of both lower extremities: PLAN: Patient is a 66-year-old gentleman with multiple comorbidities admitted with bilateral lower extremity swelling in the setting of chronic lymphedema as well as progressive shortness of breath 1. Bilateral lower extremity cellulitis secondary to polymicrobial organisms (listed below) ? Superimposed on chronic bilateral lymphedema. Cultures positive Proteus hauseri, Citrobacter freundii, Staphylococcus aureus. Patient managed with broad-spectrum antibiotic therapy with vancomycin and Zosyn. Discontinued started on cefepime and doxycycline. Consult placed to wound care nurse 2. Acute hypercapnic respiratory failure secondary to COPD exacerbation ? ABGs ordered and demonstrated respiratory acidosis with significant hypercarbia. Patient is symptomatic with tremors. Order placed for patient to be placed on noninvasive ventilation BiPAP. -02/06/2022; Patient has been weaned off BiPAP less jerky movement compared to the day prior. Consult placed to patient manufacturer's service representative Dr. Richy Redd 3. Acute on chronic hypoxic respiratory failure ? Management as discussed above 4. COPD with acute exacerbation ? Patient managed with Solu-Medrol, bronchodilator treatments in addition to management as discussed above with consultation placed to pulmonary medicine 5. Severe pulmonary hypertension ? Contributing to patient dyspnea 6. Chronic congestive heart failure with preserved ejection fraction ?2D echo obtained on 07/30/2021 demonstrated EF of 55 to 60% with evidence of severe pulmonary hypertension 7. Hypertension - Blood pressure controlled, home medications continued with dose adjustment as needed 8. Coronary artery disease ? With previous PCI patient is on antiplatelet therapy with clopidogrel, atorvastatin and nitrates 9. Dyslipidemia -Patient is on statin therapy, continued at home dose 10. Thrombocytopenia ? Medication induced?? Zosyn discontinued monitoring with daily CBCs 11. DVT prophylaxis ? Avoiding the use of chemoprophylaxis in view of patient's worsening thrombocytopenia 12. Physical deconditioning - Requested for PT OT eval and vp digital marketing social media and crm to assist with discharge planning Charges/Coding Visit Charges Inpatient E&M: 75278 Subs Hosp L2
[2022-02-07] MEDS: Juven (unflavored) Packet 1 PACKET PO (08:50)
[2022-02-07] MEDS: Menthol/Lanolin/Calamine/Znox 113 GM Tube 1 APPLIC TOPICAL (08:50)
[2022-02-07] MEDS: Isosorbide Mononitrate 60 MG Tablet PO (08:51)
[2022-02-07] MEDS: Doxycycline 100 MG CAPSULE PO (08:51)
[2022-02-07] MEDS: Nystatin Powder 15gm Bottle 1 APPLIC TOPICAL (08:51)
[2022-02-07] MEDS: Clopidogrel Bisulfate 75 MG Tablet PO (08:51)
[2022-02-07] MEDS: Metoprolol Tartrate 25 MG Tablet PO (08:52)
[2022-02-07] MEDS: guaiFENesin 1,200 MG Tablet 1200 MG PO (08:52)
--- NOTE | 2022-02-07 09:32 | PCM.DC.SUM ---
Providers Date of Admission: 02/02/22 Date of Discharge: 02/07/22 Primary Care Physician: Dr. Brooks Davis MD Consultations 02/02/22 11:57 Consult: Onc/Wound/deaf/hard of hearing specialist Routine Comment: Reason for Consult:: bilateral lower legs 02/06/22 08:40 Consult: [employer] Developer / Pulmonary Medicine Routine Consulting Provider: Richy Redd Reason for Consult: COPD EMERGENT Consult: No MD Notified: Yes Date Notified: 02/06/22 Time Notified: 08:41 Method of Notification: Verbal Reason For Visit: B/L CELLULITIS, COPD EKA Diagnosis Discharge Diagnosis (1) Acute exacerbation of chronic obstructive pulmonary disease: Status: Chronic Code(s): J44.1 - Chronic obstructive pulmonary disease with (acute) exacerbation (2) Cellulitis of both lower extremities: Status: Acute Code(s): L03.115 - Cellulitis of right lower limb; L03.116 - Cellulitis of left lower limb Medications at Discharge Home Medications atorvastatin 80 mg tablet 80 mg PO QHS cholesterol 04/18/13 clopidogrel 75 mg tablet 75 mg PO DAILY anti platelet 04/18/13 albuterol sulfate 90 mcg/actuation aerosol inhaler 1 - 2 puff inhalation Q4H PRN PRN Dyspnea 10/31/16 trazodone 150 mg tablet 150 mg PO QHS sleep 10/31/16 budesonide-formoterol HFA 160 mcg-4.5 mcg/actuation aerosol inhaler 2 puff inhalation BID SOB/wheezing 08/07/19 ipratropium 0.5 mg-albuterol 3 mg (2.5 mg base)/3 mL nebulization soln 3 ml inhalation Q4H SOB/wheezing 07/29/21 isosorbide mononitrate 60 mg tablet,extended release 24 hr 60 mg PO DAILY heart 07/29/21 metoprolol tartrate 25 mg tablet 25 mg PO BID blood pressure/heart rate 07/29/21 tiotropium 2.5 mcg-olodaterol 2.5 mcg/actuation mist for inhalation (Stiolto Respimat) 2 inh inhalation DAILY breathing 02/02/22 arginine 7 gram-glutam 7 gram-CaHMB 1.5 dpik-ismht-ya-min oral pwd pkt (Kane (with collagen)) 1 packet PO BIDCM #60 ea 02/07/22 menthol 0.44 %-zinc oxide 20.6 % topical ointment (Calmoseptine) 1 applic topical BID #0 grams 02/07/22 nystatin 100,000 unit/gram topical powder (Nyamyc) 1 applic topical BID #0 grams 02/07/22 prednisone 20 mg tablet 40 mg PO DAILY #10 tabs 02/07/22 sulfamethoxazole 800 mg-trimethoprim 160 mg tablet (Bactrim DS) 1 tab PO BID #10 tabs 02/07/22 Hospital Course Summary of Care Provided Minutes Spent on Discharge: 36 Hospital Course: Patient is a 66-year-old gentleman with multiple comorbidities admitted with bilateral lower extremity swelling in the setting of chronic lymphedema as well as progressive shortness of breath 1. Bilateral lower extremity cellulitis secondary to polymicrobial organisms (listed below) ? Superimposed on chronic bilateral lymphedema. Cultures positive Proteus hauseri, Citrobacter freundii, Staphylococcus aureus. Patient managed with broad-spectrum antibiotic therapy with vancomycin and Zosyn. Discontinued started on cefepime and doxycycline. Consult placed to wound care nurse -Was discharged home on Bactrim DS for 5 more days 2. Acute hypercapnic respiratory failure secondary to COPD exacerbation ? ABGs ordered and demonstrated respiratory acidosis with significant hypercarbia. Patient is symptomatic with tremors. Order placed for patient to be placed on noninvasive ventilation BiPAP. -02/06/2022; Patient has been weaned off BiPAP less jerky movement compared to the day prior. Consult placed to patient making department preparer Dr. Richy Redd 3. Acute on chronic hypoxic respiratory failure ? Management as discussed above 4. COPD with acute exacerbation ? Patient managed with Solu-Medrol, bronchodilator treatments in addition to management as discussed above with consultation placed to pulmonary medicine 5. Severe pulmonary hypertension ? Contributing to patient dyspnea 6. Chronic congestive heart failure with preserved ejection fraction ?2D echo obtained on 07/30/2021 demonstrated EF of 55 to 60% with evidence of severe pulmonary hypertension 7. Hypertension - Blood pressure controlled, home medications continued with dose adjustment as needed 8. Coronary artery disease ? With previous PCI patient is on antiplatelet therapy with clopidogrel, atorvastatin and nitrates 9. Dyslipidemia -Patient is on statin therapy, continued at home dose 10. Thrombocytopenia ? Medication induced?? Zosyn discontinued monitoring with daily CBCs 11. DVT prophylaxis ? Avoiding the use of chemoprophylaxis in view of patient's worsening thrombocytopenia 12. Physical deconditioning - Requested for PT OT eval and social work administrator to assist with discharge planning Physical Exam Narrative GENERAL:, Cooperative HEENT: Atraumatic; EYES; Anicteric, Normal Conjunctiva NECK; supple, normal thyroid, RESPIRATORY: Diminished to auscultation CARDIOVASCULAR: Regular S1 S2, GI: soft, normoactive bowel sounds, : No Renal angle tenderness; EXTREMITIES: Lower extremities Vargas wrapped MUSCULOSKELETAL: no muscle wasting NEURO: Awake; no lateralizing signs. SKIN: Erythema and chronic lymphedema involving both lower extremities PSYCH; Flat affect Weight / BMI Weight Weight: 109.18 kg Body Mass Index (BMI) 36.6 ABG / Lab / Microbiology Data Result Diagrams: 02/07/22 06:10 02/07/22 06:10 Laboratory: Laboratory Results - last 24 hr 02/07/22 06:10: WBC 6.4, RBC 5.76, Hgb 16.9 H, Hct 55.5 H, MCV 96.4 H, MCH 29.3, MCHC 30.5 L, RDW Std Deviation 46.4 H, RDW Coeff of Artemio 13.1, Plt Count 92 L, MPV 9.6, Immature Gran % (Auto) 0.300, Neut % (Auto) 91.6 H, Lymph % (Auto) 4.5 L, Morrison % (Auto) 3.6, Eos % (Auto) 0.0, Baso % (Auto) 0.0, Absolute Neuts (auto) 5.9, Absolute Lymphs (auto) 0.29 L, Nucleated RBC % 0, Platelet Estimate MOD DEC 02/07/22 06:10: Sodium 135 L, Potassium 4.3, Chloride 84 L, Carbon Dioxide > 45.0 H*, Anion Gap TNP, BUN 31 H, Creatinine 0.70, Estim Creat Clear Calc 68.40, Est GFR (MDRD) Af Amer 144, Est GFR (MDRD) Non-Af 119, BUN/Creatinine Ratio 44.2 H, Glucose 160 H, Calcium 8.3 L Microbiology: Microbiology 02/02/22 10:05 Wound - Leg Gram Stain - Final 02/02/22 10:05 Wound - Leg Wound Culture - Final Proteus hauseri Citrobacter freundii Staphylococcus aureus 02/02/22 10:13 Blood Culture (Wb) - Right Wrist Blood Culture - Preliminary No growth in 48 hours. 02/02/22 08:55 Blood Culture (Wb) - Left Forearm Blood Culture - Preliminary No growth in 48 hours. 02/03/22 09:02 Mucosa - Nose Respiratory Panel (PCR) - Final 02/02/22 09:25 Urine, Clean Catch Urine Culture - Final Mixed Gram Pos & Gram Neg Org 02/02/22 13:10 Mucosa - Nasopharyngeal Influenza Types A,B Direct FA (TAMIKA) - Final 02/02/22 09:02 Nasal Secretion SARS-CoV-2 Antigen (Rapid) - Final D/C Instructions Discharge Diet: No restrictions Discharge Activity: Return to Normal Activity Call your doctor if you observe: Fever of 101 or Higher, Shortness of breath, Fainting spells and Chest pain Meaningful Use Info Meaningful Use Diagnoses (Choose all that apply): None applicable Discharge Plan Admission Admit Date/Time: 02/02/22 10:17 Attending Provider: Cedrick Lao Primary Care Provider: Brooks Davis Consulting Providers: Cas Oliver ; Richy Redd Discharge Orders/Prescriptions Prescriptions: New nystatin [Nyamyc] 100,000 unit/gram Powder 1 applic topical BID Qty: 0 0RF Protocol: *Topical Application Instructions APPLICATION INSTRUCTIONS: groin menthol-zinc oxide [Calmoseptine] 0.44-20.6 % Ointment 1 applic topical BID Qty: 0 0RF Protocol: *Topical Application Instructions APPLICATION INSTRUCTIONS: bilateral buttocks Kane (with collagen) 7-7-1.5 gram Powder In Packet 1 packet PO BIDCM Qty: 60 0RF sulfamethoxazole-trimethoprim [Bactrim DS] 800-160 mg tablet 1 tab PO BID Qty: 10 0RF prednisone 20 mg tablet 40 mg PO DAILY Qty: 10 0RF Continued atorvastatin 80 MG tablet 80 mg PO QHS Label Comments: HYPERLIPIDEMIA clopidogrel 75 MG tablet 75 mg PO DAILY Label Comments: ANTPLATELET albuterol sulfate 1 PUFF inhaler 1 - 2 puff inhalation Q4H PRN PRN (Reason: Dyspnea) trazodone 150 MG tablet 150 mg PO QHS Label Comments: depression budesonide-formoterol 1 INHALER inhaler 2 puff inhalation BID ipratropium-albuterol 0.5 mg-3 mg(2.5 mg base)/3 mL Solution For Nebulization 3 ml INHALATION Q4H metoprolol tartrate 25 mg Tablet 25 mg PO BID isosorbide mononitrate 60 MG tablet extended release 24 hr 60 mg PO DAILY Label Comments: HEART/BLOOD PRESSURE Stiolto Respimat 2.5-2.5 mcg/actuation mist 2 inh inhalation DAILY Referrals / Follow Up: Richy Redd DO [Med Staff - Active Staff] - Within 2 Weeks Brooks Davis MD [Primary Care Provider] - Within 1 Week Disposition Disposition (needs filled in before D/C Order can be placed): Home Health Service Charges/Coding Visit Charges Inpatient E&M: 55866 Disch Hosp
--- NOTE | 2022-02-07 09:49 | PN.CC_ITS ---
Assessment & Plan Assessment/Plan (1) Chronic obstructive pulmonary disease: QUALIFIERS: COPD type: unspecified COPD Qualified Code(s): J44.9 - Chronic obstructive pulmonary disease, unspecified (2) Chronic hypoxemic respiratory failure: PLAN: Plan RECOMMENDATIONS: 1. Continue to wean oxygen as tolerated. 2. Continue antibiotics to address cellulitis per hospitalist. 3. Continue bronchodilators and steroids. 4. IV Lasix again today. 5. Continue PAP therapy with naps and nightly. 6. Encourage incentive spirometer use and mobilize patient as tolerated. IMPRESSIONS: 1. End-stage COPD/chronic combined respiratory failure/pulmonary hypertension The patient has known end-stage COPD and chronic hypoxemic respiratory failure. In addition, the patient continues to smoke cigarettes daily. He has chronic CO2 retention, which is not acutely worse than his baseline. He is already on maximum inhaler therapy on an outpatient basis. It is reasonable to continue bronchodilators and steroids. I spoke to the patient about the possibility of adding noninvasive positive pressure ventilatory support to his home regimen. Nevertheless, the patient was insistent that he would not be willing to utilize any form of PAP therapy. I am going to provide the patient again with a one- time dose of IV Lasix today, given his underlying pulmonary hypertension. Otherwise, the patient is stable from a respiratory perspective. At discharge, he can be sent home with a prednisone taper. He should follow-up in the pulmonary medicine clinic after discharge within 2 weeks. 2. Lower extremity cellulitis Continue antimicrobial treatment per hospitalist. 3. Obesity/hypertension/coronary artery disease/hyperlipidemia/chronic tobacco dependency Complicates care, management, recovery and prognosis. Continue home medications as indicated. Tobacco cessation counseling was provided. Nicotine replacement therapy can be offered to the patient while admitted to the hospital. This note was generated with [employer] dictation software. It may contain incorrect words, spelling, and punctuation that were not noted in checking the note before signing. Subjective Subjective The patient was seen and examined at the bedside this morning. Events from the last 24 hours have been reviewed. The patient is currently afebrile, hemodynamically stable and maintaining appropriate oxygen saturations on 4 L/min via nasal cannula. Labs are stable this morning. Objective Data Objective Data The patient's most recent lab work, culture data and imaging studies have all been personally reviewed. Surface echocardiogram dated February 02 demonstrated an ejection fraction of 55 to 60%. Pulmonary artery systolic pressure was estimated to be 80 mmHg. Vital Signs: Vital Signs Temp Pulse Resp BP Pulse Ox O2 Del Method O2 Flow Rate 97.2 F L 75 16 118/75 90 Nasal Cannula 4 02/07/22 04:48 02/07/22 08:52 02/07/22 06:54 02/07/22 04:48 02/07/22 06:54 02/07/22 06:54 02/07/22 06:54 FiO2 45 02/06/22 07:19 Oxygen Flow Rate (L/min) 4 Oxygen Delivery Method Nasal Cannula Weight: 240 lb 11.211 oz Body Mass Index (BMI) 36.6 Intake & Output: Intake and Output for Last 24 Hours 02/05/22 02/06/22 02/07/22 23:59 23:59 23:59 Intake Total 688.75 / 888.75 252.75 / 252.75 50 / 50 Output Total 725 / 975 1500 / 1500 Balance -36.25 / -86.25 -1247.25 / -1247.25 50 / 50 Lab / Micro Data Attestation: I reviewed the patient's lab results. Result Diagrams: 02/07/22 06:10 02/07/22 06:10 Labs: Laboratory Results - last 24 hr 02/07/22 06:10: WBC 6.4, RBC 5.76, Hgb 16.9 H, Hct 55.5 H, MCV 96.4 H, MCH 29.3, MCHC 30.5 L, RDW Std Deviation 46.4 H, RDW Coeff of Artemio 13.1, Plt Count 92 L, MPV 9.6, Immature Gran % (Auto) 0.300, Neut % (Auto) 91.6 H, Lymph % (Auto) 4.5 L, [place] % (Auto) 3.6, Eos % (Auto) 0.0, Baso % (Auto) 0.0, Absolute Neuts (auto) 5.9, Absolute Lymphs (auto) 0.29 L, Nucleated RBC % 0, Platelet Estimate MOD DEC 02/07/22 06:10: Sodium 135 L, Potassium 4.3, Chloride 84 L, Carbon Dioxide > 45.0 H*, Anion Gap TNP, BUN 31 H, Creatinine 0.70, Estim Creat Clear Calc 68.40, Est GFR (MDRD) Af Amer 144, Est GFR (MDRD) Non-Af 119, BUN/Creatinine Ratio 44.2 H, Glucose 160 H, Calcium 8.3 L Micro: Microbiology 02/02/22 10:05 Wound - Leg Gram Stain - Final 02/02/22 10:05 Wound - Leg Wound Culture - Final Proteus hauseri Citrobacter freundii Staphylococcus aureus 02/02/22 10:13 Blood Culture (Wb) - Right Wrist Blood Culture - Preliminary No growth in 48 hours. 02/02/22 08:55 Blood Culture (Wb) - Left Forearm Blood Culture - Preliminary No growth in 48 hours. 02/03/22 09:02 Mucosa - Nose Respiratory Panel (PCR) - Final 02/02/22 09:25 Urine, Clean Catch Urine Culture - Final Mixed Gram Pos & Gram Neg Org 02/02/22 13:10 Mucosa - Nasopharyngeal Influenza Types A,B Direct FA (TAMIKA) - Final 02/02/22 09:02 Nasal Secretion SARS-CoV-2 Antigen (Rapid) - Final Physical Exam Const alert and no apparent distress Constitutional Narrative: Sitting in bedside recliner. Nutritional Appearance: obese HEENT normocephalic and head/scalp atraumatic Eyes PERRL and EOMs intact bilaterally Neck supple General: trachea midline Chest inspection of chest normal Resp normal respiratory effort Auscultation: diminished lung sounds Cardio regular rate and regular rhythm GI normal to inspection, nondistended, normoactive bowel sounds Extremity Extremity Narrative: Wrapped lower extremities General Extremity: edema Skin General Skin Exam: venous stasis and dermatitis Neuro CN's II-XII intact bilaterally and no focal motor deficits Psych Mood & Affect: flat affect Charges/Coding Visit Charges Inpatient E&M: 52820 Subs Hosp L2
[2022-02-07] MEDS: Furosemide 40 MG/4 ML Vial IV (10:45)
--- NOTE | 2022-02-07 11:07 | CASEMGMT ---
Updated [place] at [facility] that pt will dc today.
--- NOTE | 2022-02-07 11:47 | CASEMGMT ---
Pt did not require increased oxygen needs.
--- NOTE | 2022-02-07 11:59 | PHA.DC.MC ---
Pharmacy Service has performed discharge medication reconciliation and counseling for this patient. 1. BACTRIM DS 1T PO BID X 5 DAYS 2. PREDNISONE 40MG PO DAILYCM X 5 DAYS The patient's discharge medication list was reviewed for discrepancies and discrepancies were resolved. Home Medications atorvastatin 80 mg tablet 80 mg PO QHS cholesterol 04/18/13 clopidogrel 75 mg tablet 75 mg PO DAILY anti platelet 04/18/13 albuterol sulfate 90 mcg/actuation aerosol inhaler 1 - 2 puff inhalation Q4H PRN PRN Dyspnea 10/31/16 trazodone 150 mg tablet 150 mg PO QHS sleep 10/31/16 budesonide-formoterol HFA 160 mcg-4.5 mcg/actuation aerosol inhaler 2 puff inhalation BID SOB/wheezing 08/07/19 ipratropium 0.5 mg-albuterol 3 mg (2.5 mg base)/3 mL nebulization soln 3 ml inhalation Q4H SOB/wheezing 07/29/21 isosorbide mononitrate 60 mg tablet,extended release 24 hr 60 mg PO DAILY heart 07/29/21 metoprolol tartrate 25 mg tablet 25 mg PO BID blood pressure/heart rate 07/29/21 tiotropium 2.5 mcg-olodaterol 2.5 mcg/actuation mist for inhalation (Stiolto Respimat) 2 inh inhalation DAILY breathing 02/02/22 arginine 7 gram-glutam 7 gram-CaHMB 1.5 jnoz-hwaei-th-min oral pwd pkt (Kane (with collagen)) 1 packet PO BIDCM #60 ea 02/07/22 menthol 0.44 %-zinc oxide 20.6 % topical ointment (Calmoseptine) 1 applic topical BID #0 grams 02/07/22 nystatin 100,000 unit/gram topical powder (Nyamyc) 1 applic topical BID #0 grams 02/07/22 prednisone 20 mg tablet 40 mg PO DAILY #10 tabs 02/07/22 sulfamethoxazole 800 mg-trimethoprim 160 mg tablet (Bactrim DS) 1 tab PO BID #10 tabs 02/07/22 The patient was counseled on the following discharge medications and changes in medications for homegoing were reviewed. The Reason for Use, instructions for use, and potential side effects were reviewed for all new medications. The patient's questions regarding all of their medications were answered. The patient was able to verbally demonstrate an understanding of their discharge medications. Patient counseled by director of student financial servicesGarland.
== END 2022-02-07 13:10 | disposition home health service (06) | DRG 191 ==
LOC: ED 10:24 → MS3 10:29
PROVIDERS: Internal Medicine; Admitting Provider Internal Medicine; Emergency Provider Emergency Medicine; PCP Family Medicine; Visit Provider Internal Medicine
DX: J44.1 Chronic obstructive pulmonary disease with (acute) exacerbation (principal); J96.11 Chronic respiratory failure with hypoxia; L03.115 Cellulitis of right lower limb; I50.32 Chronic diastolic (congestive) heart failure; L03.116 Cellulitis of left lower limb; I27.20 Pulmonary hypertension, unspecified; D69.6 Thrombocytopenia, unspecified; I11.0 Hypertensive heart disease with heart failure; I25.10 Atherosclerotic heart disease of native coronary artery without angina pectoris; E78.5 Hyperlipidemia, unspecified; G47.30 Sleep apnea, unspecified; F17.210 Nicotine dependence, cigarettes, uncomplicated; I89.0 Lymphedema, not elsewhere classified; L90.5 Scar conditions and fibrosis of skin; F41.9 Anxiety disorder, unspecified; E66.9 Obesity, unspecified; Z99.81 Dependence on supplemental oxygen; Z95.5 Presence of coronary angioplasty implant and graft; Z87.01 Personal history of pneumonia (recurrent); Z68.37 Body mass index [BMI] 37.0-37.9, adult; R91.1 Solitary pulmonary nodule; F32.A Depression, unspecified; Z79.899 Other long term (current) drug therapy; Z79.02 Long term (current) use of antithrombotics/antiplatelets; B96.4 Proteus (mirabilis) (morganii) as the cause of diseases classified elsewhere; B95.61 Methicillin susceptible Staphylococcus aureus infection as the cause of diseases classified elsewhere; B96.89 Other specified bacterial agents as the cause of diseases classified elsewhere
CPT/HCPCS: 36415; 36600; 71045; 80048; 80053; 80202; 81001; 82803; 83605; 83880; 85025; 85610; 85652; 85730; 86140; 87040; 87070; 87077; 87086; 87088; 87186; 87205; 87633; 87640; 87804; 87811; 93005; 93970; 94002; 94003; 94640; 94667; 94668; 94762; 97116; 97162; 97166; 97530; 97802; 99285; 99406; J7040; J7050; A4216; J1940

== ENCOUNTER 2022-03-27 13:21 | Emergency (ER) | payer MEDICARE, SELFPAY ==
[2022-03-27 13:22] VITALS: BP 133/69; PULSE 73; RESP 16; TEMP 36.6; O2SAT 90; BMI 36.8
--- NOTE | 2022-03-27 14:44 | ED.VIS.LOWEX ---
HPI History of Present Illness Chief Complaint: Wound Narrative Narrative: Patient with past medical history of COPD, on 5 L of oxygen neck lymphedema of his bilateral lower extremities presents from the now clinic for evaluation of his bilateral lower extremities, mainly his right. While he has had problems with chronic lymphedema, with chronic skin changes, he has noticed blistering of his right lower extremity on Sunday, 2 days ago, by his . He has noticed that while he has been moving around more, his legs, especially his right, he has had increased drainage. He has not seen by wound care center or any lymphedema clinic. He states he has compression devices that he is supposed to be wearing and does 2 treatments a day. He denies any increased shortness of breath, increased swelling, fever, chills, nausea, vomiting, or any other symptoms. [facility] Medical History (HFpEF) heart failure with preserved ejection fraction Bilateral lower extremity edema CAD (coronary artery disease) Cellulitis of left lower extremity without foot COPD (chronic obstructive pulmonary disease) COPD (chronic obstructive pulmonary disease) HTN (hypertension) Hyperlipemia Lymphedema Morbid obesity Pneumonia Sleep apnea Stasis leg ulcer Tobacco abuse disorder Ulcer of left calf Ulcer of right lower extremity with fat layer exposed Wound infection Home Medications atorvastatin 80 mg tablet 80 mg PO QHS cholesterol 04/18/13 [History Last Taken 07/28/21] clopidogrel 75 mg tablet 75 mg PO DAILY anti platelet 04/18/13 [History Last Taken 02/02/22] albuterol sulfate 90 mcg/actuation aerosol inhaler 1 - 2 puff inhalation Q4H PRN PRN Dyspnea 10/31/16 [History Last Taken 02/02/22] trazodone 150 mg tablet 150 mg PO QHS sleep 10/31/16 [History Last Taken 07/28/21] budesonide-formoterol HFA 160 mcg-4.5 mcg/actuation aerosol inhaler 2 puff inhalation BID SOB/wheezing 08/07/19 [History Last Taken 02/02/22] ipratropium 0.5 mg-albuterol 3 mg (2.5 mg base)/3 mL nebulization soln 3 ml inhalation Q4H SOB/wheezing 07/29/21 [History Last Taken 07/28/21] isosorbide mononitrate 60 mg tablet,extended release 24 hr 60 mg PO DAILY heart 07/29/21 [History Last Taken 02/02/22] metoprolol tartrate 25 mg tablet 25 mg PO BID blood pressure/heart rate 07/29/21 [History Last Taken 02/02/22] Allergy/AdvReac Type Severity Reaction Status Date / Time benzonatate Allergy rash hives Verified 03/27/22 13:22 [From Tessalon Perles] chlorpheniramine polistirex AdvReac Rash Verified 03/27/22 13:22 [From Tussionex] hydrocodone polistirex AdvReac Rash Verified 03/27/22 13:22 [From Tussionex] latex AdvReac Rash & Verified 03/27/22 13:22 Hives levofloxacin [From Levaquin] AdvReac Rash Verified 03/27/22 13:22 Surgical History H/O heart artery stent Social History housing: house pets and animals: Yes pets and animals: cat(s) Smoking Status: Current every day smoker tobacco type: cigarettes alcohol intake: never ROS ROS ED ROS Narrative Constitutional: No fever, no chills. HEENT: No sore throat. No neck pain. No loss of vision. No rhinorrhea. Cardiovascular: No chest pain. No palpitations. No pedal edema. Respiratory: No cough, no new shortness of breath. Abdominal: No abdominal pain. No nausea. No vomiting. Genitourinary: No dysuria. No hematuria. Musculoskeletal: No myalgias. No arthralgias. Neurologic: No headaches. No dizziness. No lightheadedness. Skin: No rash. Positive blistering of skin on right lower extremity with drainage of clear fluid today. Psychiatric: No depression. No anxiety. EXAM Physical Exam Narrative Exam Narrative: Constitutional: No fever, no chills. HEENT: No sore throat. No neck pain. No loss of vision. No rhinorrhea. Cardiovascular: No chest pain. No palpitations. No pedal edema. Respiratory: No cough, no shortness of breath. Abdominal: No abdominal pain. No nausea. No vomiting. Genitourinary: No dysuria. No hematuria. Musculoskeletal: No myalgias. No arthralgias. Neurologic: No headaches. No dizziness. No lightheadedness. Skin: No rash. Positive chronic skin changes of bilateral lower extremities secondary to lymphedema. Large fluid-filled blisters noted on right lower extremity with mild clear drainage. Psychiatric: No depression. No anxiety. Const Vital Signs: 03/27/22 13:22 03/27/22 17:05 Temperature 97.8 F 97.7 F L Temperature Source Temporal Oral Pulse Rate 73 84 Respiratory Rate 16 18 Blood Pressure 133/69 H 135/62 H Blood Pressure Mean 90 86 Pulse Ox 90 91 Oxygen Delivery Method Nasal Cannula Nasal Cannula Oxygen Flow Rate (L/min) 5 5 MDM MDM MDM Narrative Medical decision making narrative: Comprehensive work-up was pursued. He has normal white count of 7.2, hemoglobin stable at 12.5. Electrolyte panel shows CO2 elevated at 43 consistent with his COPD and his need for oxygen. Lactic acid normal at 0.7. X-rays of the bilateral tibia and fibula as interpreted by myself shows soft tissue swelling but no evidence of gas in the tissue, no fracture. At this point in time, his legs will be wrapped. He will follow-up with his primary care physician regarding his chronic lymphedema and skin changes. He will continue his compression devices at home. I do not feel antibiotics are indicated as he is not febrile, and he has no elevated white count and his legs do not appear to be infected and his drainage is clear. Patient states that he has been seen at the wound care center before. I advised him to return for repeat visit. Return instructions to the emergency department were reviewed. Disposition is discharged home in stable condition. Lab Data Attestation: I reviewed the patient's lab results. Labs: Laboratory Results - last 24 hr 03/27/22 03/27/22 03/27/22 15:20 15:20 15:20 WBC 7.2 RBC 4.21 L Hgb 12.5 L Hct 41.8 MCV 99.3 H MCH 29.7 MCHC 29.9 L RDW Std Deviation 56.3 H RDW Coeff of Artemio 15.4 H Plt Count 127 L MPV 9.6 Immature Gran % (Auto) 0.300 Neut % (Auto) 77.0 H Lymph % (Auto) 9.5 L [place] % (Auto) 10.8 H Eos % (Auto) 2.1 Baso % (Auto) 0.3 Absolute Neuts (auto) 5.6 Absolute Lymphs (auto) 0.69 L Nucleated RBC % 0 Sodium 143 Potassium 3.8 Chloride 97 L Carbon Dioxide 43.0 H Anion Gap 3 L BUN 16 Creatinine 0.74 Estim Creat Clear Calc 66.10 Est GFR (MDRD) Af Amer 135 Est GFR (MDRD) Non-Af 112 BUN/Creatinine Ratio 21.6 H Glucose 90 Lactic Acid 0.7 Calcium 8.6 Total Bilirubin 0.80 AST 9 L ALT 12 L Alkaline Phosphatase 105 Total Protein 6.4 Albumin 2.9 L Globulin 3.5 Albumin/Globulin Ratio 0.8 L Radiography Diagnostic Testing: Clinical Impression(s) from Imaging Studies Tibia/Fibula X-Ray 03/27/22 15:32 IMPRESSION: No acute fracture or dislocation. Soft tissue swelling. Electronically Signed: Estrada Phan MD at 17:06 EDT Reading Location ID and State: [email or web address] Tel , Service support , Tibia/Fibula X-Ray 03/27/22 15:33 IMPRESSION: No acute fracture or dislocation. Diffuse soft tissue swelling. Electronically Signed: Estrada Phan MD at 17:06 EDT , Discharge Plan Triage Chief Complaint: Wound ED Provider: Tristin Gonzalez Dx/Rx/DC Orders Clinical Impression: Lymphedema, Skin change Instructions: ED Peripheral Edema, Bilateral, ED Lymphedema Prescriptions: No Action atorvastatin 80 MG tablet 80 mg PO QHS Label Comments: HYPERLIPIDEMIA clopidogrel 75 MG tablet 75 mg PO DAILY Label Comments: ANTPLATELET albuterol sulfate 1 PUFF inhaler 1 - 2 puff inhalation Q4H PRN PRN (Reason: Dyspnea) trazodone 150 MG tablet 150 mg PO QHS Label Comments: depression budesonide-formoterol 1 INHALER inhaler 2 puff inhalation BID ipratropium-albuterol 0.5 mg-3 mg(2.5 mg base)/3 mL Solution For Nebulization 3 ml INHALATION Q4H metoprolol tartrate 25 mg Tablet 25 mg PO BID isosorbide mononitrate 60 MG tablet extended release 24 hr 60 mg PO DAILY Label Comments: HEART/BLOOD PRESSURE Primary Care Provider: Brooks Davis Referrals: Brooks Davis MD [Primary Care Provider] - 5-7 Days Disposition Disposition: Home, Self Care
--- NOTE | 2022-03-27 15:32 | RAD_ITS ---
STUDY: X-RAY - RIGHT TIBIA AND FIBULA REASON FOR EXAM: Male, 66 years old. PAIN, SWELLING TECHNIQUE: 2 view(s) of the tibia and fibula were obtained. COMPARISON: None. FINDINGS: Normal visualized tibia. Normal visualized fibula. Soft tissue swelling of the calf. RAD/Tibia & Fibula 2 Views IMPRESSION: No acute fracture or dislocation. Soft tissue swelling. Electronically Signed: Estrada Phan MD at 17:06 EDT ,
--- NOTE | 2022-03-27 15:33 | RAD_ITS ---
STUDY: X-RAY - LEFT TIBIA AND FIBULA REASON FOR EXAM: Male, 66 years old. Pain, Swelling TECHNIQUE: 2 view(s) of the tibia and fibula were obtained. COMPARISON: None. FINDINGS: Normal visualized tibia. Normal visualized fibula. Diffuse soft tissue swelling. RAD/Tibia & Fibula 2 Views IMPRESSION: No acute fracture or dislocation. Diffuse soft tissue swelling. Electronically Signed: Estrada Phan MD at 17:06 EDT ,
[2022-03-27 15:34] LABS: Absolute Lymphocyte Count 0.69 X10^3/uL (0.83-4.51); Absolute Neutrophil Count 5.6 X10^3/uL (2.0-7.7); Basophil# 0.02 X10^3/uL; Basophil% 0.3 % (0-1); Eosinophil# 0.15 X10^3/uL; Eosinophils% 2.1 % (0-5); Hematocrit 41.8 % (40-54); Hemoglobin 12.5 g/dL (13.0-16.5); Lymphocyte # 0.69 X10^3/ul (0.83-4.51); Lymphocyte % 9.5 % (19-41); Mean Corp Hgb Conc 29.9 g/dL (32-36); Mean Corpuscular Hgb 29.7 pg (27.0-32.0); Mean Corpuscular Volume 99.3 fL (80-94); Mean Platelet Vol. 9.6 fl (6.2-12.0); Monocyte# 0.78 X10^3/uL; Monocyte% 10.8 % (0-10); NRBC Flagged by Analyzer 0 % (0-5); Neutrophil # 5.58 X10^3/uL (2.7-7.7); Platelet Count 127 K/mm3 (150-450); RBC Distribution Width CV 15.4 % (11.6-14.6); RBC Distribution Width SD 56.3 fl (35.1-43.9); Red Blood Count 4.21 M/mm3 (4.6-6.2); White Blood Count 7.2 K/mm3 (4.4-11.0)
[2022-03-27 15:50] LABS: ALB/GLOB Ratio 0.8 RATIO (0.9-2.4); AST(SGOT) 9 U/L (15-37); Alanine Aminotransfer ALT/SGPT 12 U/L (16-61); Albumin, Serum 2.9 g/dL (3.2-5.0); Alkaline Phosphatase 105 U/L (45-117); Anion Gap 3 (5-15); BUN 16 mg/dL (7-18); BUN/Creat Ratio 21.6 RATIO (10-20); Calcium,Total 8.6 mg/dL (8.5-10.1); Chloride 97 mmol/L (98-107); Creatinine, Serum 0.74 mg/dL (0.70-1.30); EST Glomerular Filtration Rate 112 mL/min (>60); Est Glom Filt Rate - Afr Amer 135 mL/min (>60); Globulin 3.5 g/dL (2.2-4.2); Glucose 90 mg/dL (74-106); Potassium 3.8 mmol/L (3.5-5.1); Protein, Total 6.4 g/dL (6.4-8.2); Sodium Level 143 mmol/L (136-145)
[2022-03-27 16:15] LABS: Lactic Acid 0.7 mmol/L (0.4-1.9)
[2022-03-27 17:05] VITALS: BP 135/62; PULSE 84; RESP 18; TEMP 36.5; O2SAT 91
[2022-03-27 17:41] VITALS: RESP 18
== END 2022-03-27 17:42 | disposition home or self-care (01) ==
PROVIDERS: Emergency Provider Emergency Medicine; PCP Family Medicine; Visit Provider Emergency Medicine
DX: I89.0 Lymphedema, not elsewhere classified (principal); J44.9 Chronic obstructive pulmonary disease, unspecified; I11.0 Hypertensive heart disease with heart failure; I50.30 Unspecified diastolic (congestive) heart failure; R23.8 Other skin changes; Z99.81 Dependence on supplemental oxygen; I25.10 Atherosclerotic heart disease of native coronary artery without angina pectoris; G47.30 Sleep apnea, unspecified; E78.5 Hyperlipidemia, unspecified; Z79.02 Long term (current) use of antithrombotics/antiplatelets; Z79.899 Other long term (current) drug therapy; F17.210 Nicotine dependence, cigarettes, uncomplicated
CPT/HCPCS: 73590; 80053; 83605; 85025; 99283

== ENCOUNTER 2022-05-15 08:10 | Inpatient (IN) | payer MEDICARE, SELFPAY ==
[2022-05-15] VITALS (32 sets, daily range): BP systolic 131–200; BP diastolic 63–139; PULSE 48–97; RESP 12–32; TEMP 36.1–37.2; O2SAT 90–100; BMI 34.9; BMI 33.2
--- NOTE | 2022-05-15 08:25 | EKG12_ITS ---
Test Reason : SOB Blood Pressure : / mmHG Vent. Rate : 090 BPM Atrial Rate : 090 BPM P-R Int : 182 ms QRS Dur : 096 ms QT Int : 364 ms P-R-T Axes : 077 097 047 degrees QTc Int : 445 ms Somatic/Motion Artifact Normal sinus rhythm Rightward axis Low voltage QRS (Limb Leads) Nonspecific ST abnormality Abnormal ECG Confirmed by YAYA VELEZ, NHUNG ([id number]), editor index KATIA FISHMAN ([id number]) on 05/16/2022 11:38:11 AM Referred By: Confirmed By:NHUNG JAVIER MD
[2022-05-15] MEDS: Ipratropium/Albuterol Sulfate 3 ML AMPUL.NEB INHALATION ×3 (08:37→22:34)
[2022-05-15 08:40] LABS: Absolute Lymphocyte Count 0.64 X10^3/uL (0.83-4.51); Absolute Neutrophil Count 5.4 X10^3/uL (2.0-7.7); Basophil# 0.03 X10^3/uL; Basophil% 0.5 % (0-1); Eosinophil# 0.03 X10^3/uL; Eosinophils% 0.5 % (0-5); Hematocrit 46.2 % (40-54); Hemoglobin 13.7 g/dL (13.0-16.5); Lymphocyte # 0.64 X10^3/ul (0.83-4.51); Lymphocyte % 9.6 % (19-41); Mean Corp Hgb Conc 29.7 g/dL (32-36); Mean Corpuscular Volume 101.1 fL (80-94); Mean Platelet Vol. 8.5 fl (6.2-12.0); Monocyte# 0.45 X10^3/uL; Monocyte% 6.8 % (0-10); NRBC Flagged by Analyzer 0 % (0-5); Neutrophil # 5.38 X10^3/uL (2.7-7.7); Neutrophil % 80.9 % (47-70); Platelet Count 116 K/mm3 (150-450); RBC Distribution Width CV 12.8 % (11.6-14.6); RBC Distribution Width SD 47.9 fl (35.1-43.9); Red Blood Count 4.57 M/mm3 (4.6-6.2); White Blood Count 6.6 K/mm3 (4.4-11.0)
[2022-05-15] MEDS: MethylPREDNISolone 125 MG/2 ML Vial IV (08:41)
[2022-05-15] MEDS: Albuterol 2.5 MG/3 ML VIAL.NEB. INHALATION ×2 (08:41→08:59)
[2022-05-15 09:07] LABS: BUN 17 mg/dL (7-18); BUN/Creat Ratio 26.2 RATIO (10-20); Calcium,Total 9.1 mg/dL (8.5-10.1); Carbon Dioxide > 45.0 mmol/L (21.0-32.0); Chloride 88 mmol/L (98-107); Creatinine, Serum 0.65 mg/dL (0.70-1.30); EST Glomerular Filtration Rate 130 mL/min (>60); Est Glom Filt Rate - Afr Amer 157 mL/min (>60); Glucose 88 mg/dL (74-106); Potassium 3.8 mmol/L (3.5-5.1); Sodium Level 137 mmol/L (136-145); Troponin-I HS 23 pg/mL (3.0-78.0)
--- NOTE | 2022-05-15 09:08 | RAD_ITS ---
STUDY: X-RAY CHEST REASON FOR EXAM: Male, 66 years old. Sob and wet cough. TECHNIQUE: Single AP portable view of the chest. COMPARISON: Comparison is made with prior study dated 02/04/2022. FINDINGS: EKG electrodes are seen. Mild degree of vascular congestion. Hyperinflation There is no demonstrated pleural abnormality. Normal size heart. Normal mediastinum and jayjay. There is prominence of the pulmonary hilar arteries without peripheral pulmonary vascular congestion, suggesting pulmonary hypertension. Normal visualized aortic arch and descending thoracic aorta. There are diffuse degenerative changes of the visualized thoracic spine. Normal visualized ribs, clavicles, and shoulders. There is no demonstrated abnormality of the visualized soft tissue structures of the upper abdomen. RAD/Chest 1 View (Portable) IMPRESSION: Vascular congestion. Electronically Signed: Linus Manzo MD at 9:25 EST ,
[2022-05-15 09:12] LABS: BNP,B-Type NATRIURETIC PEPTIDE 402.4 pg/mL (0-100)
[2022-05-15 09:30] LABS: Allen Test Positive; Base Excess 23 mmol/L (-2 to +2); Bicarbonate 50.1 mmol/L (22-26); Blood Gas Specimen Type ART; O2 Delivery Device Cannula; PO2 82 mmHG (75-100); SITE R Radial; SO2 92 % (95-99); Total Carbon Dioxide > 50 mmol/L; pCO2 112.2 mmHg (35-45); pH 7.26 (7.35-7.45)
--- NOTE | 2022-05-15 10:06 | EDS_ITS ---
HPI History of Present Illness Chief Complaint: Shortness of Breath Informant: patient Narrative Narrative: Patient is a 66-year-old male with history of chronic hypoxic respiratory failure, COPD and lymphedema presenting with increased work of breathing. Patient's been feeling more short of breath since last night. He does get some temporary improvement of his breathing with the breathing treatments at home. He wears 4 to 5 L at baseline. He denies any change of his cough. He denies any change in his sputum production. Denies any fever or chills. Denies any chest pain. Denies any change with his chronic leg swelling. No other complaints at this time. Of note patient was admitted in January of this year for cellulitis of the lower extremities as well as acute on chronic respiratory failure requiring BiPAP. [facility] Medical History (HFpEF) heart failure with preserved ejection fraction Bilateral lower extremity edema CAD (coronary artery disease) Cellulitis of left lower extremity without foot COPD (chronic obstructive pulmonary disease) COPD (chronic obstructive pulmonary disease) HTN (hypertension) Hyperlipemia Lymphedema Morbid obesity Pneumonia Sleep apnea Stasis leg ulcer Tobacco abuse disorder Ulcer of left calf Ulcer of right lower extremity with fat layer exposed Wound infection Home Medications atorvastatin 80 mg tablet 80 mg PO QHS cholesterol 04/18/13 [History Last Taken 07/28/21] clopidogrel 75 mg tablet 75 mg PO DAILY anti platelet 04/18/13 [History Last Taken 02/02/22] albuterol sulfate 90 mcg/actuation aerosol inhaler 1 - 2 puff inhalation Q4H PRN PRN Dyspnea 10/31/16 [History Last Taken 02/02/22] trazodone 150 mg tablet 150 mg PO QHS sleep 10/31/16 [History Last Taken 05/14/22] budesonide-formoterol HFA 160 mcg-4.5 mcg/actuation aerosol inhaler 2 puff inhalation BID SOB/wheezing 08/07/19 [History Last Taken 02/02/22] ipratropium 0.5 mg-albuterol 3 mg (2.5 mg base)/3 mL nebulization soln 3 ml inhalation Q4H SOB/wheezing 07/29/21 [History Last Taken 07/28/21] isosorbide mononitrate 60 mg tablet,extended release 24 hr 60 mg PO DAILY heart 07/29/21 [History Last Taken 02/02/22] metoprolol tartrate 25 mg tablet 25 mg PO BID blood pressure/heart rate 07/29/21 [History Last Taken 05/14/22] Allergy/AdvReac Type Severity Reaction Status Date / Time benzonatate Allergy rash hives Verified 05/15/22 08:14 [From Tessalon Perles] chlorpheniramine polistirex AdvReac Rash Verified 05/15/22 08:14 [From Tussionex] hydrocodone polistirex AdvReac Rash Verified 05/15/22 08:14 [From Tussionex] latex AdvReac Rash & Verified 05/15/22 08:14 Hives levofloxacin [From Levaquin] AdvReac Rash Verified 05/15/22 08:14 Surgical History H/O heart artery stent Social History housing: house pets and animals: Yes pets and animals: cat(s) Smoking Status: Current every day smoker tobacco type: cigarettes alcohol intake: never ROS ROS ED Constitutional Constitutional ED: Denies chills or fever(s) Eyes Eyes: Denies change in vision ENT ENT ED: Denies rhinorrhea or sore throat Cardiovascular Cardiovascular: Denies chest pain or palpitations Respiratory/Chest Respiratory/Chest: Reports cough, dyspnea and dyspnea on exertion Gastrointestinal Gastrointestinal: Denies abdominal pain or vomiting Genitourinary Genitourinary ED: Denies dysuria or hematuria Musculoskeletal Musculoskeletal: Denies arthralgias or myalgias Integumentary Reports other Details: Chronic skin changes to bilateral legs ; Denies rash Neurologic Neurologic: Denies paresthesias or weakness Psychiatric Psychiatric: Denies anxiety or depression Hematologic/Lymphatic Hematologic/Lymphatic: Denies easy bleeding or easy bruising EXAM Physical Exam Const Vital Signs: 05/15/22 08:11 05/15/22 09:00 05/15/22 09:01 Temperature 97.4 F L Temperature Source Temporal Pulse Rate 97 93 Respiratory Rate 14 21 H Respiratory Effort Respiratory Pattern Blood Pressure 131/102 H Blood Pressure Mean 111 Pulse Ox 95 100 Oxygen Delivery Method Nasal Cannula Nasal Cannula Oxygen Flow Rate (L/min) 5 5 Fraction of Inspired Oxygen (FIO2) 05/15/22 08:45 05/15/22 09:23 05/15/22 09:45 Temperature Temperature Source Pulse Rate 95 92 Respiratory Rate 30 H 23 H 31 H Respiratory Effort Short of Breath Labored Respiratory Pattern Tachypnea Blood Pressure Blood Pressure Mean Pulse Ox 100 100 97 Oxygen Delivery Method Nasal Cannula Oxygen Flow Rate (L/min) 5 Fraction of Inspired Oxygen (FIO2) 45 35 05/15/22 10:17 Temperature Temperature Source Pulse Rate 90 Respiratory Rate 19 H Respiratory Effort Respiratory Pattern Blood Pressure 200/139 H Blood Pressure Mean 159 Pulse Ox 90 Oxygen Delivery Method Nasal Cannula Oxygen Flow Rate (L/min) 5 Fraction of Inspired Oxygen (FIO2) Positive well nourished and well developed Constitutional Narrative: Respiratory distress General Appearance ED: well developed HEENT Reports moist mucous membranes Eyes PERRL and EOMs intact bilaterally Neck supple, no meningeal signs and no JVD Resp Resp Narrative: Pursed lip breathing, answers in one-word questions. Coarse breath sounds throughout and diminished at the bases. Cardio regular rhythm and no murmurs Rate: tachycardic GI non-tender, non-distended and no masses Extremity Extremity Narrative: Significant chronic appearing pitting edema of the lower extremities with chronic skin changes. Weeping from the right lower extremity. General Extremety ED: Yes edema; Negative for tenderness General Extremity: edema Neuro Neuro Narrative: Oriented to self and location. Answers questions appropriately but does seem confused and takes time to answer simple questions. No focal deficits. Psych mental status grossly normal Skin Skin Narrative: Chronic skin changes to the lower extremities. No secondary cellulitic changes. MDM MDM MDM Narrative Medical decision making narrative: Patient evaluated for increased difficulty breathing. Patient is in respiratory distress upon arrival. He seems confused. He is not hypoxic however I am concerned that he is hypercapnic. ABG shows acute on chronic respiratory acidosis. Patient was placed on BiPAP with improvement of his mentation as well as his work of breathing. Patient is severe pulmonary hypertension and COPD as well as CHF. CBC large unremarkable. BMP shows a bicarb greater than 45 consistent with chronic respiratory acidosis otherwise normal. High sensitive troponin is 23. EKG does not show ischemic changes I do not think this is a primary cardiac event. BNP is mildly elevated at 402.4 however this appears near his baseline. In addition patient is given IV Solu-Medrol and stacked breathing treatments. Due to his significant lung disease he is covered with antibiotics for goal 2 criteria. He is given dose of IV azithromycin. Patient will be admitted to PCU for further respiratory management. He remains agreeable this plan of care. I do not suspect a secondary pneumonia and he is not given broad-spectrum antibiotics at this time. Lab Data Attestation: I reviewed the patient's lab results. Labs: Laboratory Results - last 24 hr 05/15/22 05/15/22 05/15/22 08:30 08:30 08:30 WBC 6.6 RBC 4.57 L Hgb 13.7 Hct 46.2 MCV 101.1 H MCH 30.0 MCHC 29.7 L RDW Std Deviation 47.9 H RDW Coeff of Artemio 12.8 Plt Count 116 L MPV 8.5 Immature Gran % (Auto) 1.700 H Neut % (Auto) 80.9 H Lymph % (Auto) 9.6 L Carolina % (Auto) 6.8 Eos % (Auto) 0.5 Baso % (Auto) 0.5 Absolute Neuts (auto) 5.4 Absolute Lymphs (auto) 0.64 L Nucleated RBC % 0 Sodium 137 Potassium 3.8 Chloride 88 L Carbon Dioxide > 45.0 H* Anion Gap TNP BUN 17 Creatinine 0.65 L Estim Creat Clear Calc 68.40 Est GFR (MDRD) Af Amer 157 Est GFR (MDRD) Non-Af 130 BUN/Creatinine Ratio 26.2 H Glucose 88 Calcium 9.1 Troponin I High Sens 23 B-Natriuretic Peptide 402.4 H Procalcitonin 05/15/22 08:30 WBC RBC Hgb Hct MCV MCH MCHC RDW Std Deviation RDW Coeff of Artemio Plt Count MPV Immature Gran % (Auto) Neut % (Auto) Lymph % (Auto) Carolina % (Auto) Eos % (Auto) Baso % (Auto) Absolute Neuts (auto) Absolute Lymphs (auto) Nucleated RBC % Sodium Potassium Chloride Carbon Dioxide Anion Gap BUN Creatinine Estim Creat Clear Calc Est GFR (MDRD) Af Amer Est GFR (MDRD) Non-Af BUN/Creatinine Ratio Glucose Calcium Troponin I High Sens B-Natriuretic Peptide Procalcitonin 0.06 ABG Data ABG results: ABG 05/15/22 09:00 Specimen Type ART Sample Site R Radial pH 7.26 L Bicarbonate Actual 50.1 H Total CO2 > 50 Base Excess 23 H O2 Saturation 92 L ABG pCO2 112.2 H* ABG pO2 82 Daniel Test Positive O2 Delivery Device Cannula Liter Flow 5.0 Crit Call To/Read Back Yes Blood Gas [facility] - ED: 1 View, Read by ED Physician, Read by Radiologist and - (Vascular congestion, no significant pleural effusions) Diagnostic Testing: Clinical Impression(s) from Imaging Studies Chest X-Ray 05/15/22 09:08 IMPRESSION: Vascular congestion. Electronically Signed: Linus Manzo MD at 9:25 EST , Rhythm Strip Rhythm Strip: Sinus Rhythm Rate: 90 Ectopy: None EKG Initial EKG: Attestation: I personally reviewed and interpreted this EKG as follows: Interpretation: Sinus Rhythm Comments: Normal sinus rhythm and rate of 90 Right axis deviation Normal intervals Nonspecific T wave changes Critical Care Time Critical Care Time: Yes Critical care time (excluding procedures): 30-74 minutes (35), Discussing w/Patient &/or Family/Cardiologist, Arranging Admission or Transfer, Performing Direct Patient Care at Bedside and - (Acute hypercapnic respiratory failure required intervention with BiPAP, frequent reevaluation of respiratory status and arranged admission. ) Discharge Plan Dx/Rx/DC Orders Clinical Impression: Acute and chronic respiratory failure with hypercapnia, Chronic obstructive pulmonary disease, Acute exacerbation of chronic obstructive pulmonary disease, Lymphedema Disposition Disposition: Acute Care [facility] Discharge Date/Time: 05/15/22 11:09
--- NOTE | 2022-05-15 10:58 | CM.ED ---
GRETTA Note Referral Source: surgical training specialist Stacey Referral Reason: SNF placement SW was advised that patient's sister, who is an employee, said that patient needs SNF. SW met with patient. Patient indicated things were not going well at the home. SW discussed SNF and he referenced if his had spoken to this proposal manager writer regarding things at home. Patient inquired which SNF he will go to and this proposal manager writer said that SW will need to check insurance to see who is in network. Sw called patient's , Tia. Tia reports that patient has lost weight and has not changed his clothes. Tia said that the clothes patient has been wearing he has worn for 4 weeks and Tia said that patient is not showering. Tia said that she is stressing out regarding patient as he never use to be life this. Tia said that patient won't go anyplace unless there is a drive thru as he doesn't get out of the car. Tia said that patient has home health in the past and when the therapist leave he stops doing the things (they suggested). Tia said that patient doesn't take care of himself. Tia said that yesterday patient slept all day, except for 2 hours, and then slept at night. Yesterday morning patient was [place] for a breakfast casserole and when she fixed it he did not eat it. Tia said that all patient does is pretty much sleeps. Tia said that she had a doorbell installed in her bedroom and kitchen so if she needs help she can ring the [place] but stated patient unplugged it. Tia said that she has hollered for him to come and help her and I swear it took forever for him to come.. and he never acted like this. Tia has stage 4 Lung cancer and she said is this his way of dealing with his illness. Tia said that for the last 6 months she has told patient he has to go somewhere but he refused. Tia questioned if patient is severely depressed.. as he acts like it as he hardly talks. Patient, per Tia, takes trazodone as prescribed. Tia works at the [employer] and stated that she continues to work but they will be limited in what they can afford regarding placement for patient. GRETTA provided Tia with [facility] information including phone number. SW provided emotional support to Tia and she reports she has an appointment on the with Lauren for counseling. GRETTA reviewed with Tia the completed case management assessment completed by Rhonda Haines on 02/03/22 and updated it. CM assessment Completed by Emely BARRON Informant: Patient's , Tia PCP: Ryan Specialist: azucena Redd Preferred Pharmacy: [facility] and mail in pharmacy Insurance Provider: Lesly Medicare Prescription Benefits: Yes LW/HCPOA: Patient has LW/HCPOA and it is on file at [facility]. His , Tia Ariza is his POA. LNOK: , Tia Living Arrangements: Tia reports that patient resides with her and her sister, who is mentally ill. Tia said that she can't care for patient anymore at home. Patient resides in a single story house with 1 step to enter on the patio and a ramp. Per Tia Patient is not bathing himself. Transportation: Patient drives DME/HHC/SNF: Patient has oxygen through [employer], 4 L continuos flow. He has 6 portable tanks at the house. Patient also has a pox. Patient has a cane, FWW, shower chair and grab bar in the shower but he does not use any of the DME's. Patient, per Tia, has had [facility] and [facility] in the past. No previous SNF placements. Previous assessment noted that patient was smoking 1 pack of cigarettes a day. Plan: SNF Emely BARRON
[2022-05-15] MEDS: Labetalol (Prefilled) 20 MG/4 ML IV (11:09)
[2022-05-15 11:40] LABS: Procalcitonin 0.06 ng/mL (0.00-0.09)
--- NOTE | 2022-05-15 13:46 | WOUNDNOTE ---
wound photo: right lower leg
--- NOTE | 2022-05-15 13:47 | WOUNDNOTE ---
skin photo: left lower leg
--- NOTE | 2022-05-15 13:48 | WOUNDNOTE ---
skin photo: bilateral lower legs
[2022-05-15] MEDS: Furosemide 40 MG/4 ML Vial IV (14:06)
--- NOTE | 2022-05-15 14:08 | CASEMGMT ---
Discharge Manager Of Case This financial underwriter met with patient [id number]. This financial underwriter introduced self and role here at [facility]. Patient is interested in a Snf Facility. This financial underwriter left a?list of?custodial facility providers including quality and resource use data and consistent with patient?s preferred geographic region, medical needs, and insurance network were provided from the [facility].This financial underwriter or SW staff will check back on patient choice. Gerson STROUD Wool Shearer
--- NOTE | 2022-05-15 15:09 | HP.PCM.HOS_ITS ---
HPI - General General Date of Admission: 05/15/22 Date of Service: 05/15/22 Chief Complaint: Shortness of breath HPI Narrative NASIM LINARES, is a 66 M who presented to the emergency department [facility] on 05/15/2022 with a chief complaint of shortness of breath. Patient reports that it started yesterday. He indicated that he was getting some temporary improvement with his breathing treatments at home. He admits to wearing 5 L of oxygen at baseline and reports that he is still smoking about a pack of cigarettes daily. He indicated that he has had sputum production that is increased from his baseline but denied any fever or chills. He denies any chest pain. He indicates that his legs are chronically swollen and he has a chronic right lower extremity wound but he does not follow with the wound clinic at this time. It appears that he has chronic hypercapnia with a baseline PCO2 of anywhere from 80-90. Vital signs at the time of presentation show a temperature of 97.4, blood pressure 131/1 oh weight 2, respiratory rate anywhere from 14-30, oxygen saturation was 95% on 5 L nasal cannula which is his baseline. His CBC showed a normal white count with a normal hemoglobin and mild microcytosis. His platelet count was low at 116,000 this appears to be chronic. His chemistry panel showed hypochloremia with a chloride of 88, his serum bicarb was greater than 45 which appears to be consistent for his baseline and his renal function is within normal limits. His initial opponent was normal at 23. His BNP was elevated at 402.4. EKG shows normal sinus rhythm with normal intervals and no ST-T wave ch anges consistent with acute ischemia. His chest x-ray. Shows some mild vascular congestion hyperinflation. An ABG was obtained with some confusion that he had on presentation and demonstrated a pH of 7.26/PCO2 of 112.2/PO2 of 82 on 5 L nasal cannula which is noted above is his baseline oxygen sup plementation. In the emergency department he was given 500 mg of azithromycin and placed on BiPAP for his hypercapnia. [facility] Medical History (HFpEF) heart failure with preserved ejection fraction Bilateral lower extremity edema CAD (coronary artery disease) Cellulitis of left lower extremity without foot Chronic hypoxemic respiratory failure COPD (chronic obstructive pulmonary disease) COPD (chronic obstructive pulmonary disease) HTN (hypertension) Hyperlipemia Lymphedema Nicotine dependence, cigarettes, uncomplicated Pneumonia Sleep apnea Stasis leg ulcer Tobacco abuse disorder Ulcer of left calf Ulcer of right lower extremity with fat layer exposed Wound infection Home Medications atorvastatin 80 mg tablet 80 mg PO QHS cholesterol 04/18/13 [History Last Taken 07/28/21] clopidogrel 75 mg tablet 75 mg PO DAILY anti platelet 04/18/13 [History Last Taken 02/02/22] albuterol sulfate 90 mcg/actuation aerosol inhaler 1 - 2 puff inhalation Q4H PRN PRN Dyspnea 10/31/16 [History Last Taken 02/02/22] trazodone 150 mg tablet 150 mg PO QHS sleep 10/31/16 [History Last Taken 05/14/22] budesonide-formoterol HFA 160 mcg-4.5 mcg/actuation aerosol inhaler 2 puff inhalation BID SOB/wheezing 08/07/19 [History Last Taken 02/02/22] ipratropium 0.5 mg-albuterol 3 mg (2.5 mg base)/3 mL nebulization soln 3 ml inhalation Q4H SOB/wheezing 07/29/21 [History Last Taken 07/28/21] isosorbide mononitrate 60 mg tablet,extended release 24 hr 60 mg PO DAILY heart 07/29/21 [History Last Taken 02/02/22] metoprolol tartrate 25 mg tablet 25 mg PO BID blood pressure/heart rate 07/29/21 [History Last Taken 05/14/22] Allergy/AdvReac Type Severity Reaction Status Date / Time benzonatate Allergy rash hives Verified 05/15/22 08:14 [From Tessalon Perles] chlorpheniramine polistirex AdvReac Rash Verified 05/15/22 08:14 [From Tussionex] hydrocodone polistirex AdvReac Rash Verified 05/15/22 08:14 [From Tussionex] latex AdvReac Rash & Verified 05/15/22 08:14 Hives levofloxacin [From Levaquin] AdvReac Rash Verified 05/15/22 08:14 no significant family history Surgical History H/O heart artery stent Social History (Updated 05/15/22 @ 15:[address] Marj Skelton, DO) household members: spouse housing: house pets and animals: Yes pets and animals: cat(s) Smoking Status: Current every day smoker tobacco type: cigarettes Smoking packs per day: 1 Smoking cigarettes per day: 20.0 alcohol intake: never substance use type: does not use ROS Constitutional Constitutional: Reports weakness; Denies anorexia, change in weight, chills, fatigue, fever(s), malaise, night sweats or other Eyes Eyes: Denies blurry vision, change in eye color, change in vision, discharge from eye(s), double vision, erythema, eye pain, loss of vision or other ENT HEENT: Denies abnormal hearing, dysphagia, ear pain, epistaxis, headache(s), hearing loss, nasal congestion, nasal discharge, post nasal drip, sinus pressure, sore throat or other Cardiovascular Cardiovascular: Reports dyspnea on exertion and edema; Denies chest pain, claudication, lightheadedness, orthopnea, palpitations, paroxysmal nocturnal dyspnea, rapid heart rate, syncope or other Respiratory/Chest Respiratory/Chest: Reports cough, dyspnea, excessive phlegm production, productive cough, shortness of breath at rest, shortness of breath with exertion and wheezing Gastrointestinal Gastrointestinal: Denies abdominal pain, coffee ground emesis, constipation, diarrhea, dyspepsia, hematemesis, hematochezia, loose stools, melena, nausea, vomiting or other Genitourinary Genitourinary: Denies burning urination, difficulty urinating, dysuria, hematuria, nocturia, urinary frequency, urinary hesitancy, urinary incontinence, urinary urgency or other Musculoskeletal Musculoskeletal: Reports back pain; Denies arthralgias, joint pain, joint stiffness, joint swelling, myalgias, neck pain or other Neurologic Neurologic: Denies abnormal gait, abnormal speech, confusion, disequilibrium, dizziness, focal weakness, headache(s), numbness, paresthesias, seizure-like activity, seizures, syncope, tingling, tremor(s) or other Psychiatric Psychiatric: Denies anxiety, depression, homicidal ideation, suicidal ideation or other Endocrine Endocrinology: Denies change in body appearance, cold intolerance, excessive sweating, heat intolerance, polydipsia, polyuria or other Hematologic/Lymphatic Hematologic/Lymphatic: Denies anemia, easy bleeding, easy bruising, lymphadenopathy or other Allergic/Immunologic Allergic/Immunologic: Denies rhinitis, hives, eczemia, asthma or other Vital Signs Vital Signs Vital Signs: 05/15/22 08:11 05/15/22 09:00 05/15/22 09:01 Temperature 97.4 F L Temperature Source Temporal Pulse Rate 97 93 Respiratory Rate 14 21 H Respiratory Effort Respiratory Depth Respiratory Pattern Blood Pressure 131/102 H Blood Pressure Mean 111 Blood Pressure Source Blood Pressure Position Blood Pressure Location Pulse Ox 95 100 Oxygen Delivery Method Nasal Cannula Nasal Cannula Oxygen Flow Rate (L/min) 5 5 Fraction of Inspired Oxygen (FIO2) 05/15/22 08:45 05/15/22 09:23 05/15/22 09:45 Temperature Temperature Source Pulse Rate 95 92 Respiratory Rate 30 H 23 H 31 H Respiratory Effort Short of Breath Labored Respiratory Depth Respiratory Pattern Tachypnea Blood Pressure Blood Pressure Mean Blood Pressure Source Blood Pressure Position Blood Pressure Location Pulse Ox 100 100 97 Oxygen Delivery Method Nasal Cannula Oxygen Flow Rate (L/min) 5 Fraction of Inspired Oxygen (FIO2) 45 35 05/15/22 10:17 05/15/22 10:35 05/15/22 11:08 Temperature 97.4 F L Temperature Source Temporal Pulse Rate 90 93 93 Respiratory Rate 19 H 32 H 32 H Respiratory Effort Respiratory Depth Respiratory Pattern Tachypnea Blood Pressure 200/139 H 200/139 H Blood Pressure Mean 159 159 Blood Pressure Source Blood Pressure Position Blood Pressure Location Pulse Ox 90 92 92 Oxygen Delivery Method Nasal Cannula Nasal Cannula Oxygen Flow Rate (L/min) 5 5 Fraction of Inspired Oxygen (FIO2) 40 05/15/22 11:45 05/15/22 11:59 05/15/22 12:30 Temperature 97.5 F L Temperature Source Temporal Pulse Rate 88 87 Respiratory Rate 20 H Respiratory Effort Short of Breath Respiratory Depth Normal Respiratory Pattern Tachypnea Blood Pressure 151/79 H Blood Pressure Mean 103 Blood Pressure Source Monitor Blood Pressure Position Semi-Fowlers Blood Pressure Location Left Arm Pulse Ox 95 Oxygen Delivery Method Nasal Cannula Nasal Cannula Oxygen Flow Rate (L/min) 5 5 Fraction of Inspired Oxygen (FIO2) 05/15/22 13:56 Temperature 97.5 F L Temperature Source Temporal Pulse Rate 87 Respiratory Rate 20 H Respiratory Effort Respiratory Depth Respiratory Pattern Blood Pressure 151/79 H Blood Pressure Mean 103 Blood Pressure Source Blood Pressure Position Blood Pressure Location Pulse Ox 95 Oxygen Delivery Method Nasal Cannula Oxygen Flow Rate (L/min) 5 Fraction of Inspired Oxygen (FIO2) 40 Weight Weight: 99 kg Body Mass Index (BMI) 33.2 Physical Exam Const alert Constitutional Narrative: Upper middle-aged obese, white male sitting up in bed on BiPAP, follows commands and not pulling at lines or BiPAP at this time, appears comfortable and nontoxic, currently minimally confused General Appearance: cooperative Orientation / Consciousness: confused HEENT normocephalic, head/scalp atraumatic and moist oral mucous membranes HEENT Narrative: Dentition is poor, Mallampati 3, no thrush, moderate hearing loss Eyes PERRL, EOMs intact bilaterally and conjunctivae normal Eyes Narrative: No scleral icterus Neck no lymphadenopathy and supple Neck Narrative: Trachea midline, no thyroid enlargement Resp no retractions and no use of accessory muscles Resp Narrative: Course inspiratory and expiratory breath sounds diffusely bilaterally with scattered end expiratory wheeze, currently on BiPAP Auscultation: wheezes; Negative for crackles or rhonchi Cardio regular rate, regular rhythm, S1 normal heart sound, S2 normal heart sound, no murmurs, no rub, no gallops and no clicks GI normal to inspection, nondistended, normoactive bowel sounds, soft to palpation and non-tender Extremity Extremity Narrative: Severely edematous legs bilaterally, clubbing noted, no cyanosis Skin Skin Narrative: Bilateral lower extremity with severe dry skin, large wound with dressing in place lateral distal leg, exudate covering the wound however surrounding skin does not appear to be cellulitic or have increased tissue temperature, leg smells like dying flash Neuro CN's II-XII intact bilaterally, moves all extremities and no focal motor deficits Neuro Narrative: Mild generalized weakness with proximal muscles weaker than distal, oriented to place/self but confused on time Speech: speech normal Psych Psych Narrative: Mildly agitated and somewhat anxious Results Medical Records Data Medical Nutrition Assessment Dietitian: Malnutrition Criteria Met Start: 05/15/22 14:28 Freq: Status: Active Protocol: Document 05/15/22 14:28 [email or web address] (Rec: 05/15/22 14:28 [id number]) Nutrition Malnutrition Evidence of Malnutrition Exists Yes Malnutrition (moderate): Acute Illness/Injury Evidenced By Suboptimal Energy Intake ( Moderate),Weight Loss (Severe) Intake Problem Increased Nutrient Needs (specify) Etiology protein related to increased demand for healing Signs/Symptoms as evidenced by stasis ulcer on right lateral lower leg Status Active Problem Clinical Problem Acute Disease or Injury Related Malnutrition Etiology related to suboptimal appetite Signs/Symptoms as evidenced by 22.4lbs (9.3%) weight loss in 3 months and < 75% PO intake of estimated energy needs for >7 days. Status Active Problem Recommendation Dietitian Recommendations/Changes ADAT to Regular diet to optimize oral intakes. Recommend 120mL Ensure Plus High Protein 4x daily with medpass when diet advances. Lab / Micro Data Attestation: I reviewed the patient's lab results. Result Diagrams: 05/15/22 08:30 05/15/22 08:30 Labs: Laboratory Results - last 24 hr 05/15/22 08:30: WBC 6.6, RBC 4.57 L, Hgb 13.7, Hct 46.2, MCV 101.1 H, MCH 30.0, MCHC 29.7 L, RDW Std Deviation 47.9 H, RDW Coeff of Artemio 12.8, Plt Count 116 L, MPV 8.5, Immature Gran % (Auto) 1.700 H, Neut % (Auto) 80.9 H, Lymph % (Auto) 9.6 L, Stephenson % (Auto) 6.8, Eos % (Auto) 0.5, Baso % (Auto) 0.5, Absolute Neuts (auto) 5.4, Absolute Lymphs (auto) 0.64 L, Nucleated RBC % 0 05/15/22 08:30: Sodium 137, Potassium 3.8, Chloride 88 L, Carbon Dioxide > 45.0 H*, Anion Gap TNP, BUN 17, Creatinine 0.65 L, Estim Creat Clear Calc 68.40, Est GFR (MDRD) Af Amer 157, Est GFR (MDRD) Non-Af 130, BUN/Creatinine Ratio 26.2 H, Glucose 88, Calcium 9.1, Troponin I High Sens 23 05/15/22 08:30: B-Natriuretic Peptide 402.4 H 05/15/22 08:30: Procalcitonin 0.06 Micro: Microbiology 05/15/22 14:10 Urine, Random Streptococcus pneumoniae Antigen (M - Final 05/15/22 14:10 Urine, Random Legionella Antigen - Final 05/15/22 11:45 Mucosa - Nasopharyngeal Respiratory Panel (PCR) - Final 05/15/22 08:35 Nasal Secretion SARS-CoV-2 & FLU Antigen (Rapid) - Final ABG Data ABG results: ABG 05/15/22 09:00 Specimen Type ART Sample Site R Radial pH 7.26 L Bicarbonate Actual 50.1 H Total CO2 > 50 Base Excess 23 H O2 Saturation 92 L ABG pCO2 112.2 H* ABG pO2 82 Daniel Test Positive O2 Delivery Device Cannula Liter Flow 5.0 Crit Call To/Read Back Yes Blood Gas Notified Whom godman Rhythm Strip Rhythm Strip: Sinus Rhythm Rate: 90 Ectopy: None Radiology Impression Chest X-Ray 05/15/22 09:08 IMPRESSION: Vascular congestion. Electronically Signed: Linus Manzo MD at 9:25 EST , Assessment & Plan Assessment/Plan (1) Acute and chronic respiratory failure with hypercapnia: (2) Lymphedema: (3) Acute exacerbation of chronic obstructive pulmonary disease: (4) Wound of right lower extremity: (5) (HFpEF) heart failure with preserved ejection fraction: PLAN: Plan Acute hypercapnic on chronic hypoxic and hypercapnic respiratory failure--> multifactorial -Suspect related to COPD exacerbation/decompensated HFpEF/possible viral illness -ABG on presentation showed a pH of 7.26/PCO2 112.2/PO2 of 82 on 5 L nasal cannula -Repeat ABG at noon was ordered however not performed -Discussed with nursing and they will contact pulmonary services for stat ABG -Patient reports he wears 5 L nasal cannula baseline -Aggressive pulmonary toilet -Continuous BiPAP -Check respiratory viral panel -Check strep pneumo and Legionella antigens -N.p.o. except for p.o. meds -Methylprednisolone 40 every 8 -Azithromycin 500 daily -Lasix 40 mg IV push daily -May need to consider Diamox with chronically elevated bicarb as compensation for his chronic hypercapnia -I-S -Acapella -Mucinex 1200 twice daily -Pulmonary medicine consultation Decompensated HFpEF/PAH who group 3 -Echo from 07/29/2021 showed normal EF at 50 to 60% with severely dilated RV and severe pulmonary hypertension with a right ventricular systolic pressure of 80 mmHg -Chest x-ray shows some signs of volume overload -BNP is elevated which I would anticipate with chronic pulmonary hypertension -We will start Lasix 40 mg daily and potentially uptitrate depending on response -Chiu placement for accurate I's and O's Right lower extremity wound -Area around does not appear to be cellulitic -We will hold on cultures for now -Procalcitonin is low -No white count elevation -Wound care consultation -Diuresis as this appears to be related to chronic edema suspected to be related to his chronic pulmonary hypertension Pulmonary nodule -Noted is stable on CT from 11/11/2021 -Annual screening recommended -Pulmonary medicine follow-up recommended at discharge Chronic lymphedema -Echo as above -Diuresis COPD -Patient has never really followed up with pulmonary medicine as an outpatient since January admission -Recommend outpatient follow-up next-hold home inhalers -Pulmonary toilet as above History of CAD/HTN/HPL -Initial troponin was normal -Patient denies any chest pain -Continue home Plavix -Continue home metoprolol -Continue home isosorbide mononitrate -Continue atorvastatin Ongoing tobacco abuse -Patient denies need for nicotine replacement -Recommend cessation -Patient reports he still smokes a pack a day -Reports that he does take his oxygen off while smoking Obesity -Complicates treatment, prognosis, outcomes -BMI 33.2 -Recommend weight loss DVT prophylaxis -Lovenox daily CODE STATUS -Full code as discussed prior to admission emergency department Charges/Coding Visit Charges Inpatient E&M: 84117 Init Hosp L3
--- NOTE | 2022-05-15 15:22 | NURSING ---
Pt becoming more and more confused and not answering questions appropriately for staff. Pt unsteady when this nurse and [employer]ING MANAGER get pt up off of bed to bsc, pt unable to follow commands to void in BSC. Pt does not tolerate Bipap and keeps pulling at bipap and wires. This nurse educated pt to leave machine on in order to help correct CO2. This nurse updated Dr Skelton. Plan is to obtain new ABG's and transfer pt to ICU as he needs his numbers corrected.
--- NOTE | 2022-05-15 15:30 | NURSING ---
Report called to nurse Tawny RN on ICU as she will take care of this pt at this time
--- NOTE | 2022-05-15 15:32 | PCM.HOSP.N ---
Hospitalist Note Called as patient was developing increased agitation and confusion on the floor. He was pulling off his BiPAP and has pulled off multiple IVs and catheters. Repeat ABG at noon was not obtained therefore a stat was ordered and will transfer patient to ICU for Precedex therapy and continued BiPAP therapy as I do anticipate he remains hypercapnic.
[2022-05-15] MEDS: 0.9% Saline Lock 10 ML Syringe IV (16:07)
[2022-05-15 16:11] LABS: Allen Test Positive; Base Excess 22 mmol/L (-2 to +2); Bicarbonate 47.8 mmol/L (22-26); Blood Gas Specimen Type ART; O2 Delivery Device Cannula; PO2 102 mmHG (75-100); SITE L Radial; SO2 97 % (95-99); Total Carbon Dioxide > 50 mmol/L; pH 7.33 (7.35-7.45)
--- NOTE | 2022-05-15 16:17 | CPS ---
Critical value Co2 verified times two. Reported value to RN. Verified by read back.
[2022-05-15] MEDS: Atorvastatin Calcium 80 MG Tablet PO (22:11)
[2022-05-15] MEDS: Metoprolol Tartrate 25 MG Tablet PO (22:11)
[2022-05-15] MEDS: traZODone 100 MG Tablet 150 MG PO (22:12)
[2022-05-15] MEDS: guaiFENesin 1,200 MG Tablet 1200 MG PO (22:12)
[2022-05-16] VITALS (32 sets, daily range): BP systolic 102–174; BP diastolic 50–90; PULSE 46–95; RESP 12–38; TEMP 35.6–37; O2SAT 88–100
[2022-05-16] MEDS: Ipratropium/Albuterol Sulfate 3 ML AMPUL.NEB INHALATION ×6 (02:50→23:57)
[2022-05-16] MEDS: 0.9% Saline Lock 10 ML Syringe IV ×4 (05:44→21:12)
[2022-05-16 05:52] LABS: Absolute Lymphocyte Count 0.35 X10^3/uL (0.83-4.51); Absolute Neutrophil Count 5.1 X10^3/uL (2.0-7.7); Basophil# 0.01 X10^3/uL; Basophil% 0.2 % (0-1); Hematocrit 45.3 % (40-54); Hemoglobin 14.4 g/dL (13.0-16.5); Lymphocyte # 0.35 X10^3/ul (0.83-4.51); Lymphocyte % 6.2 % (19-41); Mean Corp Hgb Conc 31.8 g/dL (32-36); Mean Corpuscular Hgb 30.6 pg (27.0-32.0); Mean Corpuscular Volume 96.4 fL (80-94); Mean Platelet Vol. 9.3 fl (6.2-12.0); Monocyte# 0.17 X10^3/uL; NRBC Flagged by Analyzer 0 % (0-5); Neutrophil # 5.07 X10^3/uL (2.7-7.7); Neutrophil % 89.9 % (47-70); POSITIVE DIFFERENTIAL YES; Platelet Count 134 K/mm3 (150-450); RBC Distribution Width CV 12.4 % (11.6-14.6); White Blood Count 5.6 K/mm3 (4.4-11.0)
[2022-05-16 05:53] LABS: Differential Indicated SCAN CRITERIA MET
[2022-05-16 06:30] LABS: ALB/GLOB Ratio 0.8 RATIO (0.9-2.4); AST(SGOT) 8 U/L (15-37); Alanine Aminotransfer ALT/SGPT 9 U/L (16-61); Alkaline Phosphatase 97 U/L (45-117); BUN 17 mg/dL (7-18); BUN/Creat Ratio 23.2 RATIO (10-20); Calcium,Total 8.6 mg/dL (8.5-10.1); Carbon Dioxide > 45.0 mmol/L (21.0-32.0); Chloride 80 mmol/L (98-107); Creatinine, Serum 0.73 mg/dL (0.70-1.30); EST Glomerular Filtration Rate 113 mL/min (>60); Est Glom Filt Rate - Afr Amer 136 mL/min (>60); Globulin 3.8 g/dL (2.2-4.2); Glucose 161 mg/dL (74-106); Magnesium 2.3 mg/dL (1.6-2.6); Phosphorus 2.9 mg/dL (2.5-4.9); Potassium 3.9 mmol/L (3.5-5.1); Protein, Total 6.8 g/dL (6.4-8.2); Sodium Level 136 mmol/L (136-145); Thyroid Stim Hormone (TSH) 1.06 uIU/mL (0.358-3.74)
--- NOTE | 2022-05-16 07:37 | CON.PCM.CC_ITS ---
Assessment & Plan Assessment/Plan (1) Acute and chronic respiratory failure with hypercapnia: PLAN: Plan RECOMMENDATIONS: 1. Encourage BiPAP therapy with naps and nightly. 2. Discontinue Precedex. 3. Continue scheduled bronchodilators and IV steroids. 4. Continue diuresis as tolerated by hemodynamics and renal function. 5. Continue Zithromax to complete treatment course. 6. Maintain oxygen saturations 88 to 92%. IMPRESSIONS: 1. Acute on chronic combined respiratory failure in the setting of end-stage COPD and pulmonary hypertension I do suspect that the patient's acute exacerbation is likely secondary to questionable outpatient compliance with prescribed medical therapy coupled with ongoing tobacco dependency. The patient is already on a maximum triple therapy inhaler regimen along with supplemental O2. He has refused to endorse the idea of the use of a noninvasive ventilator in his home environment. Given that he continues to have frequent exacerbations, I would recommend that he be started on prophylactic azithromycin on Sunday, Sunday and Sunday at discharge. In the interim, we will continue him on BiPAP therapy as needed along with supplemental oxygen to maintain saturations 88 to 92%. Plan to continue scheduled bronchodilators and IV steroids. Once again, anticipate a prolonged prednisone taper at discharge. 2. Chronic tobacco dependency I personally spent 3 minutes discussing the deleterious effects of ongoing tobacco use with the patient, including modalities which can be utilized to achieve a smoke-free lifestyle. Nicotine replacement therapy can be offered to the patient while admitted to the hospital. 3.??Obesity/hypertension/coronary artery disease/hyperlipidemia/chronic tobacco dependency Complicates care, management, recovery and prognosis.? Continue home medications as indicated.? This note was generated with [employer] dictation software. It may contain incorrect words, spelling, and punctuation that were not noted in checking the note before signing. HPI Consult Data Date of Consult: 05/16/22 HPI Narrative Reason for Consultation: Acute on chronic respiratory failure HPI Narrative: The patient is a 66-year-old male, with a history as outlined below, who presented to the emergency department on May 15 with worsening shortness of breath. The patient has known end-stage COPD along with chronic hypoxemic respiratory failure with a baseline oxygen requirement of 3 L at rest and 4 L with exertion.? He is already on a triple therapy inhaler regimen as an outpatient.? The patient has an extensive tobacco abuse history and continues to smoke 1 pack of cigarettes per day. The idea of utilizing BiPAP or a noninvasive ventilator in his home environment has been discussed with the patient in the past and he has refused the idea of said therapy. On presentation to the emergency department, the patient was noted to be afebrile and hemodynamically stable. Initial laboratory evaluation revealed no evidence of leukocytosis. Chemistry profile was notable for a bicarbonate of greater than 45. His initial ABG demonstrated a pH of 7.26 with a PCO2 of 112 and PO2 of 82. Plain film chest x-ray demonstrated findings concerning for pulmonary vascular congestion. The patient was started on antimicrobials, scheduled bronchodilators and IV steroids. In addition, IV Lasix was administered. Ultimately, the patient was placed on BiPAP therapy and admitted to the medical intensive care unit for further management. FOR[facility]LY [facility] Medical History (HFpEF) heart failure with preserved ejection fraction Bilateral lower extremity edema CAD (coronary artery disease) Cellulitis of left lower extremity without foot Chronic hypoxemic respiratory failure COPD (chronic obstructive pulmonary disease) COPD (chronic obstructive pulmonary disease) HTN (hypertension) Hyperlipemia Lymphedema Nicotine dependence, cigarettes, uncomplicated Pneumonia Sleep apnea Stasis leg ulcer Tobacco abuse disorder Ulcer of left calf Ulcer of right lower extremity with fat layer exposed Wound infection Home Medications atorvastatin 80 mg tablet 80 mg PO QHS cholesterol 04/18/13 [History Last Taken 07/28/21] clopidogrel 75 mg tablet 75 mg PO DAILY anti platelet 04/18/13 [History Last Taken 02/02/22] albuterol sulfate 90 mcg/actuation aerosol inhaler 1 - 2 puff inhalation Q4H PRN PRN Dyspnea 10/31/16 [History Last Taken 02/02/22] trazodone 150 mg tablet 150 mg PO QHS sleep 10/31/16 [History Last Taken 05/14/22] budesonide-formoterol HFA 160 mcg-4.5 mcg/actuation aerosol inhaler 2 puff inhalation BID SOB/wheezing 08/07/19 [History Last Taken 02/02/22] ipratropium 0.5 mg-albuterol 3 mg (2.5 mg base)/3 mL nebulization soln 3 ml inhalation Q4H SOB/wheezing 07/29/21 [History Last Taken 07/28/21] isosorbide mononitrate 60 mg tablet,extended release 24 hr 60 mg PO DAILY heart 07/29/21 [History Last Taken 02/02/22] metoprolol tartrate 25 mg tablet 25 mg PO BID blood pressure/heart rate 07/29/21 [History Last Taken 05/14/22] Allergy/AdvReac Type Severity Reaction Status Date / Time benzonatate Allergy rash hives Verified 05/15/22 08:14 [From Tessalon Perles] chlorpheniramine polistirex AdvReac Rash Verified 05/15/22 08:14 [From Tussionex] hydrocodone polistirex AdvReac Rash Verified 05/15/22 08:14 [From Tussionex] latex AdvReac Rash & Verified 05/15/22 08:14 Hives levofloxacin [From Levaquin] AdvReac Rash Verified 05/15/22 08:14 Family History no significant family his Surgical History H/O heart artery stent Social History (Updated 05/15/22 @ 15:[address] Marj Skelton DO) household members: spouse housing: house pets and animals: Yes pets and animals: cat(s) Smoking Status: Current every day smoker tobacco type: cigarettes Smoking packs per day: 1 Smoking cigarettes per day: 20.0 alcohol intake: never substance use type: does not use ROS ROS Narrative 10 systems were reviewed with pertinent positives as noted in the HPI above. Physical Exam Const alert and no apparent distress Constitutional Narrative: Fatigued in appearance. Arousable and able to answer questions appropriately. HEENT normocephalic and head/scalp atraumatic Eyes PERRL, EOMs intact bilaterally and conjunctivae normal Neck supple General: trachea midline Chest Chest Narrative: Increased AP diameter Resp normal respiratory effort Effort and Inspection: prolonged expiratory phase Auscultation: wheezes and diminished lung sounds Cardio regular rate and regular rhythm GI normal to inspection, nondistended, normoactive bowel sounds Extremity Extremity Narrative: Chronic lower extremity lymphedema Skin no rashes or lesions noted Neuro oriented x3, CN's II-XII intact bilaterally, moves all extremities and no focal motor deficits Psych cooperative and affect normal Medical Records Data Medical Nutrition Assessment Dietitian: Malnutrition Criteria Met Start: 05/15/22 14:28 Freq: Status: Active Protocol: Document 05/15/22 14:28 (Rec: 05/15/22 14:28 [id number]) Nutrition Malnutrition Evidence of Malnutrition Exists Yes Malnutrition (moderate): Acute Illness/Injury Evidenced By Suboptimal Energy Intake ( Moderate),Weight Loss (Severe) Intake Problem Increased Nutrient Needs (specify) Etiology protein related to increased demand for healing Signs/Symptoms as evidenced by stasis ulcer on right lateral lower leg Status Active Problem Clinical Problem Acute Disease or Injury Related Malnutrition Etiology related to suboptimal appetite Signs/Symptoms as evidenced by 22.4lbs (9.3%) weight loss in 3 months and < 75% PO intake of estimated energy needs for >7 days. Status Active Problem Recommendation Dietitian Recommendations/Changes ADAT to Regular diet to optimize oral intakes. Recommend 120mL Ensure Plus High Protein 4x daily with medpass when diet advances. Lab / Micro Data Result Diagrams: 05/16/22 05:39 05/16/22 05:39 Labs: Laboratory Results - last 24 hr 05/15/22 08:30: WBC 6.6, RBC 4.57 L, Hgb 13.7, Hct 46.2, MCV 101.1 H, MCH 30.0, MCHC 29.7 L, RDW Std Deviation 47.9 H, RDW Coeff of Artemio 12.8, Plt Count 116 L, MPV 8.5, Immature Gran % (Auto) 1.700 H, Neut % (Auto) 80.9 H, Lymph % (Auto) 9.6 L, [place] % (Auto) 6.8, Eos % (Auto) 0.5, Baso % (Auto) 0.5, Absolute Neuts (auto) 5.4, Absolute Lymphs (auto) 0.64 L, Nucleated RBC % 0 05/15/22 08:30: Sodium 137, Potassium 3.8, Chloride 88 L, Carbon Dioxide > 45.0 H*, Anion Gap TNP, BUN 17, Creatinine 0.65 L, Estim Creat Clear Calc 68.40, Est GFR (MDRD) Af Amer 157, Est GFR (MDRD) Non-Af 130, BUN/Creatinine Ratio 26.2 H, Glucose 88, Calcium 9.1, Troponin I High Sens 23 05/15/22 08:30: B-Natriuretic Peptide 402.4 H 05/15/22 08:30: Procalcitonin 0.06 05/16/22 05:39: WBC 5.6, RBC 4.70, Hgb 14.4, Hct 45.3, MCV 96.4 H, MCH 30.6, MCHC 31.8 L D, RDW Std Deviation 44.0 H, RDW Coeff of Artemio 12.4, Plt Count 134 L, MPV 9.3, Immature Gran % (Auto) 0.700, Neut % (Auto) 89.9 H, Lymph % (Auto) 6.2 L, [place] % (Auto) 3.0, Eos % (Auto) 0.0, Baso % (Auto) 0.2, Absolute Neuts (auto) 5.1, Absolute Lymphs (auto) 0.35 L, Nucleated RBC % 0 05/16/22 05:39: Sodium 136, Potassium 3.9, Chloride 80 L, Carbon Dioxide > 45.0 H*, Anion Gap TNP, BUN 17, Creatinine 0.73, Estim Creat Clear Calc 68.40, Est GFR (MDRD) Af Amer 136, Est GFR (MDRD) Non-Af 113, BUN/Creatinine Ratio 23.2 H, Glucose 161 H, Calcium 8.6, Phosphorus 2.9, Magnesium 2.3, Total Bilirubin 1.30 H, AST 8 L, ALT 9 L, Alkaline Phosphatase 97, Total Protein 6.8, Albumin 3.0 L, Globulin 3.8, Albumin/Globulin Ratio 0.8 L, TSH 1.06 Micro: Microbiology 05/15/22 14:10 Urine, Random Streptococcus pneumoniae Antigen (M - Final 05/15/22 14:10 Urine, Random Legionella Antigen - Final 05/15/22 11:45 Mucosa - Nasopharyngeal Respiratory Panel (PCR) - Final 05/15/22 08:35 Nasal Secretion SARS-CoV-2 & FLU Antigen (Rapid) - Final ABG Data ABG results: ABG 05/15/22 05/15/22 09:00 15:31 Specimen Type ART ART Sample Site R Radial L Radial pH 7.26 L 7.33 L Bicarbonate Actual 50.1 H 47.8 H Total CO2 > 50 > 50 Base Excess 23 H 22 H O2 Saturation 92 L 97 ABG pCO2 112.2 H* 91.0 H* ABG pO2 82 102 H Daniel Test Positive Positive O2 Delivery Device Cannula Cannula Liter Flow 5.0 6.0 Crit Call To/Read Back Yes Yes Blood Gas Notified Whom godman Rhythm Strip Rhythm Strip: Sinus Rhythm Rate: 90 Ectopy: None Radiology Impression Chest X-Ray 05/15/22 09:08 IMPRESSION: Vascular congestion. Electronically Signed: Linus Manzo MD at 9:25 EST , Charges/Coding Visit Charges Inpatient E&M: 32367 Init Hosp L3 Behavior Interventions Behavior Intervention: 08733 Smoking Cessation 3-10 min
--- NOTE | 2022-05-16 09:19 | WOUNDNOTE ---
skin photo: left lower leg
[2022-05-16] MEDS: Enoxaparin 40 MG/0.4 ML Syringe SC (09:49)
[2022-05-16] MEDS: Azithromycin 250 MG Tablet 500 MG PO (09:49)
[2022-05-16] MEDS: Furosemide 40 MG/4 ML Vial IV (09:49)
[2022-05-16] MEDS: guaiFENesin 1,200 MG Tablet 1200 MG PO ×2 (09:49→21:08)
[2022-05-16] MEDS: Isosorbide Mononitrate 60 MG Tablet PO (09:50)
[2022-05-16] MEDS: Clopidogrel Bisulfate 75 MG Tablet PO (09:50)
[2022-05-16] MEDS: Metoprolol Tartrate 25 MG Tablet PO ×2 (09:50→21:08)
--- NOTE | 2022-05-16 10:45 | PCM.PN.HOSP ---
Subjective Subjective Patient reports he feels about the same as yesterday when he presented however he is off BiPAP and his lung sounds improved. He is back on his baseline 5 L nasal cannula. It sounds as if he will refuse to go to a nursing facility for ongoing rehab and therapy as well as wound care however we are still awaiting PT and OT consultation. Objective Data Objective Data Vital Signs: Vital Signs Temp Pulse Resp BP Pulse Ox O2 Del Method O2 Flow Rate 97.4 F L 49 L 22 H 144/76 H 97 Nasal Cannula 5 05/16/22 09:00 05/16/22 10:00 05/16/22 10:00 05/16/22 10:00 05/16/22 10:00 05/16/22 10:00 05/16/22 10:00 FiO2 40 05/16/22 04:00 Oxygen Flow Rate (L/min) 5 Oxygen Delivery Method Nasal Cannula Weight: 97.2 kg Body Mass Index (BMI) 33.2 Intake & Output: Intake and Output for Last 24 Hours 05/14/22 05/15/22 05/16/22 23:59 23:59 23:59 Intake Total 336.01 / 336.01 117.99 / 117.99 Output Total 600 / 600 1000 / 1000 Balance -263.99 / -263.99 -882.01 / -882.01 Medical Nutrition Assessment Dietitian: Malnutrition Criteria Met Start: 05/15/22 14:28 Freq: Status: Active Protocol: Document 05/15/22 14:28 (Rec: 05/15/22 14:28 [id number]) Nutrition Malnutrition Evidence of Malnutrition Exists Yes Malnutrition (moderate): Acute Illness/Injury Evidenced By Suboptimal Energy Intake ( Moderate),Weight Loss (Severe) Intake Problem Increased Nutrient Needs (specify) Etiology protein related to increased demand for healing Signs/Symptoms as evidenced by stasis ulcer on right lateral lower leg Status Active Problem Clinical Problem Acute Disease or Injury Related Malnutrition Etiology related to suboptimal appetite Signs/Symptoms as evidenced by 22.4lbs (9.3%) weight loss in 3 months and < 75% PO intake of estimated energy needs for >7 days. Status Active Problem Recommendation Dietitian Recommendations/Changes ADAT to Regular diet to optimize oral intakes. Recommend 120mL Ensure Plus High Protein 4x daily with medpass when diet advances. Lab / Micro Data Result Diagrams: 05/16/22 05:39 05/16/22 05:39 Labs: Laboratory Results - last 24 hr 05/15/22 08:30: Procalcitonin 0.06 05/16/22 05:39: WBC 5.6, RBC 4.70, Hgb 14.4, Hct 45.3, MCV 96.4 H, MCH 30.6, MCHC 31.8 L D, RDW Std Deviation 44.0 H, RDW Coeff of Artemio 12.4, Plt Count 134 L, MPV 9.3, Immature Gran % (Auto) 0.700, Neut % (Auto) 89.9 H, Lymph % (Auto) 6.2 L, [place] % (Auto) 3.0, Eos % (Auto) 0.0, Baso % (Auto) 0.2, Absolute Neuts (auto) 5.1, Absolute Lymphs (auto) 0.35 L, Nucleated RBC % 0 05/16/22 05:39: Sodium 136, Potassium 3.9, Chloride 80 L, Carbon Dioxide > 45.0 H*, Anion Gap TNP, BUN 17, Creatinine 0.73, Estim Creat Clear Calc 68.40, Est GFR (MDRD) Af Amer 136, Est GFR (MDRD) Non-Af 113, BUN/Creatinine Ratio 23.2 H, Glucose 161 H, Calcium 8.6, Phosphorus 2.9, Magnesium 2.3, Total Bilirubin 1.30 H, AST 8 L, ALT 9 L, Alkaline Phosphatase 97, Total Protein 6.8, Albumin 3.0 L, Globulin 3.8, Albumin/Globulin Ratio 0.8 L, TSH 1.06 Micro: Microbiology 05/15/22 14:10 Urine, Random Streptococcus pneumoniae Antigen (M - Final 05/15/22 14:10 Urine, Random Legionella Antigen - Final 05/15/22 11:45 Mucosa - Nasopharyngeal Respiratory Panel (PCR) - Final 05/15/22 08:35 Nasal Secretion SARS-CoV-2 & FLU Antigen (Rapid) - Final ABG Data ABG results: ABG 05/15/22 15:31 Specimen Type ART Sample Site L Radial pH 7.33 L Bicarbonate Actual 47.8 H Total CO2 > 50 Base Excess 22 H O2 Saturation 97 ABG pCO2 91.0 H* ABG pO2 102 H Daniel Test Positive O2 Delivery Device Cannula Liter Flow 6.0 Crit Call To/Read Back Yes Rhythm Strip Rhythm Strip: Sinus Rhythm Rate: 90 Ectopy: None Physical Exam Const alert, oriented x3 and no apparent distress Constitutional Narrative: Upper middle-aged obese, white male sitting up in bed on baseline 5 L nasal cannula, wound nurse at bedside, no confusion noted at this time, no signs of respiratory distress General Appearance: cooperative HEENT normocephalic, head/scalp atraumatic and moist oral mucous membranes Resp normal respiratory effort, no retractions and no use of accessory muscles Resp Narrative: Still few scattered end expiratory wheezes however coarse breath sounds are much improved, no signs of respiratory distress at this time and patient is on baseline oxygen of 5 L, markedly diminished diffusely Auscultation: wheezes; Negative for crackles or rhonchi Cardio regular rate, regular rhythm, S1 normal heart sound, S2 normal heart sound, no murmurs, no rub, no gallops and no clicks GI normal to inspection, nondistended, normoactive bowel sounds, soft to palpation and non-tender Extremity Extremity Narrative: Severely edematous legs bilaterally, clubbing noted, no cyanosis Skin Skin Narrative: Lower extremities appear much improved with ongoing wound care, exudate from wound on right lateral leg has been removed and wound appears to be superficial and not infected, no significant ongoing drainage Neuro oriented x3, moves all extremities and no focal motor deficits Neuro Narrative: Mild generalized weakness with proximal muscles weaker than distal Speech: speech normal Psych Psych Narrative: Patient appears somewhat grumpy Assessment & Plan Assessment/Plan (1) Acute and chronic respiratory failure with hypercapnia: (2) Lymphedema: (3) Acute exacerbation of chronic obstructive pulmonary disease: (4) Wound of right lower extremity: (5) (HFpEF) heart failure with preserved ejection fraction: PLAN: Plan Acute hypercapnic on chronic hypoxic and hypercapnic respiratory failure--> multifactorial -Suspect related to COPD exacerbation/decompensated HFpEF/possible viral illness -ABG on presentation showed a pH of 7.26/PCO2 112.2/PO2 of 82 on 5 L nasal cannula -Hypercapnia is much improved and patient is off BiPAP continuously and onto his 5 L nasal cannula which is baseline -Aggressive pulmonary toilet -Respiratory viral panel is negative -Strep pneumo and Legionella antigens are negative -Okay to start cardiac diet -Continue methylprednisolone 40 every 8--> will transition to slow taper at discharge -Continue azithromycin 500 daily with plans for discharge on azithromycin 253 times weekly -Continue Lasix 40 mg IV push daily -Patient is net -1.146 L for his hospitalization -I-S -Acapella -Mucinex 1200 twice daily -Pulmonary medicine following and appreciate input -Discussed with pulmonary medicine today and patient is on maximal outpatient Hailer therapy, he refuses trilogy, will try azithromycin 250 mg 3 times weekly and possibly add prednisone if he continues to have issues despite the addition of the azithromycin -We will need close pulmonary follow-up at discharge Decompensated HFpEF/PAH who group 3 -Echo from 07/29/2021 showed normal EF at 50 to 60% with severely dilated RV and severe pulmonary hypertension with a right ventricular systolic pressure of 80 mmHg -Chest x-ray shows some signs of volume overload -BNP is elevated which I would anticipate with chronic pulmonary hypertension -Continue IV Lasix and monitor I's and O's Right lower extremity wound -Area around does not appear to be cellulitic -Procalcitonin is low -Area is much improved with wound care--> appreciate wound nurse intervention -No white count elevation -Podiatry consultation -Continue ongoing diuresis Pulmonary nodule -Noted is stable on CT from 11/11/2021 -Annual screening recommended -Pulmonary medicine follow-up recommended at discharge Chronic lymphedema -Echo as above -Diuresis COPD -Patient has never really followed up with pulmonary medicine as an outpatient since January admission -Recommend outpatient follow-up -hold home inhalers and restart at discharge along with azithromycin 3 times weekly -Pulmonary toilet as above History of CAD/HTN/HPL -Initial troponin was normal -Patient denies any chest pain -Continue home Plavix -Continue home metoprolol -Continue home isosorbide mononitrate -Continue atorvastatin Ongoing tobacco abuse -Patient denies need for nicotine replacement -Recommend cessation -Patient reports he still smokes a pack a day -Reports that he does take his oxygen off while smoking Obesity -Complicates treatment, prognosis, outcomes -BMI 33.2 -Recommend weight loss DVT prophylaxis -Lovenox daily CODE STATUS -Full code as discussed prior to admission emergency department Charges/Coding Visit Charges Inpatient E&M: 67478 Subs Hosp L2
[2022-05-16] MEDS: Ensure Plus High Protein 120 ML LIQUID PO ×2 (14:46→17:27)
--- NOTE | 2022-05-16 14:48 | CON.PCM_ITS ---
Assessment & Plan Assessment/Plan (1) Wound of right lower extremity: (2) Lymphedema: PLAN: Plan Patient seen and evaluated Right distal lateral lower extremity wound superficial in nature with no signs of infection. Wound is secondary to macerated tissue from lymphedema exudate. WBC currently 5.6 Dressing change consisted of Aquacel Ag, ABD, Kerlix, 4 inch Vargas and 6 inch Vargas. Nursing to change dressings daily and apply lotion to bilateral lower extremity. Recommend continued elevation of lower extremities while at rest and compression of bilateral lower extremities via Vargas wrap to control edema/lymphedema. Following patient discharge recommend lymphedema pump/wrap to maintain his edema Medicine team currently following for medical management, this is greatly appreciated Podiatry will continue to follow for his wound while in house. Once discharged home recommend follow-up in the wound center for lymphedema clinic for his lymphedema/lower extremity swelling. Please do not hesitate to call for any questions or concerns Jr. Kaye SmithP.M. [facility] [phone] Note: [employer] speech recognition trouble locator test desk software was used to create portions of this document. Sound-alike and misspelled words, as well as other trouble locator test desk errors may be contained in the documentation. HPI Consult Data Date of Consult: 05/16/22 HPI Narrative Reason for Consultation: Right lower extremity wound and lymphedema bilateral HPI Narrative: NASIM LINARES, is a 66 M who presents to the [place] ED on 05/15/2022 for increasing shortness of breath/labored breathing. Patient has history of COPD and continues to smoke 1 pack a day. He admits to being on oxygen 4 to 5 L at home. He states that he has had swelling in both of his lower extremities with a breakdown of his skin that is created a small superficial wound on the right lower extremity. He admits to this wound being present for several months. Denies follow-up with anyone in the wound center. He denies any nausea, vomiting, fever, or chills. He does admit to some tenderness when his right leg is pressed upon. He was consulted to podiatry for the right lower extremity wound and dressing recommendations. [facility] Medical History (HFpEF) heart failure with preserved ejection fraction Bilateral lower extremity edema CAD (coronary artery disease) Cellulitis of left lower extremity without foot Chronic hypoxemic respiratory failure COPD (chronic obstructive pulmonary disease) COPD (chronic obstructive pulmonary disease) HTN (hypertension) Hyperlipemia Lymphedema Nicotine dependence, cigarettes, uncomplicated Pneumonia Sleep apnea Stasis leg ulcer Tobacco abuse disorder Ulcer of left calf Ulcer of right lower extremity with fat layer exposed Wound infection Home Medications atorvastatin 80 mg tablet 80 mg PO QHS cholesterol 04/18/13 [History Last Taken 07/28/21] clopidogrel 75 mg tablet 75 mg PO DAILY anti platelet 04/18/13 [History Last Taken 02/02/22] albuterol sulfate 90 mcg/actuation aerosol inhaler 1 - 2 puff inhalation Q4H PRN PRN Dyspnea 10/31/16 [History Last Taken 02/02/22] trazodone 150 mg tablet 150 mg PO QHS sleep 10/31/16 [History Last Taken 05/14/22] budesonide-formoterol HFA 160 mcg-4.5 mcg/actuation aerosol inhaler 2 puff inhalation BID SOB/wheezing 08/07/19 [History Last Taken 02/02/22] ipratropium 0.5 mg-albuterol 3 mg (2.5 mg base)/3 mL nebulization soln 3 ml inhalation Q4H SOB/wheezing 07/29/21 [History Last Taken 07/28/21] isosorbide mononitrate 60 mg tablet,extended release 24 hr 60 mg PO DAILY heart 07/29/21 [History Last Taken 02/02/22] metoprolol tartrate 25 mg tablet 25 mg PO BID blood pressure/heart rate 07/29/21 [History Last Taken 05/14/22] Allergy/AdvReac Type Severity Reaction Status Date / Time benzonatate Allergy rash hives Verified 05/15/22 08:14 [From Tessalon Perles] chlorpheniramine polistirex AdvReac Rash Verified 05/15/22 08:14 [From Tussionex] hydrocodone polistirex AdvReac Rash Verified 05/15/22 08:14 [From Tussionex] latex AdvReac Rash & Verified 05/15/22 08:14 Hives levofloxacin [From Levaquin] AdvReac Rash Verified 05/15/22 08:14 Family History no significant family his Surgical History H/O heart artery stent Social History (Updated 05/15/22 @ 15:[address] Marj Skelton DO) household members: spouse housing: house pets and animals: Yes pets and animals: cat(s) Smoking Status: Current every day smoker tobacco type: cigarettes alcohol intake: never substance use type: does not use ROS Constitutional Constitutional: Denies chills, fever(s), headache(s) or night sweats ENT HEENT: Denies dysphagia, nasal congestion or sore throat Cardiovascular Cardiovascular: Denies claudication, dizziness or palpitations Respiratory/Chest Respiratory/Chest: Reports dyspnea and wheezing; Denies chest congestion or cough Gastrointestinal Gastrointestinal: Denies dysphagia, nausea or vomiting Genitourinary Genitourinary: Denies urinary frequency, urinary hesitancy, urinary incontinence or urinary urgency Musculoskeletal Musculoskeletal: Denies joint pain, joint stiffness or joint swelling Integumentary Integumentary: Denies jaundice, pruritus or rash Neurologic Neurologic: Denies confusion, seizures or syncope Endocrine Endocrinology: Denies polydipsia, polyphagia or polyuria Physical Exam Const alert, oriented x3 and no apparent distress General Appearance: cooperative HEENT normocephalic Eyes General Eye: normal appearance of both eyes Neck General: normal visual inspection Lymph Lymphatic: no lymphadenopathy noted and lymphedema moderate Lymphatic Narrative: Bilateral lower extremity lymphedema Resp Resp Narrative: Normal respiratory effort on oxygen Cardio regular rate and regular rhythm Extremity normal capillary refill, no joint enlargement and no calf tenderness Extremity Narrative: Bilateral lower extremity lymphedema with yellow crusting secondary to exudates and mildly xerotic appearance. DP and PT pulses palpable with normal capillary fill time Skin no rashes or lesions noted, skin turgor normal and no jaundice General Skin Exam: dermatitis Wound Narrative: Superficial skin abrasion secondary to maceration of the right lateral lower extremity. Site is tender to palpation and does have some yellow to greenish exudate secondary to his lymphedema. No erythema, no purulent drainage, no malodor, or other localized signs of infection. Neuro moves all extremities Medical Records Data Medical Nutrition Assessment Dietitian: Malnutrition Criteria Met Start: 05/15/22 14:28 Freq: Status: Active Protocol: Document 05/16/22 09:22 (Rec: 05/16/22 12:22 [id number]) Nutrition Malnutrition Evidence of Malnutrition Exists Yes Malnutrition (severe): Chronic Evidenced By Suboptimal Energy Intake ( Severe),Weight Loss (Severe) Intake Problem Increased Nutrient Needs (specify) Etiology protein related to increased demand for healing Signs/Symptoms as evidenced by stasis ulcer on right lateral lower leg Status Active Problem Clinical Problem Chronic Disease or Condition Related Malnutrition Etiology severe, chronic malnutrition related to inadequate oral intake w/ decreased appetite Signs/Symptoms as evidenced by 26.4#/11% weight loss in 3 months and < 75% PO intake of estimated energy needs for >3 months Status Active Problem Acute Disease or Injury Related Malnutrition Status Inactive Problem Recommendation Dietitian Recommendations/Changes continue regular diet given malnutrition; ensure plus high protein 120mL 4x/day w/ medpass for additional calories/protein if consumed. Lab / Micro Data Result Diagrams: 05/16/22 05:39 05/16/22 05:39 Labs: Laboratory Results - last 24 hr 05/16/22 05:39: WBC 5.6, RBC 4.70, Hgb 14.4, Hct 45.3, MCV 96.4 H, MCH 30.6, MCHC 31.8 L D, RDW Std Deviation 44.0 H, RDW Coeff of Artemio 12.4, Plt Count 134 L, MPV 9.3, Immature Gran % (Auto) 0.700, Neut % (Auto) 89.9 H, Lymph % (Auto) 6.2 L, [place] % (Auto) 3.0, Eos % (Auto) 0.0, Baso % (Auto) 0.2, Absolute Neuts (auto) 5.1, Absolute Lymphs (auto) 0.35 L, Nucleated RBC % 0 05/16/22 05:39: Sodium 136, Potassium 3.9, Chloride 80 L, Carbon Dioxide > 45.0 H*, Anion Gap TNP, BUN 17, Creatinine 0.73, Estim Creat Clear Calc 68.40, Est GFR (MDRD) Af Amer 136, Est GFR (MDRD) Non-Af 113, BUN/Creatinine Ratio 23.2 H, Glucose 161 H, Calcium 8.6, Phosphorus 2.9, Magnesium 2.3, Total Bilirubin 1.30 H, AST 8 L, ALT 9 L, Alkaline Phosphatase 97, Total Protein 6.8, Albumin 3.0 L, Globulin 3.8, Albumin/Globulin Ratio 0.8 L, TSH 1.06 Micro: Microbiology 11/14/22 14:10 Urine, Random Streptococcus pneumoniae Antigen (M - Final 05/15/22 14:10 Urine, Random Legionella Antigen - Final 05/15/22 11:45 Mucosa - Nasopharyngeal Respiratory Panel (PCR) - Final ABG Data ABG results: ABG 05/15/22 15:31 Specimen Type ART Sample Site L Radial pH 7.33 L Bicarbonate Actual 47.8 H Total CO2 > 50 Base Excess 22 H O2 Saturation 97 ABG pCO2 91.0 H* ABG pO2 102 H Daniel Test Positive O2 Delivery Device Cannula Liter Flow 6.0 Crit Call To/Read Back Yes Rhythm Strip Rhythm Strip: Sinus Rhythm Rate: 90 Ectopy: None
[2022-05-16] MEDS: traZODone 100 MG Tablet 150 MG PO (21:08)
[2022-05-16] MEDS: Atorvastatin Calcium 80 MG Tablet PO (21:08)
--- NOTE | 2022-05-16 21:34 | NURSING ---
pt's salena called in to discuss pt's mental health. she is concerned that he is having a mental breakdown and shared that she would like him to be seen by a mental health professional. pt has expressed concerns to her re: some of his abnormal thoughts. states he had thoughts about fighting a virus in space with the armed forces. educated pt on symptoms of elevated co2. explained to her that these thoughts are likely from the co2/o2 imbalance. she repeated her request that he be seen by a mental health professional while he is here. sw consulted.
[2022-05-17] VITALS (22 sets, daily range): BP systolic 103–156; BP diastolic 49–78; PULSE 57–93; RESP 12–29; TEMP 36.6–37.1; O2SAT 89–98
--- NOTE | 2022-05-17 01:11 | NURSING ---
STAFF FREQUENTLY IN/OUT OF ROOM PT REMOVES MASK AND SPO2 STICKER. EASY TO REDIRECT, BUT QUICKLY RETURNS TO PULLING ON WIRES, MASK, WRAPS, ETC.
--- NOTE | 2022-05-17 03:00 | NURSING ---
PT CONTINUES TO BE RESTLESS. REMOVING MASK, SPO2 MONITOR, PULLING AT WIRES AND TUBES. DR YOUNGBLOOD NOTIFIED. NEW ORDERS ENTERED.
[2022-05-17] MEDS: LORazepam 2 MG/ML Syringe 0.5 MG IV (03:23)
[2022-05-17] MEDS: 0.9% Saline Lock 10 ML Syringe IV ×3 (03:24→20:17)
[2022-05-17] MEDS: Ipratropium/Albuterol Sulfate 3 ML AMPUL.NEB INHALATION ×6 (04:12→23:53)
[2022-05-17 05:44] LABS: BUN 33 mg/dL (7-18); Calcium,Total 8.7 mg/dL (8.5-10.1); Carbon Dioxide > 45.0 mmol/L (21.0-32.0); Chloride 79 mmol/L (98-107); Creatinine, Serum 1.03 mg/dL (0.70-1.30); EST Glomerular Filtration Rate 76 mL/min (>60); Est Glom Filt Rate - Afr Amer 92 mL/min (>60); Estimated Creatinine Clearance 66.41 ml/min; Glucose 150 mg/dL (74-106); Potassium 3.1 mmol/L (3.5-5.1); Sodium Level 135 mmol/L (136-145)
[2022-05-17] MEDS: Potassium Chloride Oral Tablet 20 MEQ 60 MEQ PO (08:29)
[2022-05-17] MEDS: Isosorbide Mononitrate 60 MG Tablet PO (08:30)
[2022-05-17] MEDS: Furosemide 40 MG/4 ML Vial IV (08:30)
[2022-05-17] MEDS: Metoprolol Tartrate 25 MG Tablet PO ×2 (08:31→20:17)
[2022-05-17] MEDS: guaiFENesin 1,200 MG Tablet 1200 MG PO ×2 (08:31→20:17)
[2022-05-17] MEDS: Clopidogrel Bisulfate 75 MG Tablet PO (08:31)
[2022-05-17] MEDS: Azithromycin 250 MG Tablet 500 MG PO (08:31)
[2022-05-17] MEDS: Enoxaparin 40 MG/0.4 ML Syringe SC (08:32)
--- NOTE | 2022-05-17 09:58 | PN.CC_ITS ---
Assessment & Plan Assessment/Plan (1) Acute and chronic respiratory failure with hypercapnia: PLAN: Plan RECOMMENDATIONS: 1. Continue BiPAP therapy, as needed, and wean FiO2 to maintain oxygen saturations 88 to 92% 2. Continue scheduled bronchodilators and IV steroids. 3. Continue diuresis as tolerated by hemodynamics and renal function. 4. Continue Zithromax to complete treatment course. IMPRESSIONS: 1. Acute on chronic combined respiratory failure in the setting of end-stage COPD and pulmonary hypertension I do suspect that the patient's acute exacerbation is likely secondary to questionable outpatient compliance with prescribed medical therapy coupled with ongoing tobacco dependency. The patient is already on a maximum triple therapy inhaler regimen along with supplemental O2. He has refused to endorse the idea of the use of a noninvasive ventilator in his home environment. Given that he continues to have frequent exacerbations, I would recommend that he be started on prophylactic azithromycin on Sunday, Sunday and Sunday at discharge. In the interim, we will continue him on BiPAP therapy as needed along with supplemental oxygen to maintain saturations 88 to 92%. Plan to continue scheduled bronchodilators and IV steroids. Once again, anticipate a prolonged prednisone taper at discharge. 2. Chronic tobacco dependency Tobacco cessation counseling was once again provided. Nicotine replacement therapy can be offered to the patient while admitted to the hospital. 3.??Obesity/hypertension/coronary artery disease/hyperlipidemia/chronic tobacco dependency Complicates care, management, recovery and prognosis.? Continue home medications as indicated.? This note was generated with [employer] dictation software. It may contain incorrect words, spelling, and punctuation that were not noted in checking the note before signing. Subjective Subjective The patient was seen and examined at the bedside this morning. Events from the last 24 hours have been reviewed. The patient is currently afebrile, hemodynamically stable and maintaining appropriate oxygen saturations on BiPAP with an FiO2 requirement of 50%. The patient is currently documented to be overall net -3 L for the hospitalization. The patient remains on scheduled bronchodilators, IV steroids, antimicrobials and Lasix. Objective Data Objective Data The patient's most recent lab work, culture data and imaging studies have all been personally reviewed. Surface echocardiogram dated February 02 demonstrated an ejection fraction of 55 to 60%. Pulmonary artery systolic pressure was estimated to be 80 mmHg. Vital Signs: Vital Signs Temp Pulse Resp BP Pulse Ox O2 Del Method O2 Flow Rate 98 F 78 26 H 156/78 H 93 Bi-pap 10 05/17/22 03:00 05/17/22 08:31 05/17/22 06:40 05/17/22 08:31 05/17/22 06:40 05/17/22 03:00 05/16/22 21:08 FiO2 50 05/17/22 06:40 Oxygen Flow Rate (L/min) 10 Oxygen Delivery Method Bi-pap Weight: 208 lb 12.444 oz Body Mass Index (BMI) 33.2 Intake & Output: Intake and Output for Last 24 Hours 05/15/22 05/16/22 05/17/22 23:59 23:59 23:59 Intake Total 336.01 / 336.01 897.99 / 897.99 Output Total 600 / 600 3450 / 3650 200 / 200 Balance -263.99 / -263.99 -2552.01 / -2752.01 -200 / -200 Medical Nutrition Assessment Dietitian: Malnutrition Criteria Met Start: 05/15/22 14:28 Freq: Status: Active Protocol: Document 05/16/22 09:22 (Rec: 05/16/22 12:22 [id number]) Nutrition Malnutrition Evidence of Malnutrition Exists Yes Malnutrition (severe): Chronic Evidenced By Suboptimal Energy Intake ( Severe),Weight Loss (Severe) Intake Problem Increased Nutrient Needs (specify) Etiology protein related to increased demand for healing Signs/Symptoms as evidenced by stasis ulcer on right lateral lower leg Status Active Problem Clinical Problem Chronic Disease or Condition Related Malnutrition Etiology severe, chronic malnutrition related to inadequate oral intake w/ decreased appetite Signs/Symptoms as evidenced by 26.4#/11% weight loss in 3 months and < 75% PO intake of estimated energy needs for >3 months Status Active Problem Acute Disease or Injury Related Malnutrition Status Inactive Problem Recommendation Dietitian Recommendations/Changes continue regular diet given malnutrition; ensure plus high protein 120mL 4x/day w/ medpass for additional calories/protein if consumed. Lab / Micro Data Attestation: I reviewed the patient's lab results. Result Diagrams: 05/16/22 05:39 05/17/22 03:53 Labs: Laboratory Results - last 24 hr 05/17/22 03:53: Sodium 135 L, Potassium 3.1 L, Chloride 79 L, Carbon Dioxide > 45.0 H*, Anion Gap TNP, BUN 33 H, Creatinine 1.03, Estim Creat Clear Calc 66.41, Est GFR (MDRD) Af Amer 92, Est GFR (MDRD) Non-Af 76, BUN/Creatinine Ratio 32.0 H , Glucose 150 H, Calcium 8.7 Micro: Microbiology 05/15/22 14:10 Urine, Random Streptococcus pneumoniae Antigen (M - Final 05/15/22 14:10 Urine, Random Legionella Antigen - Final 05/15/22 11:45 Mucosa - Nasopharyngeal Respiratory Panel (PCR) - Final 05/15/22 08:35 Nasal Secretion SARS-CoV-2 & FLU Antigen (Rapid) - Final Rhythm Strip Rhythm Strip: Sinus Rhythm Rate: 90 Ectopy: None Physical Exam Const alert and no apparent distress HEENT normocephalic and head/scalp atraumatic Eyes PERRL, EOMs intact bilaterally and conjunctivae normal Neck supple General: trachea midline Chest Chest Narrative: Increased AP diameter Resp normal respiratory effort Effort and Inspection: prolonged expiratory phase Auscultation: diminished lung sounds Cardio regular rate and regular rhythm GI normal to inspection, nondistended, normoactive bowel sounds Extremity Extremity Narrative: Chronic lower extremity lymphedema Skin no rashes or lesions noted Neuro oriented x3, CN's II-XII intact bilaterally, moves all extremities and no focal motor deficits Psych cooperative and affect normal Charges/Coding Visit Charges Inpatient E&M: 55808 Subs Hosp L2
--- NOTE | 2022-05-17 11:58 | CPS ---
patient removed from bipap and placed on high flow nc via nursing staff. patient weaned to 7 lpm
[2022-05-17] MEDS: Ensure Plus High Protein 120 ML LIQUID PO ×2 (13:56→17:33)
--- NOTE | 2022-05-17 14:51 | PN.HOSP_ITS ---
Subjective Subjective Did require some up titration of his oxygen prior to nighttime with 10 L heated high flow nasal cannula. Was compliant with BiPAP overnight however he did intermittently try to take it off. Oxygen wean currently in progress. Patient reports that he is not interested in being discharged to a facility however ther e is some concern from family members that he is not able to take care of him self at home and APS has been consulted. Objective Data Objective Data Vital Signs: Vital Signs Temp Pulse Resp BP Pulse Ox O2 Del Method O2 Flow Rate 97.9 F 82 20 H 108/66 98 Nasal Cannula 6 05/17/22 14:00 05/17/22 14:30 05/17/22 14:30 05/17/22 14:00 05/17/22 14:00 05/17/22 14:00 05/17/22 14:00 FiO2 50 05/17/22 06:40 Oxygen Flow Rate (L/min) 6 Oxygen Delivery Method Nasal Cannula Weight: 94.7 kg Body Mass Index (BMI) 33.2 Intake & Output: Intake and Output for Last 24 Hours 05/15/22 05/16/22 05/17/22 23:59 23:59 23:59 Intake Total 336.01 / 336.01 897.99 / 897.99 240 / 240 Output Total 600 / 600 3450 / 3650 900 / 900 Balance -263.99 / -263.99 -2552.01 / -2752.01 -660 / -660 Medical Nutrition Assessment Dietitian: Malnutrition Criteria Met Start: 05/15/22 14:28 Freq: Status: Active Protocol: Document 05/16/22 09:22 (Rec: 05/16/22 12:22 [id number]) Nutrition Malnutrition Evidence of Malnutrition Exists Yes Malnutrition (severe): Chronic Evidenced By Suboptimal Energy Intake ( Severe),Weight Loss (Severe) Intake Problem Increased Nutrient Needs (specify) Etiology protein related to increased demand for healing Signs/Symptoms as evidenced by stasis ulcer on right lateral lower leg Status Active Problem Clinical Problem Chronic Disease or Condition Related Malnutrition Etiology severe, chronic malnutrition related to inadequate oral intake w/ decreased appetite Signs/Symptoms as evidenced by 26.4#/11% weight loss in 3 months and < 75% PO intake of estimated energy needs for >3 months Status Active Problem Acute Disease or Injury Related Malnutrition Status Inactive Problem Recommendation Dietitian Recommendations/Changes continue regular diet given malnutrition; ensure plus high protein 120mL 4x/day w/ medpass for additional calories/protein if consumed. Lab / Micro Data Result Diagrams: 05/16/22 05:39 05/17/22 03:53 Labs: Laboratory Results - last 24 hr 05/17/22 03:53: Sodium 135 L, Potassium 3.1 L, Chloride 79 L, Carbon Dioxide > 45.0 H*, Anion Gap TNP, BUN 33 H, Creatinine 1.03, Estim Creat Clear Calc 66.41, Est GFR (MDRD) Af Amer 92, Est GFR (MDRD) Non-Af 76, BUN/Creatinine Ratio 32.0 H , Glucose 150 H, Calcium 8.7 Micro: Microbiology 05/15/22 14:10 Urine, Random Streptococcus pneumoniae Antigen (M - Final 05/15/22 14:10 Urine, Random Legionella Antigen - Final 05/15/22 11:45 Mucosa - Nasopharyngeal Respiratory Panel (PCR) - Final 05/15/22 08:35 Nasal Secretion SARS-CoV-2 & FLU Antigen (Rapid) - Final Rhythm Strip Rhythm Strip: Sinus Rhythm Rate: 90 Ectopy: None Physical Exam Const alert, oriented x3 and no apparent distress Constitutional Narrative: Upper middle-aged obese, white male sitting up in bed on baseline 10 L nasal cannula, no confusion noted at this time, no signs of respiratory distress General Appearance: cooperative HEENT normocephalic, head/scalp atraumatic and moist oral mucous membranes HEENT Narrative: Dentition is poor, Mallampati 2-3, no thrush Resp normal respiratory effort, no retractions, no use of accessory muscles and clear to auscultation bilaterally Resp Narrative: Markedly diminished diffusely Auscultation: Negative for crackles, rhonchi or wheezes Cardio regular rate, regular rhythm, S1 normal heart sound, S2 normal heart sound, no murmurs, no rub, no gallops and no clicks GI normal to inspection, nondistended, normoactive bowel sounds, soft to palpation and non-tender Extremity Extremity Narrative: Severely edematous legs bilaterally however edema is improving with wraps and diuresis, clubbing noted, no cyanosis Skin Skin Narrative: Lower extremity still with dry skin however this is much improved with wound care, wound on right leg is superficial with no signs of current infection Neuro oriented x3, CN's II-XII intact bilaterally, moves all extremities and no focal motor deficits Neuro Narrative: generalized weakness with proximal muscles weaker than distal Sensorium / Orientation: awake, alert, oriented to person, oriented to place and oriented to time Speech: speech normal Psych Psych Narrative: Appropriately interactive, affect is normal today Assessment & Plan Assessment/Plan (1) Acute and chronic respiratory failure with hypercapnia: (2) Lymphedema: (3) Acute exacerbation of chronic obstructive pulmonary disease: (4) Wound of right lower extremity: (5) (HFpEF) heart failure with preserved ejection fraction: (6) Hypokalemia: PLAN: Plan Acute hypercapnic on chronic hypoxic and hypercapnic respiratory failure--> multifactorial -Suspect related to COPD exacerbation/decompensated HFpEF/possible viral illness -ABG on presentation showed a pH of 7.26/PCO2 112.2/PO2 of 82 on 5 L nasal cannula -Oxygen required up titration overnight due to hypoxia however patient is curren tly being weaned -Was on 10 L earlier this morning and now weaned to 6 L -Continue aggressive pulmonary toilet -Respiratory viral panel is negative -Strep pneumo and Legionella antigens are negative -Continue cardiac diet -Continue methylprednisolone 40 every 8--> will transition to slow taper at d ischarge -Continue azithromycin 500 daily with plans for discharge on azithromycin 250 3 times weekly -Continue Lasix 40 mg IV push daily -Patient is net -3 L for his hospitalization -May transition to oral tomorrow depending on BMP -I-S -Acapella -Continue Mucinex 1200 twice daily -Pulmonary medicine following and appreciate input -Discussed with pulmonary medicine today and patient is on maximal outpatient Hailer therapy, he refuses trilogy, will try azithromycin 250 mg 3 times weekly and possibly add prednisone if he continues to have issues despite the addition of the azithromycin -We will need close pulmonary follow-up at discharge Decompensated HFpEF/PAH who group 3 -Echo from 07/29/2021 showed normal EF at 50 to 60% with severely dilated RV and severe pulmonary hypertension with a right ventricular systolic pressure of 80 mmHg -Chest x-ray shows some signs of volume overload -BNP is elevated which I would anticipate with chronic pulmonary hypertension -Continue IV Lasix and monitor I's and O's -Continue IV Lasix for now however I do anticipate transitioning to oral Lasix 40 mg daily tomorrow -Plan to discharge patient home on Lasix oral Hypokalemia -P.o. potassium 40 mill equivalents given -Likely related to diuresis -Continue to monitor and check a.m. magnesium level as well Right lower extremity wound -Area around does not appear to be cellulitic -Area is much improved with wound care--> podiatry will follow at the wound center after discharge -Continue ongoing diuresis Pulmonary nodule -Noted is stable on CT from 11/11/2021 -Annual screening recommended -Pulmonary medicine follow-up recommended at discharge Chronic lymphedema -Echo as above -Diuresis COPD -Patient has never really followed up with pulmonary medicine as an outpatient since January admission -Recommend outpatient follow-up -hold home inhalers and restart at discharge along with azithromycin 3 times weekly -Pulmonary toilet as above History of CAD/HTN/HPL -Initial troponin was normal -Patient denies any chest pain -Continue home Plavix -Continue home metoprolol -Continue home isosorbide mononitrate -Continue atorvastatin Ongoing tobacco abuse -Patient denies need for nicotine replacement -Recommend cessation -Patient reports he still smokes a pack a day -Reports that he does take his oxygen off while smoking Obesity -Complicates treatment, prognosis, outcomes -BMI 33.2 -Recommend weight loss DVT prophylaxis -Lovenox daily CODE STATUS -Full code as discussed prior to admission emergency department Charges/Coding Visit Charges Inpatient E&M: 10977 Subs Hosp L2
--- NOTE | 2022-05-17 15:10 | CASEMGMT ---
Pt has been declining SNF so this RN CM to room with list of [facility] providers including quality and resource use data and consistent with the pt's preferred geographic region, medical needs, and insurance network. This RN CM then advised pt that therapy is still recommending SNF and pt states that he 'is self aware enough to know that he needs to go somewhere for rehab' prior to going home. Pt's SNF list is sitting on tray table and this RN CM asked if he had picked anywhere yet and pt states he would like to discuss with . RN CM advised pt that CM would check back for pt choices, voices understanding. E.Uzair SW aware, voices understanding. CM to follow. [place] PATRICIA VILLALTA
--- NOTE | 2022-05-17 17:28 | PCM.PROGNOTE ---
Subjective Subjective Patient seen sitting up at bedside with legs down. He states that his wound on the right lower extremity is panel machine tender if pressed upon. He states that he is still having difficulties with breathing and is currently on oxygen. He denies any nausea, vomiting, fever, chills. He has no further complaints today. Objective Data Objective Data Vital Signs: Vital Signs Temp Pulse Resp BP Pulse Ox O2 Del Method O2 Flow Rate 97.9 F 77 20 H 108/66 98 Nasal Cannula 6 05/17/22 14:00 05/17/22 16:00 05/17/22 14:30 05/17/22 14:00 05/17/22 14:00 05/17/22 14:00 05/17/22 14:00 FiO2 50 05/17/22 06:40 Oxygen Flow Rate (L/min) 6 Oxygen Delivery Method Nasal Cannula Weight: 94.7 kg Body Mass Index (BMI) 33.2 Intake & Output: Intake and Output for Last 24 Hours 05/15/22 05/16/22 05/17/22 23:59 23:59 23:59 Intake Total 336.01 / 336.01 897.99 / 897.99 240 / 240 Output Total 600 / 600 3450 / 3650 900 / 900 Balance -263.99 / -263.99 -2552.01 / -2752.01 -660 / -660 Medical Nutrition Assessment Dietitian: Malnutrition Criteria Met Start: 05/15/22 14:28 Freq: Status: Active Protocol: Document 05/16/22 09:22 (Rec: 05/16/22 12:22 [id number]) Nutrition Malnutrition Evidence of Malnutrition Exists Yes Malnutrition (severe): Chronic Evidenced By Suboptimal Energy Intake ( Severe),Weight Loss (Severe) Intake Problem Increased Nutrient Needs (specify) Etiology protein related to increased demand for healing Signs/Symptoms as evidenced by stasis ulcer on right lateral lower leg Status Active Problem Clinical Problem Chronic Disease or Condition Related Malnutrition Etiology severe, chronic malnutrition related to inadequate oral intake w/ decreased appetite Signs/Symptoms as evidenced by 26.4#/11% weight loss in 3 months and < 75% PO intake of estimated energy needs for >3 months Status Active Problem Acute Disease or Injury Related Malnutrition Status Inactive Problem Recommendation Dietitian Recommendations/Changes continue regular diet given malnutrition; ensure plus high protein 120mL 4x/day w/ medpass for additional calories/protein if consumed. Lab / Micro Data Result Diagrams: 05/16/22 05:39 05/17/22 03:53 Labs: Laboratory Results - last 24 hr 05/17/22 03:53: Sodium 135 L, Potassium 3.1 L, Chloride 79 L, Carbon Dioxide > 45.0 H*, Anion Gap TNP, BUN 33 H, Creatinine 1.03, Estim Creat Clear Calc 66.41, Est GFR (MDRD) Af Amer 92, Est GFR (MDRD) Non-Af 76, BUN/Creatinine Ratio 32.0 H, Glucose 150 H, Calcium 8.7 Micro: Microbiology 05/15/22 14:10 Urine, Random Streptococcus pneumoniae Antigen (M - Final 05/15/22 14:10 Urine, Random Legionella Antigen - Final 05/15/22 11:45 Mucosa - Nasopharyngeal Respiratory Panel (PCR) - Final 05/15/22 08:35 Nasal Secretion SARS-CoV-2 & FLU Antigen (Rapid) - Final Rhythm Strip Rhythm Strip: Sinus Rhythm Rate: 90 Ectopy: None Physical Exam Const alert, oriented x3 and no apparent distress General Appearance: cooperative HEENT normocephalic Eyes General Eye: normal appearance of both eyes Neck General: normal visual inspection Lymph Lymphatic: no lymphadenopathy noted and lymphedema moderate Lymphatic Narrative: Bilateral lower extremity lymphedema Resp Resp Narrative: Normal respiratory effort on oxygen Cardio regular rate and regular rhythm Extremity normal capillary refill, no joint enlargement and no calf tenderness Extremity Narrative: Bilateral lower extremity lymphedema with yellow crusting secondary to exudates and mildly xerotic appearance. DP and PT pulses palpable with normal capillary fill time Nails of digits 1, 2, 3, 4, and 5 of the left and right foot are thickened, discolored yellow and brown, crumbly, subungual debris's, and incurvation. There is pain to palpation of the nails if pressed upon. Skin no rashes or lesions noted, skin turgor normal and no jaundice General Skin Exam: dermatitis Wound Narrative: Superficial skin abrasion secondary to maceration of the right lateral lower extremity. Site is tender to palpation and does have some yellow to greenish exudate secondary to his lymphedema. No erythema, no purulent drainage, no malodor, or other localized signs of infection. Neuro moves all extremities Assessment & Plan Assessment/Plan (1) Wound of right lower extremity: (2) Lymphedema: PLAN: Plan Patient seen and evaluated Right distal lateral lower extremity wound superficial in nature with no signs of infection. Wound site is stable. Wound is secondary to macerated tissue from lymphedema exudate. WBC WNL, currently 5.6 Dressing change consisted of Aquacel Ag, ABD, Kerlix, 4 inch Vargas and 6 inch Vargas. Nursing to change dressings daily and apply lotion to bilateral lower extremity. Recommend continued elevation of lower extremities while at rest and compression of bilateral lower extremities via Vargas wrap to control edema/lymphedema. Following patient discharge recommend lymphedema pump/wrap to maintain control of edema The etiology of thickened toenails was briefly reviewed including fungus or microtrauma. The nails were debrided with a nail nipper after verbal consent was obtained without incident. The nails 1, 2, 3, 4, and 5 of the left and right foot were debrided in length and thickness to reduce pressure, potential fungal load, and to prevent wound formation. The patient tolerated this well. The patient elects proceed with palliative care only at this time with the nails and will hold off on further work-up. To follow-up with the [facility] if needed in the future for this condition. To wear protective and supportive shoes. To check feet daily and keep webspaces clean and dry. To moisturize skin to preserve skin integrity was also recommended. Medicine team currently following for medical management, this is greatly appreciated Podiatry will continue to follow for his wound while in house. Once discharged home recommend follow-up in the wound center or lymphedema clinic for his lymphedema/lower extremity swelling. Please do not hesitate to call for any questions or concerns Jr. Nury Smith.P.M. [facility] [place] [phone] Note: [employer] speech recognition healthcare network consultant software was used to create portions of this document. Sound-alike and misspelled words, as well as other healthcare network consultant errors may be contained in the documentation.
--- NOTE | 2022-05-17 20:15 | NURSING ---
Pt falling asleep, requesting meds be given early.
[2022-05-17] MEDS: RisperiDONE 0.5 MG Tablet PO (20:17)
[2022-05-17] MEDS: traZODone 100 MG Tablet 150 MG PO (20:17)
[2022-05-17] MEDS: Atorvastatin Calcium 80 MG Tablet PO (20:17)
[2022-05-18] VITALS (27 sets, daily range): BP systolic 97–140; BP diastolic 52–70; PULSE 51–82; RESP 12–25; TEMP 36.4–37.2; O2SAT 88–98
[2022-05-18] MEDS: Ipratropium/Albuterol Sulfate 3 ML AMPUL.NEB INHALATION ×6 (04:25→23:10)
[2022-05-18 05:25] LABS: Absolute Lymphocyte Count 0.37 X10^3/uL (0.83-4.51); Absolute Neutrophil Count 7.3 X10^3/uL (2.0-7.7); Hematocrit 44.2 % (40-54); Hemoglobin 13.8 g/dL (13.0-16.5); Lymphocyte # 0.37 X10^3/ul (0.83-4.51); Lymphocyte % 4.6 % (19-41); Mean Corp Hgb Conc 31.2 g/dL (32-36); Mean Corpuscular Hgb 30.1 pg (27.0-32.0); Mean Corpuscular Volume 96.5 fL (80-94); Mean Platelet Vol. 9.4 fl (6.2-12.0); Monocyte# 0.43 X10^3/uL; Monocyte% 5.3 % (0-10); NRBC Flagged by Analyzer 0 % (0-5); Neutrophil # 7.27 X10^3/uL (2.7-7.7); Neutrophil % 89.6 % (47-70); POSITIVE DIFFERENTIAL YES; Platelet Count 133 K/mm3 (150-450); RBC Distribution Width CV 12.8 % (11.6-14.6); RBC Distribution Width SD 45.1 fl (35.1-43.9); Red Blood Count 4.58 M/mm3 (4.6-6.2); White Blood Count 8.1 K/mm3 (4.4-11.0)
[2022-05-18] MEDS: 0.9% Saline Lock 10 ML Syringe IV ×2 (05:42→21:29)
[2022-05-18 05:43] LABS: Differential Indicated SCAN CRITERIA MET
[2022-05-18 05:47] LABS: Platelet Estimate SLT DEC (ADEQ)
[2022-05-18 06:01] LABS: BUN 38 mg/dL (7-18); BUN/Creat Ratio 45.5 RATIO (10-20); Calcium,Total 8.6 mg/dL (8.5-10.1); Carbon Dioxide > 45.0 mmol/L (21.0-32.0); Chloride 82 mmol/L (98-107); Creatinine, Serum 0.84 mg/dL (0.70-1.30); EST Glomerular Filtration Rate 97 mL/min (>60); Est Glom Filt Rate - Afr Amer 117 mL/min (>60); Estimated Creatinine Clearance 81.43 ml/min; Glucose 163 mg/dL (74-106); Magnesium 2.6 mg/dL (1.6-2.6); Phosphorus 3.5 mg/dL (2.5-4.9); Potassium 3.7 mmol/L (3.5-5.1); Sodium Level 136 mmol/L (136-145)
--- NOTE | 2022-05-18 07:42 | RAD_ITS ---
STUDY: X-RAY CHEST REASON FOR EXAM: Male, 66 years old. Hypoxia TECHNIQUE: Single AP portable view of the chest. COMPARISON: Comparison is made with prior study dated 05/15/2022. FINDINGS: The lungs are clear and expanded. There is no demonstrated pleural abnormality. Normal size heart. Normal mediastinum and jayjay. There is prominence of the pulmonary hilar arteries without peripheral pulmonary vascular congestion, suggesting pulmonary hypertension. There is atherosclerotic tortuosity of the aortic arch and descending thoracic aorta. There are degenerative changes of the visualized thoracic spine. Normal visualized ribs, clavicles, and shoulders. There is no demonstrated abnormality of the visualized soft tissue structures of the upper abdomen. RAD/Chest 1 View (Portable) IMPRESSION: The lungs are clear. Prominence of the pulmonary hilar arteries suggestive of possible pulmonary hypertension. Electronically Signed: Linus Manzo MD at 12:29 EST ,
[2022-05-18] MEDS: Clopidogrel Bisulfate 75 MG Tablet PO (08:00)
[2022-05-18] MEDS: Azithromycin 250 MG Tablet 500 MG PO (08:00)
[2022-05-18] MEDS: Isosorbide Mononitrate 60 MG Tablet PO (08:01)
[2022-05-18] MEDS: guaiFENesin 1,200 MG Tablet 1200 MG PO ×2 (08:01→21:26)
[2022-05-18] MEDS: Enoxaparin 40 MG/0.4 ML Syringe SC (08:01)
[2022-05-18] MEDS: Furosemide 40 MG/4 ML Vial IV (08:02)
--- NOTE | 2022-05-18 08:44 | CASEMGMT ---
GRETTA spoke with patient this am. Introduced self and role at [facility]. SW asked patient if he had a chance to talk with his about which facility to go to for rehab. Patient said he did not. Patient's was not feeling well and she is actually a patient in the hospital now. SW asked patient if he needed assistance in choosing a facility. Patient said he assumes the facilities all take Medicare. SW let patient know SW specifically looks up patient's insurance plan and only puts the facilities that take his insurance on the list. Patient thanked GRETTA. GRETTA will check back. Angelica KAT
[2022-05-18] MEDS: Metoprolol Tartrate 25 MG Tablet PO ×2 (09:39→21:26)
--- NOTE | 2022-05-18 09:49 | PCM.PN.INT ---
Assessment & Plan Assessment/Plan (1) Acute and chronic respiratory failure with hypercapnia: PLAN: Plan RECOMMENDATIONS: 1. Continue BiPAP therapy, as needed, and wean FiO2 to maintain oxygen saturations 88 to 92% 2. Continue scheduled bronchodilators and IV steroids. 3. Continue diuresis as tolerated by hemodynamics and renal function. 4. Continue Zithromax to complete treatment course. IMPRESSIONS: 1. Acute on chronic combined respiratory failure in the setting of end-stage COPD and pulmonary hypertension I do suspect that the patient's acute exacerbation is likely secondary to questionable outpatient compliance with prescribed medical therapy coupled with ongoing tobacco dependency. The patient is already on a maximum triple therapy inhaler regimen along with supplemental O2. He has refused to endorse the idea of the use of a noninvasive ventilator in his home environment. Given that he continues to have frequent exacerbations, I would recommend that he be started on prophylactic azithromycin on Sunday, Sunday and Sunday at discharge. In the interim, we will continue him on BiPAP therapy as needed along with supplemental oxygen to maintain saturations 88 to 92%. Plan to continue scheduled bronchodilators and IV steroids. Once again, anticipate a prolonged prednisone taper at discharge. 2. Chronic tobacco dependency Tobacco cessation counseling was once again provided. Nicotine replacement therapy can be offered to the patient while admitted to the hospital. 3.??Obesity/hypertension/coronary artery disease/hyperlipidemia/chronic tobacco dependency Complicates care, management, recovery and prognosis.? Continue home medications as indicated.? This note was generated with [employer] dictation software. It may contain incorrect words, spelling, and punctuation that were not noted in checking the note before signing. Subjective Subjective The patient was seen and examined at the bedside this morning. Events from the last 24 hours have been reviewed. The patient is currently afebrile, hemodynamically stable and maintaining appropriate oxygen saturations on 8 L/min high flow cannula. The patient is documented to be overall net -4.4 L for the hospitalization. Objective Data Objective Data The patient's most recent lab work, culture data and imaging studies have all been personally reviewed. Surface echocardiogram dated February 02 demonstrated an ejection fraction of 55 to 60%. Pulmonary artery systolic pressure was estimated to be 80 mmHg. Vital Signs: Vital Signs Temp Pulse Resp BP Pulse Ox O2 Del Method O2 Flow Rate 97.9 F 80 20 H 133/57 H 93 High Flow 8 05/18/22 08:00 05/18/22 09:39 05/18/22 08:00 05/18/22 08:00 05/18/22 08:37 05/18/22 08:12 05/18/22 08:37 FiO2 40 05/18/22 06:39 Oxygen Flow Rate (L/min) 8 Oxygen Delivery Method High Flow Weight: 208 lb 12.444 oz Body Mass Index (BMI) 33.2 Intake & Output: Intake and Output for Last 24 Hours 05/16/22 05/17/22 05/18/22 23:59 23:59 23:59 Intake Total 897.99 / 897.99 240 / 240 Output Total 3450 / 3650 1350 / 1350 500 / 500 Balance -2552.01 / -2752.01 -1110 / -1110 -500 / -500 Medical Nutrition Assessment Dietitian: Malnutrition Criteria Met Start: 05/15/22 14:28 Freq: Status: Active Protocol: Document 05/16/22 09:22 (Rec: 05/16/22 12:22 [id number]) Nutrition Malnutrition Evidence of Malnutrition Exists Yes Malnutrition (severe): Chronic Evidenced By Suboptimal Energy Intake ( Severe),Weight Loss (Severe) Intake Problem Increased Nutrient Needs (specify) Etiology protein related to increased demand for healing Signs/Symptoms as evidenced by stasis ulcer on right lateral lower leg Status Active Problem Clinical Problem Chronic Disease or Condition Related Malnutrition Etiology severe, chronic malnutrition related to inadequate oral intake w/ decreased appetite Signs/Symptoms as evidenced by 26.4#/11% weight loss in 3 months and < 75% PO intake of estimated energy needs for >3 months Status Active Problem Acute Disease or Injury Related Malnutrition Status Inactive Problem Recommendation Dietitian Recommendations/Changes continue regular diet given malnutrition; ensure plus high protein 120mL 4x/day w/ medpass for additional calories/protein if consumed. Lab / Micro Data Attestation: I reviewed the patient's lab results. Result Diagrams: 05/18/22 05:13 05/18/22 05:13 Labs: Laboratory Results - last 24 hr 05/18/22 05:13: WBC 8.1, RBC 4.58 L, Hgb 13.8, Hct 44.2, MCV 96.5 H, MCH 30.1, MCHC 31.2 L, RDW Std Deviation 45.1 H, RDW Coeff of Artemio 12.8, Plt Count 133 L, MPV 9.4, Immature Gran % (Auto) 0.500, Neut % (Auto) 89.6 H, Lymph % (Auto) 4.6 L, [place] % (Auto) 5.3, Eos % (Auto) 0.0, Baso % (Auto) 0.0, Absolute Neuts (auto) 7.3, Absolute Lymphs (auto) 0.37 L, Nucleated RBC % 0, Platelet Estimate SLT 05/18/22 05:13: Sodium 136, Potassium 3.7, Chloride 82 L, Carbon Dioxide > 45.0 H*, Anion Gap TNP, BUN 38 H, Creatinine 0.84, Estim Creat Clear Calc 81.43, Est GFR (MDRD) Af Amer 117, Est GFR (MDRD) Non-Af 97, BUN/Creatinine Ratio 45.5 H, Glucose 163 H, Calcium 8.6, Phosphorus 3.5, Magnesium 2.6 Micro: Microbiology 05/15/22 14:10 Urine, Random Streptococcus pneumoniae Antigen (M - Final 05/15/22 14:10 Urine, Random Legionella Antigen - Final 05/15/22 11:45 Mucosa - Nasopharyngeal Respiratory Panel (PCR) - Final 05/15/22 08:35 Nasal Secretion SARS-CoV-2 & FLU Antigen (Rapid) - Final Rhythm Strip Rhythm Strip: Sinus Rhythm Rate: 90 Ectopy: None Physical Exam Const alert and no apparent distress HEENT normocephalic and head/scalp atraumatic Eyes PERRL, EOMs intact bilaterally and conjunctivae normal Neck supple General: trachea midline Chest Chest Narrative: Increased AP diameter Resp normal respiratory effort Effort and Inspection: prolonged expiratory phase Auscultation: diminished lung sounds Cardio regular rate and regular rhythm GI normal to inspection, nondistended, normoactive bowel sounds Extremity Extremity Narrative: Chronic lower extremity lymphedema Skin no rashes or lesions noted Neuro oriented x3, CN's II-XII intact bilaterally, moves all extremities and no focal motor deficits Psych cooperative and affect normal Charges/Coding Visit Charges Inpatient E&M: 13790 Subs Hosp L2
--- NOTE | 2022-05-18 11:31 | PCM.PN.HOSP ---
Subjective Subjective Patient's oxygen requirements continue to fluctuate between 6 and 10 L. He is okay to have oxygen saturations 88 to 92% as ordered. At the time of my examination sats were 94% on minute liters and I therefore weaned him to 8 L. Baseline is 5 L. Patient indicates overall he feels much better. He is -4.4 to 6 L for his hospital course. Objective Data Objective Data Vital Signs: Vital Signs Temp Pulse Resp BP Pulse Ox O2 Del Method O2 Flow Rate 97.9 F 80 20 H 133/57 H 93 High Flow 8 05/18/22 08:00 05/18/22 09:39 05/18/22 08:00 05/18/22 08:00 05/18/22 08:37 05/18/22 08:12 05/18/22 08:37 FiO2 40 05/18/22 06:39 Oxygen Flow Rate (L/min) 8 Oxygen Delivery Method High Flow Weight: 94.7 kg Body Mass Index (BMI) 33.2 Intake & Output: Intake and Output for Last 24 Hours 05/16/22 05/17/22 05/18/22 23:59 23:59 23:59 Intake Total 897.99 / 897.99 240 / 240 Output Total 3450 / 3650 1350 / 1350 500 / 500 Balance -2552.01 / -2752.01 -1110 / -1110 -500 / -500 Medical Nutrition Assessment Dietitian: Malnutrition Criteria Met Start: 05/15/22 14:28 Freq: Status: Active Protocol: Document 05/16/22 09:22 (Rec: 05/16/22 12:22 [id number]) Nutrition Malnutrition Evidence of Malnutrition Exists Yes Malnutrition (severe): Chronic Evidenced By Suboptimal Energy Intake ( Severe),Weight Loss (Severe) Intake Problem Increased Nutrient Needs (specify) Etiology protein related to increased demand for healing Signs/Symptoms as evidenced by stasis ulcer on right lateral lower leg Status Active Problem Clinical Problem Chronic Disease or Condition Related Malnutrition Etiology severe, chronic malnutrition related to inadequate oral intake w/ decreased appetite Signs/Symptoms as evidenced by 26.4#/11% weight loss in 3 months and < 75% PO intake of estimated energy needs for >3 months Status Active Problem Acute Disease or Injury Related Malnutrition Status Inactive Problem Recommendation Dietitian Recommendations/Changes continue regular diet given malnutrition; ensure plus high protein 120mL 4x/day w/ medpass for additional calories/protein if consumed. Lab / Micro Data Result Diagrams: 05/18/22 05:13 05/18/22 05:13 Labs: Laboratory Results - last 24 hr 05/18/22 05:13: WBC 8.1, RBC 4.58 L, Hgb 13.8, Hct 44.2, MCV 96.5 H, MCH 30.1, MCHC 31.2 L, RDW Std Deviation 45.1 H, RDW Coeff of Artemio 12.8, Plt Count 133 L, MPV 9.4, Immature Gran % (Auto) 0.500, Neut % (Auto) 89.6 H, Lymph % (Auto) 4.6 L, [place] % (Auto) 5.3, Eos % (Auto) 0.0, Baso % (Auto) 0.0, Absolute Neuts (auto) 7.3, Absolute Lymphs (auto) 0.37 L, Nucleated RBC % 0, Platelet Estimate SLT DEC 05/18/22 05:13: Sodium 136, Potassium 3.7, Chloride 82 L, Carbon Dioxide > 45.0 H*, Anion Gap TNP, BUN 38 H, Creatinine 0.84, Estim Creat Clear Calc 81.43, Est GFR (MDRD) Af Amer 117, Est GFR (MDRD) Non-Af 97, BUN/Creatinine Ratio 45.5 H, Glucose 163 H, Calcium 8.6, Phosphorus 3.5, Magnesium 2.6 Micro: Microbiology 05/15/22 14:10 Urine, Random Streptococcus pneumoniae Antigen (M - Final 05/15/22 14:10 Urine, Random Legionella Antigen - Final 05/15/22 11:45 Mucosa - Nasopharyngeal Respiratory Panel (PCR) - Final 05/15/22 08:35 Nasal Secretion SARS-CoV-2 & FLU Antigen (Rapid) - Final Rhythm Strip Rhythm Strip: Sinus Rhythm Rate: 90 Ectopy: None Physical Exam Const alert, oriented x3 and no apparent distress Constitutional Narrative: Upper middle-aged obese, white male sitting up in a chair at the bedside watching television, currently on 9 L nasal cannula, no signs of respiratory distress General Appearance: cooperative Orientation / Consciousness: confused HEENT normocephalic, head/scalp atraumatic and moist oral mucous membranes HEENT Narrative: Dentition is poor, Mallampati is 2, no thrush Neck supple Resp normal respiratory effort, no retractions and no use of accessory muscles Resp Narrative: Markedly diminished diffusely with few scattered wheeze in right upper lobe Auscultation: wheezes; Negative for crackles or rhonchi Cardio regular rate, regular rhythm, S1 normal heart sound, S2 normal heart sound, no murmurs, no rub, no gallops and no clicks GI normal to inspection, nondistended, normoactive bowel sounds, soft to palpation and non-tender Extremity Extremity Narrative: Severely edematous legs bilaterally however edema continues to improve with wraps and diuresis, clubbing noted, no cyanosis Skin Skin Narrative: Lower extremity still with dry skin however this is much improved with wound care, wound on right leg is superficial with no signs of current infection Neuro oriented x3, CN's II-XII intact bilaterally, moves all extremities and no focal motor deficits Neuro Narrative: generalized weakness with proximal muscles weaker than distal Sensorium / Orientation: awake, alert, oriented to person, oriented to place and oriented to time Speech: speech normal Psych Psych Narrative: Appropriately interactive, affect is normal today Assessment & Plan Assessment/Plan (1) Acute and chronic respiratory failure with hypercapnia: (2) Lymphedema: (3) Acute exacerbation of chronic obstructive pulmonary disease: (4) Wound of right lower extremity: (5) (HFpEF) heart failure with preserved ejection fraction: (6) Hypokalemia: PLAN: Plan Acute hypercapnic on chronic hypoxic and hypercapnic respiratory failure--> multifactorial -Suspect related to COPD exacerbation/decompensated HFpEF/possible viral illness -ABG on presentation showed a pH of 7.26/PCO2 112.2/PO2 of 82 on 5 L nasal cannula -Oxygen required up titration overnight due to hypoxia however patient is currently being weaned -Oxygen requirements are fluctuating between 6 and 10 L -Repeat chest x-ray today with slow recovery -Continue aggressive pulmonary toilet -Respiratory viral panel is negative -Strep pneumo and Legionella antigens are negative -Continue cardiac diet -Continue methylprednisolone 40 every 8--> will transition to slow taper at discharge -Continue azithromycin 500 daily with plans for discharge on azithromycin 250 3 times weekly -Continue Lasix 40 mg IV push daily -Patient is net - 4.416 L for his hospitalization -Renal function is tolerating IV diuresis well and will continue with IV diuresis for now -I-S -Acapella -Continue Mucinex 1200 twice daily -Pulmonary medicine following and appreciate input -Plan is to discharge on azithromycin 250 mg 3 times weekly -We will need close pulmonary follow-up at discharge Decompensated HFpEF/PAH who group 3 -Echo from 07/29/2021 showed normal EF at 50 to 60% with severely dilated RV and severe pulmonary hypertension with a right ventricular systolic pressure of 80 mmHg -Chest x-ray shows some signs of volume overload -BNP is elevated which I would anticipate with chronic pulmonary hypertension -Continue IV Lasix and monitor I's and O's -Plan to discharge patient home on Lasix oral Hypokalemia -Resolved but will follow with ongoing diuresis Right lower extremity wound -Area around does not appear to be cellulitic -Area is much improved with wound care--> podiatry will follow at the wound center after discharge -Continue ongoing diuresis Pulmonary nodule -Noted is stable on CT from 11/11/2021 -Annual screening recommended -Pulmonary medicine follow-up recommended at discharge Chronic lymphedema -Echo as above -Diuresis COPD -Patient has never really followed up with pulmonary medicine as an outpatient since January admission -Recommend outpatient follow-up -hold home inhalers and restart at discharge along with azithromycin 3 times weekly -Pulmonary toilet as above History of CAD/HTN/HPL -Initial troponin was normal -Patient denies any chest pain -Continue home Plavix -Continue home metoprolol -Continue home isosorbide mononitrate -Continue atorvastatin Ongoing tobacco abuse -Patient denies need for nicotine replacement -Recommend cessation -Patient reports he still smokes a pack a day -Reports that he does take his oxygen off while smoking Obesity -Complicates treatment, prognosis, outcomes -BMI 33.2 -Recommend weight loss DVT prophylaxis -Lovenox daily CODE STATUS -Full code as discussed prior to admission emergency department Charges/Coding Visit Charges Inpatient E&M: 13563 Subs Hosp L2
--- NOTE | 2022-05-18 14:23 | CASEMGMT ---
SW went to patient's room. Patient was sleeping, but he did wake up when SW called his name. SW told patient SW spoke with his and she is worried about him. SW also let him know patient's said she thought he might like [facility] as she has been there before and she liked it. Patient told SW it would be okay if GRETTA sent a referral. GRETTA spoke with Lisa d/c planning analyst and she will work on referral. Plan: d/c to SNF pending patient being medically ready, accepting facility, and insurance approval. Angelica Dunne MSW SHEY
--- NOTE | 2022-05-18 14:34 | CASEMGMT ---
Discharge Direct Support Worker This program writer sent referral to Caitie at [facility] via [facility]. Gerson STROUD Magneto Repairer
[2022-05-18] MEDS: traZODone 100 MG Tablet 150 MG PO (21:26)
[2022-05-18] MEDS: Atorvastatin Calcium 80 MG Tablet PO (21:26)
[2022-05-18] MEDS: RisperiDONE 0.5 MG Tablet PO (21:26)
[2022-05-19] VITALS (15 sets, daily range): BP systolic 103–118; BP diastolic 52–66; PULSE 54–94; RESP 12–24; TEMP 36.6–36.9; O2SAT 91–95
[2022-05-19] MEDS: Ipratropium/Albuterol Sulfate 3 ML AMPUL.NEB INHALATION ×4 (03:25→15:18)
[2022-05-19] MEDS: 0.9% Saline Lock 10 ML Syringe IV ×2 (06:21→14:25)
--- NOTE | 2022-05-19 07:01 | PN.CC_ITS ---
Assessment & Plan Assessment/Plan (1) Acute and chronic respiratory failure with hypercapnia: PLAN: Plan RECOMMENDATIONS: 1. Continue supplemental oxygen to maintain saturations 88 to 92%. 2. Continue scheduled bronchodilators and IV steroids. Anticipate prolonged steroid taper at discharge. 3. Continue diuresis as tolerated by hemodynamics and renal function. 4. Continue Zithromax to complete treatment course. 5. Given that the patient is at his baseline respiratory status, will sign off. Please call with any additional questions. IMPRESSIONS: 1. Acute on chronic combined respiratory failure in the setting of end-stage COPD and pulmonary hypertension I do suspect that the patient's acute exacerbation is likely secondary to questionable outpatient compliance with prescribed medical therapy coupled with ongoing tobacco dependency. The patient is already on a maximum triple therapy inhaler regimen along with supplemental O2. He has refused to endorse the idea of the use of a noninvasive ventilator in his home environment. Given that he continues to have frequent exacerbations, I would recommend that he be started on prophylactic azithromycin on Sunday, Sunday and Sunday at discharge. In the interim, we will continue him on BiPAP therapy as needed along with supplemental oxygen to maintain saturations 88 to 92%. Plan to continue scheduled bronchodilators and IV steroids. Once again, anticipate a prolonged prednisone taper at discharge. 2. Chronic tobacco dependency Tobacco cessation counseling was once again provided. Nicotine replacement therapy can be offered to the patient while admitted to the hospital. 3.??Obesity/hypertension/coronary artery disease/hyperlipidemia/chronic tobacco dependency Complicates care, management, recovery and prognosis.? Continue home medications as indicated.? This note was generated with [employer] dictation software. It may contain incorrect words, spelling, and punctuation that were not noted in checking the note before signing. Subjective Subjective The patient was seen and examined at the bedside this morning. Events from the last 24 hours have been reviewed. The patient is currently afebrile, hemodynamically stable and maintaining appropriate oxygen saturations on 3 L/min via nasal cannula. He does appear to be at his baseline from a respiratory perspective. Objective Data Objective Data The patient's most recent lab work, culture data and imaging studies have all been personally reviewed. Surface echocardiogram dated February 02 demonstrated an ejection fraction of 55 to 60%. Pulmonary artery systolic pressure was estimated to be 80 mmHg. Vital Signs: Vital Signs Temp Pulse Resp BP Pulse Ox O2 Del Method O2 Flow Rate 97.9 F 61 17 118/66 93 Nasal Cannula 5 05/19/22 04:00 05/19/22 04:10 05/19/22 04:10 05/19/22 04:00 05/19/22 04:10 05/19/22 04:58 05/19/22 04:58 FiO2 30 05/19/22 04:10 Oxygen Flow Rate (L/min) 5 Oxygen Delivery Method Nasal Cannula Weight: 208 lb 12.444 oz Body Mass Index (BMI) 33.2 Intake & Output: Intake and Output for Last 24 Hours 05/17/22 05/18/22 05/19/22 23:59 23:59 23:59 Intake Total 240 / 240 Output Total 1350 / 1350 1675 / 1825 350 / 350 Balance -1110 / -1110 -1675 / -1825 -350 / -350 Medical Nutrition Assessment Dietitian: Malnutrition Criteria Met Start: 05/15/22 14:28 Freq: Status: Active Protocol: Document 05/16/22 09:22 (Rec: 05/16/22 12:22 [id number]) Nutrition Malnutrition Evidence of Malnutrition Exists Yes Malnutrition (severe): Chronic Evidenced By Suboptimal Energy Intake ( Severe),Weight Loss (Severe) Intake Problem Increased Nutrient Needs (specify) Etiology protein related to increased demand for healing Signs/Symptoms as evidenced by stasis ulcer on right lateral lower leg Status Active Problem Clinical Problem Chronic Disease or Condition Related Malnutrition Etiology severe, chronic malnutrition related to inadequate oral intake w/ decreased appetite Signs/Symptoms as evidenced by 26.4#/11% weight loss in 3 months and < 75% PO intake of estimated energy needs for >3 months Status Active Problem Acute Disease or Injury Related Malnutrition Status Inactive Problem Recommendation Dietitian Recommendations/Changes continue regular diet given malnutrition; ensure plus high protein 120mL 4x/day w/ medpass for additional calories/protein if consumed. Lab / Micro Data Attestation: I reviewed the patient's lab results. Result Diagrams: 05/18/22 05:13 05/19/22 05:35 Labs: Laboratory Results - last 24 hr 05/18/22 05:13: WBC 8.1, RBC 4.58 L, Hgb 13.8, Hct 44.2, MCV 96.5 H, MCH 30.1, MCHC 31.2 L, RDW Std Deviation 45.1 H, RDW Coeff of Artemio 12.8, Plt Count 133 L, MPV 9.4, Immature Gran % (Auto) 0.500, Neut % (Auto) 89.6 H, Lymph % (Auto) 4.6 L, [place] % (Auto) 5.3, Eos % (Auto) 0.0, Baso % (Auto) 0.0, Absolute Neuts (auto) 7.3, Absolute Lymphs (auto) 0.37 L, Nucleated RBC % 0, Platelet Estimate SLT 05/18/22 05:13: Sodium 136, Potassium 3.7, Chloride 82 L, Carbon Dioxide > 45.0 H*, Anion Gap TNP, BUN 38 H, Creatinine 0.84, Estim Creat Clear Calc 81.43, Est GFR (MDRD) Af Amer 117, Est GFR (MDRD) Non-Af 97, BUN/Creatinine Ratio 45.5 H, Glucose 163 H, Calcium 8.6, Phosphorus 3.5, Magnesium 2.6 Micro: Microbiology 05/15/22 14:10 Urine, Random Streptococcus pneumoniae Antigen (M - Final 05/15/22 14:10 Urine, Random Legionella Antigen - Final 05/15/22 11:45 Mucosa - Nasopharyngeal Respiratory Panel (PCR) - Final 05/15/22 08:35 Nasal Secretion SARS-CoV-2 & FLU Antigen (Rapid) - Final Radiography Diagnostic Testing: Radiology Impression Chest X-Ray 05/18/22 07:42 IMPRESSION: The lungs are clear. Prominence of the pulmonary hilar arteries suggestive of possible pulmonary hypertension. Electronically Signed: Linus Manzo MD at 12:29 EST , Rhythm Strip Rhythm Strip: Sinus Rhythm Rate: 90 Ectopy: None Physical Exam Const alert and no apparent distress Constitutional Narrative: Sitting in bedside recliner. HEENT normocephalic and head/scalp atraumatic Eyes PERRL, EOMs intact bilaterally and conjunctivae normal Neck supple General: trachea midline Chest Chest Narrative: Increased AP diameter Resp normal respiratory effort Effort and Inspection: prolonged expiratory phase Auscultation: diminished lung sounds Cardio regular rate and regular rhythm GI normal to inspection, nondistended, normoactive bowel sounds Extremity Extremity Narrative: Chronic lower extremity lymphedema Skin no rashes or lesions noted Neuro oriented x3, CN's II-XII intact bilaterally, moves all extremities and no focal motor deficits Psych cooperative and affect normal Charges/Coding Visit Charges Inpatient E&M: 51790 Subs Hosp L2
[2022-05-19 07:06] LABS: BUN 54 mg/dL (7-18); BUN/Creat Ratio 58.1 RATIO (10-20); Calcium,Total 8.3 mg/dL (8.5-10.1); Carbon Dioxide > 45.0 mmol/L (21.0-32.0); Chloride 81 mmol/L (98-107); Creatinine, Serum 0.93 mg/dL (0.70-1.30); EST Glomerular Filtration Rate 86 mL/min (>60); Est Glom Filt Rate - Afr Amer 104 mL/min (>60); Estimated Creatinine Clearance 73.55 ml/min; Glucose 197 mg/dL (74-106); Potassium 3.4 mmol/L (3.5-5.1); Sodium Level 133 mmol/L (136-145)
[2022-05-19] MEDS: Ensure Plus High Protein 120 ML LIQUID PO ×2 (08:45→14:25)
[2022-05-19] MEDS: Potassium Chloride Oral Tablet 20 MEQ 40 MEQ PO (08:45)
[2022-05-19] MEDS: guaiFENesin 1,200 MG Tablet 1200 MG PO (08:45)
[2022-05-19] MEDS: Clopidogrel Bisulfate 75 MG Tablet PO (08:45)
[2022-05-19] MEDS: Furosemide 40 MG Tablet PO (08:45)
[2022-05-19] MEDS: Metoprolol Tartrate 25 MG Tablet PO (08:45)
[2022-05-19] MEDS: Isosorbide Mononitrate 60 MG Tablet PO (08:45)
[2022-05-19] MEDS: Azithromycin 250 MG Tablet 500 MG PO (08:45)
[2022-05-19] MEDS: Enoxaparin 40 MG/0.4 ML Syringe SC (08:46)
--- NOTE | 2022-05-19 09:06 | CASEMGMT ---
Discharge Spreading Machine Operator This mortgage underwriter talked with patient and patient . Patient and his second choice would be [facility]. This mortgage underwriter sent referral to [facility] [place]. Gerson STROUD Membership Director
--- NOTE | 2022-05-19 10:26 | CASEMGMT ---
Discharge Access Assoc Sharon called from the [facility]. Patient is accepted at the [facility]. Sharon will start pre-cert. GRETTA Dominguez notified. Gerson STROUD Genetics Physician
--- NOTE | 2022-05-19 11:06 | CASEMGMT ---
Discharge Champagne Maker Sharon from [facility] reached out. Pre-cert has been obtained. Patient can go to [facility] when medically ready. GRETTA Dominguez notified. Gerson STROUD Pediatric Nurse Practitioner
--- NOTE | 2022-05-19 12:23 | PN_ITS ---
Subjective Subjective Patient seen sitting up at bedside with legs down.? Still admits to some tenderness about the wound to the right lower extremity.? He states that his breathing is improved while on oxygen.? He denies any nausea, vomiting, fever, chills.? He has no further complaints today. Objective Data Objective Data Vital Signs: Vital Signs Temp Pulse Resp BP Pulse Ox O2 Del Method O2 Flow Rate 97.9 F 73 22 H 103/52 L 91 Nasal Cannula 3 05/19/22 12:00 05/19/22 12:00 05/19/22 12:00 05/19/22 12:00 05/19/22 12:00 05/19/22 12:00 05/19/22 12:00 FiO2 30 05/19/22 08:45 Oxygen Flow Rate (L/min) 3 Oxygen Delivery Method Nasal Cannula Weight: 94.7 kg Body Mass Index (BMI) 33.2 Intake & Output: Intake and Output for Last 24 Hours 05/17/22 05/18/22 05/19/22 23:59 23:59 23:59 Intake Total 240 / 240 Output Total 1350 / 1350 1675 / 1825 350 / 350 Balance -1110 / -1110 -1675 / -1825 -350 / -350 Medical Nutrition Assessment Dietitian: Malnutrition Criteria Met Start: 05/15/22 14:28 Freq: Status: Active Protocol: Document 05/19/22 11:52 (Rec: 05/19/22 11:52 [id number]) Nutrition Malnutrition Evidence of Malnutrition Exists Yes Malnutrition (severe): Chronic Evidenced By Suboptimal Energy Intake ( Severe),Weight Loss (Severe) Intake Problem Increased Nutrient Needs (specify) Etiology protein related to increased demand for healing Signs/Symptoms as evidenced by stasis ulcer on right lateral lower leg Status Active Problem Clinical Problem Chronic Disease or Condition Related Malnutrition Etiology severe, chronic malnutrition related to inadequate oral intake w/ decreased appetite Signs/Symptoms as evidenced by 26.4#/11% unintentional weight loss in 3 months and <75% PO intake of estimated energy needs for >3 months Status Active Problem Acute Disease or Injury Related Malnutrition Status Inactive Problem Recommendation Dietitian Recommendations/Changes cardiac diet given improved PO intake; will d/c Ensure per pt request. Lab / Micro Data Result Diagrams: 05/18/22 05:13 05/19/22 05:35 Labs: Laboratory Results - last 24 hr 05/19/22 05:35: Sodium 133 L, Potassium 3.4 L, Chloride 81 L, Carbon Dioxide > 45.0 H*, Anion Gap TNP, BUN 54 H, Creatinine 0.93, Estim Creat Clear Calc 73.55, Est GFR (MDRD) Af Amer 104, Est GFR (MDRD) Non-Af 86, BUN/Creatinine Ratio 58.1 H, Glucose 197 H, Calcium 8.3 L Micro: Microbiology 05/15/22 14:10 Urine, Random Streptococcus pneumoniae Antigen (M - Final 05/15/22 14:10 Urine, Random Legionella Antigen - Final 05/15/22 11:45 Mucosa - Nasopharyngeal Respiratory Panel (PCR) - Final 05/15/22 08:35 Nasal Secretion SARS-CoV-2 & FLU Antigen (Rapid) - Final Radiography Diagnostic Testing: Radiology Impression Chest X-Ray 05/18/22 07:42 IMPRESSION: The lungs are clear. Prominence of the pulmonary hilar arteries suggestive of possible pulmonary hypertension. Electronically Signed: Linus Manzo MD at 12:29 EST , Rhythm Strip Rhythm Strip: Sinus Rhythm Rate: 90 Ectopy: None Physical Exam Const alert, oriented x3 and no apparent distress General Appearance: cooperative HEENT normocephalic Eyes General Eye: normal appearance of both eyes Neck General: normal visual inspection Lymph Lymphatic: no lymphadenopathy noted and lymphedema moderate Lymphatic Narrative: Bilateral lower extremity lymphedema Resp Resp Narrative: Normal respiratory effort on oxygen Cardio regular rate and regular rhythm Extremity normal capillary refill, no joint enlargement and no calf tenderness Extremity Narrative: Bilateral lower extremity lymphedema with yellow crusting secondary to exudates and mildly xerotic appearance. DP and PT pulses palpable with normal capillary fill time Skin no rashes or lesions noted, skin turgor normal and no jaundice General Skin Exam: dermatitis Wound Narrative: Superficial skin abrasion secondary to maceration of the right lateral lower extremity. Site is tender to palpation and does have some yellow to greenish exudate secondary to his lymphedema. No erythema, no purulent drainage, no malodor, or other localized signs of infection. Neuro moves all extremities Assessment & Plan Assessment/Plan (1) Wound of right lower extremity: (2) Lymphedema: PLAN: Plan Patient seen and evaluated Right distal lateral lower extremity wound superficial in nature. Wound site remains stable with no signs of infection. Wound is secondary to macerated tissue from lymphedema exudate. WBC WNL, currently 5.6. His edema is improved with use of the Vargas wrap compression. Dressing change consisted of Aquacel Ag, ABD, Kerlix, 4 inch Vargas and 6 inch Vargas. Nursing to change dressings daily and apply lotion to bilateral lower extremi ty. Recommend continued elevation of lower extremities while at rest and compression of bilateral lower extremities via Vargas wrap to control edema/lymphedema. Following patient discharge recommend lymphedema pump/wrap to maintain control of edema Medicine team currently following for medical management, this is greatly appreciated Podiatry will continue to follow for his wound while in house. Once discharged home recommend follow-up in the wound center or lymphedema clinic for his lymphedema/lower extremity swelling. Please do not hesitate to call for any questions or concerns [facility] [phone] Note: [employer] speech recognition operations specialists software was used to create portions of this document. Sound-alike and misspelled words, as well as other operations specialists errors may be contained in the documentation.
--- NOTE | 2022-05-19 12:47 | PCM.TXEXTCAR ---
Diet Diet Order/Speech Therapy: 05/16/22 11:36 Diet: Cardiac - Heart Healthy Is pt able to select menu?: Yes Strict 1800 cc daily with low-salt diet Routine Orders/Code Status O2 Liters per Minute: 3 to 5 L and BiPAP with 3 to 5 L bleed at night-keep O2 sats 88 to 92% O2 Frequency: Continuous Keep PO Greater than or Equal to (%): 88 Routine Lab Work: CBC (On 05/22/2022) and BMP (On 05/22/2022) Code Status: Full Code Wound(s) right lateral lower leg: Wound Type: Stasis Ulcer Dressing Change: Aquacel Therapies Weight Bearing: Full weight bearing Physical Therapy: Eval and Treat Occupational Therapy: Eval and Treat Problem/Diagnosis (1) Wound of right lower extremity: Status: Acute Code(s): S81.801A - Unspecified open wound, right lower leg, initial encounter (2) Lymphedema: Status: Acute Code(s): I89.0 - Lymphedema, not elsewhere classified Allergies/Procedures Done in Hospital Allergies benzonatate [From Tessalon Perles] Allergy (Verified 05/15/22 08:14) rash hives chlorpheniramine polistirex [From Tussionex] Adverse Reaction (Verified 05/15/22 08:14) Rash hydrocodone polistirex [From Tussionex] Adverse Reaction (Verified 05/15/22 08:14) Rash latex Adverse Reaction (Verified 05/15/22 08:14) Rash & Hives levofloxacin [From Levaquin] Adverse Reaction (Verified 05/15/22 08:14) Rash Procedures: None Type of Care/Length of Stay Estimated LOS: Convalescent Care Less Than 30 days Type of Care Needed: Skilled Rehab Potential: Fair Prognosis: Fair Additional Orders/Day of Discharge Day of Discharge: 05/19/22 Dietary and Speech Recommendations Dietitian Recommendations/Changes: cardiac diet given improved PO intake; will d/c Ensure per pt request. Discharge Plan Admission Admit Date/Time: 05/15/22 10:29 Attending Provider: Marj Skelton Primary Care Provider: Brooks Davis Consulting Providers: Gladys Berrios ; Luis Daniel Pérez ; Richy Redd ; Costa Beasley ; Jase Murray ; Chaya Chance NP ; Russell Mary Discharge Orders/Prescriptions Prescriptions: No Action atorvastatin 80 MG tablet 80 mg PO QHS Label Comments: HYPERLIPIDEMIA clopidogrel 75 MG tablet 75 mg PO DAILY Label Comments: ANTPLATELET albuterol sulfate 1 PUFF inhaler 1 - 2 puff inhalation Q4H PRN PRN (Reason: Dyspnea) trazodone 150 MG tablet 150 mg PO QHS Label Comments: depression budesonide-formoterol 1 INHALER inhaler 2 puff inhalation BID ipratropium-albuterol 0.5 mg-3 mg(2.5 mg base)/3 mL Solution For Nebulization 3 ml INHALATION Q4H metoprolol tartrate 25 mg Tablet 25 mg PO BID isosorbide mononitrate 60 MG tablet extended release 24 hr 60 mg PO DAILY Label Comments: HEART/BLOOD PRESSURE Referrals / Follow Up: Brooks Davis MD [Primary Care Provider] -
--- NOTE | 2022-05-19 12:51 | PCM.DC.SUM ---
Providers Date of Admission: 05/15/22 Date of Discharge: 05/19/22 Primary Care Physician: Dr. Brooks Davis MD Consultations 05/15/22 11:35 Consult: Onc/Wound/paper winder Routine Comment: Reason for Consult:: LE wounds 05/15/22 15:06 Consult: Enrobing Machine Corder / Pulmonary Medicine Routine Consulting Provider: [facility] Reason for Consult: Acute on chronic hypoxic and hypercapnic respiratory failure EMERGENT Consult: No MD Notified: Yes Date Notified: 05/15/22 Time Notified: 15:06 Method of Notification: Text 05/16/22 10:24 Consult: Podiatry Routine Consulting Provider: Russell Mary Reason for Consult: Wound LE/Lymphedema EMERGENT Consult: No MD Notified: Yes Date Notified: 05/16/22 Time Notified: 10:25 Method of Notification: Text Reason For Visit: ACUTE ON CHRONIC HYPERCAPNIC RESPIRATORY FAILURE Diagnosis Discharge Diagnosis (1) Wound of right lower extremity: Status: Acute Code(s): S81.801A - Unspecified open wound, right lower leg, initial encounter (2) Lymphedema: Status: Acute Code(s): I89.0 - Lymphedema, not elsewhere classified Medications at Discharge Home Medications atorvastatin 80 mg tablet 80 mg PO QHS cholesterol 04/18/13 clopidogrel 75 mg tablet 75 mg PO DAILY anti platelet 04/18/13 albuterol sulfate 90 mcg/actuation aerosol inhaler 1 - 2 puff inhalation Q4H PRN PRN Dyspnea 10/31/16 trazodone 150 mg tablet 150 mg PO QHS sleep 10/31/16 budesonide-formoterol HFA 160 mcg-4.5 mcg/actuation aerosol inhaler 2 puff inhalation BID SOB/wheezing 08/07/19 isosorbide mononitrate 60 mg tablet,extended release 24 hr 60 mg PO DAILY heart 07/29/21 metoprolol tartrate 25 mg tablet 25 mg PO BID blood pressure/heart rate 07/29/21 azithromycin 250 mg tablet 250 mg PO QMWF #43 tabs 05/19/22 food supplemt, lactose-reduced 0.08 gram-1.5 kcal/mL oral liquid (Ensure Plus High Protein) 120 ml PO 4X/DAY #0 mL 05/19/22 furosemide 40 mg tablet 40 mg PO DAILY #0 tabs 05/19/22 guaifenesin 1,200 mg tablet, extended release 12 hr (Mucus Relief ER) 1,200 mg PO BID #0 tabs 05/19/22 ipratropium 0.5 mg-albuterol 3 mg (2.5 mg base)/3 mL nebulization soln 3 ml inhalation Q4H.RT #180 mL 05/19/22 nicotine 21 mg/24 hr daily transdermal patch 21 mg transdermal DAILY #0 ea 05/19/22 prednisone 10 mg tablet 10 mg PO DAILY #50 tabs 05/19/22 risperidone 0.5 mg tablet 0.5 mg PO QHS #0 tabs 05/19/22 sennosides 8.6 mg-docusate sodium 50 mg tablet (Stool Softener-Stimulant Laxative) 2 tab PO BID PRN PRN Constipation #0 tabs 05/19/22 Hospital Course Operations None Procedures EKG Summary of Care Provided Minutes Spent on Discharge: 38 Hospital Course: To is a 66-year-old white male who presented to the emergency department [facility] on 05/15/2022 with a chief complaint of shortness of breath. Patient reported it started the day prior to presentation and he indicated he was getting some temporary improvement with his breathing treatments at home. He admitted to wearing 5 L of oxygen at baseline reported that he was still smoking about a pack of cigarettes daily. He indicated that he had an increase in sputum production from his baseline but denied any fever or chills. He denies chest pain and indicated that his legs were chronically swollen and he has a right lower extremity wound but does not follow with anybody at the wound clinic. Vital signs at the time of presentation show a temperature of 97.4, blood pressure 131/1 oh weight 2, respiratory rate anywhere from 14-30, oxygen saturation was 95% on 5 L nasal cannula which is his baseline.? His CBC showed a normal white count with a normal hemoglobin and mild microcytosis.? His platelet count was low at 116,000 this appears to be chronic.? His chemistry panel showed hypochloremia with a chloride of 88, his serum bicarb was greater than 45 which appears to be consistent for his baseline and his renal function is within normal limits.? His initial opponent was normal at 23.? His BNP was elevated at 402.4.? EKG shows normal sinus rhythm with normal intervals and no ST-T wave changes consistent with acute ischemia.? His chest x-ray.? Shows some mild vascular congestion hyperinflation.? An ABG was obtained with some confusion that he had on presentation and demonstrated a pH of 7.26/PCO2 of 112.2/PO2 of 82 on 5 L nasal cannula which is noted above is his baseline oxygen supplementation. In the emergency department he was given 500 mg of azithromycin and placed on BiPAP for his hypercapnia. He was maintained on BiPAP after admission to the PCU however got more agitated and we transferred him to the ICU and he was placed on a Precedex drip temporarily to calm him down and maintain him on BiPAP. His ABG did improve and he was able to be weaned from BiPAP the a.m. after admission. His Precedex was discontinued at that time. We were able to transfer him back to the PCU where he was on anywhere from 6 to 10 L heated high flow nasal cannula for approximately 48 hours but we were eventually able to transition him to nasal cannula at 3 L prior to discharge. He was on BiPAP at night we do and he continue this after discharge. He was maintained on IV steroids and azithromycin as well. He was aggressively diuresed and was overall 6 L negative for his hospital stay with significant improvement in his bilateral lower extremity edema however this was not resolved. Wound care was consulted and he was followed by them as well as podiatry. His wound did look dramatically better by the time of discharge just with diuresis and daily wound dressing changes. Respiratory viral panel was negative, COVID and flu panel were negative, strep pneumo and Legionella antigens were negative as well. He was followed by physical and Occupational Therapy and they felt that he was in need of ongoing therapy services prior to discharge home. He initially was reluctant but finally agreed and [facility] We did receive pre-CERT on 05/19/2022 and the patient was stable for discharge on that day. He will be discharged on azithromycin Sunday and Sunday 250 mg. Pulmonary medicine did indicate that if this is not adequate as he is already on maximal triple therapy for his COPD he may need to start chronic prednisone therapy. We extensively counseled the patient on smoking cessation however the patient seems very reluctant to stop smoking. He does state that when he smokes he is not wearing his oxygen. I will also discharge him on a very slow prednisone taper over the next 20 days and he is to be maintained on his chronic inhalers. As needed duo nebs are also available. He will also be on Lasix 40 mg daily and will need a follow-up BMP and CBC in the next 3 to 5 days. We will have him to continue wearing BiPAP nocturnally and he is to follow-up with pulmonary medicine within the next 2 weeks. Discharge diagnoses: Acute hypercapnic on chronic hypoxic and hypercapnic respiratory failure Decompensated HFpEF-now compensated PAH who group 3 Hypokalemia Right lower extremity wound Chronic lymphedema bilateral lower extremities Pulmonary nodule COPD History of CAD Hypertension Hyperlipidemia Ongoing tobacco abuse Obesity Physical Exam Narrative Patient Oliver he is feeling much better. Down approximately 6 L for his hospital course. Still agreeable to [facility]. Const alert, oriented x3 and no apparent distress Constitutional Narrative: Upper middle-aged obese, white male sitting up in a chair at the bedside watching television, currently on 3 L nasal cannula, no signs of respiratory distress General Appearance: cooperative, comfortable, well developed and disheveled Orientation / Consciousness: awake, oriented to person, oriented to place and oriented to time Exam Limitations: no limitations Nutritional Appearance: obese HEENT normocephalic, head/scalp atraumatic and moist oral mucous membranes HEENT Narrative: Moderate hearing loss, dentition is poor, Mallampati is 2-3, no thrush Eyes PERRL, EOMs intact bilaterally and conjunctivae normal Eyes Narrative: No scleral icterus Neck no lymphadenopathy and supple Neck Narrative: Trachea midline, no thyroid enlargement Resp normal respiratory effort, no retractions, no use of accessory muscles and clear to auscultation bilaterally Resp Narrative: Markedly diminished diffusely no adventitious sounds noted today Auscultation: Negative for crackles, rhonchi or wheezes Cardio regular rate, regular rhythm, S1 normal heart sound, S2 normal heart sound, no murmurs, no rub, no gallops and no clicks GI normal to inspection, nondistended, normoactive bowel sounds, soft to palpation and non-tender Extremity Extremity Narrative: Severely edematous legs bilaterally however edema continues to improve with wraps and diuresis, clubbing noted, no cyanosis Skin Skin Narrative: Lower extremity still with dry skin however this is much improved with wound care, wound on right leg is superficial with no signs of current infection Neuro oriented x3, CN's II-XII intact bilaterally, moves all extremities and no focal motor deficits Neuro Narrative: generalized weakness with proximal muscles weaker than distal Sensorium / Orientation: awake, alert, oriented to person, oriented to place and oriented to time Speech: speech normal Psych affect normal Psych Narrative: Appropriately interactive, very pleasant Medical Records Data Medical Nutrition Assessment Dietitian: Malnutrition Criteria Met Start: 05/15/22 14:28 Freq: Status: Active Protocol: Document 05/19/22 11:52 (Rec: 05/19/22 11:52 [id number]) Nutrition Malnutrition Evidence of Malnutrition Exists Yes Malnutrition (severe): Chronic Evidenced By Suboptimal Energy Intake ( Severe),Weight Loss (Severe) Intake Problem Increased Nutrient Needs (specify) Etiology protein related to increased demand for healing Signs/Symptoms as evidenced by stasis ulcer on right lateral lower leg Status Active Problem Clinical Problem Chronic Disease or Condition Related Malnutrition Etiology severe, chronic malnutrition related to inadequate oral intake w/ decreased appetite Signs/Symptoms as evidenced by 26.4#/11% unintentional weight loss in 3 months and <75% PO intake of estimated energy needs for >3 months Status Active Problem Acute Disease or Injury Related Malnutrition Status Inactive Problem Recommendation Dietitian Recommendations/Changes cardiac diet given improved PO intake; will d/c Ensure per pt request. Weight / BMI Weight Weight: 94.7 kg Body Mass Index (BMI) 33.2 ABG / Lab / Microbiology Data Result Diagrams: 05/18/22 05:13 05/19/22 05:35 Laboratory: Laboratory Results - last 24 hr 05/19/22 05:35: Sodium 133 L, Potassium 3.4 L, Chloride 81 L, Carbon Dioxide > 45.0 H*, Anion Gap TNP, BUN 54 H, Creatinine 0.93, Estim Creat Clear Calc 73.55, Est GFR (MDRD) Af Amer 104, Est GFR (MDRD) Non-Af 86, BUN/Creatinine Ratio 58.1 H, Glucose 197 H, Calcium 8.3 L Microbiology: Microbiology 05/15/22 14:10 Urine, Random Streptococcus pneumoniae Antigen (M - Final 05/15/22 14:10 Urine, Random Legionella Antigen - Final 05/15/22 11:45 Mucosa - Nasopharyngeal Respiratory Panel (PCR) - Final 05/15/22 08:35 Nasal Secretion SARS-CoV-2 & FLU Antigen (Rapid) - Final D/C Instructions Discharge Diet: Low fat / Low cholesterol, 8 Cup Fluid Restriction and 4000 mg Sodium Diet Meaningful Use Info Meaningful Use Diagnoses (Choose all that apply): None applicable Discharge Plan Admission Admit Date/Time: 05/15/22 10:29 Primary Reason for Your Visit: Shortness of breath/mental status change Attending Provider: Marj Skelton Primary Care Provider: Brooks Davis Consulting Providers: Gladys Berrios ; Luis Daniel Pérez ; Richy Redd ; Costa Beasley ; Jase Murray ; Chaya Chance NP ; Russell Mary Instructions Additional Instructions / Restrictions: 1. After discharge from skilled facility may need follow-up with wound center if right lower extremity wound has not healed Discharge Orders/Prescriptions Prescriptions: New furosemide 40 mg Tablet 40 mg PO DAILY Qty: 0 0RF ipratropium-albuterol 0.5 mg-3 mg(2.5 mg base)/3 mL Solution For Nebulization 3 ml inhalation Q4H.RT Qty: 180 0RF sennosides-docusate sodium [Stool Softener-Stimulant Laxat] 8.6-50 mg Tablet 2 tab PO BID PRN PRN (Reason: Constipation) Qty: 0 0RF nicotine 21 mg/24 hr Patch 24 Hour 21 mg transdermal DAILY Qty: 0 0RF risperidone 0.5 mg Tablet 0.5 mg PO QHS Qty: 0 0RF Mucus Relief ER 1,200 mg Tablet Extended Release 12hr 1,200 mg PO BID Qty: 0 0RF Ensure Plus High Protein 0.08 gram-1.5 kcal/mL Liquid 120 ml PO 4X/DAY Qty: 0 0RF azithromycin 250 mg tablet 250 mg PO QMWF Qty: 43 0RF prednisone 10 mg tablet 10 mg PO DAILY Qty: 50 0RF Rx Instructions: 4 tablets x 5 days, 3 tablets x 5 days, 2 tablets x 5 days, 1 tablet x 5 days Continued atorvastatin 80 MG tablet 80 mg PO QHS Label Comments: HYPERLIPIDEMIA clopidogrel 75 MG tablet 75 mg PO DAILY Label Comments: ANTPLATELET trazodone 150 MG tablet 150 mg PO QHS Label Comments: depression budesonide-formoterol 1 INHALER inhaler 2 puff inhalation BID metoprolol tartrate 25 mg Tablet 25 mg PO BID isosorbide mononitrate 60 MG tablet extended release 24 hr 60 mg PO DAILY Label Comments: HEART/BLOOD PRESSURE Held albuterol sulfate 1 PUFF inhaler 1 - 2 puff inhalation Q4H PRN PRN (Reason: Dyspnea) Hold Instructions: Until restarted after discharge from skilled facility Discontinued ipratropium-albuterol 0.5 mg-3 mg(2.5 mg base)/3 mL Solution For Nebulization 3 ml INHALATION Q4H Referrals / Follow Up: Richy Redd DO [Med Staff - Active Staff] - Within 2 Weeks Brooks Davis MD [Primary Care Provider] - Within 1 Month Disposition Disposition (needs filled in before D/C Order can be placed): [facility] Charges/Coding Visit Charges Inpatient E&M: 33346 SNF Disch >30 Min
--- NOTE | 2022-05-19 13:01 | CASEMGMT ---
Patient will be discharged to [facility] today. GRETTA completed 7000 in [facility]. Lisa d/c emergency planning and response manager is working on patient's discharge. Plan: d/c to [facility] under skilled level of care on a convalescent stay. [facility] will transport patient via wheelchair. Angelica KAT
--- NOTE | 2022-05-19 13:23 | CASEMGMT ---
Discharge Promotions Officer This automatic typewriter inspector sent d/c orders via [facility]. Wheelchair transport picker and sorter load and unload through [facility] with a picker and sorter load and unload time is 4:00pm. RN and nursing staff and patient notified. Gerson STROUD Wordpress Developer
--- NOTE | 2022-05-19 15:00 | NURSING ---
Attempted to call report to [facility]. Nurse was not available. Left call back number
--- NOTE | 2022-05-19 15:15 | CASEMGMT ---
Discharge Air Drier Machine Operator This senior mortgage underwriter talked to Sade at the [facility]. Bipap settings per 06/08. Gerson STROUD Improvement Analyst
== END 2022-05-19 16:15 | disposition skilled nursing facility (03) | DRG 189 ==
LOC: ED 09:15 → PCU 10:48 → ICU 05-16 08:22 → PCU 05-16 18:12
PROVIDERS: Admitting Provider Internal Medicine; Emergency Provider Emergency Medicine; PCP Family Medicine; Visit Provider Internal Medicine
DX: J96.22 Acute and chronic respiratory failure with hypercapnia (principal); I50.33 Acute on chronic diastolic (congestive) heart failure; J44.1 Chronic obstructive pulmonary disease with (acute) exacerbation; I27.23 Pulmonary hypertension due to lung diseases and hypoxia; E87.8 Other disorders of electrolyte and fluid balance, not elsewhere classified; J96.21 Acute and chronic respiratory failure with hypoxia; I11.0 Hypertensive heart disease with heart failure; I25.10 Atherosclerotic heart disease of native coronary artery without angina pectoris; I89.0 Lymphedema, not elsewhere classified; E78.5 Hyperlipidemia, unspecified; E87.6 Hypokalemia; S80.811A Abrasion, right lower leg, initial encounter; F17.210 Nicotine dependence, cigarettes, uncomplicated; E66.9 Obesity, unspecified; Z20.822 Contact with and (suspected) exposure to COVID-19; Z68.33 Body mass index [BMI] 33.0-33.9, adult; Z71.6 Tobacco abuse counseling; Z79.02 Long term (current) use of antithrombotics/antiplatelets; Z79.899 Other long term (current) drug therapy
CPT/HCPCS: 36415; 36600; 71045; 80048; 80053; 82803; 83735; 83880; 84100; 84145; 84443; 84484; 85025; 87426; 87428; 87449; 87633; 93005; 94002; 94003; 94640; 94667; 94668; 94762; 97110; 97162; 97166; 97530; 97535; 97802; 97803; 99251; 99284; 99406; A4216; G0463; J1940

== ENCOUNTER 2023-02-16 15:01 | Inpatient (IN) | payer MEDICARE, SELFPAY ==
[2023-02-16] VITALS (14 sets, daily range): BP systolic 127–154; BP diastolic 59–118; PULSE 78–96; RESP 17–32; TEMP 35.8–36.6; O2SAT 74–96; BMI 33.0
--- NOTE | 2023-02-16 15:18 | EKG12_ITS ---
Test Reason : sob Blood Pressure : / mmHG Vent. Rate : 082 BPM Atrial Rate : 082 BPM P-R Int : 190 ms QRS Dur : 106 ms QT Int : 364 ms P-R-T Axes : 056 075 026 degrees QTc Int : 425 ms Sinus rhythm with Premature atrial complexes Otherwise normal ECG Confirmed by LILA HAMPTON ([id number]), film editor NATANAEL MULLINS ([id number]) on 02/19/2023 2:17:17 PM Referred By: Confirmed By:LILA HAMPTON
--- NOTE | 2023-02-16 15:22 | ED.VIS.DYS ---
HPI History of Present Illness Chief Complaint: Shortness of Breath Informant: patient Onset/Context/Timing Onset: Today Context: sudden Timing: Continuous Quality: Positive for Dyspnea on exertion and Orthopnea Worsened by: Exertion and Lying flat Relieved by: Rest Associated Symptoms subjective and chills; Negative for cough, rhinorrhea, post nasal drip, ear pain, fever, sore throat or sweats Chest Pain: Positive for None Narrative Narrative: Patient presents with shortness of breath that began today. Patient states it began rather suddenly today. Patient states it has been constant all day. Patient states it is worse with any exertion and also worse with laying flat. Patient states it is better with rest. Patient admits to some subjective chills but denies any fevers. Patient denies any cough. Patient denies any chest pain. Patient denies any rhinorrhea, sore throat, or ear pain. Patient states he had recent cataract surgery in his left eye last week. Patient is on home oxygen at 6 L nasal cannula PE Risk Factors: Positive for Recent surgery; Negative for Cancer, OCP + Smoking + > 35, Prior DVT or PE, Recent immobilization or Recent travel [facility] Medical History (HFpEF) heart failure with preserved ejection fraction (HFpEF) heart failure with preserved ejection fraction Bilateral lower extremity edema CAD (coronary artery disease) Cellulitis of left lower extremity without foot Chronic hypoxemic respiratory failure COPD (chronic obstructive pulmonary disease) COPD (chronic obstructive pulmonary disease) HTN (hypertension) Hyperlipemia Lymphedema Lymphedema Nicotine dependence, cigarettes, uncomplicated Pneumonia Sleep apnea Stasis leg ulcer Tobacco abuse disorder Ulcer of left calf Ulcer of right lower extremity with fat layer exposed Wound infection Home Medications atorvastatin 80 mg tablet 80 mg PO QHS cholesterol 04/18/13 [History Last Taken 07/28/21] clopidogrel 75 mg tablet 75 mg PO DAILY anti platelet 04/18/13 [History Last Taken 02/02/22] albuterol sulfate 90 mcg/actuation aerosol inhaler 1 - 2 puff inhalation Q4H PRN PRN Dyspnea 10/31/16 [History Last Taken 02/02/22] trazodone 150 mg tablet 150 mg PO QHS sleep 10/31/16 [History Last Taken 05/14/22] isosorbide mononitrate 60 mg tablet,extended release 24 hr 60 mg PO DAILY heart 07/29/21 [History Last Taken 02/02/22] metoprolol tartrate 25 mg tablet 25 mg PO BID blood pressure/heart rate 07/29/21 [History Last Taken 05/14/22] ipratropium 0.5 mg-albuterol 3 mg (2.5 mg base)/3 mL nebulization soln 3 ml inhalation Q4H.RT #180 mL 05/19/22 [Rx Last Taken Unknown] tiotropium 2.5 mcg-olodaterol 2.5 mcg/actuation mist for inhalation (Stiolto Respimat) 2 puff inhalation Q24H 02/16/23 [History Last Taken Unknown] Allergy/AdvReac Type Severity Reaction Status Date / Time benzonatate Allergy rash hives Verified 05/15/22 08:14 [From Tessalon Perles] chlorpheniramine polistirex AdvReac Rash Verified 05/15/22 08:14 [From Tussionex] hydrocodone polistirex AdvReac Rash Verified 05/15/22 08:14 [From Tussionex] latex AdvReac Rash & Verified 05/15/22 08:14 Hives levofloxacin [From Levaquin] AdvReac Rash Verified 05/15/22 08:14 Surgical History H/O heart artery stent Social History household members: spouse housing: house pets and animals: Yes pets and animals: cat(s) Smoking Status: Current every day smoker tobacco type: cigarettes alcohol intake: never substance use type: does not use ROS ROS ED Constitutional Constitutional ED: Reports chills; Denies fever(s) Eyes Eyes: Denies blurry vision or change in vision ENT ENT ED: Denies rhinorrhea or sore throat Cardiovascular Cardiovascular: Denies chest pain or palpitations Respiratory/Chest Respiratory/Chest: Reports dyspnea; Denies cough Gastrointestinal Gastrointestinal: Denies nausea or vomiting Genitourinary Genitourinary ED: Denies dysuria or hematuria Musculoskeletal Musculoskeletal: Denies back pain or neck pain Integumentary Denies abscess or rash Neurologic Neurologic: Denies headache(s) or weakness Allergic/Immunologic Allergic/Immunologic ED: Denies mouth swelling or urticaria EXAM Physical Exam Const Vital Signs: 02/16/23 15:03 02/16/23 15:10 02/16/23 15:07 Temperature 97.6 F L Temperature Source Temporal Pulse Rate 89 78 Respiratory Rate 18 Respiratory Effort Short of Breath Respiratory Depth Shallow Respiratory Pattern Tachypnea Blood Pressure 129/67 H Blood Pressure Mean 87 Pulse Ox 74 93 Oxygen Delivery Method Room Air Nasal Cannula Room Air Oxygen Flow Rate (L/min) 6 02/16/23 15:35 02/16/23 15:36 02/16/23 16:01 Temperature Temperature Source Pulse Rate 86 82 Respiratory Rate 20 H Respiratory Effort Respiratory Depth Respiratory Pattern Tachypnea Blood Pressure 142/59 H Blood Pressure Mean 86 Pulse Ox Oxygen Delivery Method Room Air Oxygen Flow Rate (L/min) 02/16/23 16:59 02/16/23 17:11 Temperature 96.5 F L Temperature Source Temporal Pulse Rate 91 88 Respiratory Rate 17 18 Respiratory Effort Respiratory Depth Respiratory Pattern Normal Blood Pressure 127/115 H Blood Pressure Mean 119 Pulse Ox 91 Oxygen Delivery Method Nasal Cannula Oxygen Flow Rate (L/min) 6 Positive well nourished and well developed General Appearance ED: well developed and NAD HEENT Reports moist mucous membranes Neck supple and no JVD Resp normal respiratory effort Auscultation: wheezes scattered wheezes Cardio regular rate and regular rhythm GI normal to inspection, nondistended, normoactive bowel sounds and non-tender Palpation: soft Extremity normal to inspection General Extremety ED: Yes edema; Negative for tenderness General Extremity: edema bilateral lower extremity Details: trace Neuro oriented x3, CN's II-XII intact bilaterally and no sensory deficits noted Sensorium / Orientation: alert Motor Exam: strength 5/5 throughout Psych mental status grossly normal Skin no rashes or lesions noted MDM MDM MDM Narrative Medical decision making narrative: Differential diagnosis includes COPD exacerbation, pneumonia, pneumothorax, cardiac dysrhythmia, cardiac ischemia, congestive heart failure, pulmonary embolism, and viral infection. Chest x-ray will be obtained to assess for pneumonia and pneumothorax. EKG will be obtained to assess for cardiac dysrhythmia and cardiac ischemia. CBC will be obtained to assess for leukocytosis and anemia. Basic metabolic profile will be obtained to assess for electrolyte abnormality and renal function. High-sensitivity troponin will be obtained to assess for cardiac ischemia. BNP will be obtained to assess for congestive heart failure. Lactate will be obtained to assess for sepsis. History & Record Review Additional record(s) reviewed:: Prior labs Lab Data Attestation: I reviewed the patient's lab results. Lab results narrative: CBC was reviewed. Platelets were slightly low at 79. The remainder is within normal limits. Basic metabolic profile was reviewed. CO2 was elevated at greater than 45. This is consistent with prior results. High-sensitivity troponin was reviewed and was normal at 28. BNP was reviewed and was 123.8. This was improved compared to previous result. Lactate was reviewed and was 0.6. COVID-19 rapid antigen was reviewed and was negative. Influenza A and influenza B antigens were reviewed and were negative. Labs: Laboratory Results - last 24 hr 02/16/23 02/16/23 15:10 15:35 WBC 5.3 RBC 4.55 L Hgb 13.8 Hct 47.5 MCV 104.4 H MCH 30.3 MCHC 29.1 L RDW Std Deviation 49.8 H RDW Coeff of Artemio 13.0 Plt Count 79 L MPV 9.8 Immature Gran % (Auto) 2.300 H Neut % (Auto) 74.9 H Lymph % (Auto) 12.3 L [place] % (Auto) 8.3 Eos % (Auto) 1.3 Baso % (Auto) 0.9 Absolute Neuts (auto) 3.9 Absolute Lymphs (auto) 0.65 L Nucleated RBC % 0 Platelet Estimate MOD DEC RBC Morphology N CHROM Anisocytosis 1+ Macrocytosis 1+ Sodium 135 L Potassium 3.6 Chloride 84 L Carbon Dioxide > 45.0 H* Anion Gap TNP BUN 23 H Creatinine 0.57 L Estim Creat Clear Calc 67.45 Est GFR (MDRD) Af Amer 183 Est GFR (MDRD) Non-Af 151 BUN/Creatinine Ratio 40.5 H Glucose 112 H Lactic Acid 0.6 Calcium 8.9 Troponin I High Sens 28 B-Natriuretic Peptide 123.8 H Radiography Chest X-Ray - ED: 2 View, Read by ED Physician and Read by Radiologist Diagnostic Testing: Clinical Impression(s) from Imaging Studies Chest X-Ray 02/16/23 15:50 IMPRESSION: Cardiac silhouette is borderline in size with central vascular prominence. Electronically Signed: Gatito Álvarez DO at 16:23 EDT , Chest CTA 02/16/23 17:04 IMPRESSION: No demonstrated pulmonary embolism or arterial dissection. Mild effusions with basilar mild consolidations/ atelectasis bilaterally. Mediastinal adenopathy. Electronically Signed: Gatito Álvarez DO at 18:21 EDT , PA and lateral chest x-ray was obtained. There are 2 views. On my independent interpretation, lung inman show some central vascular prominence. There is borderline cardiomegaly. Bony thorax is normal. Radiologist also interpreted the x-ray and agrees. EKG Initial EKG: Attestation: I personally reviewed and interpreted this EKG as follows: Interpretation: Sinus Rhythm (With occasional PAC with a rate of 82) and No Acute Injury Pattern Comments: EKG was obtained. On my independent interpretation, it showed a normal sinus rhythm with occasional PAC with a rate of 82. TX interval, QRS interval, and QTc intervals were all normal. [place] was normal. There are no acute ST or T wave changes. Prior EKG tracings: available for review Prior: Unchanged (05/15/2022) Treatment and Re-Evaluation :: Patient was given DuoNeb aerosol here. Patient was still having some wheezing on reevaluation. Patient was given a repeat albuterol aerosol. Patient was given a dose of methylprednisolone. Patient was ambulated here in the emergency department and his oxygen saturation dropped to 85% on his 6 L nasal cannula. Because of this, I recommended admission to the hospital. Dr. Maurer was in to him to see the patient for his routine postoperative ointment. He recommended ofloxacin ophthalmic drops 1 drop to the left eye 4 times daily for 1 week. Case was discussed with the hospitalist. He will admit the patient to his service. Patient understood and was agreeable with the plan. All questions were answered. Discharge Plan Dx/Rx/DC Orders Clinical Impression: Hypoxia, COPD exacerbation Disposition Disposition: [facility]
[2023-02-16 15:34] LABS: Absolute Lymphocyte Count 0.65 X10^3/uL (0.83-4.51); Absolute Neutrophil Count 3.9 X10^3/uL (2.0-7.7); Basophil# 0.05 X10^3/uL; Basophil% 0.9 % (0-1); Eosinophil# 0.07 X10^3/uL; Eosinophils% 1.3 % (0-5); Hematocrit 47.5 % (40-54); Hemoglobin 13.8 g/dL (13.0-16.5); Lymphocyte # 0.65 X10^3/ul (0.83-4.51); Lymphocyte % 12.3 % (19-41); Mean Corp Hgb Conc 29.1 g/dL (32-36); Mean Corpuscular Hgb 30.3 pg (27.0-32.0); Mean Corpuscular Volume 104.4 fL (80-94); Mean Platelet Vol. 9.8 fl (6.2-12.0); Monocyte# 0.44 X10^3/uL; Monocyte% 8.3 % (0-10); NRBC Flagged by Analyzer 0 % (0-5); Neutrophil # 3.94 X10^3/uL (2.7-7.7); Neutrophil % 74.9 % (47-70); POSITIVE COUNT YES; RBC Distribution Width SD 49.8 fl (35.1-43.9); Red Blood Count 4.55 M/mm3 (4.6-6.2); White Blood Count 5.3 K/mm3 (4.4-11.0)
[2023-02-16] MEDS: Ipratropium/Albuterol Sulfate 3 ML AMPUL.NEB INHALATION ×2 (15:34→22:20)
--- NOTE | 2023-02-16 15:50 | RAD_ITS ---
INDICATION: Dyspnea EXAMINATION/TECHNIQUE: X-RAY - XR Chest 2 Views COMPARISON: FINDINGS: LINES/DEVICES: None. LUNGS: No consolidation, edema or effusion. No pneumothorax. MEDIASTINUM AND CARDIOVASCULAR STRUCTURES: Cardiac silhouette is borderline in size with central vascular prominence. Central airways and mediastinal contour are unremarkable. BONES AND SOFT TISSUES: Unremarkable. RAD/Chest PA and Lateral IMPRESSION: Cardiac silhouette is borderline in size with central vascular prominence. Electronically Signed: Gatito Álvarez DO at 16:23 EDT Reading Location ID and State: [facility] / [place] Tel [phone], Service support ,
[2023-02-16 15:53] LABS: BUN 23 mg/dL (7-18); BUN/Creat Ratio 40.5 RATIO (10-20); Calcium,Total 8.9 mg/dL (8.5-10.1); Carbon Dioxide > 45.0 mmol/L (21.0-32.0); Chloride 84 mmol/L (98-107); Creatinine, Serum 0.57 mg/dL (0.70-1.30); EST Glomerular Filtration Rate 151 mL/min (>60); Est Glom Filt Rate - Afr Amer 183 mL/min (>60); Estimated Creatinine Clearance 67.45 ml/min; Glucose 112 mg/dL (74-106); Potassium 3.6 mmol/L (3.5-5.1); Sodium Level 135 mmol/L (136-145); Troponin-I HS 28 pg/mL (3.0-78.0)
[2023-02-16 16:13] LABS: Differential Indicated SCAN CRITERIA MET
[2023-02-16 16:14] LABS: Platelet Count 79 K/mm3 (150-450); Platelet Estimate MOD DEC (ADEQ)
[2023-02-16 16:15] LABS: Anisocytosis 1+; Macrocytosis 1+; Red Cell Morphology N CHROM NORMAL (NORM C&C)
[2023-02-16 16:17] LABS: Lactic Acid 0.6 mmol/L (0.4-1.9)
[2023-02-16 16:19] LABS: BNP,B-Type NATRIURETIC PEPTIDE 123.8 pg/mL (0-100)
--- NOTE | 2023-02-16 17:04 | CT_ITS ---
STUDY: CTA CHEST REASON FOR EXAM: Male, 67 years old. Pulmonary embolism RADIATION DOSAGE (If Supplied By Facility): CTDIvol = ( 18.70 ) mGy, DLP = ( 450.62 ) mGycm TECHNIQUE: The examination was performed with the intravenous administration of IV 100mL Isovue-370. Post-processing of the angiographic images was performed, with multiplanar reformation and 3D reconstruction. Individualized dose optimization techniques were used for this CT. COMPARISON: FINDINGS: Normal enhancement of the main pulmonary artery and right and left pulmonary arteries. Normal enhancement of the bilateral peripheral pulmonary arteries. There is no demonstrated pulmonary embolism. Normal thoracic aorta and visualized great vessels. There is no demonstrated aortic dissection. Normal heart and pericardium. There is adenopathy in the mediastinum. Normal hilar regions. Normal visualized trachea and bronchi. The lungs are well expanded. Mild effusions with basilar mild consolidations/ atelectasis bilaterally. Normal chest wall structures. Normal osseous structures. Probable 1.4 cm cystic splenic nodule. CT/CTA Chest W/WO Contrast IMPRESSION: No demonstrated pulmonary embolism or arterial dissection. Mild effusions with basilar mild consolidations/ atelectasis bilaterally. Mediastinal adenopathy. Electronically Signed: Gatito Álvarez DO at 18:21 EDT Reading Location ID and State: [facility] / [place] Tel [phone], Service support ,
[2023-02-16] MEDS: Albuterol 2.5 MG/3 ML VIAL.NEB. INHALATION (17:10)
--- NOTE | 2023-02-16 18:44 | HP.PCM.HOS_ITS ---
[facility] - General General Date of Service: 02/16/23 Chief Complaint: Shortness of breath HPI Narrative NASIM LINARES, is a 67 M who presents with shortness of breath. Symptoms began last night. Patient is on 6 L nasal cannula continuous for his known COPD. Became acutely short of breath that persisted today. Patient was noted to be 85% with ambulation on his 6 L. Patient in emergency room, received bronchodilators as well as methylprednisolone. Patient's cardiac side on his BMP are chronically elevated greater than 45. Patient states that he cannot tolerate a BiPAP or CPAP. He also does have a chronic lower extremity edema and usually puts on lymphedema wraps himself. Last time he changed it was as it was about a week ago. He has not noted any changes in his weight. Patient yesterday underwent a left cataract surgery. [facility] Medical History (HFpEF) heart failure with preserved ejection fraction (HFpEF) heart failure with preserved ejection fraction Bilateral lower extremity edema CAD (coronary artery disease) Cellulitis of left lower extremity without foot Chronic hypoxemic respiratory failure COPD (chronic obstructive pulmonary disease) COPD (chronic obstructive pulmonary disease) HTN (hypertension) Hyperlipemia Lymphedema Lymphedema Nicotine dependence, cigarettes, uncomplicated Pneumonia Sleep apnea Stasis leg ulcer Tobacco abuse disorder Ulcer of left calf Ulcer of right lower extremity with fat layer exposed Wound infection Home Medications atorvastatin 80 mg tablet 80 mg PO QHS cholesterol 04/18/13 [History Last Taken 07/28/21] clopidogrel 75 mg tablet 75 mg PO DAILY anti platelet 04/18/13 [History Last Taken 02/02/22] albuterol sulfate 90 mcg/actuation aerosol inhaler 1 - 2 puff inhalation Q4H PRN PRN Dyspnea 10/31/16 [History Last Taken 02/02/22] trazodone 150 mg tablet 150 mg PO QHS sleep 10/31/16 [History Last Taken 05/14/22] isosorbide mononitrate 60 mg tablet,extended release 24 hr 60 mg PO DAILY heart 07/29/21 [History Last Taken 02/02/22] metoprolol tartrate 25 mg tablet 25 mg PO BID blood pressure/heart rate 07/29/21 [History Last Taken 05/14/22] ipratropium 0.5 mg-albuterol 3 mg (2.5 mg base)/3 mL nebulization soln 3 ml inhalation Q4H.RT #180 mL 05/19/22 [Rx Last Taken Unknown] tiotropium 2.5 mcg-olodaterol 2.5 mcg/actuation mist for inhalation (Stiolto Respimat) 2 puff inhalation Q24H 02/16/23 [History Last Taken Unknown] Allergy/AdvReac Type Severity Reaction Status Date / Time benzonatate Allergy rash hives Verified 05/15/22 08:14 [From Tessalon Perles] chlorpheniramine polistirex AdvReac Rash Verified 05/15/22 08:14 [From Tussionex] hydrocodone polistirex AdvReac Rash Verified 05/15/22 08:14 [From Tussionex] latex AdvReac Rash & Verified 05/15/22 08:14 Hives levofloxacin [From Levaquin] AdvReac Rash Verified 05/15/22 08:14 Surgical History H/O heart artery stent Social History household members: spouse housing: house pets and animals: Yes pets and animals: cat(s) Smoking Status: Current every day smoker tobacco type: cigarettes alcohol intake: never substance use type: does not use ROS ROS Narrative Denies any fever or chills. Does have a chronic smokers cough. Cough is nonproductive. All review of systems were negative except as mentioned above in the history of present illness and the other review of systems. Vital Signs Vital Signs Vital Signs: 02/16/23 15:03 02/16/23 15:10 02/16/23 15:07 Temperature 36.4 C L Temperature Source Temporal Pulse Rate 89 78 Respiratory Rate 18 Respiratory Effort Short of Breath Respiratory Depth Shallow Respiratory Pattern Tachypnea Blood Pressure 129/67 H Blood Pressure Mean 87 Pulse Ox 74 93 Oxygen Delivery Method Room Air Nasal Cannula Room Air Oxygen Flow Rate (L/min) 6 02/16/23 15:35 02/16/23 15:36 02/16/23 16:01 Temperature Temperature Source Pulse Rate 86 82 Respiratory Rate 20 H Respiratory Effort Respiratory Depth Respiratory Pattern Tachypnea Blood Pressure 142/59 H Blood Pressure Mean 86 Pulse Ox Oxygen Delivery Method Room Air Oxygen Flow Rate (L/min) 02/16/23 16:59 02/16/23 17:11 Temperature 35.8 C L Temperature Source Temporal Pulse Rate 91 88 Respiratory Rate 17 18 Respiratory Effort Respiratory Depth Respiratory Pattern Normal Blood Pressure 127/115 H Blood Pressure Mean 119 Pulse Ox 91 Oxygen Delivery Method Nasal Cannula Oxygen Flow Rate (L/min) 6 Weight Weight: 98.4 kg Body Mass Index (BMI) 33.0 Physical Exam Const alert and no apparent distress Constitutional Narrative: No conversational dyspnea. No respiratory distress. General Appearance: cooperative HEENT normocephalic and head/scalp atraumatic Resp no use of accessory muscles Resp Narrative: Diminished but clear. Cardio regular rate, regular rhythm, S1 normal heart sound and S2 normal heart sound GI normal to inspection, nondistended, normoactive bowel sounds, soft to palpation, non-tender and non-distended Extremity Extremity Narrative: Bilateral lower extremity edema. Skin Skin Narrative: Progress throughout his lower extremities underneath his Kerlix and Vargas wrap's. Has scaling throughout his lower extremities involving to his toes. Scales sloughed off very easily. Neuro moves all extremities Sensorium / Orientation: awake and alert Psych affect normal Results Lab / Micro Data Attestation: I reviewed the patient's lab results. 02/16/23 15:10 02/16/23 15:10 Labs: Laboratory Results - last 24 hr 02/16/23 15:10: WBC 5.3, RBC 4.55 L, Hgb 13.8, Hct 47.5, MCV 104.4 H, MCH 30.3, MCHC 29.1 L, RDW Std Deviation 49.8 H, RDW Coeff of Artemio 13.0, Plt Count 79 L, MPV 9.8, Immature Gran % (Auto) 2.300 H, Neut % (Auto) 74.9 H, Lymph % (Auto) 12.3 L, [place] % (Auto) 8.3, Eos % (Auto) 1.3, Baso % (Auto) 0.9, Absolute Neuts (auto) 3.9, Absolute Lymphs (auto) 0.65 L, Nucleated RBC % 0, Platelet Estimate MOD DEC, RBC Morphology N CHROM, Anisocytosis 1+, Macrocytosis 1+, Sodium 135 L, Potassium 3.6, Chloride 84 L, Carbon Dioxide > 45.0 H*, Anion Gap TNP, BUN 23 H, Creatinine 0.57 L, Estim Creat Clear Calc 67.45, Est GFR (MDRD) Af Amer 183, Est GFR (MDRD) Non-Af 151, BUN/Creatinine Ratio 40.5 H, Glucose 112 H, Calcium 8.9, Troponin I High Sens 28, B-Natriuretic Peptide 123.8 H 02/16/23 15:35: Lactic Acid 0.6 Micro: Microbiology 02/16/23 15:38 Nasal Secretion SARS-CoV-2 & FLU Antigen (Rapid) - Final EKG Initial EKG: Attestation: I personally reviewed and interpreted this EKG as follows: Prior EKG tracings: available for review EKG Rhythm Intrepretation: Sinus Rhythm Radiology Impression Chest X-Ray 02/16/23 15:50 IMPRESSION: Cardiac silhouette is borderline in size with central vascular prominence. Electronically Signed: Gatito Álvarez DO at 16:23 EDT , Chest CTA 02/16/23 17:04 IMPRESSION: No demonstrated pulmonary embolism or arterial dissection. Mild effusions with basilar mild consolidations/ atelectasis bilaterally. Mediastinal adenopathy. Electronically Signed: Gatito Álvarez DO at 18:21 EDT , Assessment & Plan Assessment/Plan (1) COPD exacerbation: PLAN: Acute exacerbation Bronchodilators and methylprednisolone. Patient blood sugars are in the low 100s. We will place her on a sliding scale insulin as his sugars may go up for this being on the methylprednisolone. (2) Hypoxia: PLAN: Acute hypoxia on chronic hypoxic and hypercapnic respiratory failure Patient's carbon dioxide on his BMPs are chronically elevated greater than 45. Did tell the patient that he would benefit from ventilation with BiPAP. He adamantly refuses to use that saying that he cannot tolerate that nor CPAP. I told him without that, he is going to be at higher risk for exacerbations of his COPD in the future. Patient is on 6 L nasal cannula at home. Patient may require an ambulatory pulse ox prior to discharge if he is continue to require more oxygen than what he has already at home. (3) Status post laser cataract surgery of left eye: PLAN: No active issues. Surgery was performed on the . Discussed with his turntable operator, Dr. Maurer, who recommends ofloxacin eyedrops. Patient has a reported allergy to levofloxacin but Dr. Maurer stated that the patient tolerated the ofloxacin eyedrops and did not have any reaction with that. We do not have any ofloxacin or formulary and he is okay with the Cipro eyedrops 1 drop to the left eye every 4 hours for 7 days. PLAN: Plan Chronic conditions * Heart failure with preserved ejection fraction: EF of 50 to 60% with severe pulmonary hypertension. Currently compensated this time the patient would benefit from BiPAP long-term. * Chronic lymphedema: Patient wraps his legs but does not relatively infrequently. Last time he did it was about a week ago. Patient has lichenification of his lower extremities. We will consult wound care for further evaluation and recommendation. * Coronary artery disease: Stable continue with clopidogrel, metoprolol and isosorbide. * Hyperlipidemia: Continue with atorvastatin VTE prophylaxis: Moderate risk. Enoxaparin. CODE STATUS: Addressed with the patient. Patient wants to be full code. I did tell him that he needs higher risk, if he does get intubated of requiring tracheostomy. Additionally informed him that if he did require CPR in the event of cardiopulmonary arrest, survives, his recovery would be likely very protracted. Disposition: To be determined. Anticipate a least 48 to 72 hours. In the interim, will have physical Occupational Therapy evaluate him to see if he would require any therapy needs upon discharge. Charges/Coding Visit Charges Inpatient E&M: 00907 Init Hosp L3
--- NOTE | 2023-02-16 18:46 | CM.ED ---
Social Work GRETTA received phone call from [facility] with APS inquiring about plan for patient as she has recently started to work with the patient. GRETTA updated [facility] plan is for patient to be admitted. GRETTA to continue to assist as needed and update [facility] with discharge plan. Brittanie Gonzalez [employer] MACHINE [employer]EDER, SHEY
[2023-02-16] MEDS: MethylPREDNISolone 125 MG/2 ML Vial 60 MG IV (19:05)
[2023-02-16] MEDS: traZODone 50 MG Tablet 150 MG PO (22:09)
[2023-02-16] MEDS: Atorvastatin Calcium 80 MG Tablet PO (22:09)
[2023-02-16] MEDS: Metoprolol Tartrate 25 MG Tablet PO (22:09)
[2023-02-16] MEDS: Ciprofloxacin 0.3% 2.5ml Bottle 1 DRP LEFT EYE (22:09)
[2023-02-17] VITALS (16 sets, daily range): BP systolic 117–150; BP diastolic 53–72; PULSE 56–86; RESP 20–28; TEMP 36.4–37; O2SAT 85–95
[2023-02-17 01:41] LABS: Bedside Glucose 172 mg/dL (74-106)
[2023-02-17] MEDS: Ipratropium/Albuterol Sulfate 3 ML AMPUL.NEB INHALATION ×6 (02:17→22:52)
[2023-02-17] MEDS: Ciprofloxacin 0.3% 2.5ml Bottle 1 DRP LEFT EYE ×6 (02:47→21:27)
[2023-02-17] MEDS: Methylprednisolone Sod Succ 40 MG/ML VIAL IV ×3 (05:51→21:30)
[2023-02-17 06:56] LABS: Absolute Lymphocyte Count 0.35 X10^3/uL (0.83-4.51); Absolute Neutrophil Count 5.8 X10^3/uL (2.0-7.7); Basophil# 0.01 X10^3/uL; Basophil% 0.2 % (0-1); Hematocrit 42.2 % (40-54); Hemoglobin 12.5 g/dL (13.0-16.5); Lymphocyte # 0.35 X10^3/ul (0.83-4.51); Lymphocyte % 5.4 % (19-41); Mean Corp Hgb Conc 29.6 g/dL (32-36); Mean Corpuscular Hgb 30.1 pg (27.0-32.0); Mean Corpuscular Volume 101.7 fL (80-94); Monocyte# 0.27 X10^3/uL; Monocyte% 4.2 % (0-10); NRBC Flagged by Analyzer 0 % (0-5); Neutrophil # 5.84 X10^3/uL (2.7-7.7); Neutrophil % 89.7 % (47-70); POSITIVE COUNT YES; POSITIVE DIFFERENTIAL YES; Platelet Count 84 K/mm3 (150-450); RBC Distribution Width CV 12.4 % (11.6-14.6); RBC Distribution Width SD 46.8 fl (35.1-43.9); Red Blood Count 4.15 M/mm3 (4.6-6.2); White Blood Count 6.5 K/mm3 (4.4-11.0)
[2023-02-17] MEDS: Insulin Lispro 100 UNIT/ML INSULN.PEN SC ×2 (07:02→11:35)
[2023-02-17 07:17] LABS: Bedside Glucose 181 mg/dL (74-106)
[2023-02-17 07:19] LABS: Differential Indicated SCAN CRITERIA MET
[2023-02-17 07:20] LABS: Differential Comment SCANNED; Platelet Estimate MOD DEC (ADEQ)
[2023-02-17 07:25] LABS: BUN 21 mg/dL (7-18); BUN/Creat Ratio 34.5 RATIO (10-20); Calcium,Total 8.3 mg/dL (8.5-10.1); Carbon Dioxide > 45.0 mmol/L (21.0-32.0); Chloride 83 mmol/L (98-107); Creatinine, Serum 0.61 mg/dL (0.70-1.30); EST Glomerular Filtration Rate 140 mL/min (>60); Est Glom Filt Rate - Afr Amer 169 mL/min (>60); Estimated Creatinine Clearance 65.18 ml/min; Glucose 172 mg/dL (74-106); Potassium 3.9 mmol/L (3.5-5.1); Sodium Level 135 mmol/L (136-145)
--- NOTE | 2023-02-17 09:04 | CASEMGMT ---
PATRICIA VILLALTA Assessment: Face to Face with pt for initial transition planning/care coordination assessment. PATRICIA VILLALTA introduced self and role at [facility], pt voices understanding and consents to assessment. Pt is A/O x4 and answers all questions appropriately at this time. Pt sitting up in bed with oxygen on in no distress. Care providers, pharmacy, and demographics verified/updated. Admitting Dx: COPD exac PCP:Ryan Specialists:Pt denies Preferred Pharmacy:[facility] Insurance: [place] [facility] Prescription Benefit: yes LNOK: Lisa Darling, sister in law Living Arrangements: Pt lives with sister in law in a ground level apt with no steps to enter. Pt reports he is I in ADL's and denies concerns at home. Pt states he cooks his own meals, he gets his groceries delivered and his sister in law does his laundry. Transportation: Pt drives self and denies concerns with transportation. DME/HHC/SNF: Pt has oxygen at 6L through [employer] [facility] per report. Pt states his concentrator goes up to 10L. He has a portable oxygen tank that can be brought in upon dc for homegoing. Pt has a pox. Pt also has a shower chair, cane and walker but does not use any AD for ambulation. Pt states he has had HHC in the past but is unsure of which agency. Pt denies SNF stays. Pt states no concerns with going home at time of dc. Asked pt if he is being seen by Adult Protective Services Shukri, pt denied this. Discussed having a HH nurse come in to do respiratory assessment and education, pt declined. Pt states no further concerns/needs. CM to follow. Advised pt to ask CM if any further question/concerns/needs arise, voices understanding. Pt Goal: Home Plan: Home, follow for increased oxygen order. Green sheet on chart.
[2023-02-17] MEDS: Clopidogrel Bisulfate 75 MG Tablet PO (09:28)
[2023-02-17] MEDS: Ensure Plus High Protein 120 ML LIQUID PO (09:28)
[2023-02-17] MEDS: Enoxaparin 40 MG/0.4 ML Syringe SC (09:28)
[2023-02-17] MEDS: Metoprolol Tartrate 25 MG Tablet PO ×2 (09:28→21:29)
[2023-02-17] MEDS: Isosorbide Mononitrate 60 MG Tablet PO (09:29)
--- NOTE | 2023-02-17 10:53 | PN.HOSP_ITS ---
Subjective Subjective Doing well, no issues overnight. Breathing seems a bit better Objective Data Objective Data Vital Signs: Vital Signs Temp Pulse Resp BP Pulse Ox O2 Del Method O2 Flow Rate 97.9 F 84 24 H 132/64 H 85 Nasal Cannula 6 02/17/23 09:18 02/17/23 09:28 02/17/23 09:18 02/17/23 09:18 02/17/23 10:25 02/17/23 09:18 02/17/23 10:29 Oxygen Flow Rate (L/min) 6 Oxygen Delivery Method Nasal Cannula Weight: 211 lb 6.4 oz Body Mass Index (BMI) 33.0 Intake & Output: Intake and Output for Last 24 Hours 02/16/23 02/17/23 02/18/23 03:59 03:59 03:59 Intake Total 200 / 200 150 / 150 Output Total 125 / 125 200 / 200 Balance 75 / 75 -50 / -50 Lab / Micro Data 02/17/23 06:28 02/17/23 06:28 Labs: Laboratory Results - last 24 hr 02/16/23 15:10: WBC 5.3, RBC 4.55 L, Hgb 13.8, Hct 47.5, MCV 104.4 H, MCH 30.3, MCHC 29.1 L, RDW Std Deviation 49.8 H, RDW Coeff of Artemio 13.0, Plt Count 79 L, MPV 9.8, Immature Gran % (Auto) 2.300 H, Neut % (Auto) 74.9 H, Lymph % (Auto) 12.3 L, [place] % (Auto) 8.3, Eos % (Auto) 1.3, Baso % (Auto) 0.9, Absolute Neuts (auto) 3.9, Absolute Lymphs (auto) 0.65 L, Nucleated RBC % 0, Platelet Estimate MOD DEC, RBC Morphology N CHROM, Anisocytosis 1+, Macrocytosis 1+, Sodium 135 L, Potassium 3.6, Chloride 84 L, Carbon Dioxide > 45.0 H*, Anion Gap TNP, BUN 23 H, Creatinine 0.57 L, Estim Creat Clear Calc 67.45, Est GFR (MDRD) Af Amer 183, Est GFR (MDRD) Non-Af 151, BUN/Creatinine Ratio 40.5 H, Glucose 112 H, Calcium 8.9, Troponin I High Sens 28, B-Natriuretic Peptide 123.8 H 02/16/23 15:35: Lactic Acid 0.6 02/16/23 22:12: POC Glucose 172 H 02/17/23 06:28: WBC 6.5, RBC 4.15 L, Hgb 12.5 L, Hct 42.2, MCV 101.7 H, MCH 30.1, MCHC 29.6 L, RDW Std Deviation 46.8 H, RDW Coeff of Artemio 12.4, Plt Count 84 L, MPV 10.0, Immature Gran % (Auto) 0.500, Neut % (Auto) 89.7 H, Lymph % (Auto) 5.[address] L, [place] % (Auto) 4.2, Eos % (Auto) 0.0, Baso % (Auto) 0.2, Absolute Neuts (auto) 5.8, Absolute Lymphs (auto) 0.35 L, Nucleated RBC % 0, Differential Comment SCANNED, Platelet Estimate MOD DEC, Sodium 135 L, Potassium 3.9, Chloride 83 L, Carbon Dioxide > 45.0 H*, Anion Gap TNP, BUN 21 H, Creatinine 0.61 L, Estim Creat Clear Calc 65.18, Est GFR (MDRD) Af Amer 169, Est GFR (MDRD) Non-Af 140, BUN/Creatinine Ratio 34.5 H, Glucose 172 H, Calcium 8.3 L 02/17/23 06:58: POC Glucose 181 H Micro: Microbiology 02/16/23 15:38 Nasal Secretion SARS-CoV-2 & FLU Antigen (Rapid) - Final Radiography Diagnostic Testing: Radiology Impression Chest X-Ray 02/16/23 15:50 IMPRESSION: Cardiac silhouette is borderline in size with central vascular prominence. Electronically Signed: Gatito Álvarez DO at 16:23 EDT , Chest CTA 02/16/23 17:04 IMPRESSION: No demonstrated pulmonary embolism or arterial dissection. Mild effusions with basilar mild consolidations/ atelectasis bilaterally. Mediastinal adenopathy. Electronically Signed: Gatito Álvarez DO at 18:21 EDT , Physical Exam Narrative General: Alert, Oriented x3, Cooperative, No apparent distress HEENT: Atraumatic, PERRLA, EOMI, Normocephalic Oral: Moist Mucosa Neck: Supple, No JVD Lungs: Diminished, poor air movement, No rhonchi, No wheeze, No rales Cardiovascular: Regular rate, Regular Rhythm, Normal S1, Normal S2, No murmurs Abdomen: Soft, Non Tender, Non-Distended, No Hepato-splenomegaly Extremities: Edema, Capillary Refill Less than 3 Seconds Skin: Chronic skin changes, currently wrapped Musculoskeletal: No Tenderness to Palpation of Joints or Extremities Neurological: Cranial nerves II-XII grossly intact, Motor Exam 5/5 strength throughout, Sensory exam intact to light touch and pain Psych/Mental Status: Normal Affect, Appropriate Assessment & Plan Assessment/Plan (1) COPD exacerbation: PLAN: Acute exacerbation Bronchodilators and methylprednisolone. Patient blood sugars are in the low 100s. We will place her on a sliding scale insulin as his sugars may go up for this being on the methylprednisolone. 02/17/2023: Still with poor air movement, continue with steroids and breathing treatments (2) Hypoxia: PLAN: Acute hypoxia on chronic hypoxic and hypercapnic respiratory failure Patient's carbon dioxide on his BMPs are chronically elevated greater than 45. Did tell the patient that he would benefit from ventilation with BiPAP. He adamantly refuses to use that saying that he cannot tolerate that nor CPAP. I told him without that, he is going to be at higher risk for exacerbations of his COPD in the future. Patient is on 6 L nasal cannula at home. Patient may require an ambulatory pulse ox prior to discharge if he is continue to require more oxygen than what he has already at home. 02/17/2023: Still on 6 L nasal cannula we will need an ambulatory pulse ox prior to discharge (3) Status post laser cataract surgery of left eye: PLAN: No active issues. Surgery was performed on the . Discussed with his cleaning associate, Dr. Maurer, who recommends ofloxacin eyedrops. Patient has a reported allergy to levofloxacin but Dr. Maurer stated that the patient tolerated the ofloxacin eyedrops and did not have any reaction with that. We do not have any ofloxacin or formulary and he is okay with the Cipro eyedrops 1 drop to the left eye every 4 hours for 7 days. PLAN: Plan Chronic conditions * Heart failure with preserved ejection fraction: EF of 50 to 60% with severe pulmonary hypertension. Currently compensated this time the patient would benefit from BiPAP long-term. * Chronic lymphedema: Patient wraps his legs but does not relatively infrequently. Last time he did it was about a week ago. Patient has lichenification of his lower extremities. We will consult wound care for further evaluation and recommendation. * Coronary artery disease: Stable continue with clopidogrel, metoprolol and isosorbide. * Hyperlipidemia: Continue with atorvastatin VTE prophylaxis: Moderate risk. Enoxaparin. Charges/Coding Visit Charges Inpatient E&M: 45652 Subs Hosp L2
[2023-02-17 11:42] LABS: Bedside Glucose 217 mg/dL (74-106)
[2023-02-17] MEDS: 0.9% Saline Lock 10 ML Syringe IV (14:00)
[2023-02-17 17:11] LABS: Bedside Glucose 115 mg/dL (74-106)
[2023-02-17] MEDS: Petrolatum 33% Tube 1 APPLIC TOPICAL (21:28)
[2023-02-17] MEDS: traZODone 50 MG Tablet 150 MG PO (21:28)
[2023-02-17] MEDS: Atorvastatin Calcium 80 MG Tablet PO (21:29)
[2023-02-17 23:46] LABS: Bedside Glucose 173 mg/dL (74-106)
[2023-02-18] VITALS (13 sets, daily range): BP systolic 113–136; BP diastolic 58–84; PULSE 60–77; RESP 20–24; TEMP 36.7–37.2; O2SAT 94–96
[2023-02-18] MEDS: Ciprofloxacin 0.3% 2.5ml Bottle 1 DRP LEFT EYE ×6 (02:59→21:42)
[2023-02-18] MEDS: Ipratropium/Albuterol Sulfate 3 ML AMPUL.NEB INHALATION ×5 (03:06→19:39)
[2023-02-18 06:31] LABS: BUN 20 mg/dL (7-18); BUN/Creat Ratio 33.3 RATIO (10-20); Calcium,Total 8.5 mg/dL (8.5-10.1); Carbon Dioxide > 45.0 mmol/L (21.0-32.0); Chloride 86 mmol/L (98-107); EST Glomerular Filtration Rate 142 mL/min (>60); Est Glom Filt Rate - Afr Amer 172 mL/min (>60); Estimated Creatinine Clearance 65.18 ml/min; Glucose 152 mg/dL (74-106); Potassium 4.1 mmol/L (3.5-5.1); Sodium Level 134 mmol/L (136-145)
[2023-02-18] MEDS: Methylprednisolone Sod Succ 40 MG/ML VIAL IV ×3 (06:41→21:42)
[2023-02-18 07:05] LABS: Bedside Glucose 141 mg/dL (74-106)
[2023-02-18] MEDS: Clopidogrel Bisulfate 75 MG Tablet PO (08:12)
[2023-02-18] MEDS: Metoprolol Tartrate 25 MG Tablet PO ×2 (08:12→21:41)
[2023-02-18] MEDS: Enoxaparin 40 MG/0.4 ML Syringe SC (08:13)
[2023-02-18] MEDS: Isosorbide Mononitrate 60 MG Tablet PO (08:13)
--- NOTE | 2023-02-18 09:45 | PN.HOSP_ITS ---
Subjective Subjective Doing well, no issues overnight. Maintaining his oxygen sats on 6 L Objective Data Objective Data Vital Signs: Vital Signs Temp Pulse Resp BP Pulse Ox O2 Del Method O2 Flow Rate 98.1 F 60 20 H 122/84 H 96 Nasal Cannula 6 02/18/23 08:08 02/18/23 08:12 02/18/23 08:08 02/18/23 08:08 02/18/23 08:08 02/18/23 08:08 02/18/23 08:08 Oxygen Flow Rate (L/min) 6 Oxygen Delivery Method Nasal Cannula Weight: 211 lb 6.4 oz Body Mass Index (BMI) 33.0 Intake & Output: Intake and Output for Last 24 Hours 02/17/23 02/18/23 02/19/23 03:59 03:59 03:59 Intake Total 200 / 200 450 / 450 Output Total 125 / 125 450 / 450 Balance 75 / 75 0 / 0 Lab / Micro Data 02/17/23 06:28 02/18/23 04:45 Labs: Laboratory Results - last 24 hr 02/17/23 11:24: POC Glucose 217 H 02/17/23 16:52: POC Glucose 115 H 02/17/23 23:25: POC Glucose 173 H 02/18/23 04:45: Sodium 134 L, Potassium 4.1, Chloride 86 L, Carbon Dioxide > 45.0 H*, Anion Gap TNP, BUN 20 H, Creatinine 0.60 L, Estim Creat Clear Calc 65.18, Est GFR (MDRD) Af Amer 172, Est GFR (MDRD) Non-Af 142, BUN/Creatinine Rat io 33.3 H, Glucose 152 H, Calcium 8.5 02/18/23 06:46: POC Glucose 141 H Micro: Microbiology 02/16/23 15:38 Nasal Secretion SARS-CoV-2 & FLU Antigen (Rapid) - Final Physical Exam Narrative General: Alert, Oriented x3, Cooperative, No apparent distress HEENT: Atraumatic, PERRLA, EOMI, Normocephalic Oral: Moist Mucosa Neck: Supple, No JVD Lungs: Diminished, poor air movement, No rhonchi, slight wheeze, No rales Cardiovascular: Regular rate, Regular Rhythm, Normal S1, Normal S2, No murmurs Abdomen: Soft, Non Tender, Non-Distended, No Hepato-splenomegaly Extremities: Edema, Capillary Refill Less than 3 Seconds Skin: Chronic skin changes, currently wrapped Musculoskeletal: No Tenderness to Palpation of Joints or Extremities Neurological: Cranial nerves II-XII grossly intact, Motor Exam 5/5 strength throughout, Sensory exam intact to light touch and pain Psych/Mental Status: Normal Affect, Appropriate Assessment & Plan Assessment/Plan (1) COPD exacerbation: PLAN: Acute exacerbation Bronchodilators and methylprednisolone. Patient blood sugars are in the low 100s. We will place her on a sliding scale insulin as his sugars may go up for this being on the methylprednisolone. 02/17/2023: Still with poor air movement, continue with steroids and breathing treatments 02/18/2023: Some slight wheezing today continue with current treatment (2) Hypoxia: PLAN: Acute hypoxia on chronic hypoxic and hypercapnic respiratory failure Patient's carbon dioxide on his BMPs are chronically elevated greater than 45. Did tell the patient that he would benefit from ventilation with BiPAP. He adamantly refuses to use that saying that he cannot tolerate that nor CPAP. I told him without that, he is going to be at higher risk for exacerbations of his COPD in the future. Patient is on 6 L nasal cannula at home. Patient may require an ambulatory pulse ox prior to discharge if he is continue to require more oxygen than what he has already at home. 02/17/2023: Still on 6 L nasal cannula we will need an ambulatory pulse ox prior to discharge 02/18/2023: Nursing reports ability to do an ambulatory pulse ox as he only has the strength to stand and pivot PT/OT for possible placement (3) Status post laser cataract surgery of left eye: PLAN: No active issues. Surgery was performed on the . Discussed with his skin care therapist, Dr. Maurer, who recommends ofloxacin eyedrops. Patient has a reported allergy to levofloxacin but Dr. Maurer st ated that the patient tolerated the ofloxacin eyedrops and did not have any reaction with that. We do not have any ofloxacin or formulary and he is okay with the Cipro eyedrops 1 drop to the left eye every 4 hours for 7 days. PLAN: Plan Chronic conditions * Heart failure with preserved ejection fraction: EF of 50 to 60% with severe pulmonary hypertension. Currently compensated this time the patient would benefit from BiPAP long-term. * Chronic lymphedema: Patient wraps his legs but does not relatively infrequently. Last time he did it was about a week ago. Patient has lichenification of his lower extremities. We will consult wound care for further evaluation and recommendation. * Coronary artery disease: Stable continue with clopidogrel, metoprolol and isosorbide. * Hyperlipidemia: Continue with atorvastatin DVT: Enoxaparin. Charges/Coding Visit Charges Inpatient E&M: 16217 Subs Hosp L2
[2023-02-18] MEDS: Petrolatum 33% Tube 1 APPLIC TOPICAL ×2 (10:29→21:42)
[2023-02-18 12:42] LABS: Bedside Glucose 133 mg/dL (74-106)
[2023-02-18 16:56] LABS: Bedside Glucose 155 mg/dL (74-106)
[2023-02-18] MEDS: traZODone 50 MG Tablet 150 MG PO (21:42)
[2023-02-18] MEDS: Atorvastatin Calcium 80 MG Tablet PO (21:42)
[2023-02-18] MEDS: 0.9% Saline Lock 10 ML Syringe IV (21:45)
[2023-02-18 22:17] LABS: Bedside Glucose 158 mg/dL (74-106)
[2023-02-19] VITALS (16 sets, daily range): BP systolic 114–142; BP diastolic 57–77; PULSE 60–77; RESP 16–20; TEMP 36.9–37.4; O2SAT 2–98
[2023-02-19] MEDS: Ciprofloxacin 0.3% 2.5ml Bottle 1 DRP LEFT EYE ×6 (01:24→21:20)
[2023-02-19] MEDS: Ipratropium/Albuterol Sulfate 3 ML AMPUL.NEB INHALATION ×5 (03:38→23:33)
[2023-02-19 06:16] LABS: Absolute Lymphocyte Count 0.39 X10^3/uL (0.83-4.51); Absolute Neutrophil Count 7.1 X10^3/uL (2.0-7.7); Hematocrit 42.4 % (40-54); Hemoglobin 12.7 g/dL (13.0-16.5); Lymphocyte # 0.39 X10^3/ul (0.83-4.51); Mean Corpuscular Hgb 29.8 pg (27.0-32.0); Mean Corpuscular Volume 99.5 fL (80-94); Mean Platelet Vol. 9.8 fl (6.2-12.0); Monocyte# 0.29 X10^3/uL; Monocyte% 3.7 % (0-10); NRBC Flagged by Analyzer 0 % (0-5); Neutrophil # 7.08 X10^3/uL (2.7-7.7); Neutrophil % 90.9 % (47-70); POSITIVE DIFFERENTIAL YES; Platelet Count 112 K/mm3 (150-450); RBC Distribution Width CV 12.5 % (11.6-14.6); RBC Distribution Width SD 45.8 fl (35.1-43.9); Red Blood Count 4.26 M/mm3 (4.6-6.2); White Blood Count 7.8 K/mm3 (4.4-11.0)
[2023-02-19 06:17] LABS: Differential Indicated SCAN CRITERIA MET
[2023-02-19] MEDS: 0.9% Saline Lock 10 ML Syringe IV ×3 (06:22→21:19)
[2023-02-19] MEDS: Methylprednisolone Sod Succ 40 MG/ML VIAL IV ×3 (06:22→21:20)
[2023-02-19 06:43] LABS: Platelet Estimate SLT DEC (ADEQ)
[2023-02-19 06:46] LABS: Bedside Glucose 153 mg/dL (74-106)
[2023-02-19 07:11] LABS: BUN 22 mg/dL (7-18); BUN/Creat Ratio 31.5 RATIO (10-20); Calcium,Total 8.5 mg/dL (8.5-10.1); Carbon Dioxide > 45.0 mmol/L (21.0-32.0); Chloride 84 mmol/L (98-107); EST Glomerular Filtration Rate 119 mL/min (>60); Est Glom Filt Rate - Afr Amer 144 mL/min (>60); Estimated Creatinine Clearance 65.18 ml/min; Glucose 157 mg/dL (74-106); Potassium 4.5 mmol/L (3.5-5.1); Sodium Level 131 mmol/L (136-145)
[2023-02-19] MEDS: Enoxaparin 40 MG/0.4 ML Syringe SC (10:16)
[2023-02-19] MEDS: Isosorbide Mononitrate 60 MG Tablet PO (10:16)
[2023-02-19] MEDS: Metoprolol Tartrate 25 MG Tablet PO ×2 (10:16→21:19)
[2023-02-19] MEDS: Clopidogrel Bisulfate 75 MG Tablet PO (10:17)
[2023-02-19] MEDS: Petrolatum 33% Tube 1 APPLIC TOPICAL ×2 (10:17→21:23)
--- NOTE | 2023-02-19 11:13 | CASEMGMT ---
Verified [place] [facility] [place] 5[place] at rest and 8L with exertion. Updated pt nurse for oxygen testing.
[2023-02-19] MEDS: Insulin Lispro 100 UNIT/ML INSULN.PEN SC ×2 (11:31→17:07)
[2023-02-19 11:50] LABS: Bedside Glucose 271 mg/dL (74-106)
--- NOTE | 2023-02-19 12:02 | WOUNDNOTE ---
skin photo: right lower leg
--- NOTE | 2023-02-19 12:02 | WOUNDNOTE ---
skin photo: right lateral lower leg
--- NOTE | 2023-02-19 12:03 | WOUNDNOTE ---
skin photo: left lower leg
--- NOTE | 2023-02-19 12:04 | WOUNDNOTE ---
skin photo: left lateral lower leg
--- NOTE | 2023-02-19 12:06 | WOUNDNOTE ---
was asked to see patient for chronic edema and thick scaly skin to bilateral lower legs. removed the SLIM wraps and dressings. no drainage noted on the old dressings. toenails are long and thick to bilateral feet. patient with lichenification to bilateral lower legs. patient denies pain or itching. was able to remove a large portion of the scaly skin. few small areas of bleeding noted. washed legs and feet iwth soap and water. pat dry. applied Eucerin and wrapped with kerlix. reapplied the SLIM wraps. pt tolerated well. see skin photos.
--- NOTE | 2023-02-19 12:58 | PCM.PROGNOTE ---
Objective Data Objective Data Vital Signs: Vital Signs Temp Pulse Resp BP Pulse Ox O2 Del Method O2 Flow Rate 98.7 F 68 20 H 135/57 H 92 High Flow 6 02/19/23 10:09 02/19/23 11:23 02/19/23 11:23 02/19/23 10:09 02/19/23 12:30 02/19/23 10:13 02/19/23 12:30 Oxygen Flow Rate (L/min) [ 10 AMBULATING with Oxygen #2] Oxygen Flow Rate (L/min) [ 8 AMBULATING with Oxygen #1] Oxygen Flow Rate (L/min) [At 6 REST with Oxygen] Oxygen Flow Rate (L/min) [At 6 REST on Room Air] Oxygen Flow Rate (L/min) 6 Oxygen Delivery Method High Flow Weight: 211 lb 6.4 oz Body Mass Index (BMI) 33.0 Intake & Output: Intake and Output for Last 24 Hours 02/17/23 02/18/23 02/19/23 23:59 23:59 23:59 Intake Total 650 / 650 Output Total 575 / 575 850 / 850 900 / 900 Balance 75 / 75 -850 / -850 -900 / -900 Lab / Micro Data 02/19/23 05:50 02/19/23 05:50 Labs: Laboratory Results - last 24 hr 02/18/23 16:38: POC Glucose 155 H 02/18/23 21:43: POC Glucose 158 H 02/19/23 05:50: WBC 7.8, RBC 4.26 L, Hgb 12.7 L, Hct 42.4, MCV 99.5 H, MCH 29.8, MCHC 30.0 L, RDW Std Deviation 45.8 H, RDW Coeff of Artemio 12.5, Plt Count 112 L, MPV 9.8, Immature Gran % (Auto) 0.400, Neut % (Auto) 90.9 H, Lymph % (Auto) 5.0 L, [place] % (Auto) 3.7, Eos % (Auto) 0.0, Baso % (Auto) 0.0, Absolute Neuts (auto) 7.1, Absolute Lymphs (auto) 0.39 L, Nucleated RBC % 0, Platelet Estimate SLT DEC, Sodium 131 L, Potassium 4.5, Chloride 84 L, Carbon Dioxide > 45.0 H*, Anion Gap TNP, BUN 22 H, Creatinine 0.70, Estim Creat Clear Calc 65.18, Est GFR (MDRD) Af Amer 144, Est GFR (MDRD) Non-Af 119, BUN/Creatinine Ratio 31.5 H, Glucose 157 H, Calcium 8.5 02/19/23 06:21: POC Glucose 153 H 02/19/23 11:30: POC Glucose 271 H Micro: Microbiology 02/16/23 15:38 Nasal Secretion SARS-CoV-2 & FLU Antigen (Rapid) - Final
--- NOTE | 2023-02-19 13:09 | PN_ITS ---
Subjective Subjective Patient seen and examined. He had no active complaitns and felt his breathing had improved. He had an uneventful night and review of systems is otherwise negative. He has remained hemodynamically stable. He had walkinig pulse ox today and required 10L of oxygen when ambulating. Objective Data Objective Data Vital Signs: Vital Signs Temp Pulse Resp BP Pulse Ox O2 Del Method O2 Flow Rate 98.7 F 68 20 H 135/57 H 92 High Flow 6 02/19/23 10:09 02/19/23 11:23 02/19/23 11:23 02/19/23 10:09 02/19/23 12:30 02/19/23 10:13 02/19/23 12:30 Oxygen Flow Rate (L/min) [ 10 AMBULATING with Oxygen #2] Oxygen Flow Rate (L/min) [ 8 AMBULATING with Oxygen #1] Oxygen Flow Rate (L/min) [At 6 REST with Oxygen] Oxygen Flow Rate (L/min) [At 6 REST on Room Air] Oxygen Flow Rate (L/min) 6 Oxygen Delivery Method High Flow Weight: 211 lb 6.4 oz Body Mass Index (BMI) 33.0 Intake & Output: Intake and Output for Last 24 Hours 02/17/23 02/18/23 02/19/23 23:59 23:59 23:59 Intake Total 650 / 650 Output Total 575 / 575 850 / 850 900 / 900 Balance 75 / 75 -850 / -850 -900 / -900 Lab / Micro Data 02/19/23 05:50 02/19/23 05:50 Labs: Laboratory Results - last 24 hr 02/18/23 16:38: POC Glucose 155 H 02/18/23 21:43: POC Glucose 158 H 02/19/23 05:50: WBC 7.8, RBC 4.26 L, Hgb 12.7 L, Hct 42.4, MCV 99.5 H, MCH 29.8, MCHC 30.0 L, RDW Std Deviation 45.8 H, RDW Coeff of Artemio 12.5, Plt Count 112 L, MPV 9.8, Immature Gran % (Auto) 0.400, Neut % (Auto) 90.9 H, Lymph % (Auto) 5.0 L, [place] % (Auto) 3.7, Eos % (Auto) 0.0, Baso % (Auto) 0.0, Absolute Neuts (auto) 7.1, Absolute Lymphs (auto) 0.39 L, Nucleated RBC % 0, Platelet Estimate SLT DEC, Sodium 131 L, Potassium 4.5, Chloride 84 L, Carbon Dioxide > 45.0 H*, Anion Gap TNP, BUN 22 H, Creatinine 0.70, Estim Creat Clear Calc 65.18, Est GFR (MDRD) Af Amer 144, Est GFR (MDRD) Non-Af 119, BUN/Creatinine Ratio 31.5 H, Glucose 157 H, Calcium 8.5 02/19/23 06:21: POC Glucose 153 H 02/19/23 11:30: POC Glucose 271 H Micro: Microbiology 02/16/23 15:38 Nasal Secretion SARS-CoV-2 & FLU Antigen (Rapid) - Final Physical Exam Const alert, oriented x3 and no apparent distress General Appearance: cooperative HEENT moist oral mucous membranes Eyes PERRL and EOMs intact bilaterally Neck nuchal rigidity, no lymphadenopathy and supple Lymph Lymphatic: no lymphadenopathy noted and no lymphedema noted Resp Resp Narrative: diminished breath sounds bibasally, no wheezes or crackles. On 6L of oxygen which is his baseline Cardio regular rate, regular rhythm, S1 normal heart sound, S2 normal heart sound and no murmurs GI normal to inspection, nondistended, normoactive bowel sounds, soft to palpation and non-tender Extremity normal capillary refill, no clubbing, cyanosis or edema and no calf tenderness Skin General Skin Exam: no breakdown and turgor normal Neuro CN's II-XII intact bilaterally, no focal motor deficits, no sensory deficits noted and deep tendon reflexes 2+ bilaterally Motor Exam: strength 5/5 throughout Psych thought process normal Appearance: appropriate Assessment & Plan Assessment/Plan (1) COPD exacerbation: (2) Hypoxia: PLAN: Plan #Acute on chronic hypoxic and hypercapnic respiratory failure due to COPD exacerbation * Patient still on 6 L. Patient has been refusing BiPAP. He had walking pulse ox today which reassured that he required up to 10 L of oxygen. * Continue breathing treatments of bronchodilators. * Titrate oxygen to maintain saturation above 90%. * #Cataract s/p laser surgery of the left eye: Surgery was performed on 17. On ciprofloxacin eyedrops for 7 days. #HFpEF: has EF of 50-60%. Known to have severe pulmonary hypertension. #Chronic lymphedema: both lower extremity to be wrapped in SLIM wraps. wound care consulted also. #CAD s/p stents: on plavix, imdur and metoprolol. #Hyperlipidemia: on statin DVT prpohylaxis: lovenox Disposition; will need to be optimised further before discharge. Charges/Coding Visit Charges Inpatient E&M: 63304 Subs Hosp L2
[2023-02-19 17:27] LABS: Bedside Glucose 181 mg/dL (74-106)
[2023-02-19] MEDS: Ibuprofen 600 MG Tablet PO (17:42)
[2023-02-19] MEDS: traZODone 50 MG Tablet 150 MG PO (21:19)
[2023-02-19] MEDS: Atorvastatin Calcium 80 MG Tablet PO (21:19)
[2023-02-19 21:55] LABS: Bedside Glucose 172 mg/dL (74-106)
[2023-02-20] VITALS (15 sets, daily range): BP systolic 120–140; BP diastolic 56–95; PULSE 60–78; RESP 16–20; TEMP 36.7–36.9; O2SAT 83–96
[2023-02-20] MEDS: Ciprofloxacin 0.3% 2.5ml Bottle 1 DRP LEFT EYE ×6 (02:28→21:23)
[2023-02-20] MEDS: Ipratropium/Albuterol Sulfate 3 ML AMPUL.NEB INHALATION ×6 (03:27→23:00)
[2023-02-20] MEDS: Methylprednisolone Sod Succ 40 MG/ML VIAL IV ×3 (06:23→21:16)
[2023-02-20 06:45] LABS: Bedside Glucose 176 mg/dL (74-106)
[2023-02-20] MEDS: Furosemide 40 MG/4 ML Vial IV (08:03)
[2023-02-20] MEDS: Metoprolol Tartrate 25 MG Tablet PO ×2 (08:04→21:24)
[2023-02-20] MEDS: Clopidogrel Bisulfate 75 MG Tablet PO (08:04)
[2023-02-20] MEDS: Isosorbide Mononitrate 60 MG Tablet PO (08:04)
[2023-02-20] MEDS: Enoxaparin 40 MG/0.4 ML Syringe SC (08:04)
[2023-02-20] MEDS: 0.9% Saline Lock 10 ML Syringe IV ×3 (08:08→21:17)
--- NOTE | 2023-02-20 10:10 | CASEMGMT ---
Discharge Planning A list of SNF providers including quality and resource use data and consistent with the patient?s preferred geographic region, medical needs, and insurance network was created in [facility]. This list was provided to the SW. Marce Madison Discharge Planning Asst.
--- NOTE | 2023-02-20 10:29 | WOUNDNOTE ---
In to reassess bilateral lower legs. removed the SLIM wraps and dressings. no drainage noted. was able to remove a small amount of thick scaly skin again today. applied Eucerin as ordered. covered with dry dressings, kerlix, and SLIM wraps. pt tolerated well. will continue to monitor.
[2023-02-20] MEDS: Insulin Lispro 100 UNIT/ML INSULN.PEN SC (11:40)
[2023-02-20 11:51] LABS: Bedside Glucose 246 mg/dL (74-106)
--- NOTE | 2023-02-20 13:29 | PN_ITS ---
Subjective Subjective Patient seen and examined. He had no complaints and said he was feeling better. He feels his breathing has improved. 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 Review of systems is otherwise negative. Objective Data Objective Data Vital Signs: Vital Signs Temp Pulse Resp BP Pulse Ox O2 Del Method O2 Flow Rate 98.3 F 70 16 120/56 L 94 High Flow 6 02/20/23 12:12 02/20/23 12:12 02/20/23 12:12 02/20/23 12:12 02/20/23 12:12 02/20/23 12:12 02/20/23 12:12 Oxygen Flow Rate (L/min) [ 10 AMBULATING with Oxygen #2] Oxygen Flow Rate (L/min) [ 8 AMBULATING with Oxygen #1] Oxygen Flow Rate (L/min) [At 6 REST with Oxygen] Oxygen Flow Rate (L/min) [At 6 REST on Room Air] Oxygen Flow Rate (L/min) 6 Oxygen Delivery Method High Flow Weight: 211 lb 6.4 oz Body Mass Index (BMI) 33.0 Intake & Output: Intake and Output for Last 24 Hours 02/18/23 02/19/23 02/20/23 23:59 23:59 23:59 Intake Total 350 / 350 Output Total 850 / 850 1200 / 1200 1800 / 1800 Balance -850 / -850 -1200 / -1200 -1450 / -1450 Lab / Micro Data 02/19/23 05:50 02/19/23 05:50 Labs: Laboratory Results - last 24 hr 02/19/23 17:06: POC Glucose 181 H 02/19/23 21:18: POC Glucose 172 H 02/20/23 06:23: POC Glucose 176 H 02/20/23 11:24: POC Glucose 246 H Micro: Microbiology 02/16/23 15:38 Nasal Secretion SARS-CoV-2 & FLU Antigen (Rapid) - Final Physical Exam Const alert, oriented x3 and no apparent distress General Appearance: cooperative HEENT normocephalic, head/scalp atraumatic and moist oral mucous membranes Eyes PERRL and EOMs intact bilaterally Neck nuchal rigidity, no lymphadenopathy and supple Lymph Lymphatic: no lymphadenopathy noted and no lymphedema noted Resp no use of accessory muscles Resp Narrative: diminished breath sounds bibasally, no wheezes or crackles. On 6L of oxygen which is his baseline Cardio regular rate, regular rhythm, S1 normal heart sound, S2 normal heart sound and no murmurs GI normal to inspection, nondistended, normoactive bowel sounds, soft to palpation, non-tender and non-distended Extremity normal to inspection, full ROM, normal capillary refill and no calf tenderness Extremity Narrative: Bilateral lower extremity edema. Skin Skin Narrative: lower extremities wrapped up in SLIM bandage General Skin Exam: no breakdown and turgor normal Neuro CN's II-XII intact bilaterally, moves all extremities, no focal motor deficits, no sensory deficits noted and deep tendon reflexes 2+ bilaterally Sensorium / Orientation: awake and alert Motor Exam: strength 5/5 throughout Psych thought process normal, cooperative and affect normal Appearance: appropriate Assessment & Plan Assessment/Plan (1) COPD exacerbation: (2) Hypoxia: PLAN: Plan #Acute on chronic hypoxic and hypercapnic respiratory failure due to COPD ex acerbation * Patient still on 6 L. Patient has been refusing BiPAP. He had walking pulse ox yesterda which reassured that he required up to 10 L of oxygen. * Continue breathing treatments of bronchodilators. * Titrate oxygen to maintain saturation above 90%. 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 On ciprofloxacin eyedrops for 7 days. #HFpEF: has EF of 50-60%. Known to have severe pulmonary hypertension. #Chronic lymphedema: both lower extremity to be wrapped in SLIM wraps. wound care consulted also. #CAD s/p stents: on plavix, imdur and metoprolol. #Hyperlipidemia: on statin DVT prpohylaxis: lovenox Disposition; will benefit from placement. Pain management on board Charges/Coding Visit Charges Inpatient E&M: 65295 Subs Hosp L2
--- NOTE | 2023-02-20 15:30 | CASEMGMT ---
Social Work MS3 This marketing copywriter had received a phone call from patient's power of research attorney for healthcare, on day of patient's admission though prior to to admission inquiring on resources for this patient due to several concerns. Concerns voiced about the patient's living conditions, and patient's overall care of self at home. The power of research attorney for healthcare described patient having a general lack of care of self including care of cellulitis on legs. Patient had a recent cataract surgery and during that episode of care, the patient's blood pressure bottomed out and heart rate increased with recommendation to go to the emergency room. Patient was reportedly taken to the emergency room we will refuse to get out of the car for care. Concern present that patient is oxygen dependent at home and still chain smokes cigarettes. Patient has 2 cats and reportedly does not take care of the litter. Power of research attorney for healthcare care reports patient's phone is now out. This marketing copywriter since admission has also received a message from the patient's power of research attorney for healthcare inquiring whether this may be an opportunity for residential facility placement to help get patient's health in order. This marketing copywriter asked discharge planning assistance to generate residential facility list from care report which includes quality and resource data for geographical region. Notated in therapy notes that patient would benefit from further therapy. This marketing copywriter presented to patient's room, introducing to self and social work role. Through discussion, patient continues to be adamant that wants to return home and will not consider residential facility placement, even for short-term. Patient reports the reason for this is that he prefers to be in his home as this is a comfort and knowing to the patient. This marketing copywriter did reinforce that a residential facility can be a short-term and the goal would be to get patient back to her usual functioning and gain strength. Patient continued to refuse option. Patient reports belief that home situation is safe and adequate. Reports that he can drive but that the [id number], Sparkle, who lives in the home also assist with driving. Denies any concerns with food or house upkeep. This marketing copywriter attempted to explore what will happen if patient has a medical emergency at home, gets weaker or falls. Patient states would call 911. Patient denies any current concern with having a working phone. This marketing copywriter did broach the topic of patient's who within the last year. Patient shared that he has been a little worse since May 2022. Patient was able to express feelings of loss, and that there are still periods of time which are hard though overall reports that he feels he is doing better. Patient did become tearful when reminiscing about his . This marketing copywriter explored whether patient is ever considered some grief counseling. Patient reports that initially think about this after the loss of his , but at this point is not interested. Discussed ebbs and flows regarding grief, and that it is okay at any time to seek out additional support should her feelings become overwhelming or further distressing to the patient. Patient was communicative, with a brighter affect when talking about his cats. Patient reports primary support system would be his [id number] Sparkle and patient's Sister Natalia, with Natalia being the patient's power of research attorney. Received phone call patient's power of research attorney for healthcare. Updated Natalia that patient is now willing to consider any type of residential placement. Natalia did inquire whether the patient might be willing to go to the transitional care unit at [facility], as Natalia has been to this unit with good results, as well as is still part of the hospital. This marketing copywriter suggested that Natalia come and talk with the patient about concerns. Natalia did present to the unit and talked with the patient. After discussion, Natalia shared that patient is strongly considering the transitional care unit, and realizes this would be the only unit which patient would be open to considering. This marketing copywriter did call Cherie in the [facility] transitional care to inquire about bed availability and eligibility. At this time transitional care is at their maximum capacity for patients who have [employer] insurance. Plan: We will plan to update the power of research attorney for healthcare that transitional care is not an option. Unless patient changes mind, the plan is for return home. -TROY Jay, WEED CONTROLLER *This note was generated with Spendjiation software. It may contain incorrect words, spelling, and punctuation that were not noted in review of the chart prior to signing*
[2023-02-20 16:40] LABS: Bedside Glucose 150 mg/dL (74-106)
[2023-02-20] MEDS: Atorvastatin Calcium 80 MG Tablet PO (21:23)
[2023-02-20] MEDS: traZODone 50 MG Tablet 150 MG PO (21:23)
[2023-02-20] MEDS: Petrolatum 33% Tube 1 APPLIC TOPICAL (21:28)
[2023-02-20 21:52] LABS: Bedside Glucose 189 mg/dL (74-106)
[2023-02-20] MEDS: Ibuprofen 600 MG Tablet PO (23:16)
[2023-02-21] VITALS (15 sets, daily range): BP systolic 116–138; BP diastolic 54–80; PULSE 53–81; RESP 16–20; TEMP 36.6–36.9; O2SAT 91–97
[2023-02-21] MEDS: Ciprofloxacin 0.3% 2.5ml Bottle 1 DRP LEFT EYE ×6 (01:50→22:04)
[2023-02-21] MEDS: Ipratropium/Albuterol Sulfate 3 ML AMPUL.NEB INHALATION ×6 (02:17→23:04)
[2023-02-21 06:26] LABS: Absolute Lymphocyte Count 0.43 X10^3/uL (0.83-4.51); Absolute Neutrophil Count 7.8 X10^3/uL (2.0-7.7); Basophil# 0.01 X10^3/uL; Basophil% 0.1 % (0-1); Hematocrit 43.7 % (40-54); Hemoglobin 13.9 g/dL (13.0-16.5); Lymphocyte # 0.43 X10^3/ul (0.83-4.51); Lymphocyte % 4.9 % (19-41); Mean Corp Hgb Conc 31.8 g/dL (32-36); Mean Corpuscular Hgb 30.3 pg (27.0-32.0); Mean Corpuscular Volume 95.4 fL (80-94); Mean Platelet Vol. 9.5 fl (6.2-12.0); Monocyte# 0.49 X10^3/uL; Monocyte% 5.6 % (0-10); NRBC Flagged by Analyzer 0 % (0-5); Neutrophil # 7.79 X10^3/uL (2.7-7.7); Neutrophil % 88.7 % (47-70); POSITIVE DIFFERENTIAL YES; Platelet Count 127 K/mm3 (150-450); RBC Distribution Width CV 12.2 % (11.6-14.6); RBC Distribution Width SD 42.2 fl (35.1-43.9); Red Blood Count 4.58 M/mm3 (4.6-6.2); White Blood Count 8.8 K/mm3 (4.4-11.0)
[2023-02-21] MEDS: 0.9% Saline Lock 10 ML Syringe IV (06:28)
[2023-02-21] MEDS: Methylprednisolone Sod Succ 40 MG/ML VIAL IV (06:28)
[2023-02-21 06:32] LABS: Differential Indicated SCAN CRITERIA MET
[2023-02-21 06:42] LABS: Platelet Estimate SLT DEC (ADEQ)
[2023-02-21 06:54] LABS: Bedside Glucose 142 mg/dL (74-106)
[2023-02-21 07:04] LABS: BUN 29 mg/dL (7-18); BUN/Creat Ratio 42.2 RATIO (10-20); Calcium,Total 8.2 mg/dL (8.5-10.1); Carbon Dioxide > 45.0 mmol/L (21.0-32.0); Chloride 81 mmol/L (98-107); Creatinine, Serum 0.69 mg/dL (0.70-1.30); EST Glomerular Filtration Rate 121 mL/min (>60); Est Glom Filt Rate - Afr Amer 146 mL/min (>60); Estimated Creatinine Clearance 65.18 ml/min; Glucose 146 mg/dL (74-106); Potassium 4.7 mmol/L (3.5-5.1); Sodium Level 132 mmol/L (136-145)
[2023-02-21] MEDS: Isosorbide Mononitrate 60 MG Tablet PO (09:33)
[2023-02-21] MEDS: Metoprolol Tartrate 25 MG Tablet PO ×2 (09:33→22:03)
[2023-02-21] MEDS: Clopidogrel Bisulfate 75 MG Tablet PO (09:34)
[2023-02-21] MEDS: Enoxaparin 40 MG/0.4 ML Syringe SC (09:34)
--- NOTE | 2023-02-21 11:30 | CASEMGMT ---
Social Work MedSurg 3 Updated power of state attorney for healthcare Natalia Barlow that patient is declining for [facility] TCU due to being max capacity for [place] insurance products. Reviewed nursing facility list which includes quality and star rating data for geographical region. Natalia indicated [facility] would be the next choice if patient would be in agreement. This director underwriter sales met with patient in room. Broached the knowledge that Natalia had a conversation with patient regarding TCU and that patient was agreeable to this. Patient affirmed this. Updated patient to status of referral to the [facility] TCU. Reviewed conversation with Natalia today and that Natalia suggested [facility]. Patient voiced agreement with social work job titles trying this facility. Patient appearing cooperative today and on board with short-term rehabilitation. Updated discharge city planning teacher who will send referral. Plan: Short-term correction facility, pending acceptance at [facility]. -TROY Jay, LAMP SHADE MAKER *This note was generated with Skubana dictation software. It may contain incorrect words, spelling, and punctuation that were not noted in review of the chart prior to signing*
--- NOTE | 2023-02-21 11:36 | CASEMGMT ---
Discharge Planning Referral sent to [facility] via [facility]. Marce Madison, Discharge Planning Asst.
--- NOTE | 2023-02-21 11:50 | PN_ITS ---
Subjective Subjective Patient seen and examined. He had no complaints and had an uneventful night. Review of systems is otherwise negative. He has remained hemodynamically stable. Objective Data Objective Data Vital Signs: Vital Signs Temp Pulse Resp BP Pulse Ox O2 Del Method O2 Flow Rate 97.8 F 64 18 138/60 H 91 Nasal Cannula 6 02/21/23 08:23 02/21/23 11:28 02/21/23 11:28 02/21/23 08:23 02/21/23 08:23 02/21/23 08:23 02/21/23 08:23 Oxygen Flow Rate (L/min) [ 10 AMBULATING with Oxygen #2] Oxygen Flow Rate (L/min) [ 8 AMBULATING with Oxygen #1] Oxygen Flow Rate (L/min) [At 6 REST with Oxygen] Oxygen Flow Rate (L/min) [At 6 REST on Room Air] Oxygen Flow Rate (L/min) 6 Oxygen Delivery Method Nasal Cannula Weight: 211 lb 6.4 oz Body Mass Index (BMI) 33.0 Intake & Output: Intake and Output for Last 24 Hours 02/19/23 02/20/23 02/21/23 23:59 23:59 23:59 Intake Total 350 / 350 Output Total 1200 / 1200 2600 / 2600 Balance -1200 / -1200 -2250 / -2250 Lab / Micro Data 02/21/23 06:16 02/21/23 06:16 Labs: Laboratory Results - last 24 hr 02/20/23 11:24: POC Glucose 246 H 02/20/23 16:20: POC Glucose 150 H 02/20/23 21:26: POC Glucose 189 H 02/21/23 06:16: WBC 8.8, RBC 4.58 L, Hgb 13.9, Hct 43.7, MCV 95.4 H, MCH 30.3, MCHC 31.8 L D, RDW Std Deviation 42.2, RDW Coeff of Artemio 12.2, Plt Count 127 L, MPV 9.5, Immature Gran % (Auto) 0.700, Neut % (Auto) 88.7 H, Lymph % (Auto) 4.9 L, [place] % (Auto) 5.6, Eos % (Auto) 0.0, Baso % (Auto) 0.1, Absolute Neuts (auto) 7.8 H, Absolute Lymphs (auto) 0.43 L, Nucleated RBC % 0, Platelet Estimate SLT DEC, Sodium 132 L, Potassium 4.7, Chloride 81 L, Carbon Dioxide > 45.0 H*, Anion Gap TNP, BUN 29 H, Creatinine 0.69 L, Estim Creat Clear Calc 65.18, Est GFR (MDRD) Af Amer 146, Est GFR (MDRD) Non-Af 121, BUN/Creatinine Ratio 42.2 H, Glucose 146 H, Calcium 8.2 L 02/21/23 06:33: POC Glucose 142 H Micro: Microbiology 02/16/23 15:38 Nasal Secretion SARS-CoV-2 & FLU Antigen (Rapid) - Final Physical Exam Const alert, oriented x3 and no apparent distress General Appearance: cooperative HEENT normocephalic, head/scalp atraumatic and moist oral mucous membranes Eyes PERRL and EOMs intact bilaterally Neck nuchal rigidity, no lymphadenopathy and supple Lymph Lymphatic: no lymphadenopathy noted and no lymphedema noted Resp no use of accessory muscles Resp Narrative: diminished breath sounds bibasally, no wheezes or crackles. On 6L of oxygen which is his baseline Cardio regular rate, regular rhythm, S1 normal heart sound, S2 normal heart sound and no murmurs GI normal to inspection, nondistended, normoactive bowel sounds, soft to palpation, non-tender and non-distended Extremity normal to inspection, full ROM, normal capillary refill, no clubbing, cyanosis or edema and no calf tenderness Skin Skin Narrative: lower extremities wrapped up in SLIM bandage General Skin Exam: no breakdown and turgor normal Neuro CN's II-XII intact bilaterally, moves all extremities, no focal motor deficits, no sensory deficits noted and deep tendon reflexes 2+ bilaterally Sensorium / Orientation: awake and alert Motor Exam: strength 5/5 throughout Psych thought process normal, cooperative and affect normal Appearance: appropriate Assessment & Plan Assessment/Plan (1) COPD exacerbation: (2) Hypoxia: PLAN: Plan #Acute on chronic hypoxic and hypercapnic respiratory failure due to COPD exacerbation * Patient still on 6 L. Patient has been refusing BiPAP. * Continue breathing treatments of bronchodilators. * Titrate oxygen to maintain saturation above 90%. * * #Debility and weakness * patient is a 2 person assist * patient counseled he will need therapy and he is willing to consider SNF * #Cataract s/p laser surgery of the left eye: Surgery was performed on . On ciprofloxacin eyedrops for 7 days. #HFpEF: has EF of 50-60%. Known to have severe pulmonary hypertension. #Chronic lymphedema: both lower extremity to be wrapped in SLIM wraps. wound care consulted also. #CAD s/p stents: on plavix, imdur and metoprolol. #Hyperlipidemia: on statin DVT prophylaxis: lovenox Disposition; Awaiting placement. Charges/Coding Visit Charges Inpatient E&M: 33133 Subs Hosp L2
[2023-02-21 12:23] LABS: Bedside Glucose 202 mg/dL (74-106)
[2023-02-21] MEDS: Insulin Lispro 100 UNIT/ML INSULN.PEN SC (13:00)
--- NOTE | 2023-02-21 13:00 | WOUNDNOTE ---
In to reassess bilateral lower legs. removed the SLIM wraps and dressings. no drainage noted on the old dressings. no open wounds noted. there is still some thick brown skin noted. this nurse was able to remove a small amount again today. pt tolerated well. washed legs with soap and water. pat dry. applied Eucerin and wrapped with kerlix and SLIM wraps. pt tolerated well. will monitor.
[2023-02-21 16:54] LABS: Bedside Glucose 153 mg/dL (74-106)
[2023-02-21] MEDS: predniSONE 20 MG Tablet 40 MG PO (18:34)
--- NOTE | 2023-02-21 19:59 | CPS ---
changed water on nc
[2023-02-21] MEDS: Atorvastatin Calcium 80 MG Tablet PO (22:00)
[2023-02-21] MEDS: Petrolatum 33% Tube 1 APPLIC TOPICAL (22:05)
[2023-02-21 23:34] LABS: Bedside Glucose 181 mg/dL (74-106)
[2023-02-22] VITALS (10 sets, daily range): BP systolic 125–140; BP diastolic 59–87; PULSE 66–83; RESP 16–24; TEMP 36.5–37.2; O2SAT 92–95
[2023-02-22] MEDS: Ciprofloxacin 0.3% 2.5ml Bottle 1 DRP LEFT EYE ×5 (02:00→17:25)
[2023-02-22 06:23] LABS: Bedside Glucose 130 mg/dL (74-106)
[2023-02-22 06:45] LABS: Absolute Lymphocyte Count 0.42 X10^3/uL (0.83-4.51); Absolute Neutrophil Count 7.9 X10^3/uL (2.0-7.7); Basophil# 0.01 X10^3/uL; Basophil% 0.1 % (0-1); Hematocrit 41.6 % (40-54); Hemoglobin 13.4 g/dL (13.0-16.5); Lymphocyte # 0.42 X10^3/ul (0.83-4.51); Lymphocyte % 4.7 % (19-41); Mean Corp Hgb Conc 32.2 g/dL (32-36); Mean Corpuscular Hgb 30.5 pg (27.0-32.0); Mean Corpuscular Volume 94.8 fL (80-94); Mean Platelet Vol. 9.3 fl (6.2-12.0); Monocyte# 0.54 X10^3/uL; NRBC Flagged by Analyzer 0 % (0-5); Neutrophil # 7.91 X10^3/uL (2.7-7.7); Neutrophil % 88.5 % (47-70); POSITIVE DIFFERENTIAL YES; Platelet Count 151 K/mm3 (150-450); RBC Distribution Width CV 12.3 % (11.6-14.6); RBC Distribution Width SD 42.8 fl (35.1-43.9); Red Blood Count 4.39 M/mm3 (4.6-6.2); White Blood Count 8.9 K/mm3 (4.4-11.0)
[2023-02-22 06:54] LABS: Differential Indicated SCAN CRITERIA MET
[2023-02-22] MEDS: Ipratropium/Albuterol Sulfate 3 ML AMPUL.NEB INHALATION ×4 (07:06→19:26)
[2023-02-22 07:34] LABS: BUN 30 mg/dL (7-18); BUN/Creat Ratio 42.3 RATIO (10-20); Carbon Dioxide > 45.0 mmol/L (21.0-32.0); Chloride 81 mmol/L (98-107); Creatinine, Serum 0.71 mg/dL (0.70-1.30); EST Glomerular Filtration Rate 117 mL/min (>60); Est Glom Filt Rate - Afr Amer 141 mL/min (>60); Estimated Creatinine Clearance 65.18 ml/min; Glucose 129 mg/dL (74-106); Potassium 4.3 mmol/L (3.5-5.1); Sodium Level 130 mmol/L (136-145)
[2023-02-22] MEDS: predniSONE 20 MG Tablet 40 MG PO (09:09)
[2023-02-22] MEDS: Petrolatum 33% Tube 1 APPLIC TOPICAL (09:10)
[2023-02-22] MEDS: Metoprolol Tartrate 25 MG Tablet PO (09:10)
[2023-02-22] MEDS: Isosorbide Mononitrate 60 MG Tablet PO (09:11)
[2023-02-22] MEDS: Clopidogrel Bisulfate 75 MG Tablet PO (09:13)
[2023-02-22] MEDS: Enoxaparin 40 MG/0.4 ML Syringe SC (09:13)
--- NOTE | 2023-02-22 09:41 | CASEMGMT ---
Discharge Planning Requested updates sent to [facility] Marce Madison, Discharge Planning Asst.
--- NOTE | 2023-02-22 10:45 | CASEMGMT ---
Discharge Planning [facility] has accepted patient. Asked for pre-cert to be started. SW updated. Marce Madison, Discharge Planning Asst.
--- NOTE | 2023-02-22 11:44 | PN_ITS ---
Subjective Subjective Patient seen and examined. She has no active complaints. Review of systems otherwise negative. He is awaiting placement. Remains on his baseline 6 L of oxygen. Objective Data Objective Data Vital Signs: Vital Signs Temp Pulse Resp BP Pulse Ox O2 Del Method O2 Flow Rate 97.7 F L 80 17 125/59 H 93 Nasal Cannula 6 02/22/23 09:06 02/22/23 11:02 02/22/23 11:02 02/22/23 09:10 02/22/23 09:06 02/22/23 09:06 02/22/23 09:06 Oxygen Flow Rate (L/min) [ 10 AMBULATING with Oxygen #2] Oxygen Flow Rate (L/min) [ 8 AMBULATING with Oxygen #1] Oxygen Flow Rate (L/min) [At 6 REST with Oxygen] Oxygen Flow Rate (L/min) [At 6 REST on Room Air] Oxygen Flow Rate (L/min) 6 Oxygen Delivery Method Nasal Cannula Weight: 211 lb 6.4 oz Body Mass Index (BMI) 33.0 Intake & Output: Intake and Output for Last 24 Hours 02/20/23 02/21/23 02/22/23 23:59 23:59 23:59 Intake Total 350 / 350 650 / 650 Output Total 2600 / 2600 750 / 750 300 / 300 Balance -2250 / -2250 -100 / -100 -300 / -300 Lab / Micro Data 02/22/23 05:40 02/22/23 05:40 Labs: Laboratory Results - last 24 hr 02/21/23 12:04: POC Glucose 202 H 02/21/23 16:31: POC Glucose 153 H 02/21/23 22:12: POC Glucose 181 H 02/22/23 05:40: WBC 8.9, RBC 4.39 L, Hgb 13.4, Hct 41.6, MCV 94.8 H, MCH 30.5, MCHC 32.2, RDW Std Deviation 42.8, RDW Coeff of Artemio 12.3, Plt Count 151, MPV 9.3, Immature Gran % (Auto) 0.700, Neut % (Auto) 88.5 H, Lymph % (Auto) 4.7 L, [place] % (Auto) 6.0, Eos % (Auto) 0.0, Baso % (Auto) 0.1, Absolute Neuts (auto) 7.9 H, Absolute Lymphs (auto) 0.42 L, Nucleated RBC % 0, Sodium 130 L, Potassium 4.3, Chloride 81 L, Carbon Dioxide > 45.0 H*, Anion Gap TNP, BUN 30 H, Creatinine 0.71, Estim Creat Clear Calc 65.18, Est GFR (MDRD) Af Amer 141, Est GFR (MDRD) Non-Af 117, BUN/Creatinine Ratio 42.3 H, Glucose 129 H, Calcium 8.0 L 02/22/23 05:53: POC Glucose 130 H Micro: Microbiology 02/16/23 15:38 Nasal Secretion SARS-CoV-2 & FLU Antigen (Rapid) - Final Physical Exam Const alert, oriented x3 and no apparent distress Constitutional Narrative: No conversational dyspnea. No respiratory distress. General Appearance: cooperative HEENT normocephalic, head/scalp atraumatic and moist oral mucous membranes Eyes PERRL and EOMs intact bilaterally Neck nuchal rigidity, no lymphadenopathy and supple Lymph Lymphatic: no lymphadenopathy noted and no lymphedema noted Resp no use of accessory muscles Resp Narrative: diminished breath sounds bibasally, no wheezes or crackles. On 6L of oxygen which is his baseline Cardio regular rate, regular rhythm, S1 normal heart sound, S2 normal heart sound and no murmurs GI normal to inspection, nondistended, normoactive bowel sounds, soft to palpation, non-tender and non-distended Extremity normal to inspection, full ROM, normal capillary refill, no clubbing, cyanosis or edema and no calf tenderness Extremity Narrative: Bilateral lower extremity edema. Skin Skin Narrative: lower extremities wrapped up in SLIM bandage General Skin Exam: no breakdown and turgor normal Neuro CN's II-XII intact bilaterally, moves all extremities, no focal motor deficits, no sensory deficits noted and deep tendon reflexes 2+ bilaterally Sensorium / Orientation: awake and alert Motor Exam: strength 5/5 throughout Psych thought process normal, cooperative and affect normal Appearance: appropriate Assessment & Plan Assessment/Plan (1) COPD exacerbation: (2) Hypoxia: PLAN: Plan #Acute on chronic hypoxic and hypercapnic respiratory failure due to COPD exacerbation * Patient still on 6 L. Patient has been refusing BiPAP. * Continue breathing treatments of bronchodilators. * Titrate oxygen to maintain saturation above 90%. 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 On ciprofloxacin eyedrops for 7 days. #HFpEF: has EF of 50-60%. Known to have severe pulmonary hypertension. stable #Chronic lymphedema: both lower extremity to be wrapped in SLIM wraps. wound care consulted also. #Hyponatremia: sodium is 130. This is chronic. Will monitor #CAD s/p stents: on plavix, imdur and metoprolol. #Hyperlipidemia: on statin DVT prophylaxis: lovenox Disposition; still awaiting placement. Charges/Coding Visit Charges Inpatient E&M: 15155 Subs Hosp L2
[2023-02-22 12:23] LABS: Bedside Glucose 131 mg/dL (74-106)
--- NOTE | 2023-02-22 15:29 | CASEMGMT ---
Discharge Planning Pre-cert obtained by [facility]. Physician notified via backline and SW updated. Marce Madison, Discharge Planning Asst.
--- NOTE | 2023-02-22 16:11 | DS.PCM_ITS ---
Providers Date of Admission: 02/16/23 Date of Discharge: 02/22/23 Primary Care Physician: Dr. 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 Patient has been refusing BiPAP. * Continue breathing treatments of bronchodilators. * Titrate oxygen to maintain saturation above 90%. * * #Debility and weakness * patient is a 2 person assist * patient counseled he will need therapy and he is willing to consider SNF * #Cataract s/p laser surgery of the left eye: Surgery was performed on . On ciprofloxacin eyedrops for 7 days. #HFpEF: has EF of 50-60%. Known to have severe pulmonary hypertension. stable #Chronic lymphedema: both lower extremity to be wrapped in SLIM wraps. wound care consulted also. #Hyponatremia: sodium is 130. This is chronic. Will monitor #CAD s/p stents: on plavix, imdur and metoprolol. #Hyperlipidemia: on statin DVT prophylaxis: lovenox Disposition; still awaiting placement. Medications at Discharge Home Medications atorvastatin 80 mg tablet 80 mg PO QHS cholesterol 04/18/13 clopidogrel 75 mg tablet 75 mg PO DAILY anti platelet 04/18/13 albuterol sulfate 90 mcg/actuation aerosol inhaler 1 - 2 puff inhalation Q4H PRN PRN Dyspnea 10/31/16 trazodone 150 mg tablet 150 mg PO QHS sleep 10/31/16 isosorbide mononitrate 60 mg tablet,extended release 24 hr 60 mg PO DAILY heart 07/29/21 metoprolol tartrate 25 mg tablet 25 mg PO BID blood pressure/heart rate 07/29/21 ipratropium 0.5 mg-albuterol 3 mg (2.5 mg base)/3 mL nebulization soln 3 ml inhalation Q4H.RT #180 mL 05/19/22 tiotropium 2.5 mcg-olodaterol 2.5 mcg/actuation mist for inhalation (Stiolto Respimat) 2 puff inhalation Q24H 02/16/23 prednisone 20 mg tablet 40 mg (2 x 20 mg) PO BREAKFAST #4 tabs 02/22/23 Hospital Course Operations None Summary of Care Provided Minutes Spent on Discharge: 45 Hospital Course: Patient is a 67-year-old male with past medical history as outlined was admitted through the ED with a complaint of shortness of breath. He was on 6 L of oxygen for COPD. Became acutely short of breath and persisted on the day of admission with him saturating at 85% with ambulation on 6 L of oxygen. On admission chest x-ray showed no acute cardiopulmonary process. She was admitted and managed for acute exacerbation of COPD. He was placed on IV Solu-Medrol and breathing treatments bronchodilators. Gradually his oxygen requirements improved and was weaned down to a 6 L of oxygen. Plan initially was to discharge patient home but he was too weak and debilitated to be discharged home. He was agreeable to go to a penitentiary facility. Patient was discharged to penitentiary facility on 02/22/2023. He was discharged on p.o. prednisone 40 mg daily for 4 days to complete a total course of 5 days and is to follow-up with his primary care doctor within 1 to 2 weeks. Patient seen and examined prior to discharge. He had no complaints and had an uneventful night. Review of systems otherwise negative. Labs and vitals reviewed. Home medication reviewed and reconciled. Physical Exam Const alert, oriented x3 and no apparent distress Constitutional Narrative: No conversational dyspnea. No respiratory distress. General Appearance: cooperative, comfortable and well kempt HEENT normocephalic, head/scalp atraumatic, hearing grossly normal bilaterally and moist oral mucous membranes Mouth: oral and palatal mucosa normal Eyes PERRL, EOMs intact bilaterally and conjunctivae normal Neck nuchal rigidity, no lymphadenopathy and supple Lymph Lymphatic: no lymphadenopathy noted and no lymphedema noted Resp no use of accessory muscles Resp Narrative: diminished breath sounds bibasally, no wheezes or crackles. On 6L of oxygen which is his baseline Cardio regular rate, regular rhythm, S1 normal heart sound, S2 normal heart sound and no murmurs GI normal to inspection, nondistended, normoactive bowel sounds, soft to palpation, non-tender and non-distended Extremity normal to inspection, full ROM, normal capillary refill, no clubbing, cyanosis or edema and no calf tenderness Skin Skin Narrative: lower extremities wrapped up in SLIM bandage General Skin Exam: no breakdown and turgor normal Neuro oriented x3, CN's II-XII intact bilaterally, moves all extremities, no focal motor deficits, no sensory deficits noted and deep tendon reflexes 2+ bilaterally Sensorium / Orientation: awake and alert Motor Exam: strength 5/5 throughout Psych thought process normal, cooperative and affect normal Appearance: appropriate Weight / BMI Weight Weight: 211 lb 6.4 oz Body Mass Index (BMI) 33.0 ABG / Lab / Microbiology Data 02/22/23 05:40 02/22/23 05:40 Laboratory: Laboratory Results - last 24 hr 02/21/23 16:31: POC Glucose 153 H 02/21/23 22:12: POC Glucose 181 H 02/22/23 05:40: WBC 8.9, RBC 4.39 L, Hgb 13.4, Hct 41.6, MCV 94.8 H, MCH 30.5, MCHC 32.2, RDW Std Deviation 42.8, RDW Coeff of Artemio 12.3, Plt Count 151, MPV 9.3, Immature Gran % (Auto) 0.700, Neut % (Auto) 88.5 H, Lymph % (Auto) 4.7 L, [place] % (Auto) 6.0, Eos % (Auto) 0.0, Baso % (Auto) 0.1, Absolute Neuts (auto) 7.9 H, Absolute Lymphs (auto) 0.42 L, Nucleated RBC % 0, Sodium 130 L, Potassium 4.3, Chloride 81 L, Carbon Dioxide > 45.0 H*, Anion Gap TNP, BUN 30 H, Creatinine 0.71, Estim Creat Clear Calc 65.18, Est GFR (MDRD) Af Amer 141, Est GFR (MDRD) Non-Af 117, BUN/Creatinine Ratio 42.3 H, Glucose 129 H, Calcium 8.0 L 02/22/23 05:53: POC Glucose 130 H 02/22/23 12:01: POC Glucose 131 H Microbiology: Microbiology 02/16/23 15:38 Nasal Secretion SARS-CoV-2 & FLU Antigen (Rapid) - Final D/C Instructions Discharge Diet: Low fat / Low cholesterol Discharge Activity: Return to Normal Activity Weight Bearing Status: Weight bearing as tolerated Call your doctor if you observe: Fever of 101 or Higher, Shortness of breath, Dizziness, Swelling in the ankles and Chest pain Meaningful Use Info Meaningful Use Diagnoses (Choose all that apply): None applicable Discharge Plan Admission Admit Date/Time: 02/16/23 18:38 Primary Reason for Your Visit: COPD exacerbation Attending Provider: Bette Landers Primary Care Provider: Brooks Davis Consulting Providers: Jagdeep Andrade; Dave Nolan Instructions Patient Instructions: Breathing Controlled Dc Discharge Orders/Prescriptions Prescriptions: New prednisone 20 mg Tablet 40 mg PO BREAKFAST Qty: 4 0RF Continued atorvastatin 80 MG tablet 80 mg PO QHS Patient Comments: HYPERLIPIDEMIA clopidogrel 75 MG tablet 75 mg PO DAILY Patient Comments: ANTPLATELET albuterol sulfate 1 PUFF inhaler 1 - 2 puff inhalation Q4H PRN PRN (Reason: Dyspnea) Hold Instructions: Until restarted after discharge from skilled facility trazodone 150 MG tablet 150 mg PO QHS Patient Comments: depression metoprolol tartrate 25 mg Tablet 25 mg PO BID isosorbide mononitrate 60 MG tablet extended release 24 hr 60 mg PO DAILY Patient Comments: HEART/BLOOD PRESSURE ipratropium-albuterol 0.5 mg-3 mg(2.5 mg base)/3 mL Solution For Nebulization 3 ml inhalation Q4H.RT Qty: 180 0RF Stiolto Respimat 2.5-2.5 mcg/actuation mist 2 puff INHALATION Q24H Patient Comments: INHALE 2 PUUFS TWICE A DAY Referrals / Follow Up: Brooks Davis MD [Primary Care Provider] - Within 1 Week Disposition Disposition (needs filled in before D/C Order can be placed): [facility] Facility Charges/Coding Visit Charges Inpatient E&M: 06601 Disch Hosp >30min
[2023-02-22 16:24] LABS: Bedside Glucose 223 mg/dL (74-106)
--- NOTE | 2023-02-22 16:40 | CASEMGMT ---
Discharge Planning Signed med list sent to [facility] via [facility]. Chidi on chart. ER SW to finish [id number] when discharge orders are completed. Marce Madison, Discharge Planning Asst.
--- NOTE | 2023-02-22 17:00 | CASEMGMT ---
Social Work Received notice that patient's precert is back for [facility]. Updated patient's sister/[facility]. Spoke with ZAHIRA Patel in the ED about need for convalescent form, once transfer summary is completed. Amanda to complete. Patient in agreement to plan. Plan: Discharge skilled level of care to [facility], under 30 day convalescent exemption. -BEATRICE Jay
[2023-02-22] MEDS: Insulin Lispro 100 UNIT/ML INSULN.PEN SC (17:25)
--- NOTE | 2023-02-22 18:32 | TREXTCAR_ITS ---
Diet Diet Order/Speech Therapy: 02/16/23 20:51 Diet: Cardiac - Heart Healthy Food consistency:: Regular Liquid Consistency:: Regular/Thin Dietary Modifications:: Consistent Carbohydrate Is pt able to select menu?: Yes Routine Orders/Code Status Enema Type: Fleetz Enema Frequency: Daily PRN Suppository Type: Dulcolax 10mg Suppository Frequency: Daily PRN O2 Frequency: PRN Keep PO Greater than or Equal to (%): 90 Wound(s) Lt eye: Wound Type: Surgical Incision Bilat. legs: Wound Type: thick scaly skin with drainage Therapies Weight Bearing: Weight bearing as tolerated Extremity Affected:: Bilateral Lower Physical Therapy: Eval and Treat Occupational Therapy: Eval and Treat Problem/Diagnosis (1) COPD exacerbation: Status: Chronic Code(s): J44.1 - Chronic obstructive pulmonary disease with (acute) exacerbation (2) Hypoxia: Status: Acute Code(s): R09.02 - Hypoxemia Plan #Acute on chronic hypoxic and hypercapnic respiratory failure due to COPD exacerbation * Patient still on 6 L. Patient has been refusing BiPAP. * Continue breathing treatments of bronchodilators. * Titrate oxygen to maintain saturation above 90%. 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 On ciprofloxacin eyedrops for 7 days. #HFpEF: has EF of 50-60%. Known to have severe pulmonary hypertension. stable #Chronic lymphedema: both lower extremity to be wrapped in SLIM wraps. wound care consulted also. #Hyponatremia: sodium is 130. This is chronic. Will monitor #CAD s/p stents: on plavix, imdur and metoprolol. #Hyperlipidemia: on statin DVT prophylaxis: lovenox Disposition; still awaiting placement. Allergies/Procedures Done in Hospital Allergies benzonatate [From Tessalon Perles] Allergy (Verified 05/15/22 08:14) rash hives chlorpheniramine polistirex [From Tussionex] Adverse Reaction (Verified 05/15/22 08:14) Rash hydrocodone polistirex [From Tussionex] Adverse Reaction (Verified 05/15/22 08:14) Rash latex Adverse Reaction (Verified 05/15/22 08:14) Rash & Hives levofloxacin [From Levaquin] Adverse Reaction (Verified 05/15/22 08:14) Rash Procedures: None Type of Care/Length of Stay Estimated LOS: Convalescent Care Less Than 30 days Type of Care Needed: Skilled Rehab Potential: Good Prognosis: Good Additional Orders/Day of Discharge Day of Discharge: 02/22/23 Dietary and Speech Recommendations Dietitian Recommendations/Changes: Consistent carbohydrate; Cardiac diet ONS not indicated for now Discharge Plan Admission Admit Date/Time: 02/16/23 18:38 Primary Reason for Your Visit: COPD exacerbation Attending Provider: Bette Landers Primary Care Provider: Brooks Davis Consulting Providers: Jagdeep Andrade; Dave Nolan Instructions Patient Instructions: Breathing Controlled Dc Discharge Orders/Prescriptions Prescriptions: New prednisone 20 mg Tablet 40 mg PO BREAKFAST Qty: 4 0RF Continued atorvastatin 80 MG tablet 80 mg PO QHS Patient Comments: HYPERLIPIDEMIA clopidogrel 75 MG tablet 75 mg PO DAILY Patient Comments: ANTPLATELET albuterol sulfate 1 PUFF inhaler 1 - 2 puff inhalation Q4H PRN PRN (Reason: Dyspnea) Hold Instructions: Until restarted after discharge from skilled facility trazodone 150 MG tablet 150 mg PO QHS Patient Comments: depression metoprolol tartrate 25 mg Tablet 25 mg PO BID isosorbide mononitrate 60 MG tablet extended release 24 hr 60 mg PO DAILY Patient Comments: HEART/BLOOD PRESSURE ipratropium-albuterol 0.5 mg-3 mg(2.5 mg base)/3 mL Solution For Nebulization 3 ml inhalation Q4H.RT Qty: 180 0RF Stiolto Respimat 2.5-2.5 mcg/actuation mist 2 puff INHALATION Q24H Patient Comments: INHALE 2 PUUFS TWICE A DAY Referrals / Follow Up: Brooks Davis MD [Primary Care Provider] - Within 1 Week Disposition Disposition (needs filled in before D/C Order can be placed): [facility]
== END 2023-02-22 20:30 | disposition skilled nursing facility (03) | DRG 190 ==
LOC: ED 18:50 → MS3 19:04
PROVIDERS: Family Medicine; Emergency Provider Emergency Medicine; PCP Family Medicine; Visit Provider Student in an Organized Health Care Education/Training Program
DX: J44.1 Chronic obstructive pulmonary disease with (acute) exacerbation (principal); J96.21 Acute and chronic respiratory failure with hypoxia; J96.22 Acute and chronic respiratory failure with hypercapnia; I50.32 Chronic diastolic (congestive) heart failure; E87.1 Hypo-osmolality and hyponatremia; I27.20 Pulmonary hypertension, unspecified; I11.0 Hypertensive heart disease with heart failure; E78.5 Hyperlipidemia, unspecified; F17.210 Nicotine dependence, cigarettes, uncomplicated; I25.10 Atherosclerotic heart disease of native coronary artery without angina pectoris; I89.0 Lymphedema, not elsewhere classified; Z79.02 Long term (current) use of antithrombotics/antiplatelets; R53.81 Other malaise; Z95.5 Presence of coronary angioplasty implant and graft
CPT/HCPCS: 36415; 71046; 71275; 80048; 82962; 83605; 83880; 84484; 85025; 87428; 93005; 94640; 94668; 97110; 97112; 97162; 97166; 97530; 97535; 97802; 99285; 99406; Q9967; A4216; J1940